=== PATIENT | female | born 1965 | race African-American/Black ===

== ENCOUNTER 2016-08-24 11:06 | Emergency (ER) | payer MEDICARE ==
[~2016-08-24] VITALS: Ht 177.8 cm; Wt 74.0 kg
[~2016-08-24 11:06] MED LIST: BACT2OIN TOP; CALC0.25 PO; CIPR1SUS4 RIGHT EAR; NOVOLOGSS SQ
[2016-08-24 11:16] VITALS: PULSE 88; RESP 16; TEMP 98.8; O2SAT 100
[2016-08-24] MEDS ORDERED: GABA100C4 PO (11:49)
--- NOTE | 2016-08-24 11:51 | PD ---
HPI Chief Complaint: Numbness/Tingling Time Seen by Provider: 11:30 Travel History International Travel<30 days: No Contact w/Intl Traveler<30days: No Traveled to known affect area: No History of Present Illness HPI 50-year-old female complains of persistent pain swelling bilateral feet. Patient has history of diabetes and end-stage renal disease on dialysis. Patient has history of neuropathic pain bilateral feet for long time. Patient has been seen by physician and put on gabapentin. Patient has been taking gabapentin once daily. Patient states that she has increasing pain burning pain and swelling bilateral feet for the past few days. Patient denies any recent injury. Patient denies any fever chills. PFSH Past Medical History Hx Anticoagulant Therapy: Yes (HEPRIN WITH DIALYSIS) Arthritis: No Asthma: No Autoimmune Disease: No Blood Disorders: No Anxiety: Yes Depression: Yes Heart Rhythm Problems: Yes (HISTORY OF AFIB) Cancer: No Cardiovascular Problems: Yes (A-FIB) High Cholesterol: No Chemotherapy: No Chest Pain: No Congestive Heart Failure: Yes COPD: No Cerebrovascular Accident: Yes Diabetes: Yes Dialysis: Yes (THU/THU/THU) Diminished Hearing: No Deep Vein Thrombosis: Yes Endocrine: Yes Gastrointestinal Disorders: Yes (HX OF BOWEL OBSTRUCTION) GERD: Yes Glaucoma: No Genitourinary: Yes (ANURIC) Headaches: No Hepatitis: No Hiatal Hernia: Yes Hypertension: No Immune Disorder: No Implanted Vascular Access Dvce: Yes Kidney Stones: No Musculoskeletal: No Neurologic: No Psychiatric: Yes (CLAUSTROPHOBIC) Reproductive: No Respiratory: Yes ("LEFT LUNG SCARRING FROM PNEUMONIA X2") Immunizations Current: Yes Migraines: No Myocardial Infarction: No Pneumonia: Yes (WALKING) Radiation Therapy: No Renal Failure: Yes Seizures: No Sickle Cell Disease: No Sleep Apnea: No Thyroid Disease: Yes (PARATHYROIDISM, OVERACTIVE THYROID--THYROID HAS BEEN REMOVED--IN L ARM) Ulcer: No PNEUMOCCOCAL Vaccine (Year): 1 Menopausal: Yes : 2 Para: 0 Miscarriage: 2 Ectopic : Yes Dilation and Curettage (D&C): Yes Tubal Ligation: Yes (RIGHT TUBE REMOVED) Past Surgical History Abdominal Surgery: Yes (SMALL BOWEL RESECTION R/T OBSTRUCTION IN INFANCY ) AICD: No Appendectomy: Yes Arteriovenous Shunt: Yes (LEFT UPPER ARM ) Body Medical Devices: 19 SCREWS IN FACE,AV GRAFT L ARM Cardiac Surgery: Yes Section: Yes Cholecystectomy: No Endocrine Surgery: Yes (PARATHYROID/THYROID REMOVED AND PARTIALLY REPLACED IN L ARM) Eye Surgery: No Genitourinary Surgery: Yes (KIDNEY TRANSPLANT 1996) Hysterectomy: No Insulin Pump: No Joint Replacement: No Neurologic Surgery: No Oral Surgery: Yes ("left sided facial reconstruction,plastic and screws"" 1995) Pacemaker: No Other Surgery: Yes (av fistula left arm) Social History Alcohol Use: No Tobacco Use: Yes (08/12) Substance Use: No Allergies-Medications (Allergen,Severity, Reaction): Coded Allergies: Coconut (Verified Allergy, Severe, HIVES, 08/24/16) Contrast Media (Verified Allergy, Severe, RENAL FAILURE, 08/24/16) Insulins (Verified Allergy, Severe, FREEZING, CRAMPING, 08/24/16) STATES REGULAR INSULIN ONLY Morphine (Verified Allergy, Severe, HIVES, 08/24/16) Clindamycin (Verified Allergy, Intermediate, HIVES, 08/24/16) ALL OVER Erythromycins (Unverified Allergy, Intermediate, HIVES, 08/24/16) Penicillin (Verified Allergy, Intermediate, Hives, 08/24/16) ALL OVER Codeine (Verified Adverse Reaction, Severe, HALLUCINATIONS, 08/24/16) Vancomycin (Verified Adverse Reaction, Mild, NAUSEA/VOMITING, 08/24/16) Uncoded Allergies: REGULAR INSULIN (Adverse Reaction, Intermediate, CRAMPING , FREEZING , 06/11/13) Reported Meds & Prescriptions Reported Meds & Active Scripts Active Otiprio (Ciprofloxacin (Otic)) 6 % [place] 4 Drop RIGHT EAR Q12HR 5 Days Bactroban 2% Oint (22 gm) (Mupirocin) 22 Gm Oint 1 Applic TOP TID 7 Days APPLY TO AFFECTED AREAS Reported Calcitriol 0.25 Mcg Cap 0.25 Mcg PO DAILY Novolog Insulin Supplemental Scale (Insulin Aspart) 100 /Ml Inj 5-7 Units SQ TIDACHS Max dose at bedtime:( )units; sugars less than 70, (0)units; sugars 150-199, (2)units; sugars 200-249, (4)units; sugars 250-299,(7)units; sugars 300-349, (10)units; sugars greater than 349, (12)units Review of Systems General / Constitutional: No: Fever Eyes: No: Visual changes HENT: No: Headaches Cardiovascular: No: Chest Pain or Discomfort Respiratory: No: Shortness of Breath Gastrointestinal: No: Abdominal Pain Genitourinary: No: Dysuria Musculoskeletal: Positive: Pain Skin: No Rash Neurologic: No: Weakness Psychiatric: No: Depression Endocrine: No: Polydipsia Hematologic/Lymphatic: No: Easy Bruising Physical Exam Narrative GENERAL: Well-nourished, well-developed patient. SKIN: Warm and dry. HEAD: Normocephalic. EYES: No scleral icterus. No injection or drainage. NECK: Supple, trachea midline. No JVD or lymphadenopathy. CARDIOVASCULAR: Regular rate and rhythm without murmurs, gallops, or rubs. RESPIRATORY: Breath sounds equal bilaterally. No accessory muscle use. GASTROINTESTINAL: Abdomen soft, non-tender, nondistended. MUSCULOSKELETAL: No cyanosis, or edema. BACK: Nontender without obvious deformity. No CVA tenderness. Examination of bilateral feet shows mild subcutaneous swelling diffusely. No redness no heat noted. Sensorimotor function distally intact. Good DP pulses and posterior tibial pulses. Data Data Last Documented VS Vital Signs Date Time Temp Pulse Resp B/P Pulse Ox O2 Delivery O2 Flow Rate FiO2 08/24/16 11:16 98.8 88 16 100 MDM Medical Decision Making Medical Screen Exam Complete: Yes Emergency Medical Condition: Yes Differential Diagnosis Differential diagnosis including neuralgia, neuropathy, cellulitis, abscess, osteomyelitis. Narrative Course 50-year-old female with increasing pain and bilateral feet. History of diabetes. History of end-stage renal disease on dialysis. Patient's on gabapentin for the pain. No evidence of acute process going on on her feet. Diagnosis Primary Impression: Neuralgia Patient Instructions: General Instructions Additional Instructions: Continue with gabapentin. Keep feet elevated. Follow-up with personal physician and neurologist. Return if worse. Med/Other Pt SpecificInfo: No Change to Meds Disposition: 01 DISCHARGE HOME Condition: Stable Ivan Lim MD Aug 24, 2016 11:51
[2017-01-02] MEDS ORDERED: TUMS500C CHEW (11:02)
[2017-01-06] MEDS ORDERED: LEVEMIR SQ (06:25)
[2017-01-06] MEDS ORDERED: CALC0.25 PO (06:25)
[2017-01-06] MEDS ORDERED: CALC1CAP PO (06:43)
[2017-01-06] MEDS ORDERED: HUMA100I3 SQ (06:43)
[2017-01-06] MEDS ORDERED: AMIT10TA6 PO (06:43)
[2017-01-06] MEDS ORDERED: CALC500C16 CHEW (06:44)
== END 2016-08-24 12:23 | disposition home or self-care (01) ==
LOC: PHED 11:06
DX: M79.2 Neuralgia and neuritis, unspecified (principal); I48.91 Unspecified atrial fibrillation; E11.22 Type 2 diabetes mellitus with diabetic chronic kidney disease; N18.6 End stage renal disease; Z99.2 Dependence on renal dialysis; Z79.4 Long term (current) use of insulin; Z86.73 Personal history of transient ischemic attack (TIA), and cerebral infarction without residual deficits; Z86.718 Personal history of other venous thrombosis and embolism
CPT/HCPCS: 99283

== ENCOUNTER → 2017-01-06 | Day surgery (SDC) | payer MEDICARE ==
[~2017-01-06] VITALS: Ht 177.8 cm; Wt 72.8 kg
[~2017-01-06] MED LIST changes: +ACETAMINOPHEN/HYDROcodone 325 MG/5 MG TAB PO PRN; +AMIT10TA6 PO; -BACT2OIN TOP; +BUPIVACAINE/EPINEPHRINE 0.25% PF 10 ML VIAL ONE; +BUPIVACAINE/EPINEPHRINE 0.5% PF 30 ML VIAL ONE; +CALC1CAP PO; +CALC500C16 CHEW; +CHLORHEXIDINE GLUCONATE 2 % 1 PACK (2 CLOTHS) TOPICAL PRN; -CIPR1SUS4 RIGHT EAR; +DO NOT ADM ANY ANTICOAGULANT DRUGS PRN; +FAMOTIDINE 20 MG/2 ML VIAL ONE; +GABA100C4 PO; +HEPARIN SODIUM - SQ 10,000 UNITS/ML VIAL ONE; +HUMA100I3 SQ; +Hemodialysis Vas Acc Cath PRN Heparin 1000 unit/ml Flush IV FLUSH; +Hemodialysis Vas Access Cath PRN NS Lock Flush IV FLUSH; +INSULIN HUMAN REGULAR 1,000 UNITS/10 ML VIAL SQ PRN; +KETAMINE HCL 500 MG/5 ML VIAL ONE; +LACTATED RINGER'S 1000 ML IV PRN; +LEVEMIR SQ; +METOPROLOL TARTRATE 25 MG TAB PO PRN; +MIDAZOLAM HCL 2 MG/2 ML VIAL ONE; +ONDANSETRON HCL 4 MG/2 ML VIAL IV PUSH PRN; +PHENYLEPH/NS 1000 MCG/10 ML SYR IV ONE; +PHENYLEPHRINE HCL 10 MG/ML VIAL IV ONE; +PROPOFOL 200 MG/20 ML AMP IV ONE; +SODIUM CHLOR 0.9% 250 ML INJ 250 ML IV ONE; +SODIUM CHLORID 0.9% 500 ML INJ 500 ML IV ONE; +SODIUM CHLORID 0.9% 500 ML IV PRN; +TUMS500C CHEW; +ceFAZolin 1,000 MG/NS 100 ML IV SCH; +ePHEDrine/NS 25 MG/5 ML SYR IV ONE
[2017-01-06 06:54] LABS: AUTOMATED NEUTROPHIL # 9.8 TH/MM3 (1.8-7.7); BASOPHIL # 0.1 TH/MM3 (0-0.2); EOSINOPHIL # 0.1 TH/MM3 (0-0.4); HEMATOCRIT 41.4 % (35.0-46.0); HEMO FLAGS DIFF FINAL; LYMPH % 13.7 % (9.0-44.0); LYMPHOCYTE # 1.8 TH/MM3 (1.0-4.8); MEAN CELL VOLUME 88.1 FL (80.0-100.0); MEAN CORPUSCULAR HEMOGLOBIN 28.7 PG (27.0-34.0); MEAN CORPUSCULAR HGB CONC 32.6 % (32.0-36.0); NEUT % 76.3 % (16.0-70.0); PLATELET COUNT 250 TH/MM3 (150-450); RED CELL DISTRIBUTION WIDTH 13.8 % (11.6-17.2); WHITE BLOOD COUNT 12.9 TH/MM3 (4.0-11.0)
[2017-01-06 07:19] LABS: BICARBONATE 20.9 MEQ/L (21.0-32.0); POTASSIUM 4.1 MEQ/L (3.5-5.1)
--- NOTE | 2017-01-06 08:09 | EKG ---
Date Performed: 01/06/2017 Time Performed: 07:30:42 PTAGE: 51 years EKG: Sinus rhythm SEPTAL MYOCARDIAL INFARCTION , OF INDETERMINATE AGE ABNORMAL ECG PREVIOUS TRACING : 09/19/2015 00.21 No significant change from previous tracing noted. DOCTOR: Carrington Roach Interpretating Date/Time 01/06/2017 08:07:27
[2017-01-06 10:52] VITALS: PULSE 82; RESP 18; TEMP 97.5; O2SAT 95
[2017-01-06 11:10] VITALS: BP 117/46
--- NOTE | 2017-01-07 08:06 | MP ---
cc: TONYA DINERO DATE OF SURGERY: 01/06/2017 PREOPERATIVE DIAGNOSIS Chronic kidney disease with need for permanent hemodialysis access. POSTOPERATIVE DIAGNOSIS Chronic kidney disease with need for permanent hemodialysis access. OPERATIVE PROCEDURE Right brachial basilic AV fistula creation. SURGEON Tonya Dinero MD MUSICAL ENGINEER MAXWELL Alba ANESTHESIA Local MAC. DESCRIPTION OF THE OPERATIVE PROCEDURE With the patient in the supine position and under IV sedation the right arm was prepped with Betadine and draped in a sterile fashion. No prophylactic antibiotic was indicated. Following a protocol time-out, the skin and subcutaneous tissue along the proposed incisional area was infiltrated with 0.5% Marcaine with epinephrine. A curvilinear incision was performed along the medial supra antecubital region through which the brachial artery and basilic vein were circumferentially mobilized. The vein was ligated distally with 4-0 Silk, transected proximal to the ligature, spatulated on end, flushed with heparinized saline and occluded with a Yasargil clip. The brachial artery was occluded proximally and distally with the Yasargil clip. A 4-mm arteriotomy was performed along the anteromedial surface. The artery was flushed proximally and distally with heparinized saline. An end-to-side anastomosis was accomplished between the vein and arteriotomy with continuous 7-0 Prolene. The occluding Yasargil clips were removed reestablishing pulsatile flow within the brachial artery as well as into the basilic vein. Strict hemostasis was assured along with normal perfusion within the right hand. The incision was closed with interrupted subcuticular 4-0 Monocryl, continuous subcuticular 5-0 Monocryl. Steri-Strips and sterile dressing was applied. No operative complications. Instrument, needle, sponge count were correct x2. The patient returned to the recovery room in stable condition having tolerated the procedure well. Tonya Dinero MD JTS/JUJUL /7:49 AM /7:58 AM
== END | disposition home or self-care (01) ==
LOC: HSDC 06:00
PROVIDERS: ATTEND Surgery Vascular Surgery
DX: Z49.01 Encounter for fitting and adjustment of extracorporeal dialysis catheter (principal); N18.6 End stage renal disease; R94.31 Abnormal electrocardiogram [ECG] [EKG]
CPT/HCPCS: 01844; 36821; 80048; 84155; 85025; 93005; J1644; J2250; J3010; J7040; J2370; J7050

== ENCOUNTER 2017-07-17 13:12 | Emergency (ER) | payer MEDICARE ==
[~2017-07-17] VITALS: Ht 177.8 cm; Wt 77.5 kg
[~2017-07-17 13:12] MED LIST changes: -ACETAMINOPHEN/HYDROcodone 325 MG/5 MG TAB PO PRN; -BUPIVACAINE/EPINEPHRINE 0.25% PF 10 ML VIAL ONE; -BUPIVACAINE/EPINEPHRINE 0.5% PF 30 ML VIAL ONE; -CHLORHEXIDINE GLUCONATE 2 % 1 PACK (2 CLOTHS) TOPICAL PRN; -DO NOT ADM ANY ANTICOAGULANT DRUGS PRN; -FAMOTIDINE 20 MG/2 ML VIAL ONE; -GABA100C4 PO; -HEPARIN SODIUM - SQ 10,000 UNITS/ML VIAL ONE; -Hemodialysis Vas Acc Cath PRN Heparin 1000 unit/ml Flush IV FLUSH; -Hemodialysis Vas Access Cath PRN NS Lock Flush IV FLUSH; -INSULIN HUMAN REGULAR 1,000 UNITS/10 ML VIAL SQ PRN; -KETAMINE HCL 500 MG/5 ML VIAL ONE; -LACTATED RINGER'S 1000 ML IV PRN; -LEVEMIR SQ; -METOPROLOL TARTRATE 25 MG TAB PO PRN; -MIDAZOLAM HCL 2 MG/2 ML VIAL ONE; -NOVOLOGSS SQ; -ONDANSETRON HCL 4 MG/2 ML VIAL IV PUSH PRN; -PHENYLEPH/NS 1000 MCG/10 ML SYR IV ONE; -PHENYLEPHRINE HCL 10 MG/ML VIAL IV ONE; -PROPOFOL 200 MG/20 ML AMP IV ONE; -SODIUM CHLOR 0.9% 250 ML INJ 250 ML IV ONE; -SODIUM CHLORID 0.9% 500 ML INJ 500 ML IV ONE; -SODIUM CHLORID 0.9% 500 ML IV PRN; -TUMS500C CHEW; -ceFAZolin 1,000 MG/NS 100 ML IV SCH; -ePHEDrine/NS 25 MG/5 ML SYR IV ONE
[2017-07-17 13:13] VITALS: BP 140/72; PULSE 109; RESP 20; TEMP 99; O2SAT 96
--- NOTE | 2017-07-17 13:55 | PD ---
HPI Chief Complaint: Musculoskeletal Complaint Time Seen by Provider: 13:21 Travel History International Travel<30 days: No Contact w/Intl Traveler<30days: No Traveled to known affect area: No History of Present Illness HPI Patient is a 51-year-old female with history of end-stage renal disease on hemodialysis, presents to the emergency room with complaints of right digit #2 toe pain. Patient reports that she has been on antibiotics for the past 3 weeks for this toe infection, reports that she was initially taking azithromycin for 2 weeks and then was started on cipro for week 3. Reports that she completed full course of antibiotics for this right digit #2 toe infection. She did see Dr. Mcgregor, a foot and ankle specialist and had her toe nail removed 2 weeks ago due to this infection. Reports that she followed up with him 2 days ago and he told that she would need surgery on her toe. Patient reports increased pain and drainage from her right foot digit #2. Patient is concerned for underlying infection. Patient reports that she currently is not on antibiotics, reports that she completed full course of antibiotics this past Thursday. Patient with no fever or chills, no other complaints. Patient does see Dr. Dinero with vascular surgery [facility] Past Medical History Hx Anticoagulant Therapy: Yes (HEPRIN WITH DIALYSIS) Arthritis: No Asthma: No Autoimmune Disease: No Blood Disorders: No Anxiety: Yes Depression: Yes Heart Rhythm Problems: Yes (HISTORY OF AFIB) Cancer: No Cardiovascular Problems: Yes (INTERMITTENT A-FIB) High Cholesterol: No Chemotherapy: No Chest Pain: No Congestive Heart Failure: Yes COPD: No Cerebrovascular Accident: Yes Diabetes: Yes Patient Takes Glucophage: No Dialysis: Yes (THU/THU/THU) Diminished Hearing: No Deep Vein Thrombosis: Yes Endocrine: Yes Gastrointestinal Disorders: Yes (HX OF 5 BOWEL OBSTRUCTIONS) GERD: Yes Glaucoma: No Genitourinary: Yes (ANURIC) Headaches: No Hepatitis: No Hiatal Hernia: Yes Heparin Induced Thrombocytopen: No Hypertension: No Immune Disorder: No Implanted Vascular Access Dvce: Yes Kidney Stones: No Musculoskeletal: No Neurologic: No Psychiatric: Yes (CLAUSTROPHOBIC) Reproductive: No Respiratory: Yes ("LEFT LUNG SCARRING FROM PNEUMONIA X2") Immunizations Current: Yes Migraines: No Myocardial Infarction: No Pneumonia: Yes Radiation Therapy: No Renal Failure: Yes Seizures: No Sickle Cell Disease: No Sleep Apnea: No Thyroid Disease: Yes (PARATHYROIDISM, OVERACTIVE THYROID--THYROID HAS BEEN REMOVED--IN L ARM) Ulcer: No PNEUMOCCOCAL Vaccine (Year): 1 ?: Not Menopausal: Yes : 2 Para: 0 Miscarriage: 2 Ectopic : Yes Dilation and Curettage (D&C): Yes Tubal Ligation: Yes (RIGHT TUBE REMOVED) Past Surgical History Abdominal Surgery: Yes (SMALL BOWEL RESECTION R/T OBSTRUCTION IN INFANCY , 2ND BOWEL SURGERY) AICD: No Appendectomy: Yes Arteriovenous Shunt: Yes (LEFT UPPER ARM ) Body Medical Devices: 19 SCREWS IN FACE,AV GRAFT L ARM, DIALYSIS CATHETER RIGHT NECK Cardiac Surgery: No Section: Yes Cholecystectomy: No Ear Surgery: No Endocrine Surgery: Yes (PARATHYROID/THYROID REMOVED AND PARTIALLY REPLACED IN L ARM) Eye Surgery: No Genitourinary Surgery: Yes (KIDNEY TRANSPLANT 1996) Gynecologic Surgery: Yes (TL, ABLATION) Hysterectomy: No Insulin Pump: No Joint Replacement: No Neurologic Surgery: No Oral Surgery: Yes ("left sided facial reconstruction,plastic and screws"" 1995) Pacemaker: No Other Surgery: Yes (av fistula left arm) Social History Alcohol Use: No Tobacco Use: No Substance Use: No Allergies-Medications (Allergen,Severity, Reaction): Coded Allergies: coconut (Unverified Allergy, Severe, HIVES, 07/17/17) diatrizoate meglumine (Unverified Allergy, Severe, RENAL FAILURE, 07/17/17) gadobenic acid (Unverified Allergy, Severe, RENAL FAILURE, 07/17/17) gadodiamide (Unverified Allergy, Severe, RENAL FAILURE, 07/17/17) gadoteridol (Unverified Allergy, Severe, RENAL FAILURE, 07/17/17) iodixanol (Unverified Allergy, Severe, RENAL FAILURE, 07/17/17) iohexol (Unverified Allergy, Severe, RENAL FAILURE, 07/17/17) morphine (Unverified Allergy, Severe, HIVES, 07/17/17) azithromycin (Unverified Allergy, Intermediate, HIVES, 07/17/17) clindamycin (Unverified Allergy, Intermediate, HIVES, 07/17/17) ALL OVER erythromycin base (Unverified Allergy, Intermediate, HIVES, 07/17/17) penicillin G (Unverified Allergy, Intermediate, Hives, 07/17/17) ALL OVER midodrine (Unverified Allergy, Unknown, Atrial Fibrillation, 07/17/17) codeine (Unverified Adverse Reaction, Severe, HALLUCINATIONS, 07/17/17) insulin aspart (Unverified Adverse Reaction, Severe, REGULAR INSULIN ONLY- CAUSES CRAMPIN G AND "FREEZING", 07/17/17) insulin aspart protamine human (Unverified Adverse Reaction, Severe, REGULAR INSULIN ONLY-CAUSES CRAMPIN G AND "FREEZING", 07/17/17) insulin detemir (Unverified Adverse Reaction, Severe, REGULAR INSULIN ONLY -CAUSES CRAMPIN G AND "FREEZING", 07/17/17) insulin glargine (Unverified Adverse Reaction, Severe, REGULAR INSULIN ONLY-CAUSES CRAMPIN G AND "FREEZING", 07/17/17) insulin isophane (NPH) (Unverified Adverse Reaction, Severe, REGULAR INSULIN ONLY-CAUSES CRAMPIN G AND "FREEZING", 07/17/17) insulin lispro (Unverified Adverse Reaction, Severe, REGULAR INSULIN ONLY- CAUSES CRAMPIN G AND "FREEZING", 07/17/17) insulin regular (Unverified Adverse Reaction, Severe, REGULAR INSULIN ONLY -CAUSES CRAMPIN G AND "FREEZING", 07/17/17) vancomycin (Unverified Adverse Reaction, Mild, NAUSEA/VOMITING WHEN INFUSED TOO FAST, 07/17/17) Reported Meds & Prescriptions Reported Meds & Active Scripts Active Bactrim DS (Sulfamethoxazole-Trimethoprim) 800-160 Mg Tab 1 Tab PO BID 10 Days Reported Calcium Carbonate (Antacid) 500 Mg Chew 500 Mg CHEW PRN Amitriptyline (Amitriptyline HCl) 10 Mg Tab 10 Mg PO HS Calcium Acetate (Phosphate Binder) 667 Mg Cap 667 Mg PO TID Humalog Kwikpen Pen Inj (Insulin Lispro (Human) Inj) 300 Unit/3 Ml Pen 8-12 Units SQ [id number] SLIDE SCALE Calcitriol 0.25 Mcg Cap 0.25 Mcg PO EVERY OTHER DAY Review of Systems General / Constitutional: No: Fever Eyes: No: Visual changes HENT: No: Headaches Cardiovascular: No: Chest Pain or Discomfort Respiratory: No: Shortness of Breath Gastrointestinal: No: Abdominal Pain Genitourinary: No: Dysuria Musculoskeletal: Positive: Pain (and drainage to right foot digit #2) Skin: No Rash Neurologic: No: Weakness Psychiatric: No: Depression Endocrine: No: Polydipsia Hematologic/Lymphatic: No: Easy Bruising Physical Exam Narrative GENERAL: moderate distress SKIN: Focused skin assessment warm/dry. HEAD: Atraumatic. Normocephalic. EYES: Pupils equal and round. No scleral icterus. No injection or drainage. ENT: No nasal bleeding or discharge. Mucous membranes pink and moist. NECK: Trachea midline. No JVD. CARDIOVASCULAR: Regular rate and rhythm. No murmur appreciated. RESPIRATORY: No accessory muscle use. Clear to auscultation. Breath sounds equal bilaterally. GASTROINTESTINAL: Abdomen soft, non-tender, nondistended. Hepatic and splenic margins not palpable. MUSCULOSKELETAL: No obvious deformities. No clubbing. No cyanosis. Patient with yellow pus draining under scab from right foot digit #2, pulses intact neurovascularly intact, no redness or erythema to foot. LLE: normal exam NEUROLOGICAL: Awake and alert. No obvious cranial nerve deficits. Motor grossly within normal limits. Normal speech. PSYCHIATRIC: Appropriate mood and affect; insight and judgment normal. Data Data Last Documented VS Vital Signs Date Time Temp Pulse Resp B/P (MAP) Pulse Ox O2 Delivery O2 Flow Rate FiO2 07/17/17 13:28 18 07/17/17 13:13 99.0 109 140/72 (94) 96 Room Air Orders Orders Basic Metabolic Panel (Bmp) (07/17/17 13:38) Complete Blood Count With Diff (07/17/17 13:38) Prothrombin Time / Inr (Pt) (07/17/17 13:38) Act Partial Throm Time (Ptt) (07/17/17 13:38) Iv Access Insert/Monitor (07/17/17 13:38) Foot, Complete ([id number]) (07/17/17 ) Vancomycin Inj (Vancomycin Inj) (07/17/17 14:00) Labs Laboratory Tests Test 07/17/17 13:48 White Blood Count 11.8 TH/MM3 Red Blood Count 4.43 MIL/MM3 Hemoglobin 13.1 GM/DL Hematocrit 39.4 % Mean Corpuscular Volume 89.0 FL Mean Corpuscular Hemoglobin 29.5 PG Mean Corpuscular Hemoglobin Concent 33.1 % Red Cell Distribution Width 15.0 % Platelet Count 283 TH/MM3 Mean Platelet Volume 8.4 FL Neutrophils (%) (Auto) 67.3 % Lymphocytes (%) (Auto) 20.1 % Monocytes (%) (Auto) 8.8 % Eosinophils (%) (Auto) 3.2 % Basophils (%) (Auto) 0.6 % Neutrophils # (Auto) 7.9 TH/MM3 Lymphocytes # (Auto) 2.4 TH/MM3 Monocytes # (Auto) 1.0 TH/MM3 Eosinophils # (Auto) 0.4 TH/MM3 Basophils # (Auto) 0.1 TH/MM3 CBC Comment DIFF FINAL Differential Comment Prothrombin Time 10.0 SEC Prothromb Time International Ratio 1.0 RATIO Activated Partial Thromboplast Time 26.6 SEC Blood Urea Nitrogen 39 MG/DL Creatinine 8.34 MG/DL Random Glucose 157 MG/DL Calcium Level 8.5 MG/DL Sodium Level 138 MEQ/L Potassium Level 5.3 MEQ/L Chloride Level 100 MEQ/L Carbon Dioxide Level 30.0 MEQ/L Anion Gap 8 MEQ/L Estimat Glomerular Filtration Rate 6 ML/MIN MDM Medical Decision Making Medical Screen Exam Complete: Yes Emergency Medical Condition: Yes Medical Record Reviewed: Yes Interpretation(s) Vital Signs Date Time Temp Pulse Resp B/P (MAP) Pulse Ox O2 Delivery O2 Flow Rate FiO2 07/17/17 13:28 18 07/17/17 13:13 99.0 109 20 140/72 (94) 96 Room Air Differential Diagnosis Abscess, osteomyelitis, cellulitis Narrative Course During the course of the patients emergency department visit, the patients history, examination, and differential diagnosis were reviewed with the patient. The patient was placed on a desk monitor with oximetry and frequent blood pressure monitoring. The patient had an IV access obtained and blood work sent for analysis. The patient was initially provided with IV vancomycin The patients laboratory studies were reviewed and remarkable for: CBC & BMP Diagram 07/17/17 13:48 Calcium Level 8.5 Radiology studies were reviewed and remarkable for: Last Impressions Foot X-Ray 07/17/17 0000 Signed Impressions: Service Date/Time: Monday, July 17, 2017 14:13 - CONCLUSION: 1. No acute right foot abnormality is identified. 2. Small vessel arterial vascular calcification in a pattern seen in diabetic patients. Maikol Veliz MD case reviewed with Dr. Yan who is scout professional sports for Dr. Mcgregor - thinks that issues are all vascular in nature and request call to Dr. Dinero Patient with appropriate pulses to right foot, all toes are normal color with good perfusion. There is appropriate capillary refill. Patient with no signs of arterial insufficiency. Patient with no signs of osteomyelitis. Patient does have drainage from her right foot digit #2 scab site. Discussed need to treat with antibiotics, she will follow-up with Dr. Dinero in the office and will return to the ER as needed. Signs and symptoms of when to return to the ER was reviewed with patient in detail. Patient reports no allergies to Percocet, she has tolerated this in the past and has had no adverse reaction to it Diagnosis Primary Impression: Toe infection Patient Instructions: General Instructions, Narcotic given in the ED Additional Instructions: Please provide patient with a copy of their lab work and studies at discharge* * Please follow up with your primary care doctor in 2-3 days Return to the ER if symptoms worsen or progress Return to the ER as needed Please follow-up with Dr. Dinero in the office as soon as possible Please take all antibiotics as prescribed Please do not drive or operate heavy machinery while taking narcotic pain medications Med/Other Pt SpecificInfo: Prescription(s) given, Wound Care Scripts Oxycodone-Acetaminophen (Percocet) 5-325 mg Tab 1 TAB PO Q6H Y for PAIN, #10 TAB 0 Refills Prov: Linda Hilario DO 07/17/17 Sulfamethoxazole-Trimethoprim (Bactrim DS) 800-160 Mg Tab 1 TAB PO BID for Infection for 10 Days, #20 TAB 0 Refills Prov: Linda Hilario DO 07/17/17 Disposition: 01 DISCHARGE HOME Condition: Stable Linda Hilario DO Jul 17, 2017 13:55
[2017-07-17] MEDS ORDERED: VANCOMYCIN INJ 1,150 MG in SODIUM CHLOR 0.9% 250 ML INJ 250 ML IV ONE (14:00)
[2017-07-17 14:02] LABS: AUTOMATED NEUTROPHIL # 7.9 TH/MM3 (1.8-7.7); BASOPHIL # 0.1 TH/MM3 (0-0.2); BASOPHIL % 0.6 % (0.0-2.0); EOSINOPHIL # 0.4 TH/MM3 (0-0.4); EOSINOPHIL % 3.2 % (0.0-4.0); HEMATOCRIT 39.4 % (35.0-46.0); HEMO FLAGS DIFF FINAL; LYMPH % 20.1 % (9.0-44.0); LYMPHOCYTE # 2.4 TH/MM3 (1.0-4.8); MEAN CORPUSCULAR HEMOGLOBIN 29.5 PG (27.0-34.0); MEAN CORPUSCULAR HGB CONC 33.1 % (32.0-36.0); MONO % 8.8 % (0.0-8.0); NEUT % 67.3 % (16.0-70.0); PLATELET COUNT 283 TH/MM3 (150-450); RED BLOOD COUNT 4.43 MIL/MM3 (4.00-5.30); WHITE BLOOD COUNT 11.8 TH/MM3 (4.0-11.0)
[2017-07-17 14:08] LABS: APTT (PATIENT) 26.6 SEC (24.3-30.1)
[2017-07-17 14:16] LABS: POTASSIUM 5.3 MEQ/L (3.5-5.1)
--- NOTE | 2017-07-17 15:08 | RADRPT ---
EXAM DATE/TIME: 07/17/2017 14:13 [facility] COMPARISON: No previous studies available for comparison. INDICATIONS : Right foot pain and swelling. MEDICAL HISTORY : Diabetes mellitus type II. SURGICAL HISTORY : None. ENCOUNTER: Initial ACUITY: 1 month PAIN SCORE: 8/10 LOCATION: Right 2nd toe and top of foot. FINDINGS: Three views of the right foot demonstrate no fracture or dislocation. The Lisfranc joint appears inta ct. Mineralization is within normal limits and there is no significant arthropathy. No soft tissue ab normality or radiopaque foreign body is identified. There is small vessel arterial vascular calcifica tion. CONCLUSION: 1. No acute right foot abnormality is identified. 2. Small vessel arterial vascular calcification in a pattern seen in diabetic patients. Maikol Veliz MD on July 17, 2017 at 15:05 Board Certified Radiologist. This report was verified electronically.
[2017-07-17] MEDS ORDERED: BACT800T5 PO (15:55)
[2017-07-17] MEDS ORDERED: PERC5TAB12 PO (16:01)
== END 2017-07-17 17:10 | disposition home or self-care (01) ==
LOC: NEPD 13:12
DX: L08.9 Local infection of the skin and subcutaneous tissue, unspecified (principal); E11.22 Type 2 diabetes mellitus with diabetic chronic kidney disease; N18.6 End stage renal disease; F41.9 Anxiety disorder, unspecified; I48.91 Unspecified atrial fibrillation; I50.9 Heart failure, unspecified; K21.9 Gastro-esophageal reflux disease without esophagitis; Z86.73 Personal history of transient ischemic attack (TIA), and cerebral infarction without residual deficits; Z99.2 Dependence on renal dialysis
CPT/HCPCS: 73630; 80048; 85025; 85610; 85730; 96365; 96366; 99285; J3370; J7050

== ENCOUNTER 2017-07-28 02:02 | Emergency (ER) | payer MEDICARE ==
[~2017-07-28] VITALS: Ht 177.8 cm; Wt 74.1 kg
[~2017-07-28 02:02] MED LIST changes: +BACT800T5 PO; +PERC5TAB12 PO
[2017-07-28 02:10] VITALS: BP 153/67; PULSE 88; RESP 22; TEMP 97.7; O2SAT 100
[2017-07-28] MEDS ORDERED: NOVOINJ3 SQ (02:21)
[2017-07-28] MEDS ORDERED: TRAM50TA PO (02:21)
[2017-07-28] MEDS ORDERED: GABA300C5 PO (02:22)
[2017-07-28] MEDS ORDERED: GABAPENTIN 300 MG CAP PO ONE (02:45)
[2017-07-28] MEDS ORDERED: oxyCODONE/ACETAMINOPHEN 5 MG/325 MG TAB PO ONE (02:45)
[2017-07-28] MEDS ORDERED: ONDANSETRON HCL 4 MG/2 ML VIAL IV PUSH ONE (02:45)
[2017-07-28 02:52] LABS: AUTOMATED NEUTROPHIL # 10.9 TH/MM3 (1.8-7.7); BASOPHIL # 0.1 TH/MM3 (0-0.2); BASOPHIL % 0.9 % (0.0-2.0); EOSINOPHIL # 0.2 TH/MM3 (0-0.4); EOSINOPHIL % 1.4 % (0.0-4.0); HEMATOCRIT 36.1 % (35.0-46.0); HEMOGLOBIN 11.6 GM/DL (11.6-15.3); LYMPH % 8.6 % (9.0-44.0); LYMPHOCYTE # 1.1 TH/MM3 (1.0-4.8); MEAN CORPUSCULAR HGB CONC 32.2 % (32.0-36.0); MEAN PLATELET VOLUME 7.5 FL (7.0-11.0); MONO % 6.6 % (0.0-8.0); MONOCYTE # 0.9 TH/MM3 (0-0.9); NEUT % 82.5 % (16.0-70.0); PLATELET COUNT 366 TH/MM3 (150-450); RED BLOOD COUNT 4.16 MIL/MM3 (4.00-5.30); RED CELL DISTRIBUTION WIDTH 13.9 % (11.6-17.2); WHITE BLOOD COUNT 13.2 TH/MM3 (4.0-11.0)
--- NOTE | 2017-07-28 03:03 | PD ---
HPI Chief Complaint: Edema Time Seen by Provider: 02:30 Travel History International Travel<30 days: No Contact w/Intl Traveler<30days: No Traveled to known affect area: No History of Present Illness HPI 51-YEAR-OLD FEMALE COMPLAINS OF RIGHT SECOND TOE PAIN. iT HAS BEEN PAINFUL FOR A FEW WEEKS NOW. bACTRIM HAS NOT BEEN HELPFUL. sHE IS FOLLOWED WITH 2 DIFFERENT PODIATRISTS and has an appointment in about 10 hours with the second. She has a history of abscess underneath the toenail and is status post excision of toenail and reports no real improvement despite compliance with Bactrim. Pain is constant and has a stabbing quality and migrated superiorly. The pain is worse with palpation and ambulation. No fever. Patient has history of end-stage renal disease and follows with dialysis as scheduled Thursday. PFSH Past Medical History Hx Anticoagulant Therapy: Yes (HEPRIN WITH DIALYSIS) Arthritis: No Asthma: No Autoimmune Disease: No Blood Disorders: No Anxiety: Yes Depression: Yes Heart Rhythm Problems: Yes (HISTORY OF AFIB) Cancer: No Cardiovascular Problems: Yes (INTERMITTENT A-FIB) High Cholesterol: No Chemotherapy: No Chest Pain: No Congestive Heart Failure: Yes COPD: No Cerebrovascular Accident: Yes Diabetes: Yes Patient Takes Glucophage: No Dialysis: Yes (THU/THU/THU) Diminished Hearing: No Deep Vein Thrombosis: Yes Endocrine: Yes Gastrointestinal Disorders: Yes (HX OF 5 BOWEL OBSTRUCTIONS) GERD: Yes Glaucoma: No Genitourinary: Yes (ANURIC) Headaches: No Hepatitis: No Hiatal Hernia: Yes Heparin Induced Thrombocytopen: No Hypertension: No Immune Disorder: No Implanted Vascular Access Dvce: Yes Kidney Stones: No Musculoskeletal: No Neurologic: No Psychiatric: Yes (CLAUSTROPHOBIC) Reproductive: No Respiratory: Yes ("LEFT LUNG SCARRING FROM PNEUMONIA X2") Immunizations Current: Yes Migraines: No Myocardial Infarction: No Pneumonia: Yes Radiation Therapy: No Renal Failure: Yes Seizures: No Sickle Cell Disease: No Sleep Apnea: No Thyroid Disease: Yes (PARATHYROIDISM, OVERACTIVE THYROID--THYROID HAS BEEN REMOVED--IN L ARM) Ulcer: No Tetanus Vaccination: < 5 Years Influenza Vaccination: Yes PNEUMOCCOCAL Vaccine (Year): 1 ?: Not Menopausal: Yes : 2 Para: 0 Miscarriage: 2 Ectopic : Yes Dilation and Curettage (D&C): Yes Tubal Ligation: Yes (RIGHT TUBE REMOVED) Past Surgical History Abdominal Surgery: Yes (SMALL BOWEL RESECTION R/T OBSTRUCTION IN INFANCY , 2ND BOWEL SURGERY) AICD: No Appendectomy: Yes Arteriovenous Shunt: Yes (LEFT UPPER ARM ) Body Medical Devices: 19 SCREWS IN FACE,AV GRAFT L ARM, DIALYSIS CATHETER RIGHT NECK Cardiac Surgery: No Section: Yes Cholecystectomy: No Ear Surgery: No Endocrine Surgery: Yes (PARATHYROID/THYROID REMOVED AND PARTIALLY REPLACED IN L ARM) Eye Surgery: No Genitourinary Surgery: Yes (KIDNEY TRANSPLANT 1996) Gynecologic Surgery: Yes (TL, ABLATION) Hysterectomy: No Insulin Pump: No Joint Replacement: No Neurologic Surgery: No Oral Surgery: Yes ("left sided facial reconstruction,plastic and screws"" 1995) Pacemaker: No Other Surgery: Yes (av fistula left arm) Social History Alcohol Use: No Tobacco Use: No (QUIT ) Substance Use: No Allergies-Medications (Allergen,Severity, Reaction): Coded Allergies: coconut (Unverified Allergy, Severe, HIVES, 07/28/17) diatrizoate meglumine (Unverified Allergy, Severe, RENAL FAILURE, 07/28/17 ) gadobenic acid (Unverified Allergy, Severe, RENAL FAILURE, 07/28/17) gadodiamide (Unverified Allergy, Severe, RENAL FAILURE, 07/28/17) gadoteridol (Unverified Allergy, Severe, RENAL FAILURE, 07/28/17) iodixanol (Unverified Allergy, Severe, RENAL FAILURE, 07/28/17) iohexol (Unverified Allergy, Severe, RENAL FAILURE, 07/28/17) morphine (Unverified Allergy, Severe, HIVES, 07/28/17) azithromycin (Unverified Allergy, Intermediate, HIVES, 07/28/17) clindamycin (Unverified Allergy, Intermediate, HIVES, 07/28/17) ALL OVER erythromycin base (Unverified Allergy, Intermediate, HIVES, 07/28/17) penicillin G (Unverified Allergy, Intermediate, Hives, 07/28/17) ALL OVER midodrine (Unverified Allergy, Unknown, Atrial Fibrillation, 07/28/17) codeine (Unverified Adverse Reaction, Severe, HALLUCINATIONS, 07/28/17) insulin aspart (Unverified Adverse Reaction, Severe, REGULAR INSULIN ONLY- CAUSES CRAMPIN G AND "FREEZING", 07/28/17) insulin aspart protamine human (Unverified Adverse Reaction, Severe, REGULAR INSULIN ONLY-CAUSES CRAMPIN G AND "FREEZING", 07/28/17) insulin detemir (Unverified Adverse Reaction, Severe, REGULAR INSULIN ONLY -CAUSES CRAMPIN G AND "FREEZING", 07/28/17) insulin glargine (Unverified Adverse Reaction, Severe, REGULAR INSULIN ONLY-CAUSES CRAMPIN G AND "FREEZING", 07/28/17) insulin isophane (NPH) (Unverified Adverse Reaction, Severe, REGULAR INSULIN ONLY-CAUSES CRAMPIN G AND "FREEZING", 07/28/17) insulin lispro (Unverified Adverse Reaction, Severe, REGULAR INSULIN ONLY- CAUSES CRAMPIN G AND "FREEZING", 07/28/17) insulin regular (Unverified Adverse Reaction, Severe, REGULAR INSULIN ONLY -CAUSES CRAMPIN G AND "FREEZING", 07/28/17) vancomycin (Unverified Adverse Reaction, Mild, NAUSEA/VOMITING WHEN INFUSED TOO FAST, 07/28/17) Reported Meds & Prescriptions Reported Meds & Active Scripts Active Percocet (Oxycodone-Acetaminophen) 5-325 mg Tab 1 Tab PO Q6H PRN Bactrim DS (Sulfamethoxazole-Trimethoprim) 800-160 Mg Tab 1 Tab PO BID 10 Days Reported Gabapentin 300 Mg Cap 300 Mg PO BID Tramadol (Tramadol HCl) 50 Mg Tab 50 Mg PO Q4H PRN Novolog Flexpen Inj (Insulin Aspart) 300 Unit/3 Ml Pen 6.5 Units SQ ACHS Amitriptyline (Amitriptyline HCl) 10 Mg Tab 10 Mg PO HS Calcium Acetate (Phosphate Binder) 667 Mg Cap 667 Mg PO TID Calcitriol 0.25 Mcg Cap 0.25 Mcg PO EVERY OTHER DAY Review of Systems Except as stated in HPI: all other systems reviewed are Neg General / Constitutional: No: Fever Musculoskeletal: Positive: Pain Physical Exam Narrative GENERAL: 51-year-old female pleasant SKIN: Focused skin assessment warm/dry. HEAD: Atraumatic. Normocephalic. EYES: Pupils equal and round. No scleral icterus. No injection or drainage. ENT: No nasal bleeding or discharge. Mucous membranes pink and moist. NECK: Trachea midline. No JVD. CARDIOVASCULAR: Regular rate and rhythm. No murmur appreciated. RESPIRATORY: No accessory muscle use. Clear to auscultation. Breath sounds equal bilaterally. Left anterior chest wall tunneled catheter. GASTROINTESTINAL: Abdomen soft, non-tender, nondistended. Hepatic and splenic margins not palpable. MUSCULOSKELETAL: No obvious deformities. No clubbing. No cyanosis. No edema. Left upper extremity AV fistula intact. The right second toenail is unroofed and there is minimal shiny tissue directly beneath it and some generalized swelling of the second toe. Passive range of motion is tender. There is intact dorsalis pedis pulse bilaterally. NEUROLOGICAL: Awake and alert. No obvious cranial nerve deficits. Motor grossly within normal limits. Normal speech. PSYCHIATRIC: Appropriate mood and affect; insight and judgment normal. Data Data Last Documented VS Vital Signs Date Time Temp Pulse Resp B/P (MAP) Pulse Ox O2 Delivery O2 Flow Rate FiO2 07/28/17 05:05 90 18 149/89 (109) 97 Room Air 07/28/17 02:10 97.7 Vital signs reviewed Orders Orders Basic Metabolic Panel (Bmp) (07/28/17 02:30) Complete Blood Count With Diff (07/28/17 02:30) Wound Culture And Gram Stain (07/28/17 02:30) Iv Access Insert/Monitor (07/28/17 02:30) Wound Care (07/28/17 02:30) Foot, Limited (2vws) (07/28/17 ) Gabapentin (Neurontin) (07/28/17 02:45) Oxycodone-Acetamin 5-325 Mg (Percocet (07/28/17 02:45) Ondansetron Inj (Zofran Inj) (07/28/17 02:45) Protein Corrected Calcium(Pcc) (07/28/17 02:45) Ed Discharge Order (07/28/17 05:07) Labs Laboratory Tests Test 07/28/17 02:45 White Blood Count 13.2 TH/MM3 Red Blood Count 4.16 MIL/MM3 Hemoglobin 11.6 GM/DL Hematocrit 36.1 % Mean Corpuscular Volume 87.0 FL Mean Corpuscular Hemoglobin 28.0 PG Mean Corpuscular Hemoglobin Concent 32.2 % Red Cell Distribution Width 13.9 % Platelet Count 366 TH/MM3 Mean Platelet Volume 7.5 FL Neutrophils (%) (Auto) 82.5 % Lymphocytes (%) (Auto) 8.6 % Monocytes (%) (Auto) 6.6 % Eosinophils (%) (Auto) 1.4 % Basophils (%) (Auto) 0.9 % Neutrophils # (Auto) 10.9 TH/MM3 Lymphocytes # (Auto) 1.1 TH/MM3 Monocytes # (Auto) 0.9 TH/MM3 Eosinophils # (Auto) 0.2 TH/MM3 Basophils # (Auto) 0.1 TH/MM3 CBC Comment DIFF FINAL Differential Comment Blood Urea Nitrogen 64 MG/DL Creatinine 11.00 MG/DL Random Glucose 163 MG/DL Total Protein 8.0 GM/DL Calcium Level 6.6 MG/DL Sodium Level 134 MEQ/L Potassium Level 4.4 MEQ/L Chloride Level 94 MEQ/L Carbon Dioxide Level 21.3 MEQ/L Anion Gap 19 MEQ/L Estimat Glomerular Filtration Rate 4 ML/MIN Protein Corrected Calcium 6.3 MG/DL MDM Medical Decision Making Medical Screen Exam Complete: Yes Emergency Medical Condition: Yes Medical Record Reviewed: Yes Differential Diagnosis Abscess osteomyelitis fracture Narrative Course CBC & BMP Diagram 07/28/17 02:45 Total Protein 8.0, Calcium Level 6.6 *L Last 24 hours Impressions Foot X-Ray 07/28/17 0000 Signed Impressions: Service Date/Time: Friday, July 28, 2017 02:47 - CONCLUSION: No acute abnormality is seen. Maikol Maurice MD There is no osteomyelitis. Patient has a chronic toe infection. Continuation of Bactrim considered most reasonable approach. Patient has an appointment with podiatry in 2-1/2 hours. Marginal pain control with Percocet. Patient worried about delaying healing. We discussed complications due to peripheral vascular disease coupled with end-stage kidney disease and patient verbalized understanding. Diagnosis Primary Impression: Cellulitis Qualified Codes: L03.031 - Cellulitis of right toe Referrals: [facility]/Other Pt SpecificInfo: Prescription(s) given Scripts Oxycodone-Acetaminophen (Percocet) 5-325 mg Tab 1 TAB PO Q6H Y for PAIN, #15 TAB 0 Refills Prov: Nj Caballero MD 07/28/17 Disposition: 01 DISCHARGE HOME Condition: Stable Nj Caballero MD Jul 28, 2017 03:03
[2017-07-28 03:05] VITALS: BP 148/84; PULSE 78; RESP 18; O2SAT 97
[2017-07-28 03:13] LABS: BICARBONATE 21.3 MEQ/L (21.0-32.0); CALCIUM 6.6 MG/DL (8.5-10.1)
--- NOTE | 2017-07-28 03:30 | RADRPT ---
EXAM DATE/TIME: 07/28/2017 02:47 [facility] COMPARISON: No previous studies available for comparison. INDICATIONS : Right foot pain and swelling. MEDICAL HISTORY : Diabetes mellitus type II. SURGICAL HISTORY : None. ENCOUNTER: Initial ACUITY: 1 month PAIN SCORE: 6/10 LOCATION: Right dorsal foot. FINDINGS: Two view examination of the right foot demonstrates no soft tissue swelling, dislocation, or fracture . Calcaneal spurs are present. Vascular calcifications are present. Bony mineralization is normal. CONCLUSION: No acute abnormality is seen. Maikol Maurice MD on July 28, 2017 at 3:28 Board Certified Radiologist. This report was verified electronically.
[2017-07-28 04:05] VITALS: BP 148/75; PULSE 88; RESP 18; O2SAT 98
[2017-07-28 04:38] LABS: CALCIUM-PROTEIN CORRECTED 6.3 MG/DL (8.5-10.1)
[2017-07-28 05:05] VITALS: BP 149/89; PULSE 90; RESP 18; O2SAT 97
[2017-07-28] MEDS ORDERED: PERC5TAB12 PO (05:07)
== END 2017-07-28 05:26 | disposition home or self-care (01) ==
LOC: PHED 02:02
DX: L03.031 Cellulitis of right toe (principal); I50.9 Heart failure, unspecified; E11.22 Type 2 diabetes mellitus with diabetic chronic kidney disease; N18.6 End stage renal disease; Z99.2 Dependence on renal dialysis; Z79.4 Long term (current) use of insulin; Z86.73 Personal history of transient ischemic attack (TIA), and cerebral infarction without residual deficits
CPT/HCPCS: 73620; 80048; 84155; 85025; 87070; 96374; 99284; J2405

== ENCOUNTER 2017-09-14 07:29 | Day surgery (SDC) | payer MEDICARE ==
[~2017-09-14] VITALS: Ht 177.8 cm; Wt 75.6 kg
[~2017-09-14 07:29] MED LIST changes: -CALC500C16 CHEW; +GABA300C5 PO; -HUMA100I3 SQ; +NOVOINJ3 SQ; +TRAM50TA PO
[2017-09-14] MEDS ORDERED: IOHEXOL 350 MG/ML 100 ML BTL (for Cath Lab) OTHER ONE (07:30)
[2017-09-14 08:22] VITALS: BP 139/86; PULSE 81; RESP 18; O2SAT 99
[2017-09-14] MEDS ORDERED: SODIUM CHLOR 0.9% 1000 ML INJ 1,000 ML IV SCH (08:30)
[2017-09-14 08:33] LABS: BASOPHIL # 0.1 TH/MM3 (0-0.2); BASOPHIL % 0.9 % (0.0-2.0); EOSINOPHIL # 0.2 TH/MM3 (0-0.4); EOSINOPHIL % 2.8 % (0.0-4.0); HEMATOCRIT 33.8 % (35.0-46.0); LYMPH % 26.9 % (9.0-44.0); LYMPHOCYTE # 2.3 TH/MM3 (1.0-4.8); MEAN CELL VOLUME 89.1 FL (80.0-100.0); MEAN CORPUSCULAR HEMOGLOBIN 28.9 PG (27.0-34.0); MEAN CORPUSCULAR HGB CONC 32.5 % (32.0-36.0); MEAN PLATELET VOLUME 7.6 FL (7.0-11.0); MONO % 9.6 % (0.0-8.0); MONOCYTE # 0.8 TH/MM3 (0-0.9); NEUT % 59.8 % (16.0-70.0); PLATELET COUNT 308 TH/MM3 (150-450); RED BLOOD COUNT 3.79 MIL/MM3 (4.00-5.30); RED CELL DISTRIBUTION WIDTH 13.5 % (11.6-17.2); WHITE BLOOD COUNT 8.4 TH/MM3 (4.0-11.0)
[2017-09-14 08:42] LABS: PROTHROMBIN TIME - PATIENT 10.4 SEC (9.8-11.6)
[2017-09-14 08:51] LABS: BICARBONATE 25.3 MEQ/L (21.0-32.0); CREATININE 8.98 MG/DL (0.50-1.00)
[2017-09-14] MEDS ORDERED: methylPREDNISolone SOD SUCC 125 MG/2 ML VIAL IV PUSH ONE (09:15)
[2017-09-14] MEDS ORDERED: diphenhydrAMINE HCL 50 MG/ML VIAL IV PUSH PRN (10:00)
[2017-09-14] MEDS ORDERED: FAMOTIDINE 20 MG/2 ML VIAL IV PUSH PRN (10:00)
[2017-09-14] MEDS ORDERED: MIDAZOLAM HCL 2 MG/2 ML VIAL ONE (10:17)
[2017-09-14] MEDS ORDERED: HEPARIN-NS/PF FLUSH BAG 1,000 ML IV FLUSH ONE (10:17)
[2017-09-14] MEDS ORDERED: SODIUM CHLOR 0.9% 250 ML INJ 250 ML IV PRN (11:15)
[2017-09-14] MEDS ORDERED: MISC INFORMATION XX ONE (11:15)
[2017-09-14] MEDS ORDERED: ATROPINE SULFATE 1 MG/ML VIAL IV PUSH PRN (11:15)
--- NOTE | 2017-09-14 11:31 | MA ---
cc: ENRIQUE WRIGHT DO DATE 09/14/2017 PROCEDURE Left heart catheterization, coronary angiogram, moderate sedation 15 minutes. PREPROCEDURE DIAGNOSIS Abnormal stress test for renal transplant. POSTPROCEDURE DIAGNOSIS Mild to moderate coronary artery disease. MEDICATIONS Pepcid 20 mg, Versed 1 mg, fentanyl 50 mcg. CONTRAST 90 cc. FLUOROSCOPY 2.7 minutes. SEDATION Moderate sedation 15 minutes. ESTIMATED BLOOD LOSS 10 cc. PROCEDURAL SUMMARY Faustina Cortez is a pleasant 51-year-old female who sees my partner Dr. Fields in the office and previously underwent stress testing showing inferior ischemia. She has attempted to be listed for renal transplant and because of the abnormality of the stress test she needed to undergo cardiac catheterization for consideration of risk assessment. The risks, benefits and alternatives were explained to her and she consented as such. She was brought to the catheterization lab and prepped in the usual sterile fashion. The right femoral artery was accessed using a modified Seldinger technique and placement of a 5 Georgian sheath. This was easily aspirated and flushed. A JR4 was advanced over a J-wire to the descending aorta and across the aortic valve for measurement of left ventricular pressure. This was pulled back across the aortic valve showing no significant gradient of aortic stenosis. The JR4 was used for selective angiography of the right coronary artery system. This was exchanged out for a JL4 which was used for selective angiography of the left coronary artery system. The JL4 was removed over a J-wire. The femoral sheath was sutured in place with a plan to remove once in the holding area and pressure held for hemostasis. The patient left the lab rn cardiovascularly stable. FINDINGS Left Main: Normal size vessel with adequate reflux. It bifurcates into an LAD and circumflex. LAD: Normal size vessel with calcification noted throughout but no significant disease. It gives off two diagonals with the first one being small to moderate in size with mild disease and the second one being overall small. Left Circumflex: Normal size vessel with mild luminal irregularities throughout. There is a 20% lesion in the midportion. It gives off two obtuse marginals which are overall tortuous with no significant disease. RCA: Normal size vessel with diffuse 30% disease throughout the proximal to mid portion. Distally it is a dominant vessel supplying a PDA and has overall tortuosity but no significant disease. LVEDP 15. IMPRESSIONS 1. Abnormal stress test for renal transplant. 2. Mild coronary artery disease by cardiac catheterization as above. RECOMMENDATIONS 1. Ms. Cortez presented and was found to have mild coronary artery disease as above. 2. She will continue medical management for her coronary artery disease. 3. She will follow-up with Dr. Fields for further recommendations for possible renal transplant. Thank you for allowing me to see Faustina Cortez. If there are any questions please do not hesitate to call. Enrique Wright DO VGP/BT /11:04 AM /11:14 AM
--- NOTE | 2017-09-14 21:58 | EKG ---
Date Performed: 09/14/2017 Time Performed: 08:41:00 PTAGE: 51 years EKG: Sinus rhythm . Normal ECG PREVIOUS TRACING : 01/06/2017 07.30 DOCTOR: Rox Aguillon Interpretating Date/Time 09/14/2017 21:55:50
== END 2017-09-14 16:08 | disposition home or self-care (01) ==
LOC: HDIC 07:29 → HDOC 07:29
PROVIDERS: ATTEND Nuclear Medicine Nuclear Cardiology
DX: I25.10 Atherosclerotic heart disease of native coronary artery without angina pectoris (principal); E11.9 Type 2 diabetes mellitus without complications; Z79.4 Long term (current) use of insulin
CPT/HCPCS: 80048; 84702; 85025; 85610; 85730; 93005; 93458; 99152; 99153; C1769; C1893; J1200; J1644; J2250; J2930; J3010; Q9967

== ENCOUNTER → 2017-10-07 | Outpatient (CLI) | payer MEDICARE ==
[~2017-10-07] MED LIST changes: -AMIT10TA6 PO; -BACT800T5 PO; +OXYC15TA PO; -PERC5TAB12 PO; -TRAM50TA PO
== END ==
LOC: HRSP 11:00
PROVIDERS: ATTEND Surgery
DX: E11.22 Type 2 diabetes mellitus with diabetic chronic kidney disease (principal); N18.6 End stage renal disease
CPT/HCPCS: 94618

== ENCOUNTER 2017-10-08 15:30 | Emergency (ER) | payer MEDICARE ==
[~2017-10-08] VITALS: Ht 177.8 cm; Wt 72.2 kg
[~2017-10-08 15:30] MED LIST changes: -GABA300C5 PO; -OXYC15TA PO
[2017-10-08 15:39] VITALS: BP 156/69; PULSE 102; RESP 16; TEMP 98.8; O2SAT 98
[2017-10-08] MEDS ORDERED: SODIUM CHLORIDE 0.9% FLUSH 10 ML FLUSH IV FLUSH PRN (16:00)
[2017-10-08] MEDS ORDERED: GABA300C5 PO (16:03)
[2017-10-08] MEDS ORDERED: OXYC15TA PO (16:03)
--- NOTE | 2017-10-08 16:04 | PD ---
HPI Chief Complaint: Dizziness Time Seen by Provider: 15:43 Travel History International Travel<30 days: No Contact w/Intl Traveler<30days: No Traveled to known affect area: No History of Present Illness HPI This is a 52-year-old female with extensive past medical history including end- stage renal disease on dialysis who presents for headache and dizziness. She states that after dialysis this afternoon, she had gradual onset of headache and lightheadedness. She wonders if her electrolytes are off or if they took too much fluid off. She had been otherwise well recently without fever, chills , cough, congestion, vomiting, diarrhea. She denies focal weakness, numbness, tingling. The pain is frontal in location. No associated chest pain, shortness of breath. No neck pain or stiffness. Symptoms are mild in severity. Onset gradual. The headache did not reach maximum intensity rapidly. Patient states that she has been very stressed recently. Her brother a few months ago she has had trouble getting over this. She denies suicidal or homicidal ideations. PFSH Past Medical History Hx Anticoagulant Therapy: Yes (HEPRIN WITH DIALYSIS) Arthritis: No Asthma: No Autoimmune Disease: No Blood Disorders: No Anxiety: Yes Depression: Yes Heart Rhythm Problems: Yes (HISTORY OF AFIB) Cancer: No Cardiovascular Problems: Yes (INTERMITTENT A-FIB, PFO) High Cholesterol: No Chemotherapy: No Chest Pain: No Congestive Heart Failure: Yes COPD: No Cerebrovascular Accident: Yes Diabetes: Yes Patient Takes Glucophage: No Dialysis: Yes Diminished Hearing: No Deep Vein Thrombosis: Yes Endocrine: Yes Gastrointestinal Disorders: Yes (HX OF 5 BOWEL OBSTRUCTIONS) GERD: Yes Glaucoma: No Genitourinary: Yes (ANURIC) Headaches: No Hepatitis: No Hiatal Hernia: No Heparin Induced Thrombocytopen: No Hypertension: No Immune Disorder: No Implanted Vascular Access Dvce: Yes Kidney Stones: No Medical other: No Musculoskeletal: No Neurologic: No Psychiatric: Yes (CLAUSTROPHOBIC) Reproductive: No Respiratory: Yes ("LEFT LUNG SCARRING FROM PNEUMONIA X2", COPD) Immunizations Current: Yes Migraines: No Myocardial Infarction: No Pneumonia: Yes Radiation Therapy: No Renal Failure: Yes Seizures: No Sickle Cell Disease: No Sleep Apnea: No Thyroid Disease: Yes (PARATHYROIDISM, OVERACTIVE THYROID--THYROID HAS BEEN REMOVED--IN L ARM) Ulcer: No Tetanus Vaccination: < 5 Years PNEUMOCCOCAL Vaccine (Year): 1 ?: Not Menopausal: Yes : 2 Para: 0 Miscarriage: 2 Ectopic : Yes Dilation and Curettage (D&C): Yes Tubal Ligation: Yes (RIGHT TUBE REMOVED) Past Surgical History Abdominal Surgery: Yes (SMALL BOWEL RESECTION R/T OBSTRUCTION IN INFANCY , 2ND BOWEL SURGERY) AICD: No Appendectomy: Yes Arteriovenous Shunt: Yes (LEFT UPPER ARM ) Body Medical Devices: 19 SCREWS IN FACE,AV GRAFT L ARM, DIALYSIS CATHETER RIGHT NECK Cardiac Surgery: No Section: Yes Cholecystectomy: No Ear Surgery: No Endocrine Surgery: Yes (PARATHYROID/THYROID REMOVED AND PARTIALLY REPLACED IN L ARM) Eye Surgery: No Genitourinary Surgery: Yes (KIDNEY TRANSPLANT 1996) Gynecologic Surgery: Yes (TL, ABLATION) Hysterectomy: No Insulin Pump: No Joint Replacement: No Neurologic Surgery: No Oral Surgery: Yes ("left sided facial reconstruction,plastic and screws"" 1995) Pacemaker: No Other Surgery: Yes (av fistula left and right arm) Social History Alcohol Use: No Tobacco Use: No (QUIT ) Substance Use: No Allergies-Medications (Allergen,Severity, Reaction): Coded Allergies: coconut (Unverified Allergy, Severe, HIVES, 10/08/17) diatrizoate meglumine (Unverified Allergy, Severe, RENAL FAILURE, 10/08/17) gadobenic acid (Unverified Allergy, Severe, RENAL FAILURE, 10/08/17) gadodiamide (Unverified Allergy, Severe, RENAL FAILURE, 10/08/17) gadoteridol (Unverified Allergy, Severe, RENAL FAILURE, 10/08/17) iodixanol (Unverified Allergy, Severe, RENAL FAILURE, 10/08/17) iohexol (Unverified Allergy, Severe, RENAL FAILURE, 10/08/17) morphine (Unverified Allergy, Severe, HIVES, 10/08/17) azithromycin (Unverified Allergy, Intermediate, HIVES, 10/08/17) clindamycin (Unverified Allergy, Intermediate, HIVES, 10/08/17) ALL OVER erythromycin base (Unverified Allergy, Intermediate, HIVES, 10/08/17) penicillin G (Unverified Allergy, Intermediate, Hives, 10/08/17) ALL OVER midodrine (Unverified Allergy, Unknown, Atrial Fibrillation, 10/08/17) codeine (Unverified Adverse Reaction, Severe, HALLUCINATIONS, 10/08/17) insulin aspart (Unverified Adverse Reaction, Severe, REGULAR INSULIN ONLY- CAUSES CRAMPIN G AND "FREEZING", 10/08/17) insulin aspart protamine human (Unverified Adverse Reaction, Severe, REGULAR INSULIN ONLY-CAUSES CRAMPIN G AND "FREEZING", 10/08/17) insulin detemir (Unverified Adverse Reaction, Severe, REGULAR INSULIN ONLY -CAUSES CRAMPIN G AND "FREEZING", 10/08/17) insulin glargine (Unverified Adverse Reaction, Severe, REGULAR INSULIN ONLY-CAUSES CRAMPIN G AND "FREEZING", 10/08/17) insulin isophane (NPH) (Unverified Adverse Reaction, Severe, REGULAR INSULIN ONLY-CAUSES CRAMPIN G AND "FREEZING", 10/08/17) insulin lispro (Unverified Adverse Reaction, Severe, REGULAR INSULIN ONLY- CAUSES CRAMPIN G AND "FREEZING", 10/08/17) insulin regular (Unverified Adverse Reaction, Severe, REGULAR INSULIN ONLY -CAUSES CRAMPIN G AND "FREEZING", 10/08/17) vancomycin (Unverified Adverse Reaction, Mild, NAUSEA/VOMITING WHEN INFUSED TOO FAST, 10/08/17) Reported Meds & Prescriptions Reported Meds & Active Scripts Active Reported Gabapentin 300 Mg Cap 300 Mg PO DAILY Oxycodone (Oxycodone HCl) 15 Mg Tab 15 Mg PO Q12HR Novolog Flexpen Inj (Insulin Aspart) 300 Unit/3 Ml Pen 6.5 Units SQ ACHS Calcium Acetate (Phosphate Binder) 667 Mg Cap 667 Mg PO TID Calcitriol 0.25 Mcg Cap 0.25 Mcg PO EVERY OTHER DAY Review of Systems Except as stated in HPI: all other systems reviewed are Neg Physical Exam Narrative GENERAL: Alert, well nourished, well appearing patient resting on the bed in no acute distress. Vital Signs reviewed SKIN: Focused skin assessment warm/dry. HEAD: Atraumatic. Normocephalic. EYES: Pupils equal and round. No scleral icterus. No injection or drainage. No photophobia ENT: No nasal bleeding or discharge. Mucous membranes pink and moist. NECK: Trachea midline. No JVD. Spontaneous, painless full range of motion with no meningismus CARDIOVASCULAR: Regular rate and rhythm. No murmur appreciated. Extremities warm and well perfused with bounding peripheral pulses RESPIRATORY: No accessory muscle use. Clear to auscultation. Breath sounds equal bilaterally. Breathing easily and speaking in full sentences GASTROINTESTINAL: Abdomen soft, non-tender, nondistended. Normal bowel sounds. No rigid, rebound, guarding MUSCULOSKELETAL: No obvious deformities. No clubbing. No cyanosis. No edema. Compartments are soft NEUROLOGICAL: Awake and alert. No obvious cranial nerve deficits. Motor grossly within normal limits. Normal speech. Sensation intact. Normal gait Data Data Last Documented VS Vital Signs Date Time Temp Pulse Resp B/P (MAP) Pulse Ox O2 Delivery O2 Flow Rate FiO2 10/08/17 18:29 99.0 75 20 143/73 (96) 100 Orders Orders Electrocardiogram (10/08/17 15:58) Ammonia (10/08/17 15:58) Complete Blood Count With Diff (10/08/17 15:58) Comprehensive Metabolic Panel (10/08/17 15:58) Creatine Kinase (Cpk) (10/08/17 15:58) Prothrombin Time / Inr (Pt) (10/08/17 15:58) Act Partial Throm Time (Ptt) (10/08/17 15:58) Ct Brain W/O Iv Contrast(Rout) (10/08/17 15:58) Blood Glucose (10/08/17 15:58) Ecg Monitoring (10/08/17 15:58) Iv Access Insert/Monitor (10/08/17 15:58) Oximetry (10/08/17 15:58) Sodium Chloride 0.9% Flush (Ns Flush) (10/08/17 16:00) Magnesium (Mg) (10/08/17 15:58) Orthostatic Vital Signs (10/08/17 16:03) Sodium Chlor 0.9% 250 Ml Inj (Ns 250 Ml (10/08/17 17:15) Acetaminophen (Tylenol) (10/08/17 17:15) Influenzae A/B Antigen (10/08/17 18:20) Labs Laboratory Tests Test 10/08/17 16:05 White Blood Count 9.7 TH/MM3 Red Blood Count 4.22 MIL/MM3 Hemoglobin 12.5 GM/DL Hematocrit 36.1 % Mean Corpuscular Volume 85.5 FL Mean Corpuscular Hemoglobin 29.7 PG Mean Corpuscular Hemoglobin Concent 34.7 % Red Cell Distribution Width 13.0 % Platelet Count 330 TH/MM3 Mean Platelet Volume 7.7 FL Neutrophils (%) (Auto) 72.5 % Lymphocytes (%) (Auto) 17.2 % Monocytes (%) (Auto) 7.1 % Eosinophils (%) (Auto) 1.0 % Basophils (%) (Auto) 2.2 % Neutrophils # (Auto) 7.0 TH/MM3 Lymphocytes # (Auto) 1.7 TH/MM3 Monocytes # (Auto) 0.7 TH/MM3 Eosinophils # (Auto) 0.1 TH/MM3 Basophils # (Auto) 0.2 TH/MM3 CBC Comment DIFF FINAL Differential Comment Prothrombin Time 10.0 SEC Prothromb Time International Ratio 1.0 RATIO Activated Partial Thromboplast Time 27.6 SEC Blood Urea Nitrogen 25 MG/DL Creatinine 5.50 MG/DL Random Glucose 285 MG/DL Total Protein 9.2 GM/DL Albumin 3.8 GM/DL Calcium Level 8.2 MG/DL Magnesium Level 1.9 MG/DL Alkaline Phosphatase 117 U/L Aspartate Amino Transf (AST/SGOT) 15 U/L Alanine Aminotransferase (ALT/SGPT) 10 U/L Total Bilirubin 0.2 MG/DL Sodium Level 129 MEQ/L Potassium Level 3.7 MEQ/L Chloride Level 92 MEQ/L Carbon Dioxide Level 27.0 MEQ/L Anion Gap 10 MEQ/L Estimat Glomerular Filtration Rate 10 ML/MIN Ammonia 17 MCMOL/L Total Creatine Kinase 66 U/L MDM Medical Decision Making Medical Screen Exam Complete: Yes Emergency Medical Condition: Yes Medical Record Reviewed: Yes Interpretation(s) EKG shows sinus rhythm with a rate of 85. No acute ST elevation Last [address] 10/08/17 1558 Signed Impressions: Service Date/Time: October 16:45 - CONCLUSION: Normal examination. Persistent enlargement of the right lateral ventricular system, particularly the anterior horn, unchanged. Saurabh Shaw MD Laboratory Tests Test 10/08/17 16:05 White Blood Count 9.7 TH/MM3 Red Blood Count 4.22 MIL/MM3 Hemoglobin 12.5 GM/DL Hematocrit 36.1 % Mean Corpuscular Volume 85.5 FL Mean Corpuscular Hemoglobin 29.7 PG Mean Corpuscular Hemoglobin Concent 34.7 % Red Cell Distribution Width 13.0 % Platelet Count 330 TH/MM3 Mean Platelet Volume 7.7 FL Neutrophils (%) (Auto) 72.5 % Lymphocytes (%) (Auto) 17.2 % Monocytes (%) (Auto) 7.1 % Eosinophils (%) (Auto) 1.0 % Basophils (%) (Auto) 2.2 % Neutrophils # (Auto) 7.0 TH/MM3 Lymphocytes # (Auto) 1.7 TH/MM3 Monocytes # (Auto) 0.7 TH/MM3 Eosinophils # (Auto) 0.1 TH/MM3 Basophils # (Auto) 0.2 TH/MM3 CBC Comment DIFF FINAL Differential Comment Prothrombin Time 10.0 SEC Prothromb Time International Ratio 1.0 RATIO Activated Partial Thromboplast Time 27.6 SEC Blood Urea Nitrogen 25 MG/DL Creatinine 5.50 MG/DL Random Glucose 285 MG/DL Total Protein 9.2 GM/DL Albumin 3.8 GM/DL Calcium Level 8.2 MG/DL Magnesium Level 1.9 MG/DL Alkaline Phosphatase 117 U/L Aspartate Amino Transf (AST/SGOT) 15 U/L Alanine Aminotransferase (ALT/SGPT) 10 U/L Total Bilirubin 0.2 MG/DL Sodium Level 129 MEQ/L Potassium Level 3.7 MEQ/L Chloride Level 92 MEQ/L Carbon Dioxide Level 27.0 MEQ/L Anion Gap 10 MEQ/L Estimat Glomerular Filtration Rate 10 ML/MIN Ammonia 17 MCMOL/L Total Creatine Kinase 66 U/L Differential Diagnosis Dehydration, electrolyte abnormality, subarachnoid hemorrhage unlikely, tension headache, influenza Narrative Course IV access was established. Labs, imaging were performed. Patient was given 250 cc normal saline bolus. She states that she usually takes Tylenol for her headaches. She was given a dose of Tylenol with improvement in her headache. I reassessed her multiple times. I reviewed the results of the workup with her and her at 7 PM. She is resting comfortably on the bed in no acute distress. She has no focal neurological deficits. She states that she is feeling much better. She is requesting to be discharged. Plan for discharge with supportive care and close outpatient follow-up tomorrow with primary physician or content engineer. Patient understands the importance of close outpatient follow-up. She understands she may require further testing and treatment as an outpatient. She understands strict return indications. She is comfortable with this plan and eager to go home. Diagnosis Primary Impression: Headache Qualified Codes: R51 - Headache Referrals: Manager Coding 1 day Primary Care Physician 1 day Patient Instructions: Acute Headache (DC), General Instructions Additional Instructions: Use Tylenol as needed for headache. Follow-up with primary physician tomorrow for close recheck. Return with worsening symptoms. Med/Other Pt SpecificInfo: No Change to Meds Disposition: 01 DISCHARGE HOME Condition: Stable Hayley Mcclellan MD Oct 08, 2017 16:04
[2017-10-08 16:11] VITALS: RESP 16; O2SAT 98
[2017-10-08 16:17] LABS: HEMATOCRIT 36.1 % (35.0-46.0); HEMOGLOBIN 12.5 GM/DL (11.6-15.3); MEAN CELL VOLUME 85.5 FL (80.0-100.0); MEAN CORPUSCULAR HEMOGLOBIN 29.7 PG (27.0-34.0); MEAN CORPUSCULAR HGB CONC 34.7 % (32.0-36.0); MEAN PLATELET VOLUME 7.7 FL (7.0-11.0); NEUT % 72.5 % (16.0-70.0); PLATELET COUNT 330 TH/MM3 (150-450); RED BLOOD COUNT 4.22 MIL/MM3 (4.00-5.30); WHITE BLOOD COUNT 9.7 TH/MM3 (4.0-11.0)
[2017-10-08 16:18] LABS: BASOPHIL # 0.2 TH/MM3 (0-0.2); BASOPHIL % 2.2 % (0.0-2.0); EOSINOPHIL # 0.1 TH/MM3 (0-0.4); LYMPH % 17.2 % (9.0-44.0); LYMPHOCYTE # 1.7 TH/MM3 (1.0-4.8); MONO % 7.1 % (0.0-8.0); MONOCYTE # 0.7 TH/MM3 (0-0.9)
[2017-10-08 16:26] VITALS: BP_SYST 144; BP_SYST 151; BP_DIAS 75; BP_DIAS 83; RESP 18
[2017-10-08 16:31] LABS: CHLORIDE 92 MEQ/L (98-107); SODIUM (NA) 129 MEQ/L (136-145)
[2017-10-08 16:34] LABS: ALBUMIN 3.8 GM/DL (3.4-5.0); CALCIUM 8.2 MG/DL (8.5-10.1); GLUCOSE,RANDOM 285 MG/DL (74-106); MAGNESIUM 1.9 MG/DL (1.5-2.5)
[2017-10-08 16:35] LABS: BLOOD UREA NITROGEN 25 MG/DL (7-18)
[2017-10-08 16:38] LABS: ALT (GPT) 10 U/L (10-53); AST (GOT) 15 U/L (15-37); GLOMERULAR FILTRATION RATE 10 ML/MIN (>89)
[2017-10-08 16:39] LABS: TOTAL BILIRUBIN ADULT 0.2 MG/DL (0.2-1.0); TOTAL PROTEIN 9.2 GM/DL (6.4-8.2)
[2017-10-08 16:40] LABS: ALKALINE PHOSPHATASE 117 U/L (45-117)
--- NOTE | 2017-10-08 17:06 | RADRPT ---
EXAM DATE/TIME: 10/08/2017 16:45 [facility] COMPARISON: CT BRAIN W/O CONTRAST, July 23, 2010, 6:27. INDICATIONS : Altered mental status. Cephalgia. RADIATION DOSE: 60.96 CTDIvol (mGy) MEDICAL HISTORY : Renal failure, chronic. Gastroesophageal reflux disease. Cerebrovascular disease.DVT. Cardiovascular disease. Diabetes. SURGICAL HISTORY : Appendectomy. section.Nephrectomy, right. ENCOUNTER: Initial ACUITY: 1 day PAIN SCALE: 7/10 LOCATION: cranial TECHNIQUE: Multiple contiguous axial images were obtained of the head. Using automated exposure control and adj ustment of the mA and/or kV according to patient size, radiation dose was kept as low as reasonably a chievable to obtain optimal diagnostic quality images. DICOM format image data is available electro nically for review and comparison. FINDINGS: CEREBRUM: The ventricles are normal for age. No evidence of midline shift, mass lesion, hemorrhage or acute in farction. No extra-axial fluid collections are seen. POSTERIOR FOSSA: The cerebellum and brainstem are intact. The 4th ventricle is midline. The cerebellopontine angle i s unremarkable. EXTRACRANIAL: The visualized portion of the orbits is intact. SKULL: The calvaria is intact. No evidence of skull fracture. CONCLUSION: Normal examination. Persistent enlargement of the right lateral ventricular system, particularly the anterior horn, unchanged. Saurabh Shaw MD on October 08, 2017 at 17:05 Board Certified Radiologist. This report was verified electronically.
[2017-10-08] MEDS ORDERED: ACETAMINOPHEN 325 MG TAB PO ONE (17:15)
[2017-10-08] MEDS ORDERED: SODIUM CHLOR 0.9% 250 ML INJ 250 ML IV ONE (17:15)
[2017-10-08 18:29] VITALS: BP 143/73; PULSE 75; RESP 20; TEMP 99; O2SAT 100
[2017-10-08 19:15] VITALS: BP 141/73; PULSE 86; RESP 18; O2SAT 100
--- NOTE | 2017-10-09 08:51 | EKG ---
Date Performed: 10/08/2017 Time Performed: 16:12:39 PTAGE: 52 years EKG: Sinus rhythm NORMAL ECG PREVIOUS TRACING : 09/14/2017 08.41 Since the prior tracing, there has been no significant perez DOCTOR: [place] Fields Interpretating Date/Time 10/09/2017 08:50:57
== END 2017-10-08 19:33 | disposition home or self-care (01) ==
LOC: PHED 15:30
DX: R51 Headache (principal); F32.9 Major depressive disorder, single episode, unspecified; I48.91 Unspecified atrial fibrillation; I50.9 Heart failure, unspecified; E11.9 Type 2 diabetes mellitus without complications; Z86.718 Personal history of other venous thrombosis and embolism; Z86.73 Personal history of transient ischemic attack (TIA), and cerebral infarction without residual deficits; Z88.0 Allergy status to penicillin; Z79.01 Long term (current) use of anticoagulants; Z88.8 Allergy status to other drugs, medicaments and biological substances; Z88.1 Allergy status to other antibiotic agents; Z88.5 Allergy status to narcotic agent; Z91.018 Allergy to other foods
CPT/HCPCS: 70450; 80053; 82140; 82550; 83735; 85025; 85610; 85730; 87804; 93005; 99285; J7050

== ENCOUNTER 2017-12-17 09:15 | Inpatient (IN) | payer MEDICARE ==
[~2017-12-17] VITALS: Ht 177.8 cm; Wt 78.9 kg
[2017-12-17] VITALS (20 sets, daily range): BP systolic 94–145; BP diastolic 50–72; PULSE 81–110; RESP 14–33; TEMP 97.2–98.7; O2SAT 94–100
[~2017-12-17 09:15] MED LIST changes: +GABA300C5 PO; +OXYC15TA PO
[2017-12-17] MEDS ORDERED: SODIUM CHLORIDE 0.9% FLUSH 10 ML FLUSH IV FLUSH PRN ×2 (10:00→14:45)
[2017-12-17] MEDS ORDERED: ONDANSETRON HCL 4 MG/2 ML VIAL IVP ONE (10:00)
[2017-12-17 10:19] LABS: AUTOMATED NEUTROPHIL # 11.5 TH/MM3 (1.8-7.7); BASOPHIL % 0.3 % (0.0-2.0); EOSINOPHIL # 0.2 TH/MM3 (0-0.4); EOSINOPHIL % 1.7 % (0.0-4.0); HEMATOCRIT 34.2 % (35.0-46.0); LYMPH % 10.7 % (9.0-44.0); LYMPHOCYTE # 1.5 TH/MM3 (1.0-4.8); MEAN CELL VOLUME 89.2 FL (80.0-100.0); MEAN CORPUSCULAR HEMOGLOBIN 28.6 PG (27.0-34.0); MEAN CORPUSCULAR HGB CONC 32.1 % (32.0-36.0); MEAN PLATELET VOLUME 8.5 FL (7.0-11.0); MONO % 6.3 % (0.0-8.0); MONOCYTE # 0.9 TH/MM3 (0-0.9); PLATELET COUNT 254 TH/MM3 (150-450); RED BLOOD COUNT 3.84 MIL/MM3 (4.00-5.30); WHITE BLOOD COUNT 14.1 TH/MM3 (4.0-11.0)
[2017-12-17] MEDS ORDERED: ONDANSETRON ODT 4 MG TAB PO ONE (10:45)
--- NOTE | 2017-12-17 10:58 | RADRPT ---
EXAM DATE/TIME: 12/17/2017 10:20 [facility] COMPARISON: No previous studies available for comparison. INDICATIONS : Right lower quadrant abdominal pain. ORAL CONTRAST: No oral contrast ingested. RADIATION DOSE: 14.86 CTDIvol (mGy) MEDICAL HISTORY : Cardiovascular disease. dialysis SURGICAL HISTORY : kidney transplant ENCOUNTER: Initial ACUITY: 1 day PAIN SCALE: 7/10 LOCATION: Right lower quadrant abdomen TECHNIQUE: Volumetric scanning of the abdomen and pelvis was performed. Using automated exposure control and ad justment of the mA and/or kV according to patient size, radiation dose was kept as low as reasonably achievable to obtain optimal diagnostic quality images. DICOM format image data is available electro nically for review and comparison. FINDINGS: Mild linear scarring or atelectasis at the lung bases. No acute findings in the liver, spleen, adrena ls. Markedly atrophic [place] kidneys similar to prior exam. Stable enlargement of the pancreatic head since 2015. No calcified gallstones. Extensive vascular calcifications present. Stable partially calcified renal transplant in the right lower quadrant. Mild constipation. No free a ir or free fluid. No bowel obstruction. No acute bony abnormalities. CONCLUSION: 1. No acute findings. Mild constipation. No inflammatory changes identified within the right lower qu adrant. 2. Stable enlargement of pancreatic head and stable partially calcified renal transplant since 2016. Alberto Murry MD on December 17, 2017 at 10:52 Board Certified Radiologist. This report was verified electronically.
[2017-12-17 11:05] LABS: ALBUMIN 3.3 GM/DL (3.4-5.0); ALKALINE PHOSPHATASE 94 U/L (45-117); ALT (GPT) 14 U/L (10-53); AST (GOT) 25 U/L (15-37); BICARBONATE 14.2 MEQ/L (21.0-32.0); BLOOD UREA NITROGEN 73 MG/DL (7-18); CALCIUM 8.2 MG/DL (8.5-10.1); CHLORIDE 105 MEQ/L (98-107); GLOMERULAR FILTRATION RATE 5 ML/MIN (>89); GLUCOSE,RANDOM 162 MG/DL (74-106); SODIUM (NA) 135 MEQ/L (136-145); TOTAL BILIRUBIN ADULT 0.3 MG/DL (0.2-1.0); TOTAL PROTEIN 7.7 GM/DL (6.4-8.2)
[2017-12-17 11:13] LABS: CREATININE 10.04 MG/DL (0.50-1.00)
[2017-12-17] MEDS ORDERED: SODIUM POLYSTYRENE SULFONATE SUSP 15 GM/60 ML CUP PO ONE (11:15)
[2017-12-17] MEDS ORDERED: CALCIUM GLUCONATE 10% 1 GM/10 ML VIAL SLOW IVP ONE (11:15)
[2017-12-17] MEDS ORDERED: DEXTROSE 50% IN WATER 50 ML VIAL(D50) IV PUSH ONE (11:15)
[2017-12-17] MEDS ORDERED: SODIUM BICARBONATE 8.4% SOLN 50 MEQ/50 ML VIAL SLOW IVP ONE (11:15)
[2017-12-17] MEDS ORDERED: INSULIN HUMAN REGULAR 1,000 UNITS/10 ML VIAL IV PUSH ONE (11:30)
--- NOTE | 2017-12-17 12:13 | PD ---
HPI Chief Complaint: Abdominal Pain Time Seen by Provider: 09:23 Travel History International Travel<30 days: No Contact w/Intl Traveler<30days: No Traveled to known affect area: No History of Present Illness HPI 52-year-old female arrives to the ER with a complaint of abdominal pain in the right lower side. She reports it is constant. The pain was severe. She went to undergo dialysis today and Dr. Choudhary was called regarding the pain and he advised the patient to the ER for evaluation. Patient undergoes dialysis Thursday. She went on Thursday, 2 days ago as per normal. The patient reports nausea no vomiting. Pain is worse with palpation. It is also worse with some changes in position. The patient notes that started about 3:30 AM somewhat suddenly while she was sleeping. PFSH Past Medical History Hx Anticoagulant Therapy: Yes (HEPRIN WITH DIALYSIS) Arthritis: No Asthma: No Autoimmune Disease: No Blood Disorders: No Anxiety: Yes Depression: Yes Heart Rhythm Problems: Yes (HISTORY OF AFIB) Cancer: No Cardiovascular Problems: Yes (INTERMITTENT A-FIB, PFO) High Cholesterol: No Chemotherapy: No Chest Pain: No Congestive Heart Failure: Yes COPD: No Cerebrovascular Accident: Yes Diabetes: Yes Patient Takes Glucophage: No Dialysis: Yes Diminished Hearing: No Deep Vein Thrombosis: Yes Endocrine: Yes Gastrointestinal Disorders: Yes (HX OF 5 BOWEL OBSTRUCTIONS) GERD: Yes Glaucoma: No Genitourinary: Yes (ANURIC) Headaches: No Hepatitis: No Hiatal Hernia: No Heparin Induced Thrombocytopen: No Hypertension: No Immune Disorder: No Implanted Vascular Access Dvce: Yes Kidney Stones: No Medical other: No Musculoskeletal: No Neurologic: No Psychiatric: Yes (CLAUSTROPHOBIC) Reproductive: No Respiratory: Yes ("LEFT LUNG SCARRING FROM PNEUMONIA X2", COPD) Immunizations Current: Yes Migraines: No Myocardial Infarction: No Pneumonia: Yes Radiation Therapy: No Renal Failure: Yes Seizures: No Sickle Cell Disease: No Sleep Apnea: No Thyroid Disease: Yes (PARATHYROIDISM, OVERACTIVE THYROID--THYROID HAS BEEN REMOVED--IN L ARM) Ulcer: No PNEUMOCCOCAL Vaccine (Year): 1 ?: Not Menopausal: Yes : 2 Para: 0 Miscarriage: 2 Ectopic : Yes Dilation and Curettage (D&C): Yes Tubal Ligation: Yes (RIGHT TUBE REMOVED) Past Surgical History Abdominal Surgery: Yes (SMALL BOWEL RESECTION R/T OBSTRUCTION IN INFANCY , 2ND BOWEL SURGERY) AICD: No Appendectomy: Yes Arteriovenous Shunt: Yes (LEFT UPPER ARM ) Body Medical Devices: 19 SCREWS IN FACE,AV GRAFT L ARM, DIALYSIS CATHETER RIGHT NECK Cardiac Surgery: No Section: Yes Cholecystectomy: No Ear Surgery: No Endocrine Surgery: Yes (PARATHYROID/THYROID REMOVED AND PARTIALLY REPLACED IN L ARM) Eye Surgery: No Genitourinary Surgery: Yes (KIDNEY TRANSPLANT 1996) Gynecologic Surgery: Yes (TL, ABLATION) Hysterectomy: No Insulin Pump: No Joint Replacement: No Neurologic Surgery: No Oral Surgery: Yes ("left sided facial reconstruction,plastic and screws"" 1995) Pacemaker: No Other Surgery: Yes (av fistula left and right arm) Social History Alcohol Use: No Tobacco Use: No (QUIT ) Substance Use: No Allergies-Medications (Allergen,Severity, Reaction): Coded Allergies: coconut (Unverified Allergy, Severe, HIVES, 10/08/17) diatrizoate meglumine (Unverified Allergy, Severe, RENAL FAILURE, 10/08/17) gadobenic acid (Unverified Allergy, Severe, RENAL FAILURE, 10/08/17) gadodiamide (Unverified Allergy, Severe, RENAL FAILURE, 10/08/17) gadoteridol (Unverified Allergy, Severe, RENAL FAILURE, 10/08/17) iodixanol (Unverified Allergy, Severe, RENAL FAILURE, 10/08/17) iohexol (Unverified Allergy, Severe, RENAL FAILURE, 10/08/17) morphine (Unverified Allergy, Severe, HIVES, 10/08/17) azithromycin (Unverified Allergy, Intermediate, HIVES, 10/08/17) clindamycin (Unverified Allergy, Intermediate, HIVES, 10/08/17) ALL OVER erythromycin base (Unverified Allergy, Intermediate, HIVES, 10/08/17) penicillin G (Unverified Allergy, Intermediate, Hives, 10/08/17) ALL OVER midodrine (Unverified Allergy, Unknown, Atrial Fibrillation, 10/08/17) codeine (Unverified Adverse Reaction, Severe, HALLUCINATIONS, 10/08/17) insulin aspart (Unverified Adverse Reaction, Severe, REGULAR INSULIN ONLY- CAUSES CRAMPIN G AND "FREEZING", 10/08/17) insulin aspart protamine human (Unverified Adverse Reaction, Severe, REGULAR INSULIN ONLY-CAUSES CRAMPIN G AND "FREEZING", 10/08/17) insulin detemir (Unverified Adverse Reaction, Severe, REGULAR INSULIN ONLY -CAUSES CRAMPIN G AND "FREEZING", 10/08/17) insulin glargine (Unverified Adverse Reaction, Severe, REGULAR INSULIN ONLY-CAUSES CRAMPIN G AND "FREEZING", 10/08/17) insulin isophane (NPH) (Unverified Adverse Reaction, Severe, REGULAR INSULIN ONLY-CAUSES CRAMPIN G AND "FREEZING", 10/08/17) insulin lispro (Unverified Adverse Reaction, Severe, REGULAR INSULIN ONLY- CAUSES CRAMPIN G AND "FREEZING", 10/08/17) insulin regular (Unverified Adverse Reaction, Severe, REGULAR INSULIN ONLY -CAUSES CRAMPIN G AND "FREEZING", 10/08/17) vancomycin (Unverified Adverse Reaction, Mild, NAUSEA/VOMITING WHEN INFUSED TOO FAST, 10/08/17) Reported Meds & Prescriptions Reported Meds & Active Scripts Active Reported Gabapentin 300 Mg Cap 300 Mg PO DAILY Oxycodone (Oxycodone HCl) 15 Mg Tab 15 Mg PO Q12HR Novolog Flexpen Inj (Insulin Aspart) 300 Unit/3 Ml Pen 6.5 Units SQ ACHS Calcium Acetate (Phosphate Binder) 667 Mg Cap 667 Mg PO TID Calcitriol 0.25 Mcg Cap 0.25 Mcg PO EVERY OTHER DAY Review of Systems Except as stated in HPI: all other systems reviewed are Neg General / Constitutional: No: Fever Physical Exam Narrative GENERAL: 52-year-old female pleasant well-nourished mild distress secondary pain Vital Signs Date Time Temp Pulse Resp B/P (MAP) Pulse Ox O2 Delivery O2 Flow Rate FiO2 12/17/17 10:15 100 Room Air 12/17/17 09:18 97.2 92 16 145/68 (93) 94 SKIN: Warm and dry. HEAD: Atraumatic. Normocephalic. EYES: Pupils equal and round. No scleral icterus. No injection or drainage. ENT: No nasal bleeding or discharge. Mucous membranes pink and moist. NECK: Trachea midline. No JVD. CARDIOVASCULAR: Regular rate and rhythm. Left chest wall catheter is in place nontender without cellulitis. RESPIRATORY: No accessory muscle use. Clear to auscultation. Breath sounds equal bilaterally. GASTROINTESTINAL: Soft. Tenderness to palpation right quadrant. MUSCULOSKELETAL: There is an AV fistula in the left arm which is nonviable. There is an 80 fistula in the right arm which is not viable. NEUROLOGICAL: Awake and alert. No obvious cranial nerve deficits. Motor grossly within normal limits. Five out of 5 muscle strength in the arms and legs. Normal speech. PSYCHIATRIC: Appropriate mood and affect; insight and judgment normal. Data Data Last Documented VS Vital Signs Date Time Temp Pulse Resp B/P (MAP) Pulse Ox O2 Delivery O2 Flow Rate FiO2 12/17/17 10:15 100 Room Air 12/17/17:18 97.2 92 16 145/68 (93) Orders Orders Complete Blood Count With Diff (12/17/17 09:48) Comprehensive Metabolic Panel (12/17/17 09:48) Lipase (12/17/17 09:48) Urinalysis - C+S If Indicated (12/17/17 09:48) Ct Abd/Pel W/O Iv Contrast (12/17/17 09:48) Iv Access Insert/Monitor (12/17/17 09:48) Ecg Monitoring (12/17/17 09:48) Oximetry (12/17/17 09:48) Ondansetron Inj (Zofran Inj) (12/17/17 10:00) Sodium Chloride 0.9% Flush (Ns Flush) (12/17/17 10:00) Ondansetron Odt (Zofran Odt) (12/17/17 10:45) Electrocardiogram (12/17/17 11:14) Potassium, Serum (K) (12/17/17 14:14) Calcium Gluconate Inj (Calcium Gluconate (12/17/17 11:15) Insulin Human Regular Inj (Novolin R Inj (12/17/17 11:30) Dextrose 50% In Jeremiah (Vial) Inj (D50w (Vi (12/17/17 11:15) Sodium Bicarbonate 8.4% Inj (Sodium Bica (12/17/17 11:15) Sodium Polysty Sulfate Liq (Kayexalate L (12/17/17 11:15) Admit Order (Ed Use Only) (12/17/17 ) Baggagemaster / Telemetry DOMINIC.Q8H (12/17/17 11:42) Vital Signs (Adult) Q4H (12/17/17 11:42) Activity Bed Rest (12/17/17 11:42) Notify Dr: Other (12/17/17 11:42) Admit To Inpatient (12/17/17 ) Inpatient Certification (12/17/17 ) Labs Laboratory Tests Test 12/17/17 10:00 White Blood Count 14.1 TH/MM3 Red Blood Count 3.84 MIL/MM3 Hemoglobin 11.0 GM/DL Hematocrit 34.2 % Mean Corpuscular Volume 89.2 FL Mean Corpuscular Hemoglobin 28.6 PG Mean Corpuscular Hemoglobin Concent 32.1 % Red Cell Distribution Width 14.0 % Platelet Count 254 TH/MM3 Mean Platelet Volume 8.5 FL Neutrophils (%) (Auto) 81.0 % Lymphocytes (%) (Auto) 10.7 % Monocytes (%) (Auto) 6.3 % Eosinophils (%) (Auto) 1.7 % Basophils (%) (Auto) 0.3 % Neutrophils # (Auto) 11.5 TH/MM3 Lymphocytes # (Auto) 1.5 TH/MM3 Monocytes # (Auto) 0.9 TH/MM3 Eosinophils # (Auto) 0.2 TH/MM3 Basophils # (Auto) 0.0 TH/MM3 CBC Comment DIFF FINAL Differential Comment Blood Urea Nitrogen 73 MG/DL Creatinine 10.04 MG/DL Random Glucose 162 MG/DL Total Protein 7.7 GM/DL Albumin 3.3 GM/DL Calcium Level 8.2 MG/DL Alkaline Phosphatase 94 U/L Aspartate Amino Transf (AST/SGOT) 25 U/L Alanine Aminotransferase (ALT/SGPT) 14 U/L Total Bilirubin 0.3 MG/DL Sodium Level 135 MEQ/L Potassium Level 7.2 MEQ/L Chloride Level 105 MEQ/L Carbon Dioxide Level 14.2 MEQ/L Anion Gap 16 MEQ/L Estimat Glomerular Filtration Rate 5 ML/MIN Lipase 162 U/L [facility] Medical Decision Making Medical Screen Exam Complete: Yes Emergency Medical Condition: Yes Medical Record Reviewed: Yes Differential Diagnosis Constipation, Gastritis, Acute Cholecystitis, Biliary Colic, Pancreatitis, VIERA , Hepatitis, Bowel Obstruction, Cystitis, Mesenteric Ischemia, AAA, Appendicitis , Renal Stone/Hydronephrosis, GERD, perforated viscous Narrative Course CBC & BMP Diagram 12/17/17 10:00 Total Protein 7.7, Albumin 3.3 L, Calcium Level 8.2 L, Alkaline Phosphatase 94, Aspartate Amino Transf (AST/SGOT) 25, Alanine Aminotransferase (ALT/SGPT) 14, Total Bilirubin 0.3 Lipase normal Last Impressions Abdomen/Pelvis CT 12/17/17 0948 Signed Impressions: Service Date/Time: December 10:20 - CONCLUSION: 1. No acute findings. Mild constipation. No inflammatory changes identified within the right lower quadrant. 2. Stable enlargement of pancreatic head and stable partially calcified renal transplant since 2015. Alberto Murry MD Patient received insulin dextrose, Kayexalate, calcium and bicarb. Call placed to nephrology at approximately 12:11 PM. Case discussed with Dr. Maciel for [facility] with admission plan to the ICU. case d/w Dr Choudhary's PA. pt will go to [facility] with plan for emergent dialysis. case d/w Dr Maciel for [facility]. Critical Care Narrative Aggregate critical care time was 40 minutes. Time to perform other separately billable procedures was not included in the critical care time. My time did not include minutes spent treating any other patients simultaneously or on activities that did not directly contribute to the patient's treatment. The services I provided to this patient were to treat and/or prevent clinically significant deterioration that could result in: Cardiopulmonary arrest, arrhythmia I provided critical care services requiring my management, as noted below: Chart data review, documentation time, medication orders and management, vital sign assessments/reviewing monitor data, ordering and reviewing lab tests, ordering and interpreting/reviewing x-rays and diagnostic studies, care of the patient and discussion of the patient with the admitting physicians. Diagnosis Primary Impression: Hyperkalemia Additional Impression: Abdominal pain Qualified Codes: R10.9 - Unspecified abdominal pain Admitting Information Admitting Physician Requests: Admit Nj Caballero MD December 17, 2017 12:13
[2017-12-17] MEDS ORDERED: VANCOMYCIN INJ 1,000 MG in SODIUM CHLOR 0.9% 250 ML INJ 250 ML IV ONE (13:00)
[2017-12-17] MEDS ORDERED: cefTRIAXone INJ 1,000 MG in SODIUM CHLORIDE 0.9% INJ 100 ML IV ONE (13:15)
[2017-12-17] MEDS: ALBUMIN 25% INJ 100 ML IV PRN ×4 (14:15→16:00)
[2017-12-17] MEDS ORDERED: ALBUMIN 5% INJ 500 ML IV ONE (14:20)
[2017-12-17] MEDS ORDERED: SODIUM CHLOR 0.9% 1000 ML INJ 1,000 ML OTHER PRN ×2 (14:38)
[2017-12-17] MEDS ORDERED: SODIUM CHLOR 0.9% 1000 ML INJ 1,000 ML IV PRN (14:38)
[2017-12-17] MEDS ORDERED: HEPARIN SODIUM - IV 10,000 UNITS/10 ML VIAL IV FLUSH PRN (14:45)
[2017-12-17] MEDS ORDERED: cloNIDine HCL 0.1 MG TAB PO PRN (14:45)
[2017-12-17] MEDS ORDERED: ACETAMINOPHEN 325 MG TAB PO PRN (14:45)
[2017-12-17] MEDS ORDERED: GELATIN 12 MM/7 MM FOAM TOP PRN (14:45)
[2017-12-17] MEDS ORDERED: ONDANSETRON HCL 4 MG/2 ML VIAL IV PUSH PRN (14:45)
[2017-12-17] MEDS ORDERED: HEPARIN SODIUM - IV 10,000 UNITS/10 ML VIAL PRN (14:45)
[2017-12-17] MEDS ORDERED: MANNITOL 12.5 GM/50 ML VIAL IV PRN (14:45)
[2017-12-17] MEDS ORDERED: NITROGLYCERIN 0.4 MG SL 25 TABS/BTL SL PRN (14:45)
[2017-12-17] MEDS ORDERED: diphenhydrAMINE HCL 25 MG CAP PO PRN (14:45)
--- NOTE | 2017-12-17 15:16 | PD.CONS ---
HPI Service Nephrology Consult Requested By Reason for Consult ESRD, hyperkalemia Primary Care Physician Unknown History of Present Illness This is a patient with history of ESRD. She woke up this morning at around 3 AM with acute onset of right lower quadrant pain. The pain is described as sharp, she thinks it is originating from her failed kidney transplant (from her brother ), it is worse on taking deep breaths. No fever, nausea, vomiting or diarrhea. Patient was advised to come to the ER because of these symptoms. She is found to have hyperkalemia, serum potassium of 7.2. CT of the abdomen was negative for any acute findings. Review of Systems Constitutional: COMPLAINS OF: Fatigue, DENIES: Fever, Weight gain, Weight loss Cardiovascular: DENIES: Chest pain, Palpitations, Dyspnea on Exertion Gastrointestinal: COMPLAINS OF: Abdominal pain, Constipation, DENIES: Black stools, Diarrhea, Nausea, Vomiting, Difficulty Swallowing Past Family Social History Allergies: Coded Allergies: coconut (Unverified Allergy, Severe, HIVES, 10/08/17) diatrizoate meglumine (Unverified Allergy, Severe, RENAL FAILURE, 10/08/17) gadobenic acid (Unverified Allergy, Severe, RENAL FAILURE, 10/08/17) gadodiamide (Unverified Allergy, Severe, RENAL FAILURE, 10/08/17) gadoteridol (Unverified Allergy, Severe, RENAL FAILURE, 10/08/17) iodixanol (Unverified Allergy, Severe, RENAL FAILURE, 10/08/17) iohexol (Unverified Allergy, Severe, RENAL FAILURE, 10/08/17) morphine (Unverified Allergy, Severe, HIVES, 10/08/17) azithromycin (Unverified Allergy, Intermediate, HIVES, 10/08/17) clindamycin (Unverified Allergy, Intermediate, HIVES, 10/08/17) ALL OVER erythromycin base (Unverified Allergy, Intermediate, HIVES, 10/08/17) penicillin G (Unverified Allergy, Intermediate, Hives, 10/08/17) ALL OVER midodrine (Unverified Allergy, Unknown, Atrial Fibrillation, 10/08/17) codeine (Unverified Adverse Reaction, Severe, HALLUCINATIONS, 10/08/17) insulin aspart (Unverified Adverse Reaction, Severe, REGULAR INSULIN ONLY- CAUSES CRAMPIN G AND "FREEZING", 10/08/17) insulin aspart protamine human (Unverified Adverse Reaction, Severe, REGULAR INSULIN ONLY-CAUSES CRAMPIN G AND "FREEZING", 10/08/17) insulin detemir (Unverified Adverse Reaction, Severe, REGULAR INSULIN ONLY -CAUSES CRAMPIN G AND "FREEZING", 10/08/17) insulin glargine (Unverified Adverse Reaction, Severe, REGULAR INSULIN ONLY-CAUSES CRAMPIN G AND "FREEZING", 10/08/17) insulin isophane (NPH) (Unverified Adverse Reaction, Severe, REGULAR INSULIN ONLY-CAUSES CRAMPIN G AND "FREEZING", 10/08/17) insulin lispro (Unverified Adverse Reaction, Severe, REGULAR INSULIN ONLY- CAUSES CRAMPIN G AND "FREEZING", 10/08/17) insulin regular (Unverified Adverse Reaction, Severe, REGULAR INSULIN ONLY -CAUSES CRAMPIN G AND "FREEZING", 10/08/17) vancomycin (Unverified Adverse Reaction, Mild, NAUSEA/VOMITING WHEN INFUSED TOO FAST, 10/08/17) Past Medical History ESRD Hypertension. PAD Hypocalcemia Hyperphosphatemia Failed kidney transplant. Past Surgical History AVG left arm: failed. AVF right arm: needs second step. parathyroidectomy with partial reimplantation in left arm D&C right fallopian tube removed renal transplant, failed congenital-born with stomach outside body, surgically corrected at Active Ordered Medications Current Medications Medications (Trade) Dose Ordered Sig/Bárbara Route Start Time Stop Time Status Last Admin (NS Flush) 2 ml UNSCH PRN IV FLUSH 12/17/17 10:00 (Ambien) 5 mg HS PRN PO 12/17/17 21:00 ([place] 5-325 Mg) 1 tab Q6H PRN PO 12/17/17 14:00 Sodium Chloride 1,000 ml @ 0 mls/hr Q0M PRN OTHER 12/17/17 14:38 (Heparin Inj) 8,000 units UNSCH PRN IV FLUSH 12/17/17 14:45 Sodium Chloride 1,000 ml @ 200 mls/hr Q5H PRN IV 12/17/17 14:38 Sodium Chloride 1,000 ml @ 0 mls/hr Q0M PRN OTHER 12/17/17 14:38 (Mannitol Inj) 12.5 gm UNSCH PRN IV 12/17/17 14:45 Albumin Human 100 ml @ 60 mls/hr UNSCH PRN IV 12/17/17 14:45 (NS Flush) 5 ml UNSCH PRN IV FLUSH 12/17/17 14:45 (Heparin Inj) UNSCH PRN .XX 12/17/17 14:45 (Gentamicin Inj) 20 mg UNSCH PRN OTHER 12/17/17 14:45 (Zofran Inj) 4 mg UNSCH PRN IV PUSH 12/17/17 14:45 (Tylenol) 650 mg UNSCH PRN PO 12/17/17 14:45 (Benadryl) 25 mg UNSCH PRN PO 12/17/17 14:45 (Nitrostat Sl) 0.4 mg UNSCH PRN SL 12/17/17 14:45 (Catapres) 0.1 mg UNSCH PRN PO 12/17/17 14:45 (Epogen Inj) 5,000 units UNSCH PRN IV PUSH 12/17/17 14:45 (Gelfoam 12 Mm/7 Mm Top) 1 foam UNSCH PRN TOP 12/17/17 14:45 Family History reviewed, non contributory Social History History of tobacco use. Physical Exam Vital Signs Vital Signs Date Time Temp Pulse Resp B/P (MAP) Pulse Ox O2 Delivery O2 Flow Rate FiO2 12/17/17 14:30 87 12/17/17 14:18 87 18 98/70 (79) 100 12/17/17 14:18 87 12/17/17 14:15 86 24 100 12/17/17 14:00 81 23 100 12/17/17 14:00 81 12/17/17 11:47 88 17 124/50 (74) 98 Room Air 12/17/17 10:15 100 Room Air 12/17/17 09:18 97.2 92 16 145/68 (93) 94 Physical Exam GENERAL: patient is awake, alert, oriented. SKIN: Warm and dry. HEAD: Normocephalic. EYES: No scleral icterus. No injection or drainage. NECK: Supple, trachea midline. No JVD or lymphadenopathy. CARDIOVASCULAR: Regular rate and rhythm without murmurs, gallops, or rubs. RESPIRATORY: Breath sounds equal bilaterally. No accessory muscle use. GASTROINTESTINAL: Abdomen soft, bowel sounds are heard, right lower quadrant graft is felt, appears to be tender. MUSCULOSKELETAL: signs of chronic peripheral ischemia BACK: Nontender without obvious deformity. No CVA tenderness. Laboratory Laboratory Tests Test 12/17/17 10:00 White Blood Count 14.1 Red Blood Count 3.84 Hemoglobin 11.0 Hematocrit 34.2 Mean Corpuscular Volume 89.2 Mean Corpuscular Hemoglobin 28.6 Mean Corpuscular Hemoglobin Concent 32.1 Red Cell Distribution Width 14.0 Platelet Count 254 Mean Platelet Volume 8.5 Neutrophils (%) (Auto) 81.0 Lymphocytes (%) (Auto) 10.7 Monocytes (%) (Auto) 6.3 Eosinophils (%) (Auto) 1.7 Basophils (%) (Auto) 0.3 Neutrophils # (Auto) 11.5 Lymphocytes # (Auto) 1.5 Monocytes # (Auto) 0.9 Eosinophils # (Auto) 0.2 Basophils # (Auto) 0.0 CBC Comment DIFF FINAL Differential Comment Blood Urea Nitrogen 73 Creatinine 10.04 Random Glucose 162 Total Protein 7.7 Albumin 3.3 Calcium Level 8.2 Alkaline Phosphatase 94 Aspartate Amino Transf (AST/SGOT) 25 Alanine Aminotransferase (ALT/SGPT) 14 Total Bilirubin 0.3 Sodium Level 135 Potassium Level 7.2 Chloride Level 105 Carbon Dioxide Level 14.2 Anion Gap 16 Estimat Glomerular Filtration Rate 5 Lipase 162 Result Diagram: 12/17/17 1000 12/17/17 1000 Assessment and Plan Problem List: (1) ESRD (end stage renal disease) on dialysis ICD Codes: N18.6 - End stage renal failure on dialysis; Z99.2 - Dependence on renal dialysis Status: Chronic Plan: Because of hyperkalemia, she will be dialyzed today. Orders entered. Dialysis nurse informed. I saw her in the ER. Dietary potassium restriction. Avoid Gadolinium. Epogen for anemia. (2) Hyperkalemia ICD Codes: E87.5 - Hyperkalemia Status: Acute Plan: Emergent dialysis. Avoid Kayexalate. Monitor. Low potassium diet. (3) Abdominal pain ICD Codes: R10.9 - Unspecified abdominal pain Status: Acute Plan: Etiology is unclear. Infection of the failed transplant? I have added empiric antibiotics. She does have mild leukocytosis. Monitor. Pain control. (4) Type 2 diabetes mellitus ICD Codes: E11.9 - Type 2 diabetes mellitus without complications Plan: Insulin coverage. Monitor. Maintain blood sugar between 140 and 180 while hospitalized. (5) Metabolic bone disease ICD Codes: E88.9 - Metabolic disorder, unspecified; M90.80 - Osteopathy in diseases classified elsewhere, unspecified site Status: Acute Plan: Historically has had high phosphorus. Monitor phosphorus. Continue binders. (6) Hypocalcemia ICD Codes: E83.51 - Hypocalcemia Status: Acute Plan: Likely due to history fo subtotal parathyroidectomy. Improved, stable. Code Status Thanks for the consult. Problem Qualifiers (1) Abdominal pain: Qualified Codes: R10.9 - Unspecified abdominal pain Karthikeyan Choudhary MD December 17, 2017 15:16
--- NOTE | 2017-12-17 17:15 | HHI.HP ---
[facility] Unknown Admission Diagnosis Hyperkalemia; ESRD; Abdominal Pain Diagnoses: Chief Complaint: Right lower abdominal pain Travel History International Travel<30 Days: No Contact w/Intl Traveler <30 Da: No Traveled to Known Affected Are: No History of Present Illness Patient is a 52-year-old female with known history of end-stage renal disease- with history of polycystic kidney disease status post failed kidney transplant. On hemodialysis followed by Dr. Choudhary, history of diabetes type 2 insulin requiring-due to chronic steroid use. Patient came to the ER sent here by Dr. Hailey gipson because of right lower quadrant pain or right lower abdominal pain which started around 3 AM this morning. Patient denies any fever chills. States no change in bowel movements and had regular bowel movements. During hemodialysis at the center was noted to have a high potassium and was sent here for further evaluation. Patient received Kayexalat and calcium gluconate. Ongoing hemodialysis right now at bedside. Patient denies any fever chills nausea or vomiting. States good hypoglycemic awareness. Patient is anuric Review of Systems Constitutional: DENIES: Fever, Weight loss, Chills, Change in appetite Eyes: DENIES: Blurred vision, Double Vision Ears, nose, mouth, throat: DENIES: Tinnitus, Ear Pain, Epistaxis, Odynophagia Respiratory: DENIES: Cough, Hemoptysis, Sputum production, Shortness of breath Cardiovascular: DENIES: Chest pain, Palpitations, Dyspnea on Exertion, Lower Extremity Edema, Orthopnea Gastrointestinal: DENIES: Black stools, Bloody stools, Difficulty Swallowing, Anorexia Genitourinary: DENIES: Urgency, Hematuria, Vaginal discharge Musculoskeletal: DENIES: Joint pain, Stiffness Integumentary: DENIES: Pruritus Hematologic/lymphatic: DENIES: Bruising Immunologic/allergic: DENIES: Urticaria Neurologic: DENIES: Headache, Speech Problems, Tremor Psychiatric: DENIES: Suicidal Ideation, Homicidal Ideation Past Family Social History Past Medical History End-stage renal disease on hemodialysis, failed kidney transplant Diabetes steroid induced Peripheral arterial disease Past Surgical History AV graft left AV fistula right Parathyroidectomy Right toe abscess status post amputation. With bone exposed. Reported Medications Oxycodone 50 mg p.o. every 12 Gabapentin 300 mg daily PhosLo 3 times a day FlexPen 6.5 before meals at bedtime Calcitriol to 25 minute micrograms every other day Allergies: Coded Allergies: coconut (Unverified Allergy, Severe, HIVES, 10/08/17) diatrizoate meglumine (Unverified Allergy, Severe, RENAL FAILURE, 10/08/17) gadobenic acid (Unverified Allergy, Severe, RENAL FAILURE, 10/08/17) gadodiamide (Unverified Allergy, Severe, RENAL FAILURE, 10/08/17) gadoteridol (Unverified Allergy, Severe, RENAL FAILURE, 10/08/17) iodixanol (Unverified Allergy, Severe, RENAL FAILURE, 10/08/17) iohexol (Unverified Allergy, Severe, RENAL FAILURE, 10/08/17) morphine (Unverified Allergy, Severe, HIVES, 10/08/17) azithromycin (Unverified Allergy, Intermediate, HIVES, 10/08/17) clindamycin (Unverified Allergy, Intermediate, HIVES, 10/08/17) ALL OVER erythromycin base (Unverified Allergy, Intermediate, HIVES, 10/08/17) penicillin G (Unverified Allergy, Intermediate, Hives, 10/08/17) ALL OVER midodrine (Unverified Allergy, Unknown, Atrial Fibrillation, 10/08/17) codeine (Unverified Adverse Reaction, Severe, HALLUCINATIONS, 10/08/17) insulin aspart (Unverified Adverse Reaction, Severe, REGULAR INSULIN ONLY- CAUSES CRAMPIN G AND "FREEZING", 10/08/17) insulin aspart protamine human (Unverified Adverse Reaction, Severe, REGULAR INSULIN ONLY-CAUSES CRAMPIN G AND "FREEZING", 10/08/17) insulin detemir (Unverified Adverse Reaction, Severe, REGULAR INSULIN ONLY -CAUSES CRAMPIN G AND "FREEZING", 10/08/17) insulin glargine (Unverified Adverse Reaction, Severe, REGULAR INSULIN ONLY-CAUSES CRAMPIN G AND "FREEZING", 10/08/17) insulin isophane (NPH) (Unverified Adverse Reaction, Severe, REGULAR INSULIN ONLY-CAUSES CRAMPIN G AND "FREEZING", 10/08/17) insulin lispro (Unverified Adverse Reaction, Severe, REGULAR INSULIN ONLY- CAUSES CRAMPIN G AND "FREEZING", 10/08/17) insulin regular (Unverified Adverse Reaction, Severe, REGULAR INSULIN ONLY -CAUSES CRAMPIN G AND "FREEZING", 10/08/17) vancomycin (Unverified Adverse Reaction, Mild, NAUSEA/VOMITING WHEN INFUSED TOO FAST, 10/08/17) Family History Noncontributory Social History History of smoking quit 7 months ago Denies alcohol or substance abuse Physical Exam Vital Signs Vital Signs Date Time Temp Pulse Resp B/P (MAP) Pulse Ox O2 Delivery O2 Flow Rate FiO2 12/17/17 16:30 96 12/17/17 16:15 91 12/17/17 16:00 90 12/17/17 14:30 87 12/17/17 14:18 87 18 98/70 (79) 100 12/17/17 14:18 87 12/17/17 14:15 86 24 100 12/17/17 14:00 81 23 100 12/17/17 14:00 81 12/17/17 11:47 88 17 124/50 (74) 98 Room Air 12/17/17 10:15 100 Room Air 12/17/17 09:18 97.2 92 16 145/68 (93) 94 Physical Exam GENERAL: This is a well-nourished, well-developed patient, in no apparent distress. SKIN: No rashes, ecchymoses or lesions. Cool and dry. HEAD: Atraumatic. Normocephalic. No temporal or scalp tenderness. EYES: Pupils equal round and reactive. Extraocular motions intact. No scleral icterus. No injection or drainage. ENT: Nose without bleeding, purulent drainage or septal hematoma. Throat without erythema, tonsillar hypertrophy or exudate. Uvula midline. Airway patent. NECK: Trachea midline. No JVD or lymphadenopathy. Supple, nontender, no meningeal signs. CARDIOVASCULAR: Regular rate and rhythm without murmurs, gallops, or rubs. RESPIRATORY: Clear to auscultation. Breath sounds equal bilaterally. No wheezes , rales, or rhonchi. GASTROINTESTINAL: Abdomen soft, non-tender, nondistended.. No guarding. MUSCULOSKELETAL: Extremities without clubbing, cyanosis, or edema. No joint tenderness, effusion, or edema noted. No calf tenderness. Negative Homans sign bilaterally. Right second toe status post distal amputation with exposed toenail. dark superficial skin black discoloration. No signs of infection NEUROLOGICAL: Awake and alert. Cranial nerves II through XII intact. Motor and sensory grossly within normal limits. Five out of 5 muscle strength in all muscle groups. Normal speech. Laboratory Laboratory Tests Test 12/17/17 10:00 White Blood Count 14.1 Red Blood Count 3.84 Hemoglobin 11.0 Hematocrit 34.2 Mean Corpuscular Volume 89.2 Mean Corpuscular Hemoglobin 28.6 Mean Corpuscular Hemoglobin Concent 32.1 Red Cell Distribution Width 14.0 Platelet Count 254 Mean Platelet Volume 8.5 Neutrophils (%) (Auto) 81.0 Lymphocytes (%) (Auto) 10.7 Monocytes (%) (Auto) 6.3 Eosinophils (%) (Auto) 1.7 Basophils (%) (Auto) 0.3 Neutrophils # (Auto) 11.5 Lymphocytes # (Auto) 1.5 Monocytes # (Auto) 0.9 Eosinophils # (Auto) 0.2 Basophils # (Auto) 0.0 CBC Comment DIFF FINAL Differential Comment Blood Urea Nitrogen 73 Creatinine 10.04 Random Glucose 162 Total Protein 7.7 Albumin 3.3 Calcium Level 8.2 Alkaline Phosphatase 94 Aspartate Amino Transf (AST/SGOT) 25 Alanine Aminotransferase (ALT/SGPT) 14 Total Bilirubin 0.3 Sodium Level 135 Potassium Level 7.2 Chloride Level 105 Carbon Dioxide Level 14.2 Anion Gap 16 Estimat Glomerular Filtration Rate 5 Lipase 162 Result Diagram: 12/17/17 1000 12/17/17 1000 Imaging Last Impressions Abdomen/Pelvis CT 12/17/17 0948 Signed Impressions: Service Date/Time: December 10:20 - CONCLUSION: 1. No acute findings. Mild constipation. No inflammatory changes identified within the right lower quadrant. 2. Stable enlargement of pancreatic head and stable partially calcified renal transplant since 2016. Alberto Murry MD Caprini VTE Risk Assessment Caprini VTE Risk Assessment: Mod/High Risk (score >= 2) Caprini Risk Assessment Model Point Value = 1 Point Value = 2 Point Value = 3 Point Value = 5 Age 41-60 Minor surgery BMI > 25 kg/m2 Swollen legs Varicose veins or History of unexplained or recurrent spontaneous Oral contraceptives or hormone replacement Sepsis (< 1 month) Serious lung disease, including pneumonia (< 1 month) Abnormal pulmonary function Acute myocardial infarction Congestive heart failure (< 1 month) History of inflammatory bowel disease Medical patient at bed rest Age 61-74 Arthroscopic surgery Major open surgery (> 45 min) Laparoscopic surgery (> 45 min) Malignancy Confined to bed (> 72 hours) Immobilizing plaster cast Central venous access Age >= 75 History of VTE Family history of VTE Factor V Leiden Prothrombin [id number] Lupus anticoagulant Anticardiolipin antibodies Elevated serum homocysteine Heparin-induced thrombocytopenia Other congenital or acquired thrombophilia Stroke (< 1 month) Elective arthroplasty Hip, pelvis, or leg fracture Acute spinal cord injury (< 1 month) Prophylaxis Regimen Total Risk Factor Score Risk Level Prophylaxis Regimen 0-1 Low Early ambulation 2 Moderate Order ONE of the following: *Sequential Compression Device (SCD) *Heparin 5000 units SQ BID 3-4 Higher Order ONE of the following medications: *Heparin 5000 units SQ TID *Enoxaparin/Lovenox 40 mg SQ daily (WT < 150 kg, CrCl > 30 mL/min) *Enoxaparin/Lovenox 30 mg SQ daily (WT < 150 kg, CrCl > 10-29 mL/min) *Enoxaparin/Lovenox 30 mg SQ BID (WT < 150 kg, CrCl > 30 mL/min) AND/OR *Sequential Compression Device (SCD) 5 or more Highest Order ONE of the following medications: *Heparin 5000 units SQ TID (Preferred with Epidurals) *Enoxaparin/Lovenox 40 mg SQ daily (WT < 150 kg, CrCl > 30 mL/min) *Enoxaparin/Lovenox 30 mg SQ daily (WT < 150 kg, CrCl > 10-29 mL/min) *Enoxaparin/Lovenox 30 mg SQ BID (WT < 150 kg, CrCl > 30 mL/min) AND *Sequential Compression Device (SCD) Assessment and Plan Assessment and Plan 52-year-old female Hyperkalemia known history of end-stage renal disease. Patient received bicarb and Kayexalate in the emergency room Patient getting hemodialysis right now. Repeat potassium tonight Continue on PhosLo and calcitriol History of diabetes type 2 insulin requiring Follow blood sugars bid and record Patient states good hypoglycemic awareness Acute right lower abdominal pain. Leukocytosis on labs CT unremarkable Patient seen by nephrology. Patient was ordered 1 dose of Rocephin during the hemodialysis by nephrology. continue to monitor abdomen As needed pain meds Exam benign. No nausea no vomiting. Positive bowel movement per patient May need GI consult Up and ambulate encourage. Code Status Full Discussed Condition With Patient Physician Certification 2 Midnight Certification Type: Admission for Inpatient Services Order for Inpatient Services The services are ordered in accordance with Medicare regulations or non- Medicare payer requirements, as applicable. In the case of services not specified as inpatient-only, they are appropriately provided as inpatient services in accordance with the 2-midnight benchmark. Estimated LOS (days): 3 days is the estimated time the patient will need to remain in the hospital, assuming treatment plan goals are met and no additional complications. Post-Hospital Plan: Home Samuel Maciel MD December 17, 2017 17:15
[2017-12-17] MEDS ORDERED: DEXTROSE 50% IN WATER 50 ML VIAL(D50) IV PUSH PRN ×2 (17:30→17:45)
[2017-12-17] MEDS ORDERED: GLUCAGON 1 MG/ML VIAL OTHER PRN ×2 (17:30)
[2017-12-17] MEDS: INSULIN ASPART SUPPLEMENTAL SCALE SQ SCH (17:45)
[2017-12-17] MEDS: CALCIUM ACETATE 667 MG CAP PO SCH (18:00)
[2017-12-17] MEDS ORDERED: NON-FORMULARY DRUG (Oxycodone 15 MG) PO SCH (21:00)
[2017-12-17] MEDS: ZOLPIDEM TARTRATE 5 MG TAB PO PRN (23:30)
[2017-12-18] VITALS (12 sets, daily range): BP systolic 93–159; BP diastolic 55–70; PULSE 78–98; RESP 15–24; TEMP 98.2–99; O2SAT 96–100
[2017-12-18] MEDS: INSULIN ASPART SUPPLEMENTAL SCALE SQ SCH ×3 (06:59→16:00)
[2017-12-18 07:30] LABS: HEMATOCRIT 30.4 % (35.0-46.0); MEAN CELL VOLUME 88.1 FL (80.0-100.0); MEAN CORPUSCULAR HGB CONC 32.9 % (32.0-36.0); MEAN PLATELET VOLUME 8.5 FL (7.0-11.0); PLATELET COUNT 208 TH/MM3 (150-450); RED BLOOD COUNT 3.45 MIL/MM3 (4.00-5.30); RED CELL DISTRIBUTION WIDTH 13.7 % (11.6-17.2)
[2017-12-18] MEDS: CALCIUM ACETATE 667 MG CAP PO SCH ×3 (07:32→17:37)
[2017-12-18] MEDS: GABAPENTIN 100 MG CAP PO SCH (07:33)
[2017-12-18 07:50] LABS: BICARBONATE 28.2 MEQ/L (21.0-32.0); CALCIUM 7.3 MG/DL (8.5-10.1); CREATININE 6.13 MG/DL (0.50-1.00)
[2017-12-18 08:04] LABS: TOTAL PROTEIN 7.1 GM/DL (6.4-8.2)
[2017-12-18 08:08] LABS: CALCIUM-PROTEIN CORRECTED 7.3 MG/DL (8.5-10.1)
--- NOTE | 2017-12-18 14:11 | HHI.NPPN ---
Subjective Complaints: Abdominal Pain General Problems: Anemia Renal Failure: Chronic, End Stage Renal Disease Interval History She was dialyzed yesterday, repeat potassium is better. States the abdominal pain is still present, LLQ/flank and around renal transplant. She is not vomiting after meals. No BM. (Natalie Adames) Objective Data Data Vital Signs Date Time Temp Pulse Resp B/P (MAP) Pulse Ox O2 Delivery O2 Flow Rate FiO2 12/18/17 12:30 80 17 115/59 (77) 100 12/18/17 12:30 80 12/18/17 12:00 89 12/18/17 12:00 89 24 108/61 (77) 100 12/18/17 09:30 92 12/18/17 09:00 93 12/18/17 08:30 81 12/18/17 08:00 82 12/18/17 08:00 98.8 12/18/17 06:00 93 12/18/17 04:00 87 12/18/17 04:00 98.7 87 15 105/60 (75) 100 12/18/17 02:00 93 12/18/17 00:00 99.0 98 20 116/63 (80) 100 12/18/17 00:00 98 12/17/17 22:00 107 12/17/17 20:00 98.7 104 30 135/64 (87) 100 12/17/17 20:00 104 12/17/17 18:30 102 12/17/17 18:30 102 23 117/55 (75) 100 12/17/17 18:15 106 12/17/17 18:15 106 22 119/64 (82) 100 12/17/17 18:00 103 12/17/17 18:00 103 33 118/64 (82) 100 12/17/17 17:45 107 22 126/66 (86) 100 12/17/17 17:30 102 17 112/62 (79) 100 12/17/17 17:15 110 14 115/67 (83) 100 12/17/17 17:00 99 24 118/72 (87) 100 12/17/17 16:45 101 20 114/65 (81) 100 12/17/17 16:30 96 14 106/58 (74) 100 12/17/17 16:30 96 12/17/17 16:15 91 14 95/54 (68) 100 12/17/17 16:15 91 12/17/17 16:00 90 12/17/17 16:00 90 14 94/55 (68) 100 12/17/17 14:30 87 12/17/17 14:18 87 18 98/70 (79) 100 12/17/17 14:18 87 12/17/17 14:15 86 24 100 (Natalie Adames) -: 12/18/17 0715 12/18/17 0715 Imaging Last 72 hours Impressions Abdomen/Pelvis CT 12/17/17 0948 Signed Impressions: Service Date/Time: December 10:20 - CONCLUSION: 1. No acute findings. Mild constipation. No inflammatory changes identified within the right lower quadrant. 2. Stable enlargement of pancreatic head and stable partially calcified renal transplant since 2015. Alberto Murry MD (Natalie Adames) Physical Exam General Appearance: Well Developed, No Acute Distress, Comfortable (Natalie Adames) Eyes Eye Exam: Pupils Equal (Natalie Adames) Throat Throat Exam: Oral Mucosa [place] & Moist (Natalie Adames) Neck Neck Exam: Neck Supple (Natalie Adames) Pulmonary Resp Exam: Clear Bilaterally, Breath Sounds Equal (Natalie Adames) Cardiology CV Exam: Regular, Normal Sinus Rhythm, Good Perfusion (Natalie Adames) Gastrointestinal/Abdomen GI Exam: Soft, Non-Tender, Bowel Sounds Present (Natalie Adames) Genitourinary Exam: Clear Urine (Natalie Adames) Musculoskeletal MS Exam: Joints Intact, Normal Gait, Normal Tone (Natalie Adames) Integumentary Skin Exam: Clear, Warm, Dry, Intact (Natalie Adames) Extremeties Extremities Exam: No Edema, Pedal Pulses Palpable (Natalie Adames) Neurologic Neuro Exam: Alert, Awake, Oriented, Speech Clear, Moving All Extremities (Natalie Adames) Psychiatric Psych Exam: Appropriate Responses (Natalie Adames) Assessment/Plan Discussed Condition With: Patient Assessment Summary: Anemia of CKD, Hypertension, Diabetes Mellitus, End Stage Renal Disease Problem List: (1) ESRD (end stage renal disease) on dialysis ICD Codes: N18.6 - End stage renal failure on dialysis; Z99.2 - Dependence on renal dialysis Status: Chronic Plan: Continue HD TTS, due tomorrow. She had 3L fluid removal yesterday. Her repeat potassium is normal. PO fluid restriction advised, high protein, low K diet. Avoid Gadolinium. Obtain renal profile in AM Avoid IVF. (2) Hyperkalemia ICD Codes: E87.5 - Hyperkalemia Status: Acute Plan: Improved, Monitor labs. Low potassium diet. (3) Abdominal pain ICD Codes: R10.9 - Unspecified abdominal pain Status: Acute Plan: Etiology is unclear. Imaging did not show anything acute, mild constipation. Infection of the failed transplant? No leukocytosis noted. Afebrile. On empiric antibiotics. Monitor. Consider GI evaluation. (4) Type 2 diabetes mellitus ICD Codes: E11.9 - Type 2 diabetes mellitus without complications Plan: Continue Insulin coverage. Maintain blood sugar between 140 and 180 while hospitalized. (5) Metabolic bone disease ICD Codes: E88.9 - Metabolic disorder, unspecified; M90.80 - Osteopathy in diseases classified elsewhere, unspecified site Status: Acute Plan: Historically has had high phosphorus. Monitor phosphorus. Continue binders. (6) Hypocalcemia ICD Codes: E83.51 - Hypocalcemia Status: Acute Plan: Likely due to history of subtotal parathyroidectomy. On calcitriol. (Natalie Adames) Plan patient was seen and examined. Agree with above assessment and plan. Obtain phosphorus level. (Karthikeyan Choudhary MD) Problem Qualifiers (1) Abdominal pain: Qualified Codes: R10.9 - Unspecified abdominal pain Natalie Adames December 18, 2017 14:11 Karthikeyan Choudhary MD December 18, 2017 15:00
--- NOTE | 2017-12-18 17:36 | HHI.PR ---
Subjective Remarks no complains of nausea or vomiting + flatus, +BM feeling- but wants to have own bathroom still having intermittent lower abdominal apin no leg pain Objective Vitals Vital Signs Date Time Temp Pulse Resp B/P (MAP) Pulse Ox O2 Delivery O2 Flow Rate FiO2 12/18/17 16:00 78 17 93/55 (68) 100 12/18/17 16:00 98.6 12/18/17 16:00 78 17 93/55 (68) 100 12/18/17 16:00 78 12/18/17 12:30 80 17 115/59 (77) 100 12/18/17 12:30 80 12/18/17 12:00 89 12/18/17 12:00 89 24 108/61 (77) 100 12/18/17 09:30 92 12/18/17 09:00 93 12/18/17 08:30 81 12/18/17 08:00 82 12/18/17 08:00 98.8 12/18/17 06:00 93 12/18/17 04:00 87 12/18/17 04:00 98.7 87 15 105/60 (75) 100 12/18/17 02:00 93 12/18/17 00:00 99.0 98 20 116/63 (80) 100 12/18/17 00:00 98 12/17/17 22:00 107 12/17/17 20:00 98.7 104 30 135/64 (87) 100 12/17/17 20:00 104 12/17/17 18:30 102 12/17/17 18:30 102 23 117/55 (75) 100 12/17/17 18:15 106 12/17/17 18:15 106 22 119/64 (82) 100 12/17/17 18:00 103 12/17/17 18:00 103 33 118/64 (82) 100 12/17/17 17:45 107 22 126/66 (86) 100 I/O 12/17/17 12/17/17 12/17/17 12/18/17 12/18/17 12/18/17 07:00 15:00 23:00 07:00 15:00 23:00 Intake Total 480 ml Output Total 3000 ml 0 ml Balance -3000 ml 480 ml Intake Oral 480 ml Output Urine Total 0 ml Hemodialysis 3000 ml # Bowel Movements 2 0 Result Diagram: 12/18/17 0715 12/18/17 0715 Imaging Last Impressions Abdomen/Pelvis CT 12/17/17 0948 Signed Impressions: Service Date/Time: December 10:20 - CONCLUSION: 1. No acute findings. Mild constipation. No inflammatory changes identified within the right lower quadrant. 2. Stable enlargement of pancreatic head and stable partially calcified renal transplant since 2016. Alberto Murry MD Objective Remarks awake and alert no acute distress anicteric lungs- no rales regular rhythm abdomen soft, + bowel sounds, + tenderness on deep palpation of both lower quadrants extremitiess no edema right foot- slight blackish discoloration- superficial, - looks like old bruise A/P Assessment and Plan 52-year-old female Hyperkalemia known history of end-stage renal disease. Patient received bicarb and Kayexalate in the emergency room Patient getting hemodialysis right now. Repeat potassium tonight Continue on PhosLo and calcitriol History of diabetes type 2 insulin requiring Follow blood sugars bid and record Patient states good hypoglycemic awareness Acute right lower abdominal pain. Leukocytosis on labs CT unremarkable continue to monitor abdomen As needed pain meds Exam benign. No nausea no vomiting. Positive bowel movement per patient GI consulted Up and ambulating Code Status Samuel Maciel MD December 18, 2017 17:36
--- NOTE | 2017-12-18 17:43 | PD.CONS ---
HPI History of Present Illness This is a 52 year old female was admitted 12/17/2017 with complaints of right lower quadrant abdominal pain. According to the patient in the records she had gone to dialysis the day of hospital admission and reported the pain was constant and severe. She now states that the abdominal pain has moved into the left lower quadrant. She does have some tenderness and guarding to light palpation. Patient notes chronic diarrhea secondary to her dialysis and at times attempts to put off defecation. She also states she is positive for heartburn which is worse at night. Patient also notes eating late at night at times and has a history of GERD . Patient called her mother to assist with history. EGD was done in [place] approximately 9 years ago ; no previous colonoscopy she has a history of end-stage renal disease and had previous anterior kidney transplanted from her brother in her right lower quadrant. The kidney failed and patient has been on dialysis for 8-9 years. According to the nurse she has not allowed anyone to remove the kidney because it was her brothers. She also notes stressful past 8 months but did not elaborate. 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 Current labs show WBC count initially at 14.1 now resolved to normal at 7. Hemoglobin 10. Chronic anemia probably secondary to her kidney disease. Patient does have hemodialysis 3 times a week and is followed by nephrology. (Gifty Owusu) PFS Past Medical History According to the record and patient end-stage renal disease on hemodialysis, failed kidney transplant Diabetes steroid induced Peripheral arterial disease Diarrhea secondary to her dialysis Previous bowel obstructions 3-5 GERD Past Surgical History AV graft left AV fistula right Parathyroidectomy Right toe abscess status post amputation. With bone exposed. Small bowel resections secondary to obstructions in infancy 2 according to the record EGD approximately 9 years ago (Gifty Owusu) Coded Allergies: coconut (Unverified Allergy, Severe, HIVES, 10/08/17) diatrizoate meglumine (Unverified Allergy, Severe, RENAL FAILURE, 10/08/17) gadobenic acid (Unverified Allergy, Severe, RENAL FAILURE, 10/08/17) gadodiamide (Unverified Allergy, Severe, RENAL FAILURE, 10/08/17) gadoteridol (Unverified Allergy, Severe, RENAL FAILURE, 10/08/17) iodixanol (Unverified Allergy, Severe, RENAL FAILURE, 10/08/17) iohexol (Unverified Allergy, Severe, RENAL FAILURE, 10/08/17) morphine (Unverified Allergy, Severe, HIVES, 10/08/17) azithromycin (Unverified Allergy, Intermediate, HIVES, 10/08/17) clindamycin (Unverified Allergy, Intermediate, HIVES, 10/08/17) ALL OVER erythromycin base (Unverified Allergy, Intermediate, HIVES, 10/08/17) penicillin G (Unverified Allergy, Intermediate, Hives, 10/08/17) ALL OVER midodrine (Unverified Allergy, Unknown, Atrial Fibrillation, 10/08/17) codeine (Unverified Adverse Reaction, Severe, HALLUCINATIONS, 10/08/17) insulin aspart (Unverified Adverse Reaction, Severe, REGULAR INSULIN ONLY- CAUSES CRAMPIN G AND "FREEZING", 10/08/17) insulin aspart protamine human (Unverified Adverse Reaction, Severe, REGULAR INSULIN ONLY-CAUSES CRAMPIN G AND "FREEZING", 10/08/17) insulin detemir (Unverified Adverse Reaction, Severe, REGULAR INSULIN ONLY -CAUSES CRAMPIN G AND "FREEZING", 10/08/17) insulin glargine (Unverified Adverse Reaction, Severe, REGULAR INSULIN ONLY-CAUSES CRAMPIN G AND "FREEZING", 10/08/17) insulin isophane (NPH) (Unverified Adverse Reaction, Severe, REGULAR INSULIN ONLY-CAUSES CRAMPIN G AND "FREEZING", 10/08/17) insulin lispro (Unverified Adverse Reaction, Severe, REGULAR INSULIN ONLY- CAUSES CRAMPIN G AND "FREEZING", 10/08/17) insulin regular (Unverified Adverse Reaction, Severe, REGULAR INSULIN ONLY -CAUSES CRAMPIN G AND "FREEZING", 10/08/17) vancomycin (Unverified Adverse Reaction, Mild, NAUSEA/VOMITING WHEN INFUSED TOO FAST, 10/08/17) Medications Administered Medications Medications (Trade) Dose Ordered Sig/Bárbara Route PRN Reason Start Time Stop Time Status Last Admin Dose Admin Sodium Chloride (NS Flush) 2 ml UNSCH PRN IV FLUSH FLUSH AFTER USING IV ACCESS 12/17/17 10:00 12/18/17 07:32 Zolpidem Tartrate (Ambien) 5 mg HS PRN PO INSOMNIA 12/17/17 21:00 12/17/17 23:30 Albumin Human 100 ml @ 60 mls/hr UNSCH PRN IV WITH DIALYSIS 12/17/17 14:45 12/17/17 16:00 Insulin Aspart (NovoLOG SUPPLEMENTAL SCALE) 1 BIDAC SQ 12/17/17 17:45 12/18/17 12:11 Calcium Acetate (Phoslo) 667 mg TID PO 12/17/17 18:00 12/18/17 12:10 Gabapentin (Neurontin) 100 mg DAILY PO 12/18/17 09:00 12/18/17 07:33 Oxycodone HCl (Roxicodone) 15 mg Q12HR PO 12/17/17 21:00 12/18/17 07:32 Family History Noncontributory Social History History of smoking quit 7 months ago, 05/2017 Denies alcohol or substance abuse (Gifty Owusu) Review of Systems Gastrointestinal: COMPLAINS OF: Abdominal pain, Constipation, Diarrhea (Gifty Owusu) GI Exam Vitals I&O Vital Signs Date Time Temp Pulse Resp B/P (MAP) Pulse Ox O2 Delivery O2 Flow Rate FiO2 12/18/17 16:00 78 17 93/55 (68) 100 12/18/17 16:00 98.6 12/18/17 16:00 78 17 93/55 (68) 100 12/18/17 16:00 78 12/18/17 12:30 80 17 115/59 (77) 100 12/18/17 12:30 80 12/18/17 12:00 89 12/18/17 12:00 89 24 108/61 (77) 100 12/18/17 09:30 92 12/18/17 09:00 93 12/18/17 08:30 81 12/18/17 08:00 82 12/18/17 08:00 98.8 12/18/17 06:00 93 12/18/17 04:00 87 12/18/17 04:00 98.7 87 15 105/60 (75) 100 12/18/17 02:00 93 12/18/17 00:00 99.0 98 20 116/63 (80) 100 12/18/17 00:00 98 12/17/17 22:00 107 12/17/17 20:00 98.7 104 30 135/64 (87) 100 12/17/17 20:00 104 12/17/17 18:30 102 12/17/17 18:30 102 23 117/55 (75) 100 12/17/17 18:15 106 12/17/17 18:15 106 22 119/64 (82) 100 12/17/17 18:00 103 12/17/17 18:00 103 33 118/64 (82) 100 12/17/17 17:45 107 22 126/66 (86) 100 12/17/17 17:30 102 17 112/62 (79) 100 I/O 12/17/17 12/17/17 12/17/17 12/18/17 12/18/17 12/18/17 07:00 15:00 23:00 07:00 15:00 23:00 Intake Total 480 ml Output Total 3000 ml 0 ml Balance -3000 ml 480 ml Intake Oral 480 ml Output Urine Total 0 ml Hemodialysis 3000 ml # Bowel Movements 2 0 Imaging Last Impressions Abdomen/Pelvis CT 12/17/17 0948 Signed Impressions: Service Date/Time: December 10:20 - CONCLUSION: 1. No acute findings. Mild constipation. No inflammatory changes identified within the right lower quadrant. 2. Stable enlargement of pancreatic head and stable partially calcified renal transplant since 2015. Alberto Murry MD Laboratory Test 12/17/17 19:00 12/18/17 07:15 Potassium Level 3.7 MEQ/L 4.4 MEQ/L White Blood Count 7.0 TH/MM3 Red Blood Count 3.45 MIL/MM3 Hemoglobin 10.0 GM/DL Hematocrit 30.4 % Mean Corpuscular Volume 88.1 FL Mean Corpuscular Hemoglobin 29.0 PG Mean Corpuscular Hemoglobin Concent 32.9 % Red Cell Distribution Width 13.7 % Platelet Count 208 TH/MM3 Mean Platelet Volume 8.5 FL Blood Urea Nitrogen 36 MG/DL Creatinine 6.13 MG/DL Random Glucose 187 MG/DL Total Protein 7.1 GM/DL Calcium Level 7.3 MG/DL Sodium Level 140 MEQ/L Chloride Level 102 MEQ/L Carbon Dioxide Level 28.2 MEQ/L Anion Gap 10 MEQ/L Estimat Glomerular Filtration Rate 9 ML/MIN Protein Corrected Calcium 7.3 MG/DL Physical Examination HEENT: normocephalic; atraumatic; no obvious jaundice NECK: Neck is supple CHEST: Chest is clear to auscultation and percussion. No rhonchi or wheezing CARDIAC: Distant ABDOMEN: Soft, nondistended, right lower quadrant and left lower quadrant guarding and tenderness to very minimal palpation bowel sounds are present in all four quadrants. EXTREMITIES: No clubbing, cyanosis, or edema. SKIN: Normal; no rash; CORNER BLOCK CUTTER: Increased anxiety, (Gifty Owusu) Assessment and Plan Assessment: (1) Abdominal pain ICD Codes: R10.9 - Unspecified abdominal pain Status: Acute Plan 52-year-old female in the intensive care setting with abdominal pain which initiated in the right lower quadrant now has transitioned over to the left lower quadrant. Patient has significant history of bowel obstructions as an and child and has had multiple bowel resections surgeries. Patient is end-stage renal disease and is on hemodialysis 3 times a week. On 12/17/2017 she was at dialysis when the right lower quadrant abdominal pain started, it appeared to be constant and intense. CT scan was done on 12/17/2017 showing no acute findings. Mild constipation. No inflammatory changes identified within the right lower quadrant. Stable enlargement of the pancreatic head and stable partially calcified renal transplant since 2016. Lower abdominal pain could possibly be due to scar tissue, need to continue to monitor and rule out any signs of ileus. Early patient has active bowel sounds but is still very guarded to her abdomen. Patient has active bowel sounds and states that she needs to defecate but will not do it since she is in the ICU setting. Patient states chronic diarrhea secondary to her dialysis and will hold her stool for extended periods of time on purpose. Encouraged her to allow us to give her some privacy so she can have her bowel movement. Anemia chronic , no obvious bleeding current hemoglobin 10. Probable secondary to her end-stage renal disease. Initially had some leukocytosis with WBC count 14.1 now normalized at 7. No previous colonoscopy EGD approximately 9 years ago. Discussed with patient the need for EGD: Since she does have reflux and heartburn symptoms worse at night that are uncontrolled. GERD acute on chronic Plan IV fluids Monitor labs Recheck abdominal KUB in the morning PPI initiated IV Plan for EGD and colonoscopy Thursday a.m. if patient agrees Further recommendations to follow Patient was seen per myself and Dr. Viczarra, note was written on his behalf (Gifty Owusu) Physician Comments Seen and examined with LELO, no clear reason for abdominal pain seen on ct. EGD/ colonoscopy on thursday. Discussed with pt. and Mom. Will follow. Thank you (Jass Dorantes MD) Problem Qualifiers (1) Abdominal pain: Qualified Codes: R10.9 - Unspecified abdominal pain Gifty Owusu December 18, 2017 17:43 Jass Dorantes MD December 19, 2017 15:40
[2017-12-18] MEDS: PANTOPRAZOLE SODIUM 40 MG VIAL IV PUSH SCH (21:06)
--- NOTE | 2017-12-18 21:13 | RADRPT ---
EXAM DATE/TIME: 12/18/2017 19:46 [facility] COMPARISON: CT ABDOMEN & PELVIS W/O CONTRAST, December 17, 2017, 10:20. ABDOMEN KUB ONLY, May 06, 2016, 8:02. INDICATIONS : Right side abdominal pain. MEDICAL HISTORY : Cardiovascular disease. dialysis SURGICAL HISTORY : Bowel resection, right kidney transplant ENCOUNTER: Initial ACUITY: 3 days PAIN SCORE: 5/10 LOCATION: Right abdomen FINDINGS: Supine view of the abdomen was performed. The abdominal bowel gas pattern is normal. No abnormal ma sses, calcifications, or organomegaly is seen. There is a calcified renal transplant within the right lower quadrant. The osseous structures are unremarkable. CONCLUSION: 1. Normal bowel gas pattern. 2. Calcified renal transplant within the right lower quadrant. Garcia Browne Jr., MD on December 18, 2017 at 21:09 Board Certified Radiologist. This report was verified electronically.
[2017-12-18] MEDS: ZOLPIDEM TARTRATE 5 MG TAB PO PRN (21:14)
[2017-12-19] VITALS: BP 113/63; PULSE 85; RESP 18; TEMP 98.3; O2SAT 95
[2017-12-19 01:30] VITALS: O2SAT 96
[2017-12-19 05:34] LABS: ALBUMIN 3.3 GM/DL (3.4-5.0); CALCIUM 7.1 MG/DL (8.5-10.1); CREATININE 7.85 MG/DL (0.50-1.00)
[2017-12-19 08:00] VITALS: BP 134/64; PULSE 79; RESP 19; TEMP 98.4; O2SAT 96
[2017-12-19] MEDS: INSULIN ASPART SUPPLEMENTAL SCALE SQ SCH ×5 (08:00→21:00)
[2017-12-19] MEDS: PANTOPRAZOLE SODIUM 40 MG VIAL IV PUSH SCH ×3 (08:00→21:01)
[2017-12-19] MEDS: CALCIUM ACETATE 667 MG CAP PO SCH ×3 (08:14→17:47)
[2017-12-19] MEDS: GABAPENTIN 100 MG CAP PO SCH ×2 (08:14→14:18)
[2017-12-19] MEDS: CALCITRIOL 0.25 MCG CAP PO SCH (08:14)
--- NOTE | 2017-12-19 08:51 | EKG ---
Date Performed: 12/17/2017 Time Performed: 11:27:29 PTAGE: 52 years EKG: Sinus rhythm LOW QRS VOLTAGE IN EXTREMITY LEADS BORDERLINE ECG INTERPRETATION BASED ON A DEFAULT AGE OF 40 YEARS PREVIOUS TRACING : 10/08/2017 16.12 DOCTOR: Rox Aguillon Interpretating Date/Time 12/19/2017 08:47:49
--- NOTE | 2017-12-19 09:36 | HHI.NPPN ---
Subjective Complaints: Abdominal Pain General Problems: Anemia Renal Failure: Chronic, End Stage Renal Disease Additional Remarks Seen during hemodialysis tolerating well. Complains of constipation. No SOB. (Kiki Hale) Review of Systems Gastrointestinal Gastrointestinal: Constipation (Kiki Hale) Objective Data Data Vital Signs Date Time Temp Pulse Resp B/P (MAP) Pulse Ox O2 Delivery O2 Flow Rate FiO2 12/19/17 08:00 98.4 79 19 134/64 (87) 96 12/19/17 01:30 96 12/19/17 00:00 98.3 85 18 113/63 (80) 95 12/18/17 20:00 98.2 88 18 159/70 (99) 96 12/18/17 16:00 78 17 93/55 (68) 100 12/18/17 16:00 98.6 12/18/17 16:00 78 17 93/55 (68) 100 12/18/17 16:00 78 12/18/17 12:30 80 17 115/59 (77) 100 12/18/17 12:30 80 12/18/17 12:00 89 12/18/17 12:00 89 24 108/61 (77) 100 12/18/17 09:30 92 (Kiki Hale) -: 12/18/17 0715 12/19/17 0342 Imaging Last Impressions Abdomen X-Ray 12/18/17 0000 Signed Impressions: Service Date/Time: Monday, December 18, 2017 19:46 - CONCLUSION: 1. Normal bowel gas pattern. 2. Calcified renal transplant within the right lower quadrant. Garcia Browne Jr., MD Abdomen/Pelvis CT 12/17/17 0948 Signed Impressions: Service Date/Time: December 10:20 - CONCLUSION: 1. No acute findings. Mild constipation. No inflammatory changes identified within the right lower quadrant. 2. Stable enlargement of pancreatic head and stable partially calcified renal transplant since 2015. Alberto Murry MD (Kiki Hale) Physical Exam General Appearance: Well Developed, No Acute Distress, Comfortable (Kiki Hale) Eyes Eye Exam: Pupils Equal (Kiki Hale) Throat Throat Exam: Oral Mucosa [place] & Moist (Kiki Hale) Neck Neck Exam: Neck Supple (Kiki Hale) Pulmonary Resp Exam: Clear Bilaterally, Breath Sounds Equal (Kiki Hale) Cardiology CV Exam: Regular, Normal Sinus Rhythm, Good Perfusion (Kiki Hale) Gastrointestinal/Abdomen GI Exam: Soft, Non-Tender, Bowel Sounds Present (Kiki Hale) Genitourinary Exam: Clear Urine (Kiki Hale) Musculoskeletal MS Exam: Joints Intact, Normal Gait, Normal Tone (Kiki Hale) Integumentary Skin Exam: Clear, Warm, Dry, Intact (Kiki Hale) Extremeties Extremities Exam: No Edema, Pedal Pulses Palpable (Kiki Hale) Neurologic Neuro Exam: Alert, Awake, Oriented, Speech Clear, Moving All Extremities (Kiki Hale) Psychiatric Psych Exam: Appropriate Responses (Kiki Hale) Assessment/Plan Discussed Condition With: Patient Assessment Summary: Anemia of CKD, Hypertension, Diabetes Mellitus, End Stage Renal Disease Problem List: (1) ESRD (end stage renal disease) on dialysis ICD Codes: N18.6 - End stage renal failure on dialysis; Z99.2 - Dependence on renal dialysis Status: Chronic Plan: Continue HD TTS, due tomorrow. PO fluid restriction advised, high protein, low K diet. Avoid Gadolinium. Avoid IVF Seen during dialysis PO4 elevated at 6 on Phoslo with each meal Ca level low calcium gluconate ordered X 1 recheck in AM (2) Hyperkalemia ICD Codes: E87.5 - Hyperkalemia Status: Acute Plan: Improved, Monitor labs. Low potassium diet. (3) Abdominal pain ICD Codes: R10.9 - Unspecified abdominal pain Status: Acute Plan: Etiology is unclear. Imaging did not show anything acute, mild constipation. Infection of the failed transplant? No leukocytosis noted. Afebrile. On empiric antibiotics. Monitor. GI consulted (4) Type 2 diabetes mellitus ICD Codes: E11.9 - Type 2 diabetes mellitus without complications Plan: Continue Insulin coverage. Maintain blood sugar between 140 and 180 while hospitalized. (5) Metabolic bone disease ICD Codes: E88.9 - Metabolic disorder, unspecified; M90.80 - Osteopathy in diseases classified elsewhere, unspecified site Status: Acute Plan: Historically has had high phosphorus. Monitor phosphorus. Continue binders. (6) Hypocalcemia ICD Codes: E83.51 - Hypocalcemia Status: Acute Plan: Likely due to history of subtotal parathyroidectomy. On calcitriol. (Kiki Hale) Problem List: (1) ESRD (end stage renal disease) on dialysis ICD Codes: N18.6 - End stage renal failure on dialysis; Z99.2 - Dependence on renal dialysis Status: Chronic Plan: Continue HD TTS, due tomorrow. PO fluid restriction advised, high protein, low K diet. Avoid Gadolinium. Avoid IVF Seen during dialysis PO4 elevated at 6 on Phoslo with each meal Ca level low calcium gluconate ordered X 1 recheck in AM. Patient seen during HD and examined, BP is stable, GI consult noted, for possible EGD/Colonoscopy on Thursday. HD now, tolerating well. (2) Hyperkalemia ICD Codes: E87.5 - Hyperkalemia Status: Acute Plan: Improved, Monitor labs. Low potassium diet. (3) Abdominal pain ICD Codes: R10.9 - Unspecified abdominal pain Status: Acute Plan: Etiology is unclear. Imaging did not show anything acute, mild constipation. Infection of the failed transplant? No leukocytosis noted. Afebrile. On empiric antibiotics. Monitor. GI consulted (4) Type 2 diabetes mellitus ICD Codes: E11.9 - Type 2 diabetes mellitus without complications Plan: Continue Insulin coverage. Maintain blood sugar between 140 and 180 while hospitalized. (5) Metabolic bone disease ICD Codes: E88.9 - Metabolic disorder, unspecified; M90.80 - Osteopathy in diseases classified elsewhere, unspecified site Status: Acute Plan: Historically has had high phosphorus. Monitor phosphorus. Continue binders. (6) Hypocalcemia ICD Codes: E83.51 - Hypocalcemia Status: Acute Plan: Likely due to history of subtotal parathyroidectomy. On calcitriol. (Kulwant Fay MD) Problem Qualifiers (1) Abdominal pain: Qualified Codes: R10.9 - Unspecified abdominal pain Kiki Hale December 19, 2017 09:35 Kulwant Fay MD December 19, 2017 10:54
[2017-12-19] MEDS ORDERED: CALCIUM GLUCONATE INJ 1 GM in DEXTROSE 5% IN WATER 100ML INJ 100 ML IV ONE ×2 (09:45)
--- NOTE | 2017-12-19 11:46 | HHI.PR ---
Subjective Remarks no complains of nausea or vomiting no BM + flatus had hemodialysis Objective Vitals Vital Signs Date Time Temp Pulse Resp B/P (MAP) Pulse Ox O2 Delivery O2 Flow Rate FiO2 12/19/17 08:00 98.4 79 19 134/64 (87) 96 12/19/17 01:30 96 12/19/17 00:00 98.3 85 18 113/63 (80) 95 12/18/17 20:00 98.2 88 18 159/70 (99) 96 12/18/17 16:00 78 17 93/55 (68) 100 12/18/17 16:00 98.6 12/18/17 16:00 78 17 93/55 (68) 100 12/18/17 16:00 78 12/18/17 12:30 80 17 115/59 (77) 100 12/18/17 12:30 80 12/18/17 12:00 89 12/18/17 12:00 89 24 108/61 (77) 100 I/O 12/18/17 12/18/17 12/18/17 12/19/17 12/19/17 12/19/17 07:00 15:00 23:00 07:00 15:00 23:00 Intake Total 480 ml 520 ml 240 ml Output Total 0 ml Balance 480 ml 520 ml 240 ml Intake Oral 480 ml 520 ml 240 ml Output Urine Total 0 ml # Voids 0 # Bowel Movements 0 0 Result Diagram: 12/18/17 0715 12/19/17 0342 Imaging Last Impressions Abdomen X-Ray 12/18/17 0000 Signed Impressions: Service Date/Time: Monday, December 18, 2017 19:46 - CONCLUSION: 1. Normal bowel gas pattern. 2. Calcified renal transplant within the right lower quadrant. Garcia Browne Jr., MD Abdomen/Pelvis CT 12/17/17 0948 Signed Impressions: Service Date/Time: December 10:20 - CONCLUSION: 1. No acute findings. Mild constipation. No inflammatory changes identified within the right lower quadrant. 2. Stable enlargement of pancreatic head and stable partially calcified renal transplant since 2015. Alberto Murry MD Objective Remarks awake and alert no acute distress anicteric lungs- no rales regular rhythm abdomen soft, + bowel sounds, soft, good bowel sounds, no guarding, mild lower abdominal tenderness, no rigidity extremities no edema right foot- slight blackish discoloration- superficial, - looks like old bruise , good range of motion, ++ peripheral pulses A/P Assessment and Plan 52-year-old female Hyperkalemia - Resolved End-stage renal disease.on HD Patient received bicarb and Kayexalate in the emergency room HD per Nephrology Continue on PhosLo and calcitriol receive IV Calcium per renal service History of diabetes type 2 insulin requiring Follow blood sugars bid and record Patient states good hypoglycemic awareness Acute right lower abdominal pain- abdominal exam benign Leukocytosis WBC down CT unremarkable continue to monitor abdomen As needed pain meds Exam benign. No nausea no vomiting. GI consulted- plan for scope Up and ambulating Samuel Maciel MD December 19, 2017 11:46
[2017-12-19] MEDS: GENTAMICIN SULFATE 20 MG/2 ML VIAL OTHER PRN (11:57)
[2017-12-19] MEDS: EPOETIN ALFA 10,000 UNITS/ML VIAL IV PUSH PRN (11:57)
[2017-12-19 13:00] VITALS: BP 131/80; PULSE 104; RESP 18; TEMP 100.2; O2SAT 96
--- NOTE | 2017-12-19 13:46 | HHI.GIFU ---
Subjective Remarks Patient is resting in the bed , family members present States she is still having lower abdominal pain left and right lower quadrants, dull pain with some occasional sharp pain Fever today, 100.2 No BM since admission (Gifty Owusu) Objective Vitals I&O Vital Signs Date Time Temp Pulse Resp B/P (MAP) Pulse Ox O2 Delivery O2 Flow Rate FiO2 12/19/17 13:00 100.2 104 18 131/80 (97) 96 12/19/17 08:00 98.4 79 19 134/64 (87) 96 12/19/17 01:30 96 12/19/17 00:00 98.3 85 18 113/63 (80) 95 12/18/17 20:00 98.2 88 18 159/70 (99) 96 12/18/17 16:00 78 17 93/55 (68) 100 12/18/17 16:00 98.6 12/18/17 16:00 78 17 93/55 (68) 100 12/18/17 16:00 78 I/O 12/18/17 12/18/17 12/18/17 12/19/17 12/19/17 12/19/17 07:00 15:00 23:00 07:00 15:00 23:00 Intake Total 480 ml 520 ml 240 ml Output Total 0 ml 4000 ml Balance 480 ml 520 ml 240 ml -4000 ml Intake Oral 480 ml 520 ml 240 ml Output Urine Total 0 ml Hemodialysis 4000 ml # Voids 0 # Bowel Movements 0 0 Laboratory Laboratory Tests Test 12/19/17 03:42 Blood Urea Nitrogen 53 Creatinine 7.85 Random Glucose 238 Albumin 3.3 Calcium Level 7.1 Phosphorus Level 6.0 Sodium Level 138 Potassium Level 4.2 Chloride Level 100 Carbon Dioxide Level 25.0 Anion Gap 13 Estimat Glomerular Filtration Rate 7 Imaging Last Impressions Abdomen X-Ray 12/18/17 0000 Signed Impressions: Service Date/Time: Monday, December 18, 2017 19:46 - CONCLUSION: 1. Normal bowel gas pattern. 2. Calcified renal transplant within the right lower quadrant. Garcia Browne Jr., MD Abdomen/Pelvis CT 12/17/17 0948 Signed Impressions: Service Date/Time: December 10:20 - CONCLUSION: 1. No acute findings. Mild constipation. No inflammatory changes identified within the right lower quadrant. 2. Stable enlargement of pancreatic head and stable partially calcified renal transplant since 2016. Alberto Murry MD Physical Exam HEENT: normocephalic; atraumatic; no jaundice. Speech understandable no hoarseness NECK: Neck is supple, no JVD, no lymphadenopathy. CHEST: Chest is clear, no shortness of breath CARDIAC: Regular rate and rhythm, S1-S2 ABDOMEN: Flat, soft, left lower and right lower quadrant tenderness to minimal light palpation ,no hepatosplenomegaly; bowel sounds are present in all four quadrants. EXTREMITIES: No clubbing, cyanosis, or edema. SKIN: MUNOZ no rash; no jaundice. 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 Mild to moderate anxiety (Gifty Owusu) Assessment and Plan Assessment: (1) Abdominal pain ICD Codes: R10.9 - Unspecified abdominal pain Status: Acute Plan 52-year-old female in the intensive care setting with abdominal pain which initiated in the right lower quadrant now has transitioned over to the left lower quadrant. Patient has significant history of bowel obstructions as an and child and has had multiple bowel resections surgeries. Patient is end-stage renal disease and is on hemodialysis 3 times a week. On 12/17/2017 she was at dialysis when the right lower quadrant abdominal pain started, it appeared to be constant and intense. CT scan was done on 12/17/2017 showing no acute findings. Mild constipation. No inflammatory changes identified within the right lower quadrant. Stable enlargement of the pancreatic head and stable partially calcified renal transplant since 2016. Lower abdominal pain could possibly be due to scar tissue, need to continue to monitor and rule out any signs of ileus. Early patient has active bowel sounds but is still very guarded to her abdomen. Patient has active bowel sounds and states that she needs to defecate but will not do it since she is in the ICU setting. Patient states chronic diarrhea secondary to her dialysis and will hold her stool for extended periods of time on purpose. Encouraged her to allow us to give her some privacy so she can have her bowel movement. Anemia chronic , no obvious bleeding current hemoglobin 10. Probable secondary to her end-stage renal disease. Initially had some leukocytosis with WBC count 14.1 now normalized at 7. No previous colonoscopy EGD approximately 9 years ago. Discussed with patient the need for EGD: Since she does have reflux and heartburn symptoms worse at night that are uncontrolled. GERD acute on chronic 12/19/2017, abdominal x-ray KUB shows normal bowel gas pattern. Calcified renal transplant in the right lower quadrant. Patient states still having uncontrolled left lower and right lower quadrant pain dull sensation, low-grade fever today 100.2, supportive care and discussed EGD and colonoscopy for Thursday a.m. lower quadrant pain could be related to scar tissue since patient has had multiple abdominal surgeries even as an and child. Patient has chronic heartburn but states it is no better or no worse today. CBC pending Plan Diet Renal. Clear liquid diet in the a.m. N.p.o. at midnight Thursday night GoLYTELY EGD and colonoscopy Thursday a.m., process discussed IV fluids Monitor labs, CBC pending today since patient had a low-grade temp PPI IV Further recommendations to follow Supportive care Patient was seen per myself and Dr. Vizcarra, note was written on his behalf (Gifty Owusu) Physician Comments EGD/Colonoscopy tomorrow for abdominal pain. (Jass Dorantes MD) Problem Qualifiers (1) Abdominal pain: Qualified Codes: R10.9 - Unspecified abdominal pain Gifty Owusu December 19, 2017 13:46 Jass Dorantes MD December 20, 2017 12:57
[2017-12-19] MEDS ORDERED: CALC1CAP PO ×2 (13:53)
[2017-12-19] MEDS ORDERED: VITA1000 PO (13:53)
[2017-12-19] MEDS ORDERED: CALCIUM ACETATE 667 MG CAP PO PRN (14:15)
[2017-12-19 16:00] VITALS: BP 113/57; PULSE 88; RESP 17; TEMP 98.8; O2SAT 98
[2017-12-19 16:24] LABS: AUTOMATED NEUTROPHIL # 6.9 TH/MM3 (1.8-7.7); BASOPHIL # 0.1 TH/MM3 (0-0.2); BASOPHIL % 0.6 % (0.0-2.0); EOSINOPHIL # 0.2 TH/MM3 (0-0.4); EOSINOPHIL % 1.6 % (0.0-4.0); HEMATOCRIT 31.5 % (35.0-46.0); LYMPH % 14.2 % (9.0-44.0); LYMPHOCYTE # 1.3 TH/MM3 (1.0-4.8); MEAN CELL VOLUME 87.6 FL (80.0-100.0); MEAN CORPUSCULAR HEMOGLOBIN 30.6 PG (27.0-34.0); MEAN CORPUSCULAR HGB CONC 34.9 % (32.0-36.0); MEAN PLATELET VOLUME 8.9 FL (7.0-11.0); MONO % 8.1 % (0.0-8.0); MONOCYTE # 0.7 TH/MM3 (0-0.9); NEUT % 75.5 % (16.0-70.0); PLATELET COUNT 250 TH/MM3 (150-450); RED BLOOD COUNT 3.59 MIL/MM3 (4.00-5.30); RED CELL DISTRIBUTION WIDTH 14.3 % (11.6-17.2); WHITE BLOOD COUNT 9.2 TH/MM3 (4.0-11.0)
[2017-12-19] MEDS: ACETAMINOPHEN/HYDROcodone 325 MG/5 MG TAB PO PRN (19:05)
[2017-12-19 20:00] VITALS: BP 123/67; PULSE 81; RESP 18; TEMP 98.2; O2SAT 97
[2017-12-19] MEDS: ZOLPIDEM TARTRATE 5 MG TAB PO PRN (22:52)
[2017-12-20 00:34] VITALS: BP 112/64; PULSE 83; RESP 18; TEMP 98.6; O2SAT 96
[2017-12-20] MEDS: ACETAMINOPHEN/HYDROcodone 325 MG/5 MG TAB PO PRN ×2 (07:34→13:09)
[2017-12-20 07:46] LABS: CALCIUM 7.8 MG/DL (8.5-10.1)
[2017-12-20 07:47] LABS: CALCIUM-PROTEIN CORRECTED 7.8 MG/DL (8.5-10.1); TOTAL PROTEIN 7.1 GM/DL (6.4-8.2)
[2017-12-20 08:00] VITALS: BP 121/65; PULSE 81; RESP 18; TEMP 98.4; O2SAT 99
[2017-12-20] MEDS ORDERED: CHOLECALCIFEROL (VIT D3) 1000 UNIT TAB PO SCH (08:00)
[2017-12-20] MEDS: GABAPENTIN 100 MG CAP PO SCH (08:02)
[2017-12-20] MEDS: PANTOPRAZOLE SODIUM 40 MG VIAL IV PUSH SCH ×2 (08:02→20:35)
[2017-12-20] MEDS: INSULIN ASPART SUPPLEMENTAL SCALE SQ SCH ×4 (08:02→20:34)
[2017-12-20] MEDS: CALCIUM ACETATE 667 MG CAP PO SCH ×3 (08:03→17:33)
--- NOTE | 2017-12-20 09:16 | HHI.NPPN ---
Subjective Complaints: Abdominal Pain General Problems: Anemia Renal Failure: Chronic, End Stage Renal Disease Additional Remarks Abdominal discomfort has improved. Hemodialysis yesterday tolerated well. (Kiki Hale) Objective Data Data Vital Signs Date Time Temp Pulse Resp B/P (MAP) Pulse Ox O2 Delivery O2 Flow Rate FiO2 12/20/17 00:34 98.6 83 18 112/64 (80) 96 12/19/17 20:00 98.2 81 18 123/67 (85) 97 12/19/17 16:00 98.8 88 17 113/57 (75) 98 12/19/17 13:00 100.2 104 18 131/80 (97) 96 (Kiik Hale) -: 12/19/17 1515 12/19/17 0342 Microbiology 12/19/17 Aerobic Blood Culture, Received Pending 12/19/17 Anaerobic Blood Culture, Received Pending 12/19/17 Aerobic Blood Culture, Received Pending 12/19/17 Anaerobic Blood Culture, Received Pending Imaging Last Impressions Abdomen X-Ray 12/18/17 0000 Signed Impressions: Service Date/Time: Monday, December 18, 2017 19:46 - CONCLUSION: 1. Normal bowel gas pattern. 2. Calcified renal transplant within the right lower quadrant. Garcia Browne Jr., MD Abdomen/Pelvis CT 12/17/17 0948 Signed Impressions: Service Date/Time: December 10:20 - CONCLUSION: 1. No acute findings. Mild constipation. No inflammatory changes identified within the right lower quadrant. 2. Stable enlargement of pancreatic head and stable partially calcified renal transplant since 2016. Alberto Murry MD (Kiki Hale) Physical Exam General Appearance: Well Developed, No Acute Distress, Comfortable (Kiki Hale) Eyes Eye Exam: Pupils Equal (Kiki Hale) Throat Throat Exam: Oral Mucosa [place] & Moist (Kiki Hale) Neck Neck Exam: Neck Supple (Kiki Hale) Pulmonary Resp Exam: Clear Bilaterally, Breath Sounds Equal (Kiki Hale) Cardiology CV Exam: Regular, Normal Sinus Rhythm, Good Perfusion (Kiki Hale) Gastrointestinal/Abdomen GI Exam: Soft, Non-Tender, Bowel Sounds Present (Kiki Hale) Genitourinary Exam: Clear Urine (Kiki Hale) Musculoskeletal MS Exam: Joints Intact, Normal Gait, Normal Tone (Kiki Hale) Integumentary Skin Exam: Clear, Warm, Dry, Intact (Kiki Hale) Extremeties Extremities Exam: No Edema, Pedal Pulses Palpable (Kiki Hale) Neurologic Neuro Exam: Alert, Awake, Oriented, Speech Clear, Moving All Extremities (Kiki Hale) Psychiatric Psych Exam: Appropriate Responses (Kiki Hale) Assessment/Plan Discussed Condition With: Patient Assessment Summary: Anemia of CKD, Hypertension, Diabetes Mellitus, End Stage Renal Disease Problem List: (1) ESRD (end stage renal disease) on dialysis ICD Codes: N18.6 - End stage renal failure on dialysis; Z99.2 - Dependence on renal dialysis Status: Chronic Plan: Continue HD TTS PO fluid restriction advised, high protein, low K diet. Avoid Gadolinium. Avoid IVF Hemodialysis yesterday with UF of 4 liters Possible EGD/ colonoscopy tomorrow (2) Hyperkalemia ICD Codes: E87.5 - Hyperkalemia Status: Acute Plan: Resolved, Monitor labs. Low potassium diet. (3) Abdominal pain ICD Codes: R10.9 - Unspecified abdominal pain Status: Acute Plan: Etiology is unclear. Imaging did not show anything acute, mild constipation. Infection of the failed transplant? No leukocytosis noted. Afebrile. On empiric antibiotics. Monitor. GI consulted EGD/colonoscopy planned for tomorrow (4) Type 2 diabetes mellitus ICD Codes: E11.9 - Type 2 diabetes mellitus without complications Plan: Continue Insulin coverage. Maintain blood sugar between 140 and 180 while hospitalized. (5) Metabolic bone disease ICD Codes: E88.9 - Metabolic disorder, unspecified; M90.80 - Osteopathy in diseases classified elsewhere, unspecified site Status: Acute Plan: Historically has had high phosphorus. Monitor phosphorus. Continue binders. (6) Hypocalcemia ICD Codes: E83.51 - Hypocalcemia Status: Acute Plan: Likely due to history of subtotal parathyroidectomy. On calcitriol. (Kiki Hale) Problem List: (1) ESRD (end stage renal disease) on dialysis ICD Codes: N18.6 - End stage renal failure on dialysis; Z99.2 - Dependence on renal dialysis Status: Chronic Plan: Continue HD TTS PO fluid restriction advised, high protein, low K diet. Avoid Gadolinium. Avoid IVF Hemodialysis yesterday with UF of 4 liters Possible EGD/ colonoscopy tomorrow. Patient seen and examined, agree with above. HD to continue as schedule, for GI work up tomorrow. (2) Hyperkalemia ICD Codes: E87.5 - Hyperkalemia Status: Acute Plan: Resolved, Monitor labs. Low potassium diet. (3) Abdominal pain ICD Codes: R10.9 - Unspecified abdominal pain Status: Acute Plan: Etiology is unclear. Imaging did not show anything acute, mild constipation. Infection of the failed transplant? No leukocytosis noted. Afebrile. On empiric antibiotics. Monitor. GI consulted EGD/colonoscopy planned for tomorrow (4) Type 2 diabetes mellitus ICD Codes: E11.9 - Type 2 diabetes mellitus without complications Plan: Continue Insulin coverage. Maintain blood sugar between 140 and 180 while hospitalized. (5) Metabolic bone disease ICD Codes: E88.9 - Metabolic disorder, unspecified; M90.80 - Osteopathy in diseases classified elsewhere, unspecified site Status: Acute Plan: Historically has had high phosphorus. Monitor phosphorus. Continue binders. (6) Hypocalcemia ICD Codes: E83.51 - Hypocalcemia Status: Acute Plan: Likely due to history of subtotal parathyroidectomy. On calcitriol. (Kulwant Fay MD) Problem Qualifiers (1) Abdominal pain: Qualified Codes: R10.9 - Unspecified abdominal pain Kiki Hale December 20, 2017 09:16 Kulwant Fay MD December 20, 2017 13:06
--- NOTE | 2017-12-20 10:12 | HHI.GIFU ---
Subjective Remarks Pt sitting on side of bed States lower abdominal pain seems to have resolved Denies any continued acid reflux Currently on clear liquids for GI procedures tomorrow (Sheryl Ely) Objective Vitals I&O Vital Signs Date Time Temp Pulse Resp B/P (MAP) Pulse Ox O2 Delivery O2 Flow Rate FiO2 12/20/17 00:34 98.6 83 18 112/64 (80) 96 12/19/17 20:00 98.2 81 18 123/67 (85) 97 12/19/17 16:00 98.8 88 17 113/57 (75) 98 12/19/17 13:00 100.2 104 18 131/80 (97) 96 I/O 12/19/17 12/19/17 12/19/17 12/20/17 12/20/17 12/20/17 07:00 15:00 23:00 07:00 15:00 23:00 Intake Total 240 ml 100 ml 795 ml 780 ml Output Total 4000 ml Balance 240 ml -3900 ml 795 ml 780 ml Intake Oral 240 ml 795 ml 780 ml IV Total 100 ml Hemodialysis 4000 ml # Voids 0 0 0 # Bowel Movements 0 1 0 Laboratory Laboratory Tests Test 12/19/17 15:15 12/20/17 06:29 White Blood Count 9.2 Red Blood Count 3.59 Hemoglobin 11.0 Hematocrit 31.5 Mean Corpuscular Volume 87.6 Mean Corpuscular Hemoglobin 30.6 Mean Corpuscular Hemoglobin Concent 34.9 Red Cell Distribution Width 14.3 Platelet Count 250 Mean Platelet Volume 8.9 Neutrophils (%) (Auto) 75.5 Lymphocytes (%) (Auto) 14.2 Monocytes (%) (Auto) 8.1 Eosinophils (%) (Auto) 1.6 Basophils (%) (Auto) 0.6 Neutrophils # (Auto) 6.9 Lymphocytes # (Auto) 1.3 Monocytes # (Auto) 0.7 Eosinophils # (Auto) 0.2 Basophils # (Auto) 0.1 CBC Comment DIFF FINAL Differential Comment Calcium Level 7.8 Protein Corrected Calcium 7.8 Total Protein 7.1 Date/Time Source Procedure Growth Status 12/19/17 15:30 Blood Peripheral Aerobic Blood Culture Pending Received 12/19/17 15:30 Blood Peripheral Anaerobic Blood Culture Pending Received Imaging Last Impressions Abdomen X-Ray 12/18/17 0000 Signed Impressions: Service Date/Time: Monday, December 18, 2017 19:46 - CONCLUSION: 1. Normal bowel gas pattern. 2. Calcified renal transplant within the right lower quadrant. Garcia Browne Jr., MD Abdomen/Pelvis CT 12/17/17 0948 Signed Impressions: Service Date/Time: December 10:20 - CONCLUSION: 1. No acute findings. Mild constipation. No inflammatory changes identified within the right lower quadrant. 2. Stable enlargement of pancreatic head and stable partially calcified renal transplant since 2015. Alberto Murry MD Physical Exam HEENT: Normocephalic; atraumatic; CHEST: Even/unlabored CARDIAC: RRR ABDOMEN: Soft, nontender, nondistended, bowel sounds active EXTREMITIES: No clubbing, cyanosis, or edema. SKIN: Normal PRIMARY CARE COORDINATOR: Alert and oriented x 3 (Sheryl Ely) Assessment and Plan Assessment: (1) Abdominal pain ICD Codes: R10.9 - Unspecified abdominal pain Status: Acute Plan Assessment: - Lower abdominal pain with history of multiple bowel obstruction and history of bowel resections. CT abdomen and pelvis W/O IV contrast (12/17) --> No acute findings. Mild constipation. No inflammatory changes identified within the right lower quadrant. Stable enlargement of pancreatic head and stable partially calcified renal transplant since 2015. KUB (12/18) --> . Normal bowel gas pattern. Calcified renal transplant within the right lower quadrant. - Acid reflux- last EGD a few years ago, states normal exam - Anemia, normocytic - ESRD, on HD S/P renal transplant (12/20) Pt denies any continued lower abdominal pain and states acid reflux also seems to have resolved. Of note, pt is on Protonix. Plan EGD/colonoscopy tomorrow Obtain consent Clear liquids today NPO after MN Protonix Further recommendations based on findings of above Patient has been seen and examined by myself and Dr. Dorantes and this note is written on his behalf (Sheryl Ely) Physician Comments Having difficulty with bowel prep. Encouraged to drink as much as possible. Soap suds enemas in the morning. EGD/Colonoscopy tomorrow. (Jass Dorantes MD) Problem Qualifiers (1) Abdominal pain: Qualified Codes: R10.9 - Unspecified abdominal pain Sheryl Ely December 20, 2017 10:12 Jass Dorantes MD December 20, 2017 20:46
--- NOTE | 2017-12-20 10:15 | HHI.PR ---
Subjective Remarks abdominal pain improved no nausea or vomiting Objective Vitals Vital Signs Date Time Temp Pulse Resp B/P (MAP) Pulse Ox O2 Delivery O2 Flow Rate FiO2 12/20/17 00:34 98.6 83 18 112/64 (80) 96 12/19/17 20:00 98.2 81 18 123/67 (85) 97 12/19/17 16:00 98.8 88 17 113/57 (75) 98 12/19/17 13:00 100.2 104 18 131/80 (97) 96 I/O 12/19/17 12/19/17 12/19/17 12/20/17 12/20/17 12/20/17 07:00 15:00 23:00 07:00 15:00 23:00 Intake Total 240 ml 100 ml 795 ml 780 ml Output Total 4000 ml Balance 240 ml -3900 ml 795 ml 780 ml Intake Oral 240 ml 795 ml 780 ml IV Total 100 ml Hemodialysis 4000 ml # Voids 0 0 0 # Bowel Movements 0 1 0 Result Diagram: 12/19/17 1515 12/19/17 0342 Imaging Last Impressions Abdomen X-Ray 12/18/17 0000 Signed Impressions: Service Date/Time: Monday, December 18, 2017 19:46 - CONCLUSION: 1. Normal bowel gas pattern. 2. Calcified renal transplant within the right lower quadrant. Garcia Browne Jr., MD Abdomen/Pelvis CT 12/17/17 0948 Signed Impressions: Service Date/Time: December 10:20 - CONCLUSION: 1. No acute findings. Mild constipation. No inflammatory changes identified within the right lower quadrant. 2. Stable enlargement of pancreatic head and stable partially calcified renal transplant since 2016. Alberto Murry MD Objective Remarks awake and alert no acute distress anicteric lungs- no rales regular rhythm abdomen soft, + bowel sounds, soft, good bowel sounds, no guarding, non tender , no rigidity extremities no edema right foot- slight blackish discoloration- superficial, - looks like old bruise , good range of motion, ++ peripheral pulses A/P Assessment and Plan 52-year-old female Hyperkalemia - Resolved End-stage renal disease.on HD Patient received bicarb and Kayexalate in the emergency room HD per Nephrology Continue on PhosLo and calcitriol History of diabetes type 2 insulin requiring Follow blood sugars bid and record Patient states good hypoglycemic awareness Acute right lower abdominal pain- abdominal exam benign Leukocytosis WBC down CT unremarkable continue to monitor abdomen As needed pain meds Exam benign. No nausea no vomiting. EGD/colonoscopy in am Up and ambulating Samuel Maciel MD December 20, 2017 10:15
[2017-12-20 12:00] VITALS: BP 135/81; PULSE 78; RESP 17; TEMP 98.1; O2SAT 97
[2017-12-20] MEDS ORDERED: PEG (High)/E-LYTE SOLN 4000 ML BTL PO ONE (14:00)
[2017-12-20 16:00] VITALS: BP 116/60; PULSE 75; RESP 18; TEMP 98.1; O2SAT 99
[2017-12-20 20:00] VITALS: BP 119/56; PULSE 70; RESP 20; TEMP 98.3; O2SAT 97
[2017-12-20] MEDS: ZOLPIDEM TARTRATE 5 MG TAB PO PRN (22:35)
[2017-12-20] MEDS ORDERED: POVIDONE IODINE 5% (ANTISEPSIS KIT) 4 APPLICATIONS EACH NARE PRN (23:45)
[2017-12-20] MEDS ORDERED: INSULIN HUMAN REGULAR 1,000 UNITS/10 ML VIAL SQ PRN (23:45)
[2017-12-20] MEDS ORDERED: CHLORHEXIDINE GLUCONATE 2 % 1 PACK (2 CLOTHS) TOPICAL PRN (23:45)
[2017-12-20] MEDS ORDERED: METOPROLOL TARTRATE 25 MG TAB PO PRN (23:45)
[2017-12-20] MEDS ORDERED: SODIUM CHLORID 0.9% 500 ML IV PRN (23:45)
[2017-12-20] MEDS ORDERED: LACTATED RINGER'S 1000 ML IV PRN (23:45)
[2017-12-21 00:27] VITALS: BP 131/69; PULSE 72; RESP 17; TEMP 98.2; O2SAT 98
[2017-12-21 08:00] VITALS: BP 113/56; PULSE 76; RESP 16; TEMP 98.1; O2SAT 99
[2017-12-21] MEDS: INSULIN ASPART SUPPLEMENTAL SCALE SQ SCH ×4 (08:00→21:49)
[2017-12-21] MEDS ORDERED: BISACODYL EC 5 MG TABEC PO ONE (08:40)
[2017-12-21] MEDS ORDERED: MAGNESIUM CITRATE SOLN 300 ML BTL PO ONE (08:45)
[2017-12-21] MEDS: CALCIUM ACETATE 667 MG CAP PO SCH ×4 (09:00→17:33)
[2017-12-21 10:00] VITALS: PULSE 76
[2017-12-21] MEDS: GABAPENTIN 100 MG CAP PO SCH (10:07)
[2017-12-21] MEDS: PANTOPRAZOLE SODIUM 40 MG VIAL IV PUSH SCH ×2 (10:08→21:41)
[2017-12-21] MEDS: CALCITRIOL 0.25 MCG CAP PO SCH (10:08)
--- NOTE | 2017-12-21 11:05 | HHI.PR ---
Subjective Remarks up and ambulating around no complains possible scope this pm prep on going Objective Vitals Vital Signs Date Time Temp Pulse Resp B/P (MAP) Pulse Ox O2 Delivery O2 Flow Rate FiO2 12/21/17 08:00 98.1 76 16 113/56 (75) 99 12/21/17 00:27 98.2 72 17 131/69 (89) 98 12/20/17 20:00 98.3 70 20 119/56 (77) 97 12/20/17 16:00 98.1 75 18 116/60 (78) 99 12/20/17 12:00 98.1 78 17 135/81 (99) 97 I/O 12/20/17 12/20/17 12/20/17 12/21/17 12/21/17 12/21/17 07:00 15:00 23:00 07:00 15:00 23:00 Intake Total 780 ml 975 ml Balance 780 ml 975 ml Intake Oral 780 ml 975 ml # Voids 0 0 0 # Bowel Movements 0 0 0 Result Diagram: 12/19/17 1515 12/19/17 0342 Imaging Last Impressions Abdomen X-Ray 12/18/17 0000 Signed Impressions: Service Date/Time: Monday, December 18, 2017 19:46 - CONCLUSION: 1. Normal bowel gas pattern. 2. Calcified renal transplant within the right lower quadrant. Garcia Browne Jr., MD Abdomen/Pelvis CT 12/17/17 0948 Signed Impressions: Service Date/Time: December 10:20 - CONCLUSION: 1. No acute findings. Mild constipation. No inflammatory changes identified within the right lower quadrant. 2. Stable enlargement of pancreatic head and stable partially calcified renal transplant since 2016. Alberto Murry MD Objective Remarks awake and alert no acute distress anicteric lungs- no rales regular rhythm abdomen soft, + bowel sounds, soft, good bowel sounds, no guarding, non tender , no rigidity right foot- slight blackish discoloration- superficial, - looks like old bruise , good range of motion, ++ peripheral pulses gait steady A/P Assessment and Plan 52-year-old female Hyperkalemia - Resolved End-stage renal disease.on HD HD per Nephrology Continue on PhosLo and calcitriol per patient- - Dr. Dinero has plans to complete VF site- and saw her today- will give him a call- ? if he wants to do it today History of diabetes type 2 insulin requiring Follow blood sugars bid and record Patient states good hypoglycemic awareness Acute right lower abdominal pain- abdominal exam benign Leukocytosis WBC down CT unremarkable continue to monitor abdomen As needed pain meds Exam benign. No nausea no vomiting. repeat scope this pm Up and ambulating Samuel Maciel MD December 21, 2017 11:05
[2017-12-21 12:00] VITALS: BP 187/83; PULSE 75; RESP 18; TEMP 97.8; O2SAT 99
[2017-12-21] MEDS ORDERED: PROPOFOL 200 MG/20 ML AMP IV ONE (12:00)
[2017-12-21] MEDS ORDERED: LIDOCAINE HCL 1% PF 5 ML SYRINGE OTHER ONE (12:00)
--- NOTE | 2017-12-21 12:08 | HHI.NPPN ---
Subjective Complaints: Abdominal Pain General Problems: Anemia Renal Failure: Chronic, End Stage Renal Disease Interval History Abdominal pain is still present but is better. She went down for EGD/ colonoscopy but had incomplete prep. Sent back to room for enema. Plan to go back at 2:30 this afternoon. Wanting to be discharged after. (Natalie Adames) Review of Systems Gastrointestinal Gastrointestinal: Abdominal Pain (Natalie Adames) Objective Data Data 12/21/17 12/22/17 19:00 07:00 Intake Total 0 ml Balance 0 ml IV Total 0 ml Vital Signs Date Time Temp Pulse Resp B/P (MAP) Pulse Ox O2 Delivery O2 Flow Rate FiO2 12/21/17 10:00 76 12/21/17 08:00 98.1 76 16 113/56 (75) 99 12/21/17 00:27 98.2 72 17 131/69 (89) 98 12/20/17 20:00 98.3 70 20 119/56 (77) 97 12/20/17 16:00 98.1 75 18 116/60 (78) 99 (Natalie Adames) -: 12/19/17 1515 12/19/17 0342 Physical Exam General Appearance: Well Developed, No Acute Distress, Comfortable (Natalie Adames) Eyes Eye Exam: Pupils Equal (Natalie Adames) Throat Throat Exam: Oral Mucosa [place] & Moist (Natalie Adames) Neck Neck Exam: Neck Supple (Natalie Adames) Pulmonary Resp Exam: Clear Bilaterally, Breath Sounds Equal (Natalie Adames) Cardiology CV Exam: Regular, Normal Sinus Rhythm, Good Perfusion (Natalie Adames) Gastrointestinal/Abdomen GI Exam: Soft, Non-Tender, Bowel Sounds Present, Non-Distended GI Remarks Slightly tender RLQ around transplant (Natalie Adames) Genitourinary Exam: Clear Urine (Natalie Adames) Musculoskeletal MS Exam: Joints Intact, Normal Gait, Normal Tone (Natalie Adames) Integumentary Skin Exam: Clear, Warm, Dry, Intact (Natalie Adames) Extremeties Extremities Exam: No Edema, Pedal Pulses Palpable (Natalie Adames) Neurologic Neuro Exam: Alert, Awake, Oriented, Speech Clear, Moving All Extremities (Natalie Adames) Psychiatric Psych Exam: Appropriate Responses (Natalie Adames) Assessment/Plan Discussed Condition With: Patient, Spouse Assessment Summary: Anemia of CKD, Hypertension, Diabetes Mellitus, End Stage Renal Disease Problem List: (1) ESRD (end stage renal disease) on dialysis ICD Codes: N18.6 - End stage renal failure on dialysis; Z99.2 - Dependence on renal dialysis Status: Chronic Plan: Continue HD TTS, due tomorrow. Stable from renal perspective. Avoid IVF and gadolinium Using PermCath for HD, needs surgery on AV access right arm soon. High protein, low K diet when diet is resumed If discharged has outpatient HD arrangements at [place]. Cleared from our perspective. (2) Abdominal pain ICD Codes: R10.9 - Unspecified abdominal pain Status: Acute Plan: GI is following Pending EGD/colonoscopy today, consider outpatient follow up (3) Hyperkalemia ICD Codes: E87.5 - Hyperkalemia Status: Acute Plan: Resolved, Monitor labs. Low potassium diet. (4) Type 2 diabetes mellitus ICD Codes: E11.9 - Type 2 diabetes mellitus without complications Plan: Continue Insulin coverage. Maintain blood sugar between 140 and 180 while hospitalized. (5) Metabolic bone disease ICD Codes: E88.9 - Metabolic disorder, unspecified; M90.80 - Osteopathy in diseases classified elsewhere, unspecified site Status: Acute Plan: Phosphorus level high but acceptable for her, historically has very high phosphorus levels. On calcium acetates. Advised to continue binders with meals. (6) Hypocalcemia ICD Codes: E83.51 - Hypocalcemia Status: Acute Plan: Likely due to history of subtotal parathyroidectomy. On calcitriol. (Natalie Adames) Plan patient was seen and examined. Discussed with Dr. Dinero. Superficialization of AVF surgery scheduled for 12/22/17. (Karthikeyan Choudhary MD) Problem Qualifiers (1) Abdominal pain: Qualified Codes: R10.9 - Unspecified abdominal pain Natalie Adames December 21, 2017 12:08 Karthikeyan Choudhary MD December 22, 2017 11:14
[2017-12-21 12:27] VITALS: PULSE 76
--- NOTE | 2017-12-21 15:04 | GIPROC ---
[facility] [address] [facility]. [facility], [address] EGD PROCEDURE REPORT EXAM DATE: 12/21/2017 PATIENT NAME: Faustina Cortez MR #: [id number] BIRTHDATE: 1965 ATTENDING: Dia Palmer MD ORDER #: [id number] TAX COLLECTOR: Collin Blake and Meka Watson STATUS: inpatient INDICATIONS: The patient is a 52 yr old female here for an EGD due to abdominal pain PROCEDURE PERFORMED: EGD w/ biopsy MEDICATIONS: None and Per Anesthesia. TOPICAL ANESTHETIC: none CONSENT: The patient understands the risks and benefits of the procedure and understands that these risks include, but are not limited to: sedation, allergic reaction, infection, perforation and/or bleeding. Alternative means of evaluation and treatment include, among others: physical exam, x-rays, and/or surgical intervention. The patient elects to proceed with this endoscopic procedure. medical equipment was checked for proper function. Hand hygiene and appropriate measures for infection prevention was taken. After the risks, benefits and alternatives of the procedure were thoroughly explained, Informed consent was verified, confirmed and timeout was successfully executed by the treatment team. The patient was anesthetized with topical anesthesia and the EC-3490Li (Pedi C) endoscope was introduced through the mouth and advanced to the second portion of the duodenum. Retroflexed views revealed a hiatal hernia The gastroscope was then slowly withdrawn and removed. Duodenum normal-biopsy gastritis antrum-biopsy esophagitis -biopsy. ADVERSE EVENTS: There were no complications. IMPRESSIONS: 1. Duodenum normal-biopsy gastritis antrum-biopsy esophagitis -biopsy 2. Retroflexed views revealed a hiatal hernia RECOMMENDATIONS: 1. Await biopsy results. Biopsy results will not be ready for 7-10 days. If you don't hear from us in two weeks, call our office for biopsy results. 2. Anti-reflux regimen 3. Start PPI 4. Continue PPI 5. Avoid NSAIDS PATIENT CONDITION: stable DISPOSITION: Inpatient REPEAT EXAM: Return 1 year EGD Dia Palmer MD eSigned: Dia Palmer MD 12/21/2017 3:04 PM cc: PATIENT NAME: Faustina Cortez MR#: [id number]
--- NOTE | 2017-12-21 15:09 | GIPROC ---
[facility] [address] [facility]. [facility] [place], [address] COLONOSCOPY PROCEDURE REPORT EXAM DATE: 12/21/2017 PATIENT NAME: Faustina Cortez MR #: [id number] BIRTHDATE: 1965 ENDOSCOPIST: Dia Palmer MD ORDER #: [id number] STAMPING MILL TENDER: Collin Blake and Meka Watson STATUS: inpatient INDICATIONS: The patient is a 52 yr old female here for a colonoscopy due to abdominal pain PROCEDURE PERFORMED: Colonoscopy, incomplete MEDICATIONS: None and Per Anesthesia. PREP QUALITY: poor PREP TYPE:Other: ESTIMATED BLOOD LOSS: None CONSENT: The patient understands the risks and benefits of the procedure and understands that these risks include, but are not limited to: sedation, allergic reaction, infection, perforation and/or bleeding. Alternative means of evaluation and treatment include, among others: physical exam, x-rays, and/or surgical intervention. The patient elects to proceed with this endoscopic procedure. medical equipment was checked for proper function. Hand hygiene and appropriate measures for infection prevention was taken. After the risks, benefits and alternatives of the procedure were thoroughly explained, Informed consent was verified, confirmed and timeout was successfully executed by the treatment team. A digital exam revealed external hemorrhoids The Pentax EC-3490Li endoscope was introduced through the anus and advanced to the sigmoid colon. The instrument was then slowly withdrawn as the colon was fully examined. COLON FINDINGS: Solid stool in colon, could not be washed, procedure cancelled. Retroflexed views revealed internal hemorrhoids and Retroflexed views revealed small internal hemorrhoids The scope was then completely withdrawn from the patient and the procedure terminated. ADVERSE EVENTS: There were no complications. IMPRESSIONS: 1. Solid stool in colon, could not be washed, procedure cancelled 2. Retroflexed views revealed internal hemorrhoids 3. Retroflexed views revealed small internal hemorrhoids 4. Revealed external hemorrhoids RECOMMENDATIONS: Advance diet patient would like to go home and reschedule op in 1-2 weeks RECALL: Return 1 week Colonoscopy Dia Palmer MD eSigned: Dia Palmer MD 12/21/2017 3:08 PM cc:
[2017-12-21 20:00] VITALS: BP 165/82; PULSE 83; RESP 18; TEMP 98.3; O2SAT 95
[2017-12-21] MEDS: ZOLPIDEM TARTRATE 5 MG TAB PO PRN (21:48)
[2017-12-22] MEDS: ACETAMINOPHEN/HYDROcodone 325 MG/5 MG TAB PO PRN ×2 (01:30→17:27)
[2017-12-22] MEDS ORDERED: CHLORHEXIDINE GLUCONATE 2 % 1 PACK (2 CLOTHS) TOPICAL PRN (02:00)
[2017-12-22] MEDS ORDERED: POVIDONE IODINE 5% (ANTISEPSIS KIT) 4 APPLICATIONS EACH NARE PRN (02:00)
[2017-12-22] MEDS ORDERED: SODIUM CHLORID 0.9% 500 ML IV PRN (02:00)
[2017-12-22] MEDS ORDERED: INSULIN HUMAN REGULAR 1,000 UNITS/10 ML VIAL SQ PRN (02:00)
[2017-12-22] MEDS ORDERED: METOPROLOL TARTRATE 25 MG TAB PO PRN (02:00)
[2017-12-22 04:00] VITALS: BP 124/66; PULSE 76; RESP 18; TEMP 98; O2SAT 95
[2017-12-22 06:17] LABS: ALBUMIN 3.5 GM/DL (3.4-5.0); CALCIUM 7.8 MG/DL (8.5-10.1); CREATININE 9.86 MG/DL (0.50-1.00); PHOSPHORUS 5.4 MG/DL (2.5-4.9)
[2017-12-22 08:00] VITALS: BP 123/65; PULSE 76; RESP 19; TEMP 97.9; O2SAT 99
[2017-12-22] MEDS: PANTOPRAZOLE SODIUM 40 MG VIAL IV PUSH SCH (08:00)
[2017-12-22] MEDS: INSULIN ASPART SUPPLEMENTAL SCALE SQ SCH ×2 (08:00→12:00)
[2017-12-22] MEDS: CALCIUM ACETATE 667 MG CAP PO SCH ×3 (08:15→13:00)
[2017-12-22] MEDS: GABAPENTIN 100 MG CAP PO SCH (08:15)
[2017-12-22 08:53] VITALS: PULSE 76
[2017-12-22] MEDS: EPOETIN ALFA 10,000 UNITS/ML VIAL IV PUSH PRN (09:36)
[2017-12-22] MEDS: GENTAMICIN SULFATE 20 MG/2 ML VIAL OTHER PRN (09:36)
--- NOTE | 2017-12-22 09:39 | HHI.NPPN ---
Subjective Complaints: Abdominal Pain General Problems: Anemia Renal Failure: Chronic, End Stage Renal Disease Interval History Seen during dialysis. EGD/colonoscopy report from yesterday reviewed. Pending AVF superficialization today prior to discharge. Had multiple large BMs throughout the night. (Natalie Adames) Review of Systems Gastrointestinal Gastrointestinal: Abdominal Pain (Natalie Adames) Objective Data Data 12/22/17 12/23/17 19:00 07:00 Intake Total 0 ml Balance 0 ml IV Total 0 ml Vital Signs Date Time Temp Pulse Resp B/P (MAP) Pulse Ox O2 Delivery O2 Flow Rate FiO2 12/22/17 08:53 76 12/22/17 08:00 97.9 76 19 123/65 (84) 99 12/22/17 04:00 98.0 76 18 124/66 (85) 95 12/21/17 20:00 98.3 83 18 165/82 (109) 95 12/21/17 15:15 98.0 65 20 129/63 (85) 98 12/21/17 12:27 76 12/21/17 12:00 97.8 75 18 187/83 (117) 99 12/21/17 10:00 76 (Natalie Adames) -: 12/19/17 1515 12/22/17 0428 Tubes & Lines: Perma-Cath (Natalie Adames) Physical Exam General Appearance: Well Developed, No Acute Distress, Comfortable (Natalie Adames) Eyes Eye Exam: Pupils Equal (Natalie Adames) Throat Throat Exam: Oral Mucosa [place] & Moist (Natalie Adames) Neck Neck Exam: Neck Supple (Natalie Adames) Pulmonary Resp Exam: Clear Bilaterally, Breath Sounds Equal (Natalie Adames) Cardiology CV Exam: Regular, Normal Sinus Rhythm, Good Perfusion (Natalie Adames) Gastrointestinal/Abdomen GI Exam: Soft, Non-Tender, Bowel Sounds Present, Non-Distended GI Remarks Slightly tender RLQ around transplant (Natalie Adames) Genitourinary Exam: Clear Urine (Nataile Adames) Musculoskeletal MS Exam: Joints Intact, Normal Gait, Normal Tone (Natalie Adames) Integumentary Skin Exam: Clear, Warm, Dry, Intact (Natalie Adames) Extremeties Extremities Exam: No Edema, Pedal Pulses Palpable (Natalie Adames) Neurologic Neuro Exam: Alert, Awake, Oriented, Speech Clear, Moving All Extremities Neuro Remarks AVG right arm, patent but deep Old AV access left, not functioning (Natalie Adames) Psychiatric Psych Exam: Appropriate Responses (Natalie Adames) Assessment/Plan Discussed Condition With: Patient Assessment Summary: Anemia of CKD, Hypertension, Diabetes Mellitus, End Stage Renal Disease Problem List: (1) ESRD (end stage renal disease) on dialysis ICD Codes: N18.6 - End stage renal failure on dialysis; Z99.2 - Dependence on renal dialysis Status: Chronic Plan: Seen during dialysis today on a 2K, 340 BFR, goal 3 Continue HD TTS, has outpatient HD arrangements at [place]. Avoid IVF and gadolinium Using PermCath for HD, to have surgery on AV access right arm today with Dr. Dinero per patient. High protein, low K diet encouraged (2) Abdominal pain ICD Codes: R10.9 - Unspecified abdominal pain Status: Acute Plan: Improving. GI has followed Pending EGD/colonoscopy yesterday: EGD --> gastritis, esophagitis Colonoscopy--> procedure terminated, significant constipation, repeat outpatient in a few weeks On PPI (3) Hyperkalemia ICD Codes: E87.5 - Hyperkalemia Status: Acute Plan: Resolved, Monitor labs. Low potassium diet. (4) Type 2 diabetes mellitus ICD Codes: E11.9 - Type 2 diabetes mellitus without complications Plan: Continue Insulin coverage. Maintain blood sugar between 140 and 180 while hospitalized. (5) Metabolic bone disease ICD Codes: E88.9 - Metabolic disorder, unspecified; M90.80 - Osteopathy in diseases classified elsewhere, unspecified site Status: Acute Plan: Phosphorus level improved, historically has very high phosphorus levels. On calcium acetate. Advised to continue binders with meals. (6) Hypocalcemia ICD Codes: E83.51 - Hypocalcemia Status: Acute Plan: Likely due to history of subtotal parathyroidectomy. On calcitriol. (Natalie Adames) Plan patient was seen and examined during dialysis. Surgery is scheduled for today. Agree with above assessment and plan. (Karthikeyan Choudhary MD) Problem Qualifiers (1) Abdominal pain: Qualified Codes: R10.9 - Unspecified abdominal pain Natalie Adames December 22, 2017 09:39 Karthikeyan Choudhary MD December 22, 2017 11:20
[2017-12-22 13:58] VITALS: PULSE 76
[2017-12-22] MEDS ORDERED: HEPARIN SODIUM - SQ 10,000 UNITS/ML VIAL ONE (14:35)
[2017-12-22] MEDS ORDERED: BUPIVACAINE/EPINEPHRINE 0.5% PF 10 ML VIAL ONE ×2 (14:36→15:28)
[2017-12-22] MEDS ORDERED: PROTAMINE SULFATE 50 MG/5 ML VIAL ONE (14:39)
[2017-12-22] MEDS ORDERED: ACETAMINOPHEN 1000 MG/100 ML 0 ML IV ONE (14:45)
[2017-12-22] MEDS ORDERED: VANCOMYCIN HCL 1000 MG VIAL ONE (15:08)
[2017-12-22] MEDS ORDERED: MIDAZOLAM HCL 2 MG/2 ML VIAL ONE (16:50)
[2017-12-22] MEDS ORDERED: *ONDANSETRON 4 MG VIAL PERIprocedural Use ONLY ONE (16:53)
[2017-12-22 17:07] VITALS: BP 163/69; RESP 19; TEMP 98.7; O2SAT 98
--- NOTE | 2017-12-22 17:15 | MP ---
cc: Wood Dinero MD, James T MD Hoskote, Jaideep MD DATE OF OPERATION: 12/22/2017 PREOPERATIVE DIAGNOSIS: Chronic kidney disease with need for permanent hemodialysis access. Matured, deep right brachial basilic arteriovenous fistula. POSTOPERATIVE DIAGNOSIS: Chronic kidney disease with need for permanent hemodialysis access matured, deep right brachial basilic arteriovenous fistula. PROCEDURE PERFORMED: Transposition right brachial basilic arteriovenous fistula. SURGEON: Wood Dinero MD TENTERING MACHINE FEEDER: MAXWELL Alba. ANESTHESIA: Local MAC. PROCEDURE IN DETAIL: With the patient in the supine position, IV sedation was induced. The right arm, axilla and shoulder were prepped with Betadine and draped in a sterile fashion. One gram of vancomycin was administered intravenously. Following a protocol timeout, the skin and subcutaneous tissue along the course of the proposed incision and basilic vein mobilization was thoroughly infiltrated with 0.5% Marcaine with epinephrine. A vertical incision was performed along the course of the arterialized basilic vein. The basilic vein was mobilized free of surrounding adipose tissue, branches individually isolated, ligated in continuity with 3 ties of 3-0 silk and small Hemoclips prior to division. The vein was placed superficial to the fascia, which was secured underneath this fistulized vein with continuous 4-0 Monocryl. Care was taken to spare the sensory nerves. A superficial skin flap was dissected laterally. The incision was closed with interrupted subcutaneous 4-0 Monocryl, continuous subcuticular 5-0 Monocryl. Steri-Strips and sterile dressing applied. Instrument, needle and sponge counts were correct x2. There were no operative complications. The patient returned to the recovery room in stable condition having tolerated the procedure well. Wood Dinero MD JTS/ , 04:54 PM , 05:14 PM
[2017-12-22 17:30] VITALS: PULSE 80
[2017-12-22] MEDS ORDERED: PROT40TA PO (17:47)
[2017-12-22] MEDS ORDERED: HYDR-3516 PO (17:52)
--- NOTE | 2017-12-22 17:52 | HHI.DS ---
Discharge Summary Admission Date December 17, 2017 at 11:44 Discharge Date: December 22, 2017 Admitting Diagnosis Hyperkalemia; ESRD; Abdominal Pain (1) ESRD (end stage renal disease) on dialysis ICD Code: N18.6 - End stage renal failure on dialysis; Z99.2 - Dependence on renal dialysis Status: Chronic (2) Fistula ICD Code: L98.8 - Other specified disorders of the skin and subcutaneous tissue (3) Abdominal pain ICD Code: R10.9 - Unspecified abdominal pain Status: Acute (4) Hemodialysis patient ICD Code: Z99.2 - Dependence on renal dialysis Procedures Transposition right brachial basilic arteriovenous fistula EGD/colonoscopy Brief History - From Admission Patient is a 52-year-old female with known history of end-stage renal disease- with history of polycystic kidney disease status post failed kidney transplant. On hemodialysis followed by Dr. Choudhary, history of diabetes type 2 insulin requiring-due to chronic steroid use. Patient came to the ER sent here by Dr. Hailey gipson because of right lower quadrant pain or right lower abdominal pain which started around 3 AM this morning. Patient denies any fever chills. States no change in bowel movements and had regular bowel movements. During hemodialysis at the center was noted to have a high potassium and was sent here for further evaluation. Patient received Kayexalat and calcium gluconate. Ongoing hemodialysis right now at bedside. Patient denies any fever chills nausea or vomiting. States good hypoglycemic awareness. Patient is anuric CBC/BMP: 12/19/17 1515 12/22/17 0428 Significant Findings Laboratory Tests Test 12/20/17 06:29 12/22/17 04:28 Calcium Level 7.8 MG/DL (8.5-10.1) 7.8 MG/DL (8.5-10.1) Protein Corrected Calcium 7.8 MG/DL (8.5-10.1) Blood Urea Nitrogen 61 MG/DL (7-18) Creatinine 9.86 MG/DL (0.50-1.00) Random Glucose 219 MG/DL (74-106) Phosphorus Level 5.4 MG/DL (2.5-4.9) Sodium Level 134 MEQ/L (136-145) Potassium Level 5.4 MEQ/L (3.5-5.1) Chloride Level 91 MEQ/L (98-107) Anion Gap 16 MEQ/L (5-15) Estimat Glomerular Filtration Rate 5 ML/MIN (>89) Imaging Last Impressions Abdomen X-Ray 12/18/17 0000 Signed Impressions: Service Date/Time: Monday, December 18, 2017 19:46 - CONCLUSION: 1. Normal bowel gas pattern. 2. Calcified renal transplant within the right lower quadrant. Garcia Browne Jr., MD Abdomen/Pelvis CT 12/17/17 0948 Signed Impressions: Service Date/Time: December 10:20 - CONCLUSION: 1. No acute findings. Mild constipation. No inflammatory changes identified within the right lower quadrant. 2. Stable enlargement of pancreatic head and stable partially calcified renal transplant since 2015. Alberto Murry MD PE at Discharge awake and alert no acute distress anicteric lungs- no rales regular rhythm abdomen soft, + bowel sounds, soft, good bowel sounds, no guarding, non tender , no rigidity right foot- slight blackish discoloration- superficial, - looks like old bruise , good range of motion, ++ peripheral pulses gait steady Pt update on day of discharge Pt just got back from PACU. Wants to go home today. Pain controlled. Denies any nausea or vomiting. States that she is scheduled for HD as an outpatient. Hospital Course 52-year-old female Hyperkalemia - Resolved End-stage renal disease.on HD HD per Nephrology Continue on PhosLo and calcitriol s/p Transposition right brachial basilic arteriovenous fistula POD0. I was notified by RN that Dr. Dinero did clear pt for d/c. will have pt f/u w him in the office in 1-2 weeks History of diabetes type 2 insulin requiring Follow blood sugars bid and record Patient states good hypoglycemic awareness Acute right lower abdominal pain- abdominal exam benign - most likely resolved. s/p EGD showing gastritis and esophagitis. Script for Protonix in place. s/p colonoscopy - procedure cancelled due to solid stool in colon which couldn't be washed. Pt wishes to repeat as an outpatient. They did find some internal and ext hemorrhoids Leukocytosis: resolved. CT unremarkable. abdominal exam benign. f/u w GI as an outpatient. Blood cx neg x 3 days. Pt Condition on Discharge: Stable Discharge Disposition: Discharge Home Discharge Time: > 30 minutes Discharge Instructions DIET: Follow Instructions for: Heart Healthy Diet Activities you can perform: See Additionl Instruction Other Activity Instructions: per Dr. Dinero's recs Follow up Referrals: Gastroenterology - 2 Weeks Nephrology - 2 Days PCP Follow-up - 1 Week Vascular Surgery - [address] Dinero New Medications: Pantoprazole (Protonix) 40 Mg Tab 40 MG PO DAILY for Ulcer Prevention, #30 TAB 0 Refills Hydrocodone/Acetaminophen (Hydrocodone-Acetamin 5-325 mg) 5 Mg-325 Mg Tablet 1 TAB PO Q6H PRN for PAIN SCALE 6 TO 10, #30 Continued Medications: Calcitriol (Calcitriol) 0.25 Mcg Cap 0.25 MCG PO EVERY OTHER DAY for Calcium Supplement, #30 CAP 0 Refills Calcium Acetate (Phosphate Binder) (Calcium Acetate (Phosphate Binder)) 667 Mg Cap 2001 MG PO TID for Hyperphosphatemia, #270 CAP 0 Refills Cholecalciferol (Vitamin D-1000) 1,000 Unit Tab 5000 UNITS PO WEEKLY for Nutritional Supplement, #1 BOTTLE 0 Refills Gabapentin (Gabapentin) 300 Mg Cap 300 MG PO DAILY, #60 CAP 0 Refills Insulin Aspart Inj (Novolog Flexpen Inj) 300 Unit/3 Ml Pen 6.5 UNITS SQ ACHS for Blood Sugar Management, #1 PEN 0 Refills Discontinued Medications: Oxycodone (Oxycodone) 15 Mg Tab 15 MG PO Q12HR for Pain Management, TAB 0 Refills Aminata Sahu MD December 22, 2017 17:52
== END 2017-12-22 18:22 | disposition home or self-care (01) | DRG 981 ==
LOC: NEPE 09:15 → NEDA 11:44 → OBSVTOIN 11:44 → HIME 13:25 → N07B 12-18 18:34
PROVIDERS: ADMIT Hospitalist; ATTEND Hospitalist
PROC: 5A1D70Z Performance of Urinary Filtration, Intermittent, Less than 6 Hours Per Day (ICD-10-PCS; 2017-12-17)
PROC: 0DB98ZX Excision of Duodenum, Via Natural or Artificial Opening Endoscopic, Diagnostic (ICD-10-PCS; 2017-12-17)
PROC: 0DJD8ZZ Inspection of Lower Intestinal Tract, Via Natural or Artificial Opening Endoscopic (ICD-10-PCS; 2017-12-21)
PROC: 0DB68ZX Excision of Stomach, Via Natural or Artificial Opening Endoscopic, Diagnostic (ICD-10-PCS; 2017-12-21)
PROC: 0DB58ZX Excision of Esophagus, Via Natural or Artificial Opening Endoscopic, Diagnostic (ICD-10-PCS; 2017-12-21)
PROC: 05SB0ZZ Reposition Right Basilic Vein, Open Approach (ICD-10-PCS; principal; 2017-12-22 15:02)
DX: R10.31 Right lower quadrant pain (principal); N18.6 End stage renal disease; I13.2 Hypertensive heart and chronic kidney disease with heart failure and with stage 5 chronic kidney disease, or end stage renal disease; T86.12 Kidney transplant failure; E88.89 Other specified metabolic disorders; I48.91 Unspecified atrial fibrillation; Q61.3 Polycystic kidney, unspecified; K59.00 Constipation, unspecified; E87.5 Hyperkalemia; J98.4 Other disorders of lung; I50.9 Heart failure, unspecified; F41.9 Anxiety disorder, unspecified; F32.9 Major depressive disorder, single episode, unspecified; Z86.73 Personal history of transient ischemic attack (TIA), and cerebral infarction without residual deficits; F40.240 Claustrophobia; J44.9 Chronic obstructive pulmonary disease, unspecified; Z99.2 Dependence on renal dialysis; Z90.49 Acquired absence of other specified parts of digestive tract; Z87.891 Personal history of nicotine dependence; Z79.52 Long term (current) use of systemic steroids; Z79.4 Long term (current) use of insulin; E09.9 Drug or chemical induced diabetes mellitus without complications; D63.1 Anemia in chronic kidney disease; I73.9 Peripheral vascular disease, unspecified; M90.80 Osteopathy in diseases classified elsewhere, unspecified site; E83.51 Hypocalcemia; K64.4 Residual hemorrhoidal skin tags; K64.8 Other hemorrhoids; K21.0 Gastro-esophageal reflux disease with esophagitis; K44.9 Diaphragmatic hernia without obstruction or gangrene; K29.70 Gastritis, unspecified, without bleeding; E09.22 Drug or chemical induced diabetes mellitus with diabetic chronic kidney disease; T38.0X5A Adverse effect of glucocorticoids and synthetic analogues, initial encounter
CPT/HCPCS: 74018; 74176; 80048; 80053; 80069; 82948; 83690; 84132; 84155; 85025; 85027; 87040; 88305; 90935; 93005; 96365; 96374; 96375; C9113; J0131; J0610; J0696; J1580; J1644; J1815; J2250; J2405; J2720; J3010; J3370; J7030; J7040; J7050; P9045; P9047; Q4081

== ENCOUNTER 2018-03-23 20:22 | Inpatient (IN) ==
--- NOTE | 2018-03-23 21:12 | ED ---
HPI General Chief Complaint: Extremity Injury, Lower Stated Complaint: Left ankle injury Time Seen by Provider: 03/23/18 20:58 Source: patient Mode of arrival: ambulatory Limitations: no limitations History of Present Illness HPI Narrative: The patient is a 52-year-old female who presents emergency department for left ankle pain. The patient was walking earlier today when she heard a "pop "and then had pain in the posterior aspect of the left ankle. The patient states there is a step off over the posterior aspect of the left heel and the left ankle. Pain is worse with palpation runs of the left leg, radiating to the left knee and left hip. The pain is worse with movement and palpation. She does note a deformity over the affected area. 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 The patient's vascular surgeon is Dr. Dinero, the patient's beet worker is Dr. Carl. The patient's primary physician is located in [place], [place]. The patient denies any difficulty flexing the left hip or flex in the left knee. Symptoms are moderate to severe, and the patient has taken no medications prior to arrival for her pain. MD complaint: ankle injury Onset (ago): minute(s) Injury: Left: ankle and foot Type of Injury: unknown Place: home Severity: severe Severity scale (1-10): 9 Relieving factors: nothing Exacerbating factors: weight bearing, movement and palpation Context: walking Associated symptoms: snap/pop sensation Other symptoms: none Related Data Home Medications Medication Instructions Recorded Confirmed Novolog Flexpen U-100 Insulin 03/23/18 calcium acetate 667 mg PO TID 03/23/18 03/23/18 eszopiclone [Lunesta] 03/23/18 gabapentin 300 mg PO DAILY 03/23/18 03/23/18 hydrocodone bitartrate 15 PO BID 03/23/18 Allergies Allergy/AdvReac Type Severity Reaction Status Date / Time coconut Allergy Severe HIVES Verified 03/23/18 20:46 diatrizoate meglumine Allergy Severe RENAL Verified 03/23/18 20:46 FAILURE gadobenic acid Allergy Severe RENAL Verified 03/23/18 20:46 FAILURE gadodiamide Allergy Severe RENAL Verified 03/23/18 20:46 FAILURE gadoteridol Allergy Severe RENAL Verified 03/23/18 20:46 FAILURE iodixanol Allergy Severe RENAL Verified 03/23/18 20:46 FAILURE iohexol Allergy Severe RENAL Verified 03/23/18 20:46 FAILURE morphine Allergy Severe HIVES Verified 03/23/18 20:46 azithromycin Allergy Intermediate HIVES Verified 03/23/18 20:46 clindamycin Allergy Intermediate HIVES Verified 03/23/18 20:46 erythromycin base Allergy Intermediate HIVES Verified 03/23/18 20:46 penicillin G Allergy Intermediate Hives Verified 03/23/18 20:46 midodrine Allergy Unknown Atrial Verified 03/23/18 20:46 Fibrillation codeine AdvReac Severe HALLUCINATI Verified 03/23/18 20:46 ONS insulin aspart AdvReac Severe REGULAR Verified 03/23/18 20:46 INSULIN ONLY-CAUSES CRAMPIN G AND "FREEZING" insulin aspart protamine AdvReac Severe REGULAR Verified 03/23/18 20:46 human INSULIN ONLY-CAUSES CRAMPIN G AND "FREEZING" insulin detemir AdvReac Severe REGULAR Verified 03/23/18 20:46 INSULIN ONLY-CAUSES CRAMPIN G AND "FREEZING" insulin glargine AdvReac Severe REGULAR Verified 03/23/18 20:46 INSULIN ONLY-CAUSES CRAMPIN G AND "FREEZING" insulin isophane (NPH) AdvReac Severe REGULAR Verified 03/23/18 20:46 INSULIN ONLY-CAUSES CRAMPIN G AND "FREEZING" insulin lispro AdvReac Severe REGULAR Verified 03/23/18 20:46 INSULIN ONLY-CAUSES CRAMPIN G AND "FREEZING" insulin regular AdvReac Severe REGULAR Verified 03/23/18 20:46 INSULIN ONLY-CAUSES CRAMPIN G AND "FREEZING" vancomycin AdvReac Mild NAUSEA/VOMITING Verified 03/23/18 20:46 WHEN INFUSED TOO FAST Review of Systems ROS: all other systems reviewed are negative COUNTS INCLUDE 234 BEDS AT THE [facility] Medical History Medical History History of colitis (Acute) History of end stage renal disease (Acute) History of renal dialysis (Acute) Hx of bursitis (Acute) Hx of diabetes mellitus (Acute) Personal history of atrial fibrillation (Acute) Social History Social History Substance History: No History of Abuse Second Hand Smoke Exposure: No Smoking Status: Former smoker Tobacco Type: Cigarettes How Often Do You Have a Drink Containing Alcohol: Never Recent Travel in [place] within the Last 8 Weeks: No Recent Out of Country Travel within the Last 8 Weeks: No Exam Narrative Exam Narrative: GENERAL: Awake, alert, pleasant 52-year-old female who appears her stated age and is in no acute respiratory distress. SKIN: Focused skin assessment warm/dry. HEAD: Atraumatic. Normocephalic. EYES: No injection or drainage. Chest: Permacath in place left chest wall. MUSCULOSKELETAL: The patient has a deformity located over the posterior aspect of the left ankle/heel with a step-off. Limited ability to plantarflex secondary to pain. She is able to flex the toes left great foot. Positive left dorsalis pedal pulse. Patient is able to flex left knee. No tenderness of the medial or lateral malleus. No tenderness at the base of the fifth metatarsal. Patient has a old fistula left upper extremity with no thrill. Fistula right upper extremity positive thrill. NEUROLOGICAL: Awake and alert. No obvious cranial nerve deficits. Motor grossly within normal limits. Normal speech. PSYCHIATRIC: Appropriate mood and affect; insight and judgment normal. Course Consultations Consultation #1: The on-call header set up operator was paged. I discussed the patient with Dr. Yan who agrees that the patient may need surgery, could be seen in the office or admitted to the medical service. Time: 21:42 Initial Documented Vital Signs Temperature 97.3 F L 03/23/18 20:40 Pulse Rate 94 H 03/23/18 20:40 Respiratory Rate 18 03/23/18 20:40 Blood Pressure 158/92 H 03/23/18 20:40 Pulse Oximetry 100 03/23/18 20:40 Last Documented Vital Signs Temperature 97.3 F L 03/23/18 20:40 Pulse Rate 90 03/23/18 21:07 Respiratory Rate 16 03/23/18 21:07 Blood Pressure 115/58 L 03/23/18 21:07 Pulse Oximetry 99 03/23/18 21:07 Medical Decision Making [facility] Narrative Medical decision making narrative: An x-ray of the left heel and left foot were obtained. The patient was administered [place] 5 mg/325 mg orally 2. X-ray reveals a displaced calcaneal fracture. Therefore, the on-call header set up operator was paged at 9:40 PM. I discussed the patient with Dr. Yan, it was agreed the patient would need a splint and would need possible surgical management either as an inpatient or outpatient. However, the patient is unable to use crutches because she has a new AV fistula to the right upper extremity, there is no walker in house for the patient to take home. She will also need dialysis on Mondays, Wednesdays, and Fridays, is unable to bear weight on the left leg. After discussion was agreed the patient would be admitted as she will need splinting, OT/PT, and podiatry evaluation for possible definitive surgical management. I discussed the patient with Dr. Jones who agrees with admission. The patient will be transferred to [facility] for possible surgical management of the left displaced calcaneal fracture. Medical Screen Exam Complete: Yes Emergency Medical Condition: Yes Differential Diagnosis Differential Diagnosis: Differential diagnosis includes fracture, dislocation, contusion, hematoma, sprain, strain, Achilles tendon rupture. Imaging Data Attestation: I personally reviewed and interpreted this imaging study as follows : My impression: Displaced calcaneal fracture Radiologist's impression: Ankle X-Ray 03/23/18 21:05 CONCLUSION: Displaced oblique calcaneal fracture. Foot X-Ray 03/23/18 21:05 CONCLUSION: Oblique horizontal tearing of fracture. Discharge Plan Discharge Condition Condition: Stable Physicians Team ED Provider: Agapito Haywood Primary Care Provider: Mc Carl Rxs /Orders / Referrals /Forms Prescriptions: No Action gabapentin 300 mg Capsule 300 mg PO DAILY RF: 0 calcium acetate 667 mg Capsule 667 mg PO TID RF: 0 eszopiclone [Lunesta] 1 mg Tablet RF: 0 hydrocodone bitartrate 15 mg Capsule, Oral Only, Er 12hr 15 PO BID RF: 0 Novolog Flexpen U-100 Insulin RF: 0 Discharge Interventions Interventions: Vital Signs Last Done: 03/23/18 21:07 Status ED Status: Admitted Patient
--- NOTE | 2018-03-23 21:36 | XR ---
EXAM DATE: 03/23/2018 9:30 PM EDT AGE/SEX: 52 years / Female INDICATIONS: Pain in heel for 1 day, after hearing pop when standing up on toes. CLINICAL DATA: This is the patient's initial encounter. Patient reports that signs and symptoms have been present for 1 day and indicates a pain score of 10/10. MEDICAL/SURGICAL HISTORY: None. Non-responsive. COMPARISON: HPO, FOOT LEFT HEEL CALC MIN 2V, 03/23/2018. . FINDINGS: AP and lateral views of the ankle were obtained and demonstrate an oblique fracture through the calca neus. There is distraction of fracture fragments measuring up to approximately 2 cm. There are mild d egenerative joint changes. Vascular calcifications are present. There is diffuse osteopenia. The ankl e mortise is intact. CONCLUSION: Displaced oblique calcaneal fracture. Electronically signed by: Ashish Gore MD 03/23/2018 9:34 PM EDT
--- NOTE | 2018-03-23 21:37 | XR ---
EXAM DATE: 03/23/2018 9:29 PM EDT AGE/SEX: 52 years / Female INDICATIONS: Pain in heel for 1 day, after hearing pop when standing up on toes. CLINICAL DATA: This is the patient's initial encounter. Patient reports that signs and symptoms have been present for 1 day and indicates a pain score of 10/10. MEDICAL/SURGICAL HISTORY: None. None. COMPARISON: HPO, ANKLE LIMITED LEFT 2V, 03/23/2018. . FINDINGS: AP and lateral views the calcaneus were obtained and again demonstrate the displaced calcaneal fractu re. There is a oblique horizontal fracture. Posteriorly this is displaced approximately 2 cm. There i s diffuse osteopenia. Degenerative joint changes and vascular calcifications are present. CONCLUSION: Oblique horizontal tearing of fracture. Electronically signed by: Ashish Gore MD 03/23/2018 9:35 PM EDT
[2018-03-23] MEDS ORDERED: Morphine Inj 4 MG/ML Vial IV.PUSH PRN ×2 (22:37)
[2018-03-23] MEDS ORDERED: Zolpidem Tartrate 5 MG Tablet PO PRN (22:40)
[2018-03-23] MEDS ORDERED: Dextrose 50% in Water 50 ML Vial IV.PUSH PRN (22:41)
[2018-03-23 22:48] LABS: Baso # (Auto) 0.3 th/mm3 (0.0-0.2); Baso % (Auto) 2.8 % (0.0-2.0); Eos # (Auto) 0.2 th/mm3 (0.0-0.4); Eos % (Auto) 1.8 % (0.0-4.0); Hematocrit 38.6 % (35.0-46.0); Hemoglobin 12.7 gm/dL (11.6-15.3); Lymph # (Auto) 2.4 th/mm3 (1.0-4.8); Lymph % (Auto) 20.1 % (9.0-44.0); Mean Corpuscular Volume 87.9 fL (80.0-100.0); Mean Platelet Volume 8.4 fL (7.0-11.0); Mono % (Auto) 8.5 % (0.0-8.0); Neut # (Auto) 7.9 th/mm3 (1.8-7.7); Neut % (Auto) 66.8 % (16.0-70.0); Platelet Count 265 th/mm3 (150-450); Red Blood Count 4.39 mil/mm3 (4.00-5.30); Red Cell Distribution Width 13.9 % (11.6-17.2); White Blood Count 11.8 th/mm3 (4.0-11.0)
[2018-03-23 22:55] LABS: Potassium 4.7 meq/L (3.5-5.1)
[2018-03-23 22:59] LABS: Activated Partial Thrombo Time 25.9 sec (24.3-30.1); Prothrombin Time 10.2 sec (9.8-11.6)
[2018-03-23] MEDS ORDERED: HYDROmorphone PF Inj 2 MG/ML Vial IV.PUSH PRN ×2 (23:09→23:15)
[2018-03-23 23:13] LABS: Calcium 6.1 mg/dL (8.5-10.1); Carbon Dioxide 19.4 meq/L (21.0-32.0)
[2018-03-23 23:30] LABS: Total Protein 8.4 g/dL (6.4-8.2)
[2018-03-24] MEDS ORDERED: ALPRAZolam 0.25 MG Tablet PO ONE (03:48)
[2018-03-24] MEDS ORDERED: Pantoprazole Inj 40 MG Vial IV.PUSH ONE (04:18)
--- NOTE | 2018-03-24 04:22 | P.HPIM ---
History of Present Illness Primary Care Physician: Mc Carl MD History of Present Illness: 52 y/o female with a history of ESRD on hemodialysis MWF history of polycystic kidney disease and failed transplant, neuropathy,DM was brought to the ED with complaints of ankle pain. She states she was at dinner and was walking back to the table when she felt a large pop in her left ankle. She states the pain is a constant burning, stabbing pain 10/10 to left ankle with radiation up her leg, with associated nausea, worse with movement and slightly better with pain meds. Denies any chest pain or sob. Inpatient Certification: I certify that the inpatient services were ordered in accordance with Medicare regulations governing the order. This includes certification that hospital inpatient services are reasonable and necessary and in the case of services not specified as inpatient-only under 42 CFR 419.22(n), that they are appropriately provided as inpatient services in accordance to with the 2-midnight benchmark under 43 CFR 412.3(e) Estimated Total Length of Stay (Days): 3 Plans for Post Hospital Care: SNF Review of Systems All other systems reviewed negative except as stated in HPI PMFSH - History History Provided By: Patient - Medical History Medical History: Medical History (Last Updated 03/24/18 @ 04:45 by LELO Puentes) History of colitis History of end stage renal disease History of renal dialysis Hx of bursitis Hx of diabetes mellitus Personal history of atrial fibrillation - Surgical History Surgical History: Surgical History (Last Updated 03/24/18 @ 04:45 by LELO Puentes) Amputated toe of right foot H/O parathyroidectomy - Family History Family History: Family History (Last Updated 03/24/18 @ 04:45 by LELO Puentes) Mother Breast cancer - Tobacco History Second Hand Smoke Exposure: No Tobacco Use In Past 30 Days: No Smoking Status: Never smoker Tobacco Type: Cigarettes - Alcohol History How Often Do You Have a Drink Containing Alcohol: Monthly or less - Substance Use History Substance History: No History of Abuse - Travel History Recent Travel in the USA Within the Last 8 Weeks: No Recent Travel Out of the Country Within the Last 8 Weeks: No - Immunization History Tetanus Immunization: <5 Years Hx Influenza Vaccine This Season: Yes Medications and Allergies Active Medications: Active Medications Al Hydroxide/Mg Hydroxide (Milk Of Magnesia Liq) 30 ml PO Q12H PRN PRN Reason: Mild Constipation Calcium Acetate (Phoslo) 667 mg PO TIDAC YAAKOV Dextrose (D50w Vial) 50 ml IV.PUSH UNSCH PRN PRN Reason: PER HYPOGLYCEMIA PROTOCOL Eszopiclone (Lunesta) 3 mg PO HS PRN PRN Reason: INSOMNIA Gabapentin (Neurontin) 300 mg PO DAILY YAAKOV Glucagon (Glucagon Inj) 1 mg OTHER PRN PRN PRN Reason: for Hypoglycemia Protocol Hydromorphone HCl (Dilaudid Pf Inj) 2 mg IV.PUSH Q3H PRN PRN Reason: Pain 7 to 10 Hydromorphone HCl (Dilaudid Pf Inj) 1 mg IV.PUSH Q3H PRN PRN Reason: PAIN 3-6 Insulin Aspart (Novolog Insulin Correctional Sugar Inj) 0 unit SQ ACHS YAAKOV; Protocol Ondansetron HCl (Zofran Inj) 4 mg IV.PUSH Q6H PRN PRN Reason: NAUSEA OR VOMITING Allergies Allergy/AdvReac Type Severity Reaction Status Date / Time coconut Allergy Severe HIVES Verified 03/23/18 20:46 diatrizoate meglumine Allergy Severe RENAL Verified 03/23/18 20:46 FAILURE gadobenic acid Allergy Severe RENAL Verified 03/23/18 20:46 FAILURE gadodiamide Allergy Severe RENAL Verified 03/23/18 20:46 FAILURE gadoteridol Allergy Severe RENAL Verified 03/23/18 20:46 FAILURE iodixanol Allergy Severe RENAL Verified 03/23/18 20:46 FAILURE iohexol Allergy Severe RENAL Verified 03/23/18 20:46 FAILURE morphine Allergy Severe HIVES Verified 03/23/18 20:46 azithromycin Allergy Intermediate HIVES Verified 03/23/18 20:46 clindamycin Allergy Intermediate HIVES Verified 03/23/18 20:46 erythromycin base Allergy Intermediate HIVES Verified 03/23/18 20:46 penicillin G Allergy Intermediate Hives Verified 03/23/18 20:46 midodrine Allergy Unknown Atrial Verified 03/23/18 20:46 Fibrillation codeine AdvReac Severe HALLUCINATI Verified 03/23/18 20:46 ONS insulin aspart AdvReac Severe REGULAR Verified 03/23/18 20:46 INSULIN ONLY-CAUSES CRAMPIN G AND "FREEZING" insulin aspart protamine AdvReac Severe REGULAR Verified 03/23/18 20:46 human INSULIN ONLY-CAUSES CRAMPIN G AND "FREEZING" insulin detemir AdvReac Severe REGULAR Verified 03/23/18 20:46 INSULIN ONLY-CAUSES CRAMPIN G AND "FREEZING" insulin glargine AdvReac Severe REGULAR Verified 03/23/18 20:46 INSULIN ONLY-CAUSES CRAMPIN G AND "FREEZING" insulin isophane (NPH) AdvReac Severe REGULAR Verified 03/23/18 20:46 INSULIN ONLY-CAUSES CRAMPIN G AND "FREEZING" insulin lispro AdvReac Severe REGULAR Verified 03/23/18 20:46 INSULIN ONLY-CAUSES CRAMPIN G AND "FREEZING" insulin regular AdvReac Severe REGULAR Verified 03/23/18 20:46 INSULIN ONLY-CAUSES CRAMPIN G AND "FREEZING" vancomycin AdvReac Mild NAUSEA/VOMITING Verified 03/23/18 20:46 WHEN INFUSED TOO FAST Home Medications Medication Instructions Recorded Confirmed Type Novolog Flexpen U-100 Insulin 03/23/18 History calcium acetate 667 mg PO TID 03/23/18 03/23/18 History gabapentin 300 mg PO DAILY 03/23/18 03/23/18 History hydrocodone bitartrate [Zohydro ER] 15 mg PO BID 03/23/18 03/24/18 History eszopiclone [Lunesta] 1 tab PO HS 03/24/18 03/24/18 History fluconazole [Diflucan] 150 mg PO Q3D 03/24/18 03/24/18 History Exam Vital signs: Vital Signs 03/23/18 20:40 03/23/18 21:07 03/23/18 22:50 Temperature 97.3 F L Pulse Rate 94 H 90 72 Respiratory Rate 18 16 18 Blood Pressure 158/92 H 115/58 L 128/72 Pulse Oximetry 100 99 03/24/18 00:00 03/24/18 01:58 Temperature 97.6 F Pulse Rate 92 H Respiratory Rate 22 20 Blood Pressure 151/80 H Pulse Oximetry Intake & Output 03/23/18 03/23/18 03/24/18 06:59 18:59 06:59 Weight 76 kg Narrative: GENERAL: This is a well-nourished, well-developed patient, who is painful and anxious Skin: left ankle in a splint, venous stasis discoloration lower extremities, right UE AV fistula CARDIOVASCULAR: Regular rate and rhythm without murmurs, gallops, or rubs. RESPIRATORY: Clear to auscultation. Breath sounds equal bilaterally. No wheezes , rales, or rhonchi. GASTROINTESTINAL: Abdomen soft, non-tender, nondistended. Normal active bowel sounds MUSCULOSKELETAL: Extremities without clubbing, cyanosis, or edema. NEURO: Alert & Oriented x4 to person, place, time, situation. limited movement to left leg Results - Labs CBC & Chem 7: 03/23/18 22:30 03/23/18 22:30 Labs: Short CBC 03/23/18 Range/Units 22:30 WBC 11.8 H (4.0-11.0) th/mm3 Hgb 12.7 (11.6-15.3) gm/dL Hct 38.6 (35.0-46.0) % Plt Count 265 (150-450) th/mm3 BMP 03/23/18 22:30 Sodium 138 Potassium 4.7 Chloride 104 Carbon Dioxide 19.4 L BUN 83 H Creatinine 9.60 H Calcium 6.1 L* - Imaging Impressions Ankle X-Ray 03/23/18 21:05 CONCLUSION: Displaced oblique calcaneal fracture. Foot X-Ray 03/23/18 21:05 CONCLUSION: Oblique horizontal tearing of fracture. Caprini VTE Risk Assessment Caprini VTE Risk Assessment: Moderate/High Risk (score >= 2) VTE Pharmacological Exception Reason: High risk for bleeding Caprini Risk Assessment Model: Point Value = 1 Point Value = 2 Point Value = 3 Point Value = 5 Age 41-60 Minor surgery BMI > 25 kg/m2 Swollen legs Varicose veins or History of unexplained or recurrent spontaneous Oral contraceptives or hormone replacement Sepsis (< 1 month) Serious lung disease, including pneumonia (< 1 month) Abnormal pulmonary function Acute myocardial infarction Congestive heart failure (< 1 month) History of inflammatory bowel disease Medical patient at bed rest Age 61-74 Arthroscopic surgery Major open surgery (> 45 min) Laparoscopic surgery (> 45 min) Malignancy Confined to bed (> 72 hours) Immobilizing plaster cast Central venous access Age >= 75 History of VTE Family history of VTE Factor V Leiden Prothrombin [id number] Lupus anticoagulant Anticardiolipin antibodies Elevated serum homocysteine Heparin-induced thrombocytopenia Other congenital or acquired thrombophilia Stroke (< 1 month) Elective arthroplasty Hip, pelvis, or leg fracture Acute spinal cord injury (< 1 month) Prophylaxis Regimen: Total Risk Factor Score Risk Level Prophylaxis Regimen 0-1 Low Early ambulation 2 Moderate Order ONE of the following: *Sequential Compression Device (SCD) *Heparin 5000 units SQ BID 3-4 Higher Order ONE of the following medications: *Heparin 5000 units SQ TID *Enoxaparin/Lovenox 40 mg SQ daily (WT < 150 kg, CrCl > 30 mL/min) *Enoxaparin/Lovenox 30 mg SQ daily (WT < 150 kg, CrCl > 10-29 mL/min) *Enoxaparin/Lovenox 30 mg SQ BID (WT < 150 kg, CrCl > 30 mL/min) AND/OR *Sequential Compression Device (SCD) 5 or more Highest Order ONE of the following medications: *Heparin 5000 units SQ TID (Preferred with Epidurals) *Enoxaparin/Lovenox 40 mg SQ daily (WT < 150 kg, CrCl > 30 mL/min) *Enoxaparin/Lovenox 30 mg SQ daily (WT < 150 kg, CrCl > 10-29 mL/min) *Enoxaparin/Lovenox 30 mg SQ BID (WT < 150 kg, CrCl > 30 mL/min) AND *Sequential Compression Device (SCD) Assessment and Plan - Plan 52 y/o female with a history of ESRD on hemodialysis MWF history of polycystic kidney disease and failed transplant, neuropathy,DM and gerd was brought to the ED with complaints of ankle pain. Calcaneus avulsion fracture Foot x ray reviewed and shows a Oblique horizontal tearing of fracture. -Consult podiatry for evaluation -Pain management with IV Dilaudid -NPO ESRD, dialysis MWF -Consult nephrology, patient is known to Dr. Carl -avoid nephrotoxins -Resume home medications DM -Accu checks with SSI Gerd -Protonix IV x 1 given -Tums prn DVT prophylaxis: SCD on non affected leg Discussed Condition With: patient and RN H&P: Quality - VTE Deep Vein Thrombosis/Pulmonary Embolism Present on Admission: No
[2018-03-24] MEDS: HYDROmorphone PF Inj 2 MG/ML Vial IV.PUSH PRN ×4 (04:29→18:40)
[2018-03-24 07:42] LABS: Baso # (Auto) 0.2 th/mm3 (0.0-0.2); Baso % (Auto) 1.3 % (0.0-2.0); Eos # (Auto) 0.1 th/mm3 (0.0-0.4); Hematocrit 38.1 % (35.0-46.0); Hemoglobin 12.1 gm/dL (11.6-15.3); Lymph # (Auto) 1.8 th/mm3 (1.0-4.8); Lymph % (Auto) 13.4 % (9.0-44.0); Mean Corpuscular HGB Conc 31.8 % (32.0-36.0); Mean Corpuscular Hemoglobin 28.4 pg (27.0-34.0); Mean Corpuscular Volume 89.5 fL (80.0-100.0); Mean Platelet Volume 8.7 fL (7.0-11.0); Mono # (Auto) 0.8 th/mm3 (0.0-0.9); Neut # (Auto) 10.3 th/mm3 (1.8-7.7); Neut % (Auto) 78.3 % (16.0-70.0); Platelet Count 255 th/mm3 (150-450); Red Blood Count 4.26 mil/mm3 (4.00-5.30); Red Cell Distribution Width 14.6 % (11.6-17.2); White Blood Count 13.2 th/mm3 (4.0-11.0)
[2018-03-24] MEDS: Insulin NovoLOG Aspart Correctional Sugar Inj SQ SCH ×4 (08:00→21:11)
[2018-03-24] MEDS ORDERED: Calcium Acetate 667 MG Capsule PO SCH (08:00)
[2018-03-24 08:18] LABS: Albumin 3.6 g/dL (3.4-5.0); Calcium 5.8 mg/dL (8.5-10.1); Carbon Dioxide 17.9 meq/L (21.0-32.0); Potassium 5.8 meq/L (3.5-5.1); Total Protein 8.4 g/dL (6.4-8.2)
[2018-03-24] MEDS ORDERED: Sod Chloride 0.9% Inj 1,000 ML OTHER PRN ×2 (08:47)
[2018-03-24] MEDS ORDERED: Albumin Human 25% Inj 100 ML IV.SIG PRN (08:47)
[2018-03-24] MEDS ORDERED: Acetaminophen 325 MG Tablet PO PRN (08:47)
[2018-03-24] MEDS ORDERED: Heparin 10,000 UNITS/10 ML Vial (for IV use) OTHER PRN (08:47)
[2018-03-24] MEDS ORDERED: Gelatin 12 MM/7 MM Topical Foam TOPICAL PRN (08:47)
[2018-03-24] MEDS ORDERED: Sodium Chlor 0.9% Inj 200 ML IV.SIG PRN (08:47)
[2018-03-24] MEDS: Gabapentin 300 MG Capsule PO SCH (09:32)
[2018-03-24] MEDS ORDERED: Sodium Chlor 0.9% Inj 200 ML IV.CONT PRN (09:45)
[2018-03-24] MEDS ORDERED: Fluconazole 100 MG Tablet PO ONE (10:00)
--- NOTE | 2018-03-24 10:40 | MB ---
cc: Kailyn Yan DPM DATE: 03/24/2018 CHIEF COMPLAINT: Left calcaneal fracture. HISTORY OF PRESENT ILLNESS: Ms. Cortez is a 52-year-old female patient who states that she was at dinner. When walking back to the table, she felt a large pop in the back of her left ankle. She has had a constant burning pain since that time. The patient denies any serious injury. PAST MEDICAL HISTORY: Includes polycystic kidney disease, failed kidney transplant, neuropathy, diabetes mellitus, history of colitis, end-stage renal disease on dialysis. PAST SURGICAL HISTORY: Includes amputated toes of the right foot and a parathyroidectomy. FAMILY HISTORY: Noncontributory. SOCIAL HISTORY: The patient denies alcohol, tobacco or drug abuse. Lives at home with family. PHYSICAL EXAMINATION: VITAL SIGNS: Temperature is 98.7, pulse is 92, respiratory rate 18, blood pressure 129/63, pulse ox 97% O2 at room air. LABORATORY DATA: White count 13.2, hemoglobin 12.1, hematocrit 38.1, platelets 255. INR 1.0. Sodium 134, potassium 5.8, chloride 99, carbon dioxide 17.9, BUN 94. On x-ray, there is an oblique horizontal fracture of the posterior aspect of the calcaneus with approximately 2 cm gapping noted. EXTREMITIES: The patient has nonpalpable pulses, but they are easily dopplerable and biphasic. Capillary refill time less than 3 seconds. Gross sensation is diminished, but intact. The skin is tight, but not open in the posterior aspect. The fracture fragment can easily be palpated through the skin. The patient states it is very painful in that area. There is mild edema. No pain to the anterior ankle joint or to the foot itself. ASSESSMENT AND PLAN: 1. Left calcaneal fracture. - The patient is n.p.o. - The patient is scheduled for surgical repair of her calcaneal fracture today at 4 p.m. - Nonweightbearing left lower extremity. - Ice and elevate. Continue pain medication as ordered. Thank you for this consultation and allowing me to be involved in this patient's care. Kailyn Yan DPM LMW/kb , 10:11 AM , 10:19 AM ARI
[2018-03-24] MEDS: Calcitriol 0.25 MCG Capsule PO SCH (11:45)
[2018-03-24] MEDS ORDERED: Succinylcholine Inj 100 MG/5 ML Syringe IV.PUSH ONE (12:00)
[2018-03-24] MEDS ORDERED: Neostigmine Inj 5 MG/5 ML Syringe IV.PUSH ONE (12:00)
[2018-03-24] MEDS ORDERED: Lidocaine PF 1% Inj 5 ML Syringe INFILTRATN ONE (12:00)
[2018-03-24] MEDS ORDERED: Glycopyrrolate Inj 1 MG/5 ML Syringe IV.PUSH ONE (12:00)
[2018-03-24] MEDS ORDERED: Phenylephrine/NS 1000 MCG/10ML Syringe IV.PUSH ONE (12:00)
[2018-03-24] MEDS: Heparin 10,000 UNITS/10 ML Vial (for IV use) OTHER PRN (14:56)
--- NOTE | 2018-03-24 15:19 | P.CONNP ---
<Natalie Adames - Last Filed: 03/24/18 15:00> History of Present Illness Service: Nephrology Consult date: 03/24/18 Reason for Consult: ESRD on HD, hyperkalemia Primary Care Provider: Mc Carl MD Family Provider: Mc Carl MD History of Present Illness: This is a 67 y/o AAF with whom we follow in outpatient setting for management of her dialysis. 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 She has had several wounds recently including axillary abscesses and one on her toe where the nail had to be removed. She is admitted for left calcaneal fracture that occurred while walking yesterday. Her dialysis days are MWF, she is due today. Her surgery is scheduled for 4pm. K is 5.8 today. She is sleepy on exam, having recently had pain medications, currently NPO. We were consulted for dialysis management. She is a full code. Review of Systems Cardiovascular: Denies chest pain Respiratory: Denies shortness of breath Musculoskeletal: Reports deformity, Reports joint pain, Reports joint swelling, Reports limited joint movement Comments: left ankle PMFSH - History History Provided By: Patient - Medical History Medical History: Medical History (Last Updated 03/24/18 @ 15:02 by LELO Freed) ESRD (end stage renal disease) on dialysis History of colitis History of renal dialysis Hx of bursitis Hx of diabetes mellitus Metabolic bone disease Personal history of atrial fibrillation Secondary hyperparathyroidism (of renal origin) - Surgical History Surgical History: Surgical History (Last Updated 03/24/18 @ 04:45 by LELO Puentes) Amputated toe of right foot H/O parathyroidectomy - Family History Family History: Family History (Last Updated 03/24/18 @ 04:45 by LELO Puentes) Mother Breast cancer - Tobacco History Second Hand Smoke Exposure: No Tobacco Use In Past 30 Days: Yes Smoking Status: Current every day smoker Tobacco Type: Cigarettes - Alcohol History How Often Do You Have a Drink Containing Alcohol: Monthly or less - Substance Use History Substance History: No History of Abuse - Travel History Recent Travel in the [place] Within the Last 8 Weeks: No Recent Travel Out of the Country Within the Last 8 Weeks: No - Immunization History Tetanus Immunization: <5 Years Hx Influenza Vaccine This Season: Yes Medications and Allergies Allergies Allergy/AdvReac Type Severity Reaction Status Date / Time coconut Allergy Severe HIVES Verified 03/23/18 20:46 diatrizoate meglumine Allergy Severe RENAL Verified 03/23/18 20:46 FAILURE gadobenic acid Allergy Severe RENAL Verified 03/23/18 20:46 FAILURE gadodiamide Allergy Severe RENAL Verified 03/23/18 20:46 FAILURE gadoteridol Allergy Severe RENAL Verified 03/23/18 20:46 FAILURE iodixanol Allergy Severe RENAL Verified 03/23/18 20:46 FAILURE iohexol Allergy Severe RENAL Verified 03/23/18 20:46 FAILURE morphine Allergy Severe HIVES Verified 03/23/18 20:46 azithromycin Allergy Intermediate HIVES Verified 03/23/18 20:46 clindamycin Allergy Intermediate HIVES Verified 03/23/18 20:46 erythromycin base Allergy Intermediate HIVES Verified 03/23/18 20:46 penicillin G Allergy Intermediate Hives Verified 03/23/18 20:46 midodrine Allergy Unknown Atrial Verified 03/23/18 20:46 Fibrillation codeine AdvReac Severe HALLUCINATI Verified 03/23/18 20:46 ONS insulin aspart AdvReac Severe REGULAR Verified 03/23/18 20:46 INSULIN ONLY-CAUSES CRAMPIN G AND "FREEZING" insulin aspart protamine AdvReac Severe REGULAR Verified 03/23/18 20:46 human INSULIN ONLY-CAUSES CRAMPIN G AND "FREEZING" insulin detemir AdvReac Severe REGULAR Verified 03/23/18 20:46 INSULIN ONLY-CAUSES CRAMPIN G AND "FREEZING" insulin glargine AdvReac Severe REGULAR Verified 03/23/18 20:46 INSULIN ONLY-CAUSES CRAMPIN G AND "FREEZING" insulin isophane (NPH) AdvReac Severe REGULAR Verified 03/23/18 20:46 INSULIN ONLY-CAUSES CRAMPIN G AND "FREEZING" insulin lispro AdvReac Severe REGULAR Verified 03/23/18 20:46 INSULIN ONLY-CAUSES CRAMPIN G AND "FREEZING" insulin regular AdvReac Severe REGULAR Verified 03/23/18 20:46 INSULIN ONLY-CAUSES CRAMPIN G AND "FREEZING" vancomycin AdvReac Mild NAUSEA/VOMITING Verified 03/23/18 20:46 WHEN INFUSED TOO FAST Home Medications Medication Instructions Recorded Confirmed Type Novolog Flexpen U-100 Insulin 03/23/18 History calcium acetate 667 mg PO TID 03/23/18 03/23/18 History gabapentin 300 mg PO DAILY 03/23/18 03/23/18 History hydrocodone bitartrate [Zohydro ER] 15 mg PO BID 03/23/18 03/24/18 History eszopiclone [Lunesta] 1 tab PO HS 03/24/18 03/24/18 History fluconazole [Diflucan] 150 mg PO Q3D 03/24/18 03/24/18 History Active Medications: Active Medications Acetaminophen (Tylenol) 650 mg PO UNSCH PRN PRN Reason: SEE LABEL COMMENTS Al Hydroxide/Mg Hydroxide (Milk Of Monserrat Liq) 30 ml PO Q12H PRN PRN Reason: Mild Constipation Calcitriol (Rocaltrol) 0.25 mcg PO DAILY [facility] Calcium Acetate (Phoslo) 667 mg PO TIDAC [facility] Last Admin: 03/24/18 09:39 Dose: Not Given Clonidine HCl (Catapres) 0.1 mg PO UNSCH PRN PRN Reason: SEE LABEL COMMENTS Dextrose (D50w Vial) 50 ml IV.PUSH UNSCH PRN PRN Reason: PER HYPOGLYCEMIA PROTOCOL Diphenhydramine HCl (Benadryl Inj) 25 mg IV.PUSH Q6H PRN PRN Reason: ALLERGIC REACTION Diphenhydramine HCl (Benadryl) 25 mg PO UNSCH PRN PRN Reason: SEE LABEL COMMENTS Eszopiclone (Lunesta) 3 mg PO HS PRN PRN Reason: INSOMNIA Gabapentin (Neurontin) 300 mg PO DAILY [facility] Last Admin: 03/24/18 09:32 Dose: 300 mg Gelatin (Gelfoam 12 Mm/7 Mm Topical) 1 foam TOPICAL UNSCH PRN PRN Reason: help stop bleeding from site Gentamicin Sulfate (Gentamicin Inj) 20 mg OTHER WITH DIALYSIS PRN PRN Reason: Dwell Gentamycin Lock Last Admin: 03/24/18 14:56 Dose: 20 mg Glucagon (Glucagon Inj) 1 mg OTHER PRN PRN PRN Reason: for Hypoglycemia Protocol Heparin Sodium (Porcine) (Heparin Inj) 8,000 units OTHER WITH DIALYSIS PRN PRN Reason: for machine prime Heparin Sodium (Porcine) (Heparin Inj) 0 units OTHER WITH DIALYSIS PRN PRN Reason: Dwell Heparin to Fill Catheter Last Admin: 03/24/18 14:56 Dose: 1,000 units Hydromorphone HCl (Dilaudid Pf Inj) 2 mg IV.PUSH Q3H PRN PRN Reason: Pain 7 to 10 Last Admin: 03/24/18 13:29 Dose: 2 mg Hydromorphone HCl (Dilaudid Pf Inj) 1 mg IV.PUSH Q3H PRN PRN Reason: PAIN 3-6 Albumin Human (Flexbumin 25% Inj) 100 mls @ 60 mls/hr IV.SIG WITH DIALYSIS PRN PRN Reason: hypotension / volume replace Sodium Chloride (Ns Inj) 1,000 mls @ 0 mls/hr OTHER .Q0M PRN PRN Reason: for prime and rinse back Sodium Chloride (Ns Inj) 1,000 mls @ 200 mls/hr OTHER .Q5H PRN PRN Reason: for dialyzer flush PRN Sodium Chloride (Ns Inj) 200 mls @ 0 mls/hr IV.CONT .Q0M PRN PRN Reason: hypotension / volume replace Insulin Aspart (Novolog Insulin Correctional Sugar Inj) 0 unit SQ ACHS [facility]; Protocol Last Admin: 03/24/18 08:00 Dose: Not Given Mannitol (Mannitol Inj) 12.5 gm IV.PUSH UNSCH PRN PRN Reason: hypotension / volume replace Miscellaneous (Pill Splitter) 1 each OTHER UNSCH PRN PRN Reason: SEE LABEL COMMENTS Nitroglycerin (Nitrostat Sl) 0.4 mg SL Q5M PRN PRN Reason: CHEST PAIN Ondansetron HCl (Zofran Inj) 4 mg IV.PUSH Q6H PRN PRN Reason: NAUSEA OR VOMITING Ondansetron HCl (Zofran Inj) 4 mg IV.PUSH UNSCH PRN PRN Reason: WITH DIALYSIS Sodium Chloride (Ns Flush) 5 ml IV.FLUSH UNSCH PRN PRN Reason: flush each lumen during HD Last Admin: 03/24/18 13:30 Dose: 5 ml Exam Vital signs: Vital Signs 03/23/18 20:40 03/23/18 21:07 03/23/18 22:50 Temperature 97.3 F L Pulse Rate 94 H 90 72 Respiratory Rate 18 16 18 Blood Pressure 158/92 H 115/58 L 128/72 Pulse Oximetry 100 99 03/24/18 00:00 03/24/18 01:58 03/24/18 07:37 Temperature 97.6 F 98.7 F Pulse Rate 92 H Respiratory Rate 22 20 18 Blood Pressure 151/80 H 129/63 Pulse Oximetry 97 Intake & Output 03/23/18 03/24/18 03/24/18 18:59 06:59 18:59 Intake Total 200 / 200 Output Total 1999 Balance 200 / 200 -1999 Weight 76 kg Intake: Oral 200 / 200 Output: Hemodialysis Amount 1999 - Constitutional no acute distress Comments: sleeping - Routine HEENT Exam Head: Present: normocephalic - Routine Neck Exam Present: supple, full ROM - Routine Respiratory Exam Present: CTA bilaterally. Absent: accessory muscle use - Routine Cardiovascular Exam Present: RRR, S1, S2 - Routine Abdominal Exam Present: soft, normoactive bowel sounds - Routine Extremities Exam Present: pulses intact, amputation, AV fistula, vascular access. Absent: edema Comments: left foot splinted hx of failed AV access - Routine Skin Exam Present: intact, dry, warm - Routine Neurological Exam Present: alert, oriented X3, CN II-XII intact Results - Lab Results 03/24/18 07:20 03/24/18 07:20 Most recent lab results Calcium 5.8 mg/dL (8.5-10.1) L* 03/24/18 07:20 Phosphorus 10.1 mg/dL (2.5-4.9) H 03/24/18 07:20 - Image Kidney/bladder ultrasound: other (not required) Assessment and Plan - Assessment (1) ESRD (end stage renal disease) Code(s): N18.6 - End stage renal disease Status: Acute Plan: She will be dialyzed today and MWF Avoid IVF administration; gadolinium is contraindicated. Using Permcath for HD Obtain labs in AM High protein, low phosphorus diet when no longer NPO. Outpatient HD at [place]. (2) Hyperkalemia, diminished renal excretion Code(s): E87.5 - Hyperkalemia Status: Acute Plan: Dialysis today on a 1 K bath Low K diet. Repeat labs (3) Hypocalcemia Code(s): E83.51 - Hypocalcemia Status: Acute Plan: Hx of parathyroidectomy Ordered Tums TID. Avoid IV calcium administration. Follow labs. (4) Metabolic bone disease Code(s): E88.9 - Metabolic disorder, unspecified; M90.80 - Osteopathy in diseases classified elsewhere, unspecified site Status: Acute Plan: On calcium acetate with meals. Increase to 2001 mg TID AC. Phosphorus 10.1. (5) Calcaneal fracture Code(s): S92.009A - Unspecified fracture of unspecified calcaneus, initial encounter for closed fracture Status: Acute Plan: Surgery today at 4pm. Currently splinted. PRN pain control. Non weight bearing. (6) DM (diabetes mellitus), type 2, uncontrolled Code(s): E11.65 - Type 2 diabetes mellitus with hyperglycemia Status: Acute Plan: Insulin as needed. Maintain glucose 140-180mg/dL. <Karthikeyan Choudhary - Last Filed: 03/25/18 07:55> History of Present Illness Primary Care Provider: Mc Carl MD Family Provider: Mc Carl MD [facility] - Medical History Medical History: Medical History (Last Updated 03/24/18 @ 15:02 by LELO Freed) ESRD (end stage renal disease) on dialysis History of colitis History of renal dialysis Hx of bursitis Hx of diabetes mellitus Metabolic bone disease Personal history of atrial fibrillation Secondary hyperparathyroidism (of renal origin) - Surgical History Surgical History: Surgical History (Last Updated 03/24/18 @ 04:45 by LELO Puentes) Amputated toe of right foot H/O parathyroidectomy - Family History Family History: Family History (Last Updated 03/24/18 @ 04:45 by LELO Puentes) Mother Breast cancer Medications and Allergies Active Medications: Active Medications Acetaminophen (Tylenol) 650 mg PO UNSCH PRN PRN Reason: SEE LABEL COMMENTS Al Hydroxide/Mg Hydroxide (Milk Of Monserrat Liq) 30 ml PO Q12H PRN PRN Reason: Mild Constipation Calcitriol (Rocaltrol) 0.25 mcg PO DAILY [facility] Last Admin: 03/24/18 11:45 Dose: Not Given Calcium Acetate (Phoslo) 2,001 mg PO TIDAC [facility] Last Admin: 03/24/18 18:01 Dose: Not Given Clonidine HCl (Catapres) 0.1 mg PO UNSCH PRN PRN Reason: SEE LABEL COMMENTS Dextrose (D50w Vial) 50 ml IV.PUSH UNSCH PRN PRN Reason: PER HYPOGLYCEMIA PROTOCOL Diphenhydramine HCl (Benadryl Inj) 25 mg IV.PUSH Q6H PRN PRN Reason: ALLERGIC REACTION Diphenhydramine HCl (Benadryl) 25 mg PO UNSCH PRN PRN Reason: SEE LABEL COMMENTS Eszopiclone (Lunesta) 3 mg PO HS PRN PRN Reason: INSOMNIA Gabapentin (Neurontin) 300 mg PO DAILY [facility] Last Admin: 03/24/18 09:32 Dose: 300 mg Gelatin (Gelfoam 12 Mm/7 Mm Topical) 1 foam TOPICAL UNSCH PRN PRN Reason: help stop bleeding from site Gentamicin Sulfate (Gentamicin Inj) 20 mg OTHER WITH DIALYSIS PRN PRN Reason: Dwell Gentamycin Lock Last Admin: 03/24/18 14:56 Dose: 20 mg Glucagon (Glucagon Inj) 1 mg OTHER PRN PRN PRN Reason: for Hypoglycemia Protocol Heparin Sodium (Porcine) (Heparin Inj) 8,000 units OTHER WITH DIALYSIS PRN PRN Reason: for machine prime Heparin Sodium (Porcine) (Heparin Inj) 0 units OTHER WITH DIALYSIS PRN PRN Reason: Dwell Heparin to Fill Catheter Last Admin: 03/24/18 14:56 Dose: 1,000 units Hydromorphone HCl (Dilaudid Pf Inj) 2 mg IV.PUSH Q3H PRN PRN Reason: Pain 7 to 10 Last Admin: 03/25/18 02:03 Dose: 2 mg Hydromorphone HCl (Dilaudid Pf Inj) 1 mg IV.PUSH Q3H PRN PRN Reason: PAIN 3-6 Last Admin: 03/25/18 02:03 Dose: 1 mg Albumin Human (Flexbumin 25% Inj) 100 mls @ 60 mls/hr IV.SIG WITH DIALYSIS PRN PRN Reason: hypotension / volume replace Sodium Chloride (Ns Inj) 1,000 mls @ 0 mls/hr OTHER .Q0M PRN PRN Reason: for prime and rinse back Sodium Chloride (Ns Inj) 1,000 mls @ 200 mls/hr OTHER .Q5H PRN PRN Reason: for dialyzer flush PRN Sodium Chloride (Ns Inj) 200 mls @ 0 mls/hr IV.CONT .Q0M PRN PRN Reason: hypotension / volume replace Insulin Aspart (Novolog Insulin Correctional Sugar Inj) 0 unit SQ ACHS Y[facility]KOV; Protocol Last Admin: 03/24/18 21:11 Dose: 4 unit Mannitol (Mannitol Inj) 12.5 gm IV.PUSH UNSCH PRN PRN Reason: hypotension / volume replace Miscellaneous (Pill Splitter) 1 each OTHER UNSCH PRN PRN Reason: SEE LABEL COMMENTS Miscellaneous Information ([facility] [place] [facility] 1 each OTHER UNSCH PRN PRN Reason: SEE LABEL COMMENTS Stop: 03/25/18 17:59 Nitroglycerin (Nitrostat Sl) 0.4 mg SL Q5M PRN PRN Reason: CHEST PAIN Ondansetron HCl (Zofran Inj) 4 mg IV.PUSH Q6H PRN PRN Reason: NAUSEA OR VOMITING Ondansetron HCl (Zofran Inj) 4 mg IV.PUSH UNSCH PRN PRN Reason: WITH DIALYSIS Sodium Chloride (Ns Flush) 5 ml IV.FLUSH UNSCH PRN PRN Reason: flush each lumen during HD Last Admin: 03/24/18 13:30 Dose: 5 ml Exam Vital signs: Vital Signs 03/24/18 18:21 03/24/18 18:30 03/24/18 18:52 Temperature 97.7 F 97.7 F Pulse Rate 90 101 H 90 Respiratory Rate 15 20 16 Blood Pressure 92/54 L 136/58 L 116/57 L Pulse Oximetry 95 96 94 L 03/24/18 20:00 03/25/18 00:00 03/25/18 04:00 Temperature 97.9 F 98.3 F 98.8 F Pulse Rate 94 H 95 H 94 H Respiratory Rate 17 17 17 Blood Pressure 138/56 L 112/55 L 94/45 L Pulse Oximetry 100 97 99 Intake & Output 03/24/18 03/25/18 03/25/18 18:59 06:59 18:59 Intake Total 400 / 400 Output Total 2009 Balance -1610 / -1610 Weight 73.5 kg Intake: Anesthesia Amount 400 / 400 Output: Hemodialysis Amount 1999 Estimated Blood Loss Other: Weight On Admission 76 kg Results - Lab Results 03/24/18 07:20 03/24/18 07:20 Most recent lab results Calcium 5.8 mg/dL (8.5-10.1) L* 03/24/18 07:20 Phosphorus 10.1 mg/dL (2.5-4.9) H 03/24/18 07:20 Assessment and Plan - Assessment (1) ESRD (end stage renal disease) Code(s): N18.6 - End stage renal disease Status: Acute (2) Hyperkalemia, diminished renal excretion Code(s): E87.5 - Hyperkalemia Status: Acute (3) Hypocalcemia Code(s): E83.51 - Hypocalcemia Status: Acute (4) Metabolic bone disease Code(s): E88.9 - Metabolic disorder, unspecified; M90.80 - Osteopathy in diseases classified elsewhere, unspecified site Status: Acute (5) Calcaneal fracture Code(s): S92.009A - Unspecified fracture of unspecified calcaneus, initial encounter for closed fracture Status: Acute (6) DM (diabetes mellitus), type 2, uncontrolled Code(s): E11.65 - Type 2 diabetes mellitus with hyperglycemia Status: Acute - Attending Attestation patient was seen and examined. Agree with above assessment and plan. <Natalie Adames - Last Filed: 03/24/18 15:00> (6) DM (diabetes mellitus), type 2, uncontrolled Qualifiers: Diabetes mellitus complication status: with skin complications Diabetes mellitus complication detail: with other skin complication <Karthikeyan Choudhary - Last Filed: 03/25/18 07:55> (6) DM (diabetes mellitus), type 2, uncontrolled Qualifiers: Diabetes mellitus complication status: with skin complications Diabetes mellitus complication detail: with other skin complication
[2018-03-24] MEDS: Calcium Acetate 667 MG Capsule PO SCH (18:01)
[2018-03-24] MEDS ORDERED: fentaNYL Citrate Inj 100 MCG/2 ML Ampul ONE (18:14)
--- NOTE | 2018-03-24 18:56 | XR ---
EXAM DATE: 03/24/2018 6:37 PM EDT AGE/SEX: 52 years / Female INDICATIONS: Open reduction internal fixation left calcaneus fracture CLINICAL DATA: This is the patient's initial encounter. Patient reports that signs and symptoms have been present for 1 day and indicates a pain score of Nonresponsive. MEDICAL/SURGICAL HISTORY: None. None. COMPARISON: No prior exams available for comparison. FINDINGS: Open reduction internal fixation left calcaneus fracture in anatomic alignment. CONCLUSION: Anatomic alignment. Electronically signed by: Jake Stringer MD 03/24/2018 6:55 PM EDT
--- NOTE | 2018-03-24 18:57 | XR ---
EXAM DATE: 03/24/2018 6:26 PM EDT AGE/SEX: 52 years / Female INDICATIONS: Post op left calcaneus ORIF CLINICAL DATA: This is the patient's initial encounter. Patient reports that signs and symptoms have been present for 1 day and indicates a pain score of Nonresponsive. MEDICAL/SURGICAL HISTORY: None. None. COMPARISON: HPO, ANKLE LIMITED LEFT 2V, 03/23/2018. . FINDINGS: Status post calcaneal ORIF. Anatomic alignment in fiberglass. Extensive vascular artery calcifications. CONCLUSION: Anatomic alignment. Electronically signed by: Jake Stringer MD 03/24/2018 6:55 PM EDT
--- NOTE | 2018-03-24 20:59 | MP ---
cc: Kailyn Yan [facility] DATE OF OPERATION: 03/24/2018 SURGEON: Kailyn Yan MD MANAGER BUSINESS PROCESS first lauren Larsen. PREOPERATIVE DIAGNOSIS: Left calcaneal fracture. POSTOPERATIVE DIAGNOSIS: Left calcaneal fracture. PROCEDURE PERFORMED: Left percutaneous calcaneal reduction and internal fixation. PATHOLOGY SENT: None. ANESTHESIA: General. HEMOSTASIS: Pneumatic thigh tourniquet at 350 mmHg for 43 minutes. ESTIMATED BLOOD LOSS: 10 mL MATERIALS USED: Include a 7.3 Synthes cannulated screw, 3-0 Prolene. INJECTABLES: None. COMPLICATIONS: None. INDICATIONS: Ms. Cortez is a 52-year-old female patient who sustained a pathological fracture of the left calcaneus, a tongue-type fracture with pressure noted to the posterior aspect of the skin. I explained to the patient that the fracture needed be fixated to avoid further complication and restore normal gait. The consent was signed. The procedure was explained. No guarantees were given. PROCEDURE: Under mild sedation, the patient was brought to the operating room, placed under general anesthesia and then placed into a prone position. Prior to being in position, she had a pneumatic thigh tourniquet placed on the left thigh. The leg was then scrubbed, prepped and draped in the usual aseptic manner. An Esmarch bandage was used to exsanguinate the foot and lower leg and the pneumatic thigh tourniquet was inflated to 350 mmHg. Two large tenaculum bone clamps were used in order to reduce the large fracture fragment, which was clearly tenting the posterior aspect of the skin at this point. The fracture fragment was easily reduced and noted on radiographs. The central aspect of the Achilles tendon was split using a small stab incision with a 15 blade and a hemostat to deepen that incision. A 2.0 Steinmann pin was then inserted through the dorsal posterior aspect of the calcaneus to the plantar anterior aspect of the calcaneus, which placement was confirmed under fluoroscopy and the K-wire was measured. A cannulated, partially threaded compression screw was then inserted. There was excellent compression noted across the fracture site. The clamps were removed and the fracture reduction remained anatomical and well aligned. The incision sites were flushed with copious amounts of sterile saline. Skin was closed using 3-0 Prolene. The pneumatic tourniquet was released. There was a prompt hyperemic response to all digits of the left foot. A sterile dressing of Adaptic, 4 x 4's, and a well-padded posterior splint were applied. The patient tolerated the procedure and the anesthesia well. She received a popliteal block by the anesthesiologist after surgery. She will recover in the PACU before being discharged back to her room with written and oral postoperative instructions. RICH Christianson/kailey/[email or web address] , 05:55 PM , 06:01 PM ARI
[2018-03-25] MEDS: HYDROmorphone PF Inj 2 MG/ML Vial IV.PUSH PRN ×3 (02:03→09:10)
[2018-03-25] MEDS: Gabapentin 300 MG Capsule PO SCH (09:10)
[2018-03-25] MEDS: Calcitriol 0.25 MCG Capsule PO SCH (09:10)
[2018-03-25] MEDS: Calcium Acetate 667 MG Capsule PO SCH ×3 (09:13→17:47)
[2018-03-25] MEDS: Insulin NovoLOG Aspart Correctional Sugar Inj SQ SCH ×4 (09:14→21:28)
--- NOTE | 2018-03-25 11:08 | P.PNIM ---
Subjective Interval history: patient stated she can feel her foot now and that she was told in ED if she can feel her foot to let nurse know because she will get more pain medication. I explained to patient that is not the case that we give pain medication to control pain but not to make sure she does not feel any sensation. After I said that I asked her if she was in pain and did not give me an answer. She also complained about the new dressings that was placed on her permacath. She stated she was not happy with that. otherwise no other complaints. Physical Exam Vital signs: Vital Signs 03/24/18 18:21 03/24/18 18:30 03/24/18 18:52 Temperature 97.7 F 97.7 F Pulse Rate 90 101 H 90 Respiratory Rate 15 20 16 Blood Pressure 92/54 L 136/58 L 116/57 L Pulse Oximetry 95 96 94 L 03/24/18 20:00 03/25/18 00:00 03/25/18 04:00 Temperature 97.9 F 98.3 F 98.8 F Pulse Rate 94 H 95 H 94 H Respiratory Rate 17 17 17 Blood Pressure 138/56 L 112/55 L 94/45 L Pulse Oximetry 100 97 99 03/25/18 08:00 Temperature 99.4 F Pulse Rate 92 H Respiratory Rate 14 Blood Pressure 92/44 L Pulse Oximetry 96 Intake & Output 03/24/18 03/25/18 03/25/18 18:59 06:59 18:59 Intake Total 400 / 400 Output Total 2009 Balance -1610 / -1610 Weight 73.5 kg Intake: Anesthesia Amount 400 / 400 Output: Hemodialysis Amount 1999 Estimated Blood Loss Other: Weight On Admission 76 kg - Constitutional no acute distress - Routine HEENT Exam Head: Present: normocephalic, atraumatic - Routine Respiratory Exam Present: CTA bilaterally - Routine Cardiovascular Exam Present: RRR, S1, S2 - Routine Abdominal Exam Present: soft, normoactive bowel sounds - Routine Extremities Exam Comments: left foot in splint. patient stated she did not feel me touch her toes but felt shooting sensation. she does have peripheral neuropathy. - Routine Skin Exam Comments: PERMA cath in place. no erythema or discharge noted. Results - Labs CBC & Chem 7: 03/24/18 07:20 03/24/18 07:20 Laboratory Results - last 24 hr 03/24/18 03/24/18 03/25/18 18:05 21:04 08:15 POC Glucose 139 H 206 H 209 H - Imaging Impressions Foot X-Ray 03/24/18 00:00 CONCLUSION: Anatomic alignment. Foot X-Ray 03/24/18 00:00 CONCLUSION: Anatomic alignment. Assessment and Plan - Plan 52 y/o female with a history of ESRD on hemodialysis MWF history of polycystic kidney disease and failed transplant, neuropathy,DM and gerd was brought to the ED with complaints of ankle pain. Calcaneus avulsion fracture Foot x ray reviewed and shows a Oblique horizontal tearing of fracture. -in splint. pending consult for Loss Prevention And Safety Manager. -d/c dilaudid start percocet. ESRD, dialysis MWF -patient is known to Dr. Carl. -resident in diagnostic radiology consulted. scheduled for dialysis today. -avoid nephrotoxins -continue home medication. DM -Accu checks with SSI Gerd -Protonix IV x 1 given -Tums prn DVT prophylaxis: SCD on non affected leg Discharge Planning: once cleared by Loss Prevention And Safety Manager and evaluated by PT can be d/c based on PT recommendations.
--- NOTE | 2018-03-25 16:17 | P.PNNP ---
Subjective Interval history: Awake and alert. Having a lot of pain post operatively. Upset about recent pain medication changes without having discussed it with her. Physical Exam Vital signs: Vital Signs 03/24/18 18:21 03/24/18 18:30 03/24/18 18:52 Temperature 97.7 F 97.7 F Pulse Rate 90 101 H 90 Respiratory Rate 15 20 16 Blood Pressure 92/54 L 136/58 L 116/57 L Pulse Oximetry 95 96 94 L 03/24/18 20:00 03/25/18 00:00 03/25/18 04:00 Temperature 97.9 F 98.3 F 98.8 F Pulse Rate 94 H 95 H 94 H Respiratory Rate 17 17 17 Blood Pressure 138/56 L 112/55 L 94/45 L Pulse Oximetry 100 97 99 03/25/18 08:00 03/25/18 12:00 03/25/18 16:00 Temperature 99.4 F 99.1 F 99.2 F Pulse Rate 92 H 89 92 H Respiratory Rate 14 20 20 Blood Pressure 92/44 L 100/49 L 108/54 L Pulse Oximetry 96 94 L 96 Intake & Output 03/24/18 03/25/18 03/25/18 18:59 06:59 18:59 Intake Total 400 / 400 Output Total 2009 Balance -1610 / -1610 Weight 73.5 kg Intake: Anesthesia Amount 400 / 400 Output: Hemodialysis Amount 1999 Estimated Blood Loss 10 Other: Weight On Admission 76 kg - Constitutional no acute distress, chronically ill appearing, cooperative - Routine HEENT Exam Head: Present: normocephalic - Routine Neck Exam Present: supple, full ROM - Routine Respiratory Exam Present: CTA bilaterally. Absent: accessory muscle use - Routine Cardiovascular Exam Present: RRR, S1, S2 - Routine Abdominal Exam Present: soft, normoactive bowel sounds - Routine Extremities Exam Present: vascular access. Absent: edema Comments: left lower extremity in splint - Routine Skin Exam Present: intact, dry, warm - Routine Neurological Exam Present: alert, oriented X3, CN II-XII intact, moving all extremities - Detailed Neurological Exam: Coma Scale Eye Opening: Spontaneous Verbal Response: Oriented Motor Response: Obey commands [place] Coma Scale Total: 15 - Routine Psychiatric Exam Present: normal affect, normal thought process Assessment and Plan - Assessment (1) ESRD (end stage renal disease) Code(s): N18.6 - End stage renal disease Status: Acute Plan: She will be dialyzed MWF, due tomorrow. Avoid IVF administration; gadolinium is contraindicated. Using Permcath for HD High protein, low phosphorus diet encouraged. Outpatient HD at [place]. (2) Hyperkalemia, diminished renal excretion Code(s): E87.5 - Hyperkalemia Status: Acute Plan: Repeat labs. Low K diet. Dialysis tomorrow. (3) Hypocalcemia Code(s): E83.51 - Hypocalcemia Status: Acute Plan: Hx of parathyroidectomy Ordered Tums TID. Avoid IV calcium administration. Follow labs. (4) Metabolic bone disease Code(s): E88.9 - Metabolic disorder, unspecified; M90.80 - Osteopathy in diseases classified elsewhere, unspecified site Status: Acute Plan: On calcium acetate with meals, high dose Discussed foods to avoid. (5) Calcaneal fracture Code(s): S92.009A - Unspecified fracture of unspecified calcaneus, initial encounter for closed fracture Status: Acute Plan: s/p surgical repair on 03/24 PRN pain control. She is not getting adequate relief. Non weight bearing. (6) DM (diabetes mellitus), type 2, uncontrolled Code(s): E11.65 - Type 2 diabetes mellitus with hyperglycemia Status: Acute Qualifiers: Diabetes mellitus complication status: with skin complications Diabetes mellitus complication detail: with other skin complication Plan: Insulin as needed. Maintain glucose 140-180mg/dL. - Plan Outpatient HD plans arranged at [facility]. Cleared for discharge from renal perspective.
[2018-03-25] MEDS: oxyCODONE/Acetaminophen 10/325 Tablet PO PRN ×2 (16:26→21:08)
--- NOTE | 2018-03-25 18:32 | P.PNPOD ---
Subjective Interval history: Patient seen bedside post op day 1. She is concerned and agitated as she states she was told they are discontinuing her pain medications. Patient states she is not ready to go home as her pain is not well managed and her toes are still numb from the popliteal block. Patient is aggrevated that she believes she is not receiving her pain medications and medications from home. Her family is bedside with her. Physical Exam Vital signs: Vital Signs 03/24/18 18:21 03/24/18 18:30 03/24/18 18:52 Temperature 97.7 F 97.7 F Pulse Rate 90 101 H 90 Respiratory Rate 15 20 16 Blood Pressure 92/54 L 136/58 L 116/57 L Pulse Oximetry 95 96 94 L 03/24/18 20:00 03/25/18 00:00 03/25/18 04:00 Temperature 97.9 F 98.3 F 98.8 F Pulse Rate 94 H 95 H 94 H Respiratory Rate 17 17 17 Blood Pressure 138/56 L 112/55 L 94/45 L Pulse Oximetry 100 97 99 03/25/18 08:00 03/25/18 12:00 03/25/18 16:00 Temperature 99.4 F 99.1 F 99.2 F Pulse Rate 92 H 89 92 H Respiratory Rate 14 20 20 Blood Pressure 92/44 L 100/49 L 108/54 L Pulse Oximetry 96 94 L 96 03/25/18 16:33 Temperature Pulse Rate Respiratory Rate Blood Pressure Pulse Oximetry 96 Intake & Output 03/24/18 03/25/18 03/25/18 18:59 06:59 18:59 Intake Total 400 / 400 300 / 300 Output Total 2009 Balance -1610 / -1610 300 / 300 Weight 73.5 kg Intake: Oral 300 / 300 Anesthesia Amount 400 / 400 Output: Hemodialysis Amount 1999 / 1999 Estimated Blood Loss Other: # Voids 0 # Bowel Movements 0 Weight On Admission 76 kg Narrative: Posterior splint intact to the left leg. AUDIT TECH under 3 secs x5 to left LE digits. Decreased reported sensation. No calf pain upon compression. No reported calf pain or SOB. Medications and Allergies Active Medications: Active Medications Acetaminophen (Tylenol) 650 mg PO UNSCH PRN PRN Reason: SEE LABEL COMMENTS Al Hydroxide/Mg Hydroxide (Milk Of Magnesia Liq) 30 ml PO Q12H PRN PRN Reason: Mild Constipation Calcitriol (Rocaltrol) 0.25 mcg PO DAILY [facility] Last Admin: 03/25/18 09:10 Dose: 0.25 mcg Calcium Acetate (Phoslo) 2,001 mg PO TIDAC [facility] Last Admin: 03/25/18 17:47 Dose: 2,001 mg Clonidine HCl (Catapres) 0.1 mg PO UNSCH PRN PRN Reason: SEE LABEL COMMENTS Dextrose (D50w Vial) 50 ml IV.PUSH UNSCH PRN PRN Reason: PER HYPOGLYCEMIA PROTOCOL Diphenhydramine HCl (Benadryl Inj) 25 mg IV.PUSH Q6H PRN PRN Reason: ALLERGIC REACTION Diphenhydramine HCl (Benadryl) 25 mg PO UNSCH PRN PRN Reason: SEE LABEL COMMENTS Eszopiclone (Lunesta) 3 mg PO HS PRN PRN Reason: INSOMNIA Gabapentin (Neurontin) 300 mg PO DAILY [facility] Last Admin: 03/25/18 09:10 Dose: 300 mg Gelatin (Gelfoam 12 Mm/7 Mm Topical) 1 foam TOPICAL UNSCH PRN PRN Reason: help stop bleeding from site Gentamicin Sulfate (Gentamicin Inj) 20 mg OTHER WITH DIALYSIS PRN PRN Reason: Dwell Gentamycin Lock Last Admin: 03/24/18 14:56 Dose: 20 mg Glucagon (Glucagon Inj) 1 mg OTHER PRN PRN PRN Reason: for Hypoglycemia Protocol Heparin Sodium (Porcine) (Heparin Inj) 8,000 units OTHER WITH DIALYSIS PRN PRN Reason: for machine prime Heparin Sodium (Porcine) (Heparin Inj) 0 units OTHER WITH DIALYSIS PRN PRN Reason: Dwell Heparin to Fill Catheter Last Admin: 03/24/18 14:56 Dose: 1,000 units Albumin Human (Flexbumin 25% Inj) 100 mls @ 60 mls/hr IV.SIG WITH DIALYSIS PRN PRN Reason: hypotension / volume replace Sodium Chloride (Ns Inj) 1,000 mls @ 0 mls/hr OTHER .Q0M PRN PRN Reason: for prime and rinse back Sodium Chloride (Ns Inj) 1,000 mls @ 200 mls/hr OTHER .Q5H PRN PRN Reason: for dialyzer flush PRN Sodium Chloride (Ns Inj) 200 mls @ 0 mls/hr IV.CONT .Q0M PRN PRN Reason: hypotension / volume replace Insulin Aspart (Novolog Insulin Correctional Sugar Inj) 0 unit SQ ACHS YAAKOV; Protocol Last Admin: 03/25/18 17:48 Dose: 4 unit Mannitol (Mannitol Inj) 12.5 gm IV.PUSH UNSCH PRN PRN Reason: hypotension / volume replace Miscellaneous (Pill Splitter) 1 each OTHER UNSCH PRN PRN Reason: SEE LABEL COMMENTS Nitroglycerin (Nitrostat Sl) 0.4 mg SL Q5M PRN PRN Reason: CHEST PAIN Ondansetron HCl (Zofran Inj) 4 mg IV.PUSH Q6H PRN PRN Reason: NAUSEA OR VOMITING Ondansetron HCl (Zofran Inj) 4 mg IV.PUSH UNSCH PRN PRN Reason: WITH DIALYSIS Oxycodone/Acetaminophen (Percocet 5/325 Mg) 1 tab PO Q4H PRN PRN Reason: PAIN SCALE 1 TO 5 Last Admin: 03/25/18 12:19 Dose: 1 tab Oxycodone/Acetaminophen (Percocet 10/325 Mg) 2 tab PO Q4H PRN PRN Reason: PAIN SCALE 6 TO 10 Last Admin: 03/25/18 16:26 Dose: 2 tab Sevelamer Carbonate (Renvela) 2,400 mg PO TIDAC YAAKOV Last Admin: 03/25/18 17:47 Dose: 2,400 mg Sodium Chloride (Ns Flush) 5 ml IV.FLUSH UNSCH PRN PRN Reason: flush each lumen during HD Last Admin: 03/24/18 13:30 Dose: 5 ml Allergies Allergy/AdvReac Type Severity Reaction Status Date / Time coconut Allergy Severe HIVES Verified 03/23/18 20:46 diatrizoate meglumine Allergy Severe RENAL Verified 03/23/18 20:46 FAILURE gadobenic acid Allergy Severe RENAL Verified 03/23/18 20:46 FAILURE gadodiamide Allergy Severe RENAL Verified 03/23/18 20:46 FAILURE gadoteridol Allergy Severe RENAL Verified 03/23/18 20:46 FAILURE iodixanol Allergy Severe RENAL Verified 03/23/18 20:46 FAILURE iohexol Allergy Severe RENAL Verified 03/23/18 20:46 FAILURE morphine Allergy Severe HIVES Verified 03/23/18 20:46 azithromycin Allergy Intermediate HIVES Verified 03/23/18 20:46 clindamycin Allergy Intermediate HIVES Verified 03/23/18 20:46 erythromycin base Allergy Intermediate HIVES Verified 03/23/18 20:46 penicillin G Allergy Intermediate Hives Verified 03/23/18 20:46 midodrine Allergy Unknown Atrial Verified 03/23/18 20:46 Fibrillation codeine AdvReac Severe HALLUCINATI Verified 03/23/18 20:46 ONS insulin aspart AdvReac Severe REGULAR Verified 03/23/18 20:46 INSULIN ONLY-CAUSES CRAMPIN G AND "FREEZING" insulin aspart protamine AdvReac Severe REGULAR Verified 03/23/18 20:46 human INSULIN ONLY-CAUSES CRAMPIN G AND "FREEZING" insulin detemir AdvReac Severe REGULAR Verified 03/23/18 20:46 INSULIN ONLY-CAUSES CRAMPIN G AND "FREEZING" insulin glargine AdvReac Severe REGULAR Verified 03/23/18 20:46 INSULIN ONLY-CAUSES CRAMPIN G AND "FREEZING" insulin isophane (NPH) AdvReac Severe REGULAR Verified 03/23/18 20:46 INSULIN ONLY-CAUSES CRAMPIN G AND "FREEZING" insulin lispro AdvReac Severe REGULAR Verified 03/23/18 20:46 INSULIN ONLY-CAUSES CRAMPIN G AND "FREEZING" insulin regular AdvReac Severe REGULAR Verified 03/23/18 20:46 INSULIN ONLY-CAUSES CRAMPIN G AND "FREEZING" vancomycin AdvReac Mild NAUSEA/VOMITING Verified 03/23/18 20:46 WHEN INFUSED TOO FAST Home Medications Medication Instructions Recorded Confirmed Type Novolog Flexpen U-100 Insulin 03/23/18 History calcium acetate 667 mg PO TID 03/23/18 03/23/18 History gabapentin 300 mg PO DAILY 03/23/18 03/23/18 History hydrocodone bitartrate [Zohydro ER] 15 mg PO BID 03/23/18 03/24/18 History eszopiclone [Lunesta] 1 tab PO HS 03/24/18 03/24/18 History fluconazole [Diflucan] 150 mg PO Q3D 03/24/18 03/24/18 History Results - Labs CBC & Chem 7: 03/24/18 07:20 03/24/18 07:20 Laboratory Results - last 24 hr 03/24/18 03/25/18 03/25/18 21:04 08:15 11:27 POC Glucose 206 H 209 H 126 H 08/16/18 17:08 POC Glucose 280 H - Imaging Impressions Foot X-Ray 03/24/18 00:00 CONCLUSION: Anatomic alignment. Foot X-Ray 03/24/18 00:00 CONCLUSION: Anatomic alignment. Assessment and Plan - Plan 52 year old female s/p left calcaneus open reduction internal fixation Patient to stay in house over night Will re evaluate for discharge tomorrow Will change dressing tomorrow Pain control per hospitalist Continue with lovenox, patient will need to be discharge on Lovenox 30mg x3 weeks She will follow up in office with Dr. Yan
[2018-03-26 07:18] LABS: Albumin 2.9 g/dL (3.4-5.0); Carbon Dioxide 20.5 meq/L (21.0-32.0); Phosphorus 8.6 mg/dL (2.5-4.9); Potassium 4.6 meq/L (3.5-5.1)
[2018-03-26 07:24] LABS: Calcium 6.8 mg/dL (8.5-10.1)
[2018-03-26] MEDS: Calcium Acetate 667 MG Capsule PO SCH ×3 (08:00→17:41)
[2018-03-26 08:52] VITALS: RESP 16
[2018-03-26] MEDS: Gabapentin 300 MG Capsule PO SCH (09:00)
[2018-03-26] MEDS: Calcitriol 0.25 MCG Capsule PO SCH (09:00)
[2018-03-26] MEDS: Insulin NovoLOG Aspart Correctional Sugar Inj SQ SCH ×3 (09:28→17:40)
--- NOTE | 2018-03-26 12:32 | P.DCO ---
- Diagnosis (2) Calcaneal fracture - Physical Therapy Order: Evaluate and treat, Improve ambulation, Strength and gait training - Home Health Nursing Order: Medical education, Signs/symptoms of disease process, Diabetic education , Medication education-adverse effect - Certification I have seen patient Faustina Cortez on 03/26/18. My clinical findings support the need for the requested home health care services because: Limited mobility due to disease progression, Deconditioned with increased weakness I certify that my clinical findings support that this patient is homebound because: Unsteady gait/balance (2) Calcaneal fracture Qualifiers: Encounter type: initial encounter
[2018-03-26] MEDS: Heparin 10,000 UNITS/10 ML Vial (for IV use) OTHER PRN (12:40)
[2018-03-26 13:26] VITALS: BP 101/43; PULSE 107; TEMP 98.6; O2SAT 95
--- NOTE | 2018-03-26 14:12 | P.PNIM ---
Subjective Interval history: f/u for calcaneus fracture. patient seen after dialysis. patient's nurse and PT were at the bedside during interview. When I asked about pain she stated that she was very upset yesterday that I stopped the IV pain medication. She accused me of not giving her pain medication and I stated to patient I've ordered percocet 1-2 tablets in replacement of dilaudid because dilaudid is not indicated for pain management with this type of pain. She stated that I only gave her 1 tablet of percocet not 2 tablets and that the nurse grounds maintenance manager put that ordered in. I told patient nurse grounds maintenance manager cannot put orders without my consent and I did not changed the order. The strength that is given is based on pain score. I then asked patient again if that controlled her pain she stated yes 2 tablets controls her pain. She had no other complaints. I told patient since pain controlled and no other issues she is clear for discharge. patient stated okay with no concerns. Patient refused to work with PT and stated she wants a wheeled chair. Physical Exam Vital signs: Vital Signs 03/25/18 16:00 03/25/18 16:33 03/25/18 20:00 Temperature 99.2 F 98.5 F Pulse Rate 92 H 97 H Respiratory Rate 20 19 Blood Pressure 108/54 L 143/67 H Pulse Oximetry 96 96 96 03/25/18 22:44 03/26/18 00:00 03/26/18 04:00 Temperature 98.3 F 99.5 F Pulse Rate 91 H 106 H Respiratory Rate 18 18 20 Blood Pressure 139/62 100/49 L Pulse Oximetry 93 L 100 03/26/18 08:00 03/26/18 12:00 Temperature 99.7 F H 98.6 F Pulse Rate 108 H 107 H Respiratory Rate 16 16 Blood Pressure 100/57 L 101/43 L Pulse Oximetry 90 L 95 Intake & Output 03/25/18 03/26/18 03/26/18 18:59 06:59 18:59 Intake Total 300 / 300 720 / 720 Output Total 3000 / 3000 Balance 300 / 300 720 / 720 -3000 / -3000 Intake: Oral 300 / 300 720 / 720 Output: Hemodialysis Amount 3000 / 3000 Other: # Voids 0 # Bowel Movements 0 - Constitutional no acute distress - Routine HEENT Exam ENT: Present: mucous membranes moist - Routine Respiratory Exam Present: CTA bilaterally - Routine Cardiovascular Exam Present: RRR, S1, S2 - Routine Abdominal Exam Present: soft, normoactive bowel sounds Comments: no TTP. no r/m/g. - Routine Skin Exam Comments: permacath in place no discharge or erythema noted. - Routine Psychiatric Exam Present: normal affect, normal thought process Results - Labs CBC & Chem 7: 03/24/18 07:20 03/26/18 05:28 Laboratory Results - last 24 hr 03/25/18 03/25/18 03/26/18 17:08 21:15 05:28 Sodium 138 Potassium 4.6 D Chloride 98 Carbon Dioxide 20.5 L Anion Gap 20 H BUN 78 H Creatinine 10.01 H* Estimated GFR 5 L POC Glucose 280 H 160 H Random Glucose 188 H Calcium 6.8 L* D Phosphorus 8.6 H D Albumin 2.9 L D 03/26/18 03/26/18 08:06 12:45 Sodium Potassium Chloride Carbon Dioxide Anion Gap BUN Creatinine Estimated GFR POC Glucose 215 H 139 H Random Glucose Calcium Phosphorus Albumin Assessment and Plan - Assessment (1) ESRD (end stage renal disease) Code(s): N18.6 - End stage renal disease Status: Acute (2) Calcaneal fracture Code(s): S92.009A - Unspecified fracture of unspecified calcaneus, initial encounter for closed fracture Status: Acute - Plan 52 y/o female with a history of ESRD on hemodialysis MWF history of polycystic kidney disease and failed transplant, neuropathy,DM and gerd was brought to the ED with complaints of ankle pain. Calcaneus avulsion fracture Foot x ray reviewed and shows a Oblique horizontal tearing of fracture. -s/p left calcaneus open reduction internal fixation on 03/24/[address] Barbie Escobar. -per note she will change dressing today, continue with lovenox 30 mh daily X 3 weeks and f/u in office with Dr. Yan. -patient is refusing PT. per note yesterday d/c with wheeled walker and with home health. patient is requesting for wheelchair but not qualify for one. -per Dr. Yan NON WEIGHT BEARING LLE. ESRD, dialysis MWF -patient is known to Dr. Carl. -she had dialysis today. -avoid nephrotoxins -continue home medication. DM -Accu checks with SSI Gerd -Tums prn DVT prophylaxis: SCD on non affected leg and on lovenox. Discharge Planning: once cleared by [employer] can be discharge with home health. (2) Calcaneal fracture Qualifiers: Encounter type: initial encounter
--- NOTE | 2018-03-26 15:10 | P.PNNP ---
Subjective Interval history: Dialyzed earlier. To be discharged today. Still reporting pain in her foot. <Natalie Adames - Last Filed: 03/29/18 08:42> Physical Exam Vital signs: Vital Signs 03/25/18 16:00 03/25/18 16:33 03/25/18 20:00 Temperature 99.2 F 98.5 F Pulse Rate 92 H 97 H Respiratory Rate 20 19 Blood Pressure 108/54 L 143/67 H Pulse Oximetry 96 96 96 03/25/18 22:44 03/26/18 00:00 03/26/18 04:00 Temperature 98.3 F 99.5 F Pulse Rate 91 H 106 H Respiratory Rate 18 18 20 Blood Pressure 139/62 100/49 L Pulse Oximetry 93 L 100 03/26/18 08:00 03/26/18 12:00 Temperature 99.7 F H 98.6 F Pulse Rate 108 H 107 H Respiratory Rate 16 16 Blood Pressure 100/57 L 101/43 L Pulse Oximetry 90 L 95 Intake & Output 03/25/18 03/26/18 03/26/18 18:59 06:59 18:59 Intake Total 300 / 300 720 / 720 Output Total 3000 / 3000 Balance 300 / 300 720 / 720 -3000 / -3000 Intake: Oral 300 / 300 720 / 720 Output: Hemodialysis Amount 3000 / 3000 Other: # Voids 0 # Bowel Movements 0 - Constitutional no acute distress, average body habitus, chronically ill appearing - Routine HEENT Exam Head: Present: normocephalic - Routine Neck Exam Present: supple, full ROM - Routine Respiratory Exam Present: CTA bilaterally. Absent: accessory muscle use - Routine Cardiovascular Exam Present: RRR, S1, S2 - Routine Abdominal Exam Present: soft, normoactive bowel sounds - Routine Extremities Exam Present: full ROM. Absent: edema Comments: LLE splinted - Routine Skin Exam Present: intact, dry, warm - Routine Neurological Exam Present: alert, oriented X3, CN II-XII intact, moving all extremities - Detailed Neurological Exam: Coma Scale Eye Opening: Spontaneous Verbal Response: Oriented Motor Response: Obey commands [place] Coma Scale Total: 15 <Natalie Adames - Last Filed: 03/29/18 08:42> Assessment and Plan - Assessment (1) ESRD (end stage renal disease) Code(s): N18.6 - End stage renal disease Status: Acute Plan: HD MWF, had treatment today. Avoid IVF administration; gadolinium is contraindicated. Using Permcath for HD High protein, low phosphorus diet encouraged. Outpatient HD at [place]. (2) Hyperkalemia, diminished renal excretion Code(s): E87.5 - Hyperkalemia Status: Acute Plan: Improved, low K diet. (3) Hypocalcemia Code(s): E83.51 - Hypocalcemia Status: Acute Plan: Hx of parathyroidectomy Ordered Tums TID. Avoid IV calcium administration. Follow labs. (4) Metabolic bone disease Code(s): E88.9 - Metabolic disorder, unspecified; M90.80 - Osteopathy in diseases classified elsewhere, unspecified site Status: Acute Plan: On calcium acetate with meals, also Renvela. Discussed foods to avoid. (5) Calcaneal fracture Code(s): S92.009A - Unspecified fracture of unspecified calcaneus, initial encounter for closed fracture Status: Acute Qualifiers: Encounter type: initial encounter Plan: s/p surgical repair on 03/24 PRN pain control. She is not getting adequate relief. Non weight bearing. (6) DM (diabetes mellitus), type 2, uncontrolled Code(s): E11.65 - Type 2 diabetes mellitus with hyperglycemia Status: Acute Qualifiers: Diabetes mellitus complication status: with skin complications Diabetes mellitus complication detail: with other skin complication Plan: Insulin as needed. Maintain glucose 140-180mg/dL. - Plan Outpatient HD plans arranged at [facility]. Cleared for discharge from renal perspective. <Natalie Adames - Last Filed: 03/29/18 08:42> - Assessment (1) ESRD (end stage renal disease) Code(s): N18.6 - End stage renal disease Status: Acute (2) Hyperkalemia, diminished renal excretion Code(s): E87.5 - Hyperkalemia Status: Acute (3) Hypocalcemia Code(s): E83.51 - Hypocalcemia Status: Acute (4) Metabolic bone disease Code(s): E88.9 - Metabolic disorder, unspecified; M90.80 - Osteopathy in diseases classified elsewhere, unspecified site Status: Acute (5) Calcaneal fracture Code(s): S92.009A - Unspecified fracture of unspecified calcaneus, initial encounter for closed fracture Status: Acute Qualifiers: Encounter type: initial encounter (6) DM (diabetes mellitus), type 2, uncontrolled Code(s): E11.65 - Type 2 diabetes mellitus with hyperglycemia Status: Acute Qualifiers: Diabetes mellitus complication status: with skin complications Diabetes mellitus complication detail: with other skin complication - Attending Attestation patient was seen and examined. Agree with above assessment and plan. <Karthikeyan Choudhary - Last Filed: 03/29/18 10:28>
--- NOTE | 2018-03-26 17:01 | P.PNPOD ---
Subjective Interval history: Patient seen bedside. Resting comfortably. Denies any calf pain. Denies any nausea vomiting fevers or chills. Is ready to go home. States she has full sensation to her left lower extremity. Is ready to go home and pain is well controlled. Physical Exam Vital signs: Vital Signs 03/25/18 20:00 03/25/18 22:44 03/26/18 00:00 Temperature 98.5 F 98.3 F Pulse Rate 97 H 91 H Respiratory Rate 19 18 18 Blood Pressure 143/67 H 139/62 Pulse Oximetry 96 93 L 03/26/18 04:00 03/26/18 08:00 03/26/18 12:00 Temperature 99.5 F 99.7 F H 98.6 F Pulse Rate 106 H 108 H 107 H Respiratory Rate 16 16 Blood Pressure 100/49 L 100/57 L 101/43 L Pulse Oximetry 100 90 L 95 Intake & Output 03/25/18 03/26/18 03/26/18 18:59 06:59 18:59 Intake Total 300 / 300 720 / 720 Output Total 3000 / 3000 Balance 300 / 300 720 / 720 -3000 / -3000 Intake: Oral 300 / 300 720 / 720 Output: Hemodialysis Amount 3000 / 3000 Other: # Voids 0 # Bowel Movements 0 Narrative: Sutures intact to left lower extremity to plantar aspect of foot as well as posterior heel. Negative pain on calf squeeze. Capillary refill time to digits 5. Palpable DP/PT pulses. Mild edema noted to left lower extremity. Medications and Allergies Active Medications: Active Medications Acetaminophen (Tylenol) 650 mg PO UNSCH PRN PRN Reason: SEE LABEL COMMENTS Al Hydroxide/Mg Hydroxide (Milk Of Monserrat Betancur) 30 ml PO Q12H PRN PRN Reason: Mild Constipation Apixaban (Eliquis) 2.5 mg PO BID [facility] Calcitriol (Rocaltrol) 0.25 mcg PO DAILY [facility] Last Admin: 03/26/18 09:00 Dose: Not Given Calcium Acetate (Phoslo) 2,001 mg PO TIDAC [facility] Last Admin: 03/26/18 12:00 Dose: 2,001 mg Clonidine HCl (Catapres) 0.1 mg PO UNSCH PRN PRN Reason: SEE LABEL COMMENTS Dextrose (D50w Vial) 50 ml IV.PUSH UNSCH PRN PRN Reason: PER HYPOGLYCEMIA PROTOCOL Diphenhydramine HCl (Benadryl Inj) 25 mg IV.PUSH Q6H PRN PRN Reason: ALLERGIC REACTION Diphenhydramine HCl (Benadryl) 25 mg PO UNSCH PRN PRN Reason: SEE LABEL COMMENTS Eszopiclone (Lunesta) 3 mg PO HS PRN PRN Reason: INSOMNIA Last Admin: 03/25/18 22:44 Dose: 3 mg Gabapentin (Neurontin) 300 mg PO DAILY YAAKOV Last Admin: 03/26/18 09:00 Dose: Not Given Gelatin (Gelfoam 12 Mm/7 Mm Topical) 1 foam TOPICAL UNSCH PRN PRN Reason: help stop bleeding from site Gentamicin Sulfate (Gentamicin Inj) 20 mg OTHER WITH DIALYSIS PRN PRN Reason: Dwell Gentamycin Lock Last Admin: 03/26/18 12:39 Dose: 20 mg Glucagon (Glucagon Inj) 1 mg OTHER PRN PRN PRN Reason: for Hypoglycemia Protocol Heparin Sodium (Porcine) (Heparin Inj) 8,000 units OTHER WITH DIALYSIS PRN PRN Reason: for machine prime Heparin Sodium (Porcine) (Heparin Inj) 0 units OTHER WITH DIALYSIS PRN PRN Reason: Dwell Heparin to Fill Catheter Last Admin: 03/26/18 12:40 Dose: 2,300 units Albumin Human (Flexbumin 25% Inj) 100 mls @ 60 mls/hr IV.SIG WITH DIALYSIS PRN PRN Reason: hypotension / volume replace Sodium Chloride (Ns Inj) 1,000 mls @ 0 mls/hr OTHER .Q0M PRN PRN Reason: for prime and rinse back Sodium Chloride (Ns Inj) 1,000 mls @ 200 mls/hr OTHER .Q5H PRN PRN Reason: for dialyzer flush PRN Sodium Chloride (Ns Inj) 200 mls @ 0 mls/hr IV.CONT .Q0M PRN PRN Reason: hypotension / volume replace Insulin Aspart (Novolog Insulin Correctional Sugar Inj) 0 unit SQ ACHS YAAKOV; Protocol Last Admin: 03/26/18 14:23 Dose: Not Given Mannitol (Mannitol Inj) 12.5 gm IV.PUSH UNSCH PRN PRN Reason: hypotension / volume replace Miscellaneous (Pill Splitter) 1 each OTHER UNSCH PRN PRN Reason: SEE LABEL COMMENTS Nitroglycerin (Nitrostat Sl) 0.4 mg SL Q5M PRN PRN Reason: CHEST PAIN Ondansetron HCl (Zofran Inj) 4 mg IV.PUSH Q6H PRN PRN Reason: NAUSEA OR VOMITING Ondansetron HCl (Zofran Inj) 4 mg IV.PUSH UNSCH PRN PRN Reason: WITH DIALYSIS Oxycodone/Acetaminophen (Percocet 5/325 Mg) 1 tab PO Q4H PRN PRN Reason: PAIN SCALE 1 TO 5 Last Admin: 03/26/18 04:07 Dose: 1 tab Oxycodone/Acetaminophen (Percocet 10/325 Mg) 2 tab PO Q4H PRN PRN Reason: PAIN SCALE 6 TO 10 Last Admin: 03/25/18 21:08 Dose: 2 tab Sevelamer Carbonate (Renvela) 2,400 mg PO TIDAC YAAKOV Last Admin: 03/26/18 12:00 Dose: 2,400 mg Sodium Chloride (Ns Flush) 5 ml IV.FLUSH UNSCH PRN PRN Reason: flush each lumen during HD Last Admin: 03/24/18 13:30 Dose: 5 ml Allergies Allergy/AdvReac Type Severity Reaction Status Date / Time coconut Allergy Severe HIVES Verified 03/23/18 20:46 diatrizoate meglumine Allergy Severe RENAL Verified 03/23/18 20:46 FAILURE gadobenic acid Allergy Severe RENAL Verified 03/23/18 20:46 FAILURE gadodiamide Allergy Severe RENAL Verified 03/23/18 20:46 FAILURE gadoteridol Allergy Severe RENAL Verified 03/23/18 20:46 FAILURE iodixanol Allergy Severe RENAL Verified 03/23/18 20:46 FAILURE iohexol Allergy Severe RENAL Verified 03/23/18 20:46 FAILURE morphine Allergy Severe HIVES Verified 03/23/18 20:46 azithromycin Allergy Intermediate HIVES Verified 03/23/18 20:46 clindamycin Allergy Intermediate HIVES Verified 03/23/18 20:46 erythromycin base Allergy Intermediate HIVES Verified 03/23/18 20:46 penicillin G Allergy Intermediate Hives Verified 03/23/18 20:46 midodrine Allergy Unknown Atrial Verified 03/23/18 20:46 Fibrillation codeine AdvReac Severe HALLUCINATI Verified 03/23/18 20:46 ONS insulin aspart AdvReac Severe REGULAR Verified 03/23/18 20:46 INSULIN ONLY-CAUSES CRAMPIN G AND "FREEZING" insulin aspart protamine AdvReac Severe REGULAR Verified 03/23/18 20:46 human INSULIN ONLY-CAUSES CRAMPIN G AND "FREEZING" insulin detemir AdvReac Severe REGULAR Verified 03/23/18 20:46 INSULIN ONLY-CAUSES CRAMPIN G AND "FREEZING" insulin glargine AdvReac Severe REGULAR Verified 03/23/18 20:46 INSULIN ONLY-CAUSES CRAMPIN G AND "FREEZING" insulin isophane (NPH) AdvReac Severe REGULAR Verified 03/23/18 20:46 INSULIN ONLY-CAUSES CRAMPIN G AND "FREEZING" insulin lispro AdvReac Severe REGULAR Verified 03/23/18 20:46 INSULIN ONLY-CAUSES CRAMPIN G AND "FREEZING" insulin regular AdvReac Severe REGULAR Verified 03/23/18 20:46 INSULIN ONLY-CAUSES CRAMPIN G AND "FREEZING" vancomycin AdvReac Mild NAUSEA/VOMITING Verified 03/23/18 20:46 WHEN INFUSED TOO FAST Home Medications Medication Instructions Recorded Confirmed Type Novolog Flexpen U-100 Insulin 03/23/18 History calcium acetate 667 mg PO TID 03/23/18 03/23/18 History gabapentin 300 mg PO DAILY 03/23/18 03/23/18 History hydrocodone bitartrate [Zohydro ER] 15 mg PO BID 03/23/18 03/24/18 History eszopiclone [Lunesta] 1 tab PO HS 03/24/18 03/24/18 History fluconazole [Diflucan] 150 mg PO Q3D 03/24/18 03/24/18 History Results - Labs CBC & Chem 7: 03/24/18 07:20 03/26/18 05:28 Laboratory Results - last 24 hr 03/25/18 03/25/18 03/26/18 17:08 21:15 05:28 Sodium 138 Potassium 4.6 D Chloride 98 Carbon Dioxide 20.5 L Anion Gap 20 H BUN 78 H Creatinine 10.01 H* Estimated GFR 5 L POC Glucose 280 H 160 H Random Glucose 188 H Calcium 6.8 L* D Phosphorus 8.6 H D Albumin 2.9 L D 03/26/18 03/26/18 08:06 12:45 Sodium Potassium Chloride Carbon Dioxide Anion Gap BUN Creatinine Estimated GFR POC Glucose 215 H 139 H Random Glucose Calcium Phosphorus Albumin Assessment and Plan - Plan 52 year old female s/p left calcaneus open reduction internal fixation Patient okay to be discharged per podiatry Discussed discharge over the phone with Dr. Moore, Dr. Moore was kind enough to speak with patient's hospitality host who recommended anticoagulant other than Lovenox Dressing change to left lower extremity splint reapplied Patient is to remain nonweightbearing to left lower extremity Crutch/walker/knee scooter assist with nonweightbearing to left lower extremity She will follow up in office with Dr. Yan within 1 week of discharge Reviewed Dr. Ramos note and agree with discharge plan and summary
--- NOTE | 2018-03-26 17:55 | P.DS ---
Date of admission: 03/23/18 22:16 Primary care physician: Mc Carl MD Attending physician on discharge: Daniela Moore Anticipated date of discharge: 04/26/18 Brief History from admission: 52 y/o female with a history of ESRD on hemodialysis MWF history of polycystic kidney disease and failed transplant, neuropathy,DM was brought to the ED with complaints of ankle pain. She states she was at dinner and was walking back to the table when she felt a large pop in her left ankle. She states the pain is a constant burning, stabbing pain 10/10 to left ankle with radiation up her leg, with associated nausea, worse with movement and slightly better with pain meds. Denies any chest pain or sob. Patient update on day of discharge: Please see progress note on the day of discharge. DS: Diagnosis - Discharge Diagnosis (1) ESRD (end stage renal disease) Status: Acute (2) Calcaneal fracture Status: Acute DS: Medications - Discharge Medications Prescriptions: calcitriol [Rocaltrol] 0.25 mcg PO DAILY 30 Days #30 cap DS: Summary Hospital Course: 52 y/o female with a history of ESRD on hemodialysis MWF history of polycystic kidney disease and failed transplant, neuropathy,DM and gerd was brought to the ED with complaints of ankle pain. Foot x ray reviewed and shows a Oblique horizontal tearing of fracture. s/p left calcaneus open reduction internal fixation on 03/24/[address] Barbie Escobar. Per Dr. Carl, nonweightbearing on LLE. Patient was given a wheelchair upon discharge at home. Initially wire mesh filter fabricator recommended Lovenox but patient is end-stage renal disease. I spoke to electrical installation inspector who recommended Eliquis as prophylaxis. During hospital course initially patient was very upset that IV Dilaudid was discontinued after surgery and she was tolerating oral intake. But by the time of discharge patient stated pain was control with 10 mg of Percocet. I went on EFORSCE and patient was chronically getting pain medication that she did not state. Patient was given enough for her acute pain but told she must see her provider that is prescribing her pain medication chronically in regards to getting more pain medication if needed. - Time Spent with Patient Total time spent providing and/or coordinating discharge services: Greater than 30 minutes - Quality: VTE Deep Vein Thrombosis/Pulmonary Embolism Present on Admission: No Exam Vital signs: Vital Signs 03/25/18 20:00 03/25/18 22:44 03/26/18 00:00 Temperature 98.5 F 98.3 F Pulse Rate 97 H 91 H Respiratory Rate 19 18 18 Blood Pressure 143/67 H 139/62 Pulse Oximetry 96 93 L 03/26/18 04:00 03/26/18 08:00 03/26/18 12:00 Temperature 99.5 F 99.7 F H 98.6 F Pulse Rate 106 H 108 H 107 H Respiratory Rate 20 16 16 Blood Pressure 100/49 L 100/57 L 101/43 L Pulse Oximetry 100 90 L 95 Intake & Output 03/25/18 03/26/18 03/26/18 18:59 06:59 18:59 Intake Total 300 / 300 720 / 720 Output Total 3000 / 3000 Balance 300 / 300 720 / 720 -3000 / -3000 Intake: Oral 300 / 300 720 / 720 Output: Hemodialysis Amount 3000 / 3000 Other: # Voids 0 # Bowel Movements 0 - Constitutional no acute distress - Routine HEENT Exam Eye: Present: EOMI, PERRL - Routine Respiratory Exam Present: CTA bilaterally - Routine Cardiovascular Exam Present: RRR, S1, S2 - Routine Abdominal Exam Present: soft, normoactive bowel sounds - Routine Extremities Exam Comments: Sutures intact to left lower extremity to plantar aspect of foot as well as posterior heel. Patient had palpable DP/PT pulses. Mild edema noted to left lower extremity. Results Procedures completed during hospitalization: See hospital course. Labs on day of discharge: Labs from last 24 hours 03/26/18 03/26/18 03/26/18 12:45 08:06 05:28 Sodium 138 Potassium 4.6 D Chloride 98 Carbon Dioxide 20.5 L Anion Gap 20 H BUN 78 H Creatinine 10.01 H* Estimated GFR 5 L POC Glucose 139 H 215 H Random Glucose 188 H Calcium 6.8 L* D Phosphorus 8.6 H D Albumin 2.9 L D 03/25/18 21:15 Sodium Potassium Chloride Carbon Dioxide Anion Gap BUN Creatinine Estimated GFR POC Glucose 160 H Random Glucose Calcium Phosphorus Albumin - Impressions ITS Impressions Ankle X-Ray 03/23/18 21:05 CONCLUSION: Displaced oblique calcaneal fracture. Foot X-Ray 03/24/18 00:00 CONCLUSION: Anatomic alignment. Discharge Plan - Discharge Disposition Patient Disposition: Disch /Home Health Service - Discharge Condition Condition: Stable - Discharge Order Discharge Orders: Discharge Order (Routine); Ordered 03/26/18 Ordered By: Daniela Moore - Discharge Details Anticipated Discharge Date: 03/26/18 Discharge Comment: - Physicians Team Primary Care Provider: Mc Carl Attending Provider: Daniela Moore Other Providers: Karthikeyan Choudhary MD ; Kailyn Yan DPM
== END 2018-03-26 18:02 | disposition home health service (06) ==
LOC: PHED 20:22 → PHEDA 22:16 → NEPGCP 03-24 00:23 → PHEDA 03-24 02:24 → NEPFCDU 03-24 02:48 → N06 03-24 16:09
PROVIDERS: ADMIT Family Medicine; ATTEND Family Medicine
PROC: ORIFCAL (2018-03-24 16:23)

== ENCOUNTER 2018-03-31 06:23 | Observation (INO) ==
--- NOTE | 2018-03-31 08:06 | ED ---
HPI General Chief Complaint: Abdominal Pain Stated Complaint: Feels like FB in throat, abd pain/swelling Time Seen by Provider: 03/31/18 07:52 History of Present Illness HPI narrative: Patient presents to the emergency department with abdominal pain that started 1-2 days ago. Patient had surgery in her left heel about 1 week ago. Last bowel movement was yesterday and she is passing flatus. Neftali pain is described as being constant, nonradiating, 6 out of 10, gastric area, aggravated by cough and alleviated by lying down. States that she is coughing up white, thick phlegm. Also reports fever and chills, with T-max being 100 last night. Reports nausea and vomiting with emesis being greenish. She denies chest pain, shortness of breath, or diarrhea. Also states that she is not on any antibiotics. Patient is a dialysis patient and she is dialyzed Thursday, and she completed dialysis Thursday without any problems. She does not make any urine. Related Data Home Medications Medication Instructions Recorded Confirmed Novolog U-100 Insulin aspart 6.5 units SUB-Q QID #0 03/23/18 03/31/18 gabapentin 300 mg PO DAILY 03/23/18 03/31/18 eszopiclone [Lunesta] 1 tab PO HS 03/24/18 03/31/18 fluconazole [Diflucan] 150 mg PO Q3D 03/24/18 03/31/18 oxycodone-acetaminophen 1 tab PO Q6HR PRN 03/30/18 03/31/18 Previous Rx's Medication Instructions Recorded calcitriol [Rocaltrol] 0.25 mcg PO DAILY 30 Days #30 cap 03/26/18 calcium acetate 2,001 mg PO TIDAC cap 03/26/18 calcium carbonate 500 mg CHEW TID 15 Days #112.5 tab 03/26/18 sevelamer carbonate [Renvela] 2,400 mg PO TIDAC 10 Days tab 03/26/18 Allergies Allergy/AdvReac Type Severity Reaction Status Date / Time coconut Allergy Severe HIVES Verified 03/23/18 20:46 diatrizoate meglumine Allergy Severe RENAL Verified 03/31/18 06:43 FAILURE gadobenic acid Allergy Severe RENAL Verified 03/31/18 06:43 FAILURE gadodiamide Allergy Severe RENAL Verified 03/31/18 06:43 FAILURE gadoteridol Allergy Severe RENAL Verified 03/31/18 06:43 FAILURE iodixanol Allergy Severe RENAL Verified 03/31/18 06:43 FAILURE iohexol Allergy Severe RENAL Verified 03/31/18 06:43 FAILURE morphine Allergy Severe HIVES Verified 03/31/18 06:43 azithromycin Allergy Intermediate HIVES Verified 03/31/18 06:43 clindamycin Allergy Intermediate HIVES Verified 03/31/18 06:43 erythromycin base Allergy Intermediate HIVES Verified 03/31/18 06:44 penicillin G Allergy Intermediate Hives Verified 03/31/18 06:44 midodrine Allergy Unknown Atrial Verified 03/31/18 06:44 Fibrillation codeine AdvReac Severe HALLUCINATI Verified 03/31/18 06:44 ONS insulin aspart AdvReac Severe REGULAR Verified 03/31/18 06:44 INSULIN ONLY-CAUSES CRAMPIN G AND "FREEZING" insulin aspart protamine AdvReac Severe REGULAR Verified 03/31/18 06:44 human INSULIN ONLY-CAUSES CRAMPIN G AND "FREEZING" insulin detemir AdvReac Severe REGULAR Verified 03/31/18 06:44 INSULIN ONLY-CAUSES CRAMPIN G AND "FREEZING" insulin glargine AdvReac Severe REGULAR Verified 03/31/18 06:44 INSULIN ONLY-CAUSES CRAMPIN G AND "FREEZING" insulin isophane (NPH) AdvReac Severe REGULAR Verified 03/31/18 06:44 INSULIN ONLY-CAUSES CRAMPIN G AND "FREEZING" insulin lispro AdvReac Severe REGULAR Verified 03/31/18 06:44 INSULIN ONLY-CAUSES CRAMPIN G AND "FREEZING" insulin regular AdvReac Severe REGULAR Verified 03/31/18 06:44 INSULIN ONLY-CAUSES CRAMPIN G AND "FREEZING" vancomycin AdvReac Mild NAUSEA/VOMITING Verified 03/31/18 06:44 WHEN INFUSED TOO FAST Review of Systems ROS: all other systems reviewed are negative [facility] Medical History Medical History Normal Papanicolaou smear (Acute) Mammogram normal (Acute) Former smoker (Acute) Abnormal nuclear stress test (Acute) Hx of CT scan (Acute) Tinea unguium (Acute) Type 2 diabetes mellitus with diabetic polyneuropathy (Acute) Secondary hyperparathyroidism (of renal origin) (Acute) Chronic renal failure (Acute) Hemodialysis access site with arteriovenous graft (Acute) ESRD (end stage renal disease) on dialysis (Acute) History of colitis (Acute) History of renal dialysis (Acute) Hx of bursitis (Acute) Hx of diabetes mellitus (Acute) Metabolic bone disease (Acute) Mild coronary artery disease (Acute) Personal history of atrial fibrillation (Acute) Surgical History Surgical History H/O cardiac catheterization (Acute) Amputated toe of right foot (Acute) H/O parathyroidectomy (Acute) Family History Family History Mother Breast cancer Social History Social History Substance History: No History of Abuse Second Hand Smoke Exposure: No Smoking Status: Smoker, status unknown Tobacco Type: Cigarettes How Often Do You Have a Drink Containing Alcohol: Unable to Obtain Recent Travel in [facility] within the Last 8 Weeks: No Recent Out of Country Travel within the Last 8 Weeks: No Immunization History Tetanus Immunization: Unsure Exam Narrative Exam Narrative: GENERAL: No acute distress. SKIN: Focused skin assessment warm/dry. HEAD: Atraumatic. Normocephalic. EYES: Pupils equal and round. No scleral icterus. No injection or drainage. ENT: No nasal bleeding or discharge. Mucous membranes pink and moist. NECK: Trachea midline. No JVD. CARDIOVASCULAR: Regular rate and rhythm. No murmur appreciated. RESPIRATORY: No accessory muscle use. Clear to auscultation. Breath sounds equal bilaterally. GASTROINTESTINAL: Abdomen soft, diffuse abdominal tenderness, nondistended. MUSCULOSKELETAL: LLE: splint in place, removed-surgical wounds clean and dry, no erythema or drainage at incision site NEUROLOGICAL: Awake and alert. No obvious cranial nerve deficits. Motor grossly within normal limits. Normal speech. PSYCHIATRIC: Appropriate mood and affect; insight and judgment normal. Course Initial Documented Vital Signs Temperature 99.2 F 03/31/18 06:37 Pulse Rate 99 H 03/31/18 06:37 Respiratory Rate 16 03/31/18 06:37 Blood Pressure 123/64 03/31/18 06:37 Pulse Oximetry 98 03/31/18 06:37 Last Documented Vital Signs Temperature 99.1 F 03/31/18 10:15 Pulse Rate 92 H 03/31/18 10:15 Respiratory Rate 18 03/31/18 10:15 Blood Pressure 108/58 L 03/31/18 10:15 Pulse Oximetry 98 03/31/18 06:37 Medical Decision Making MDM Narrative Medical decision making narrative: Patient presents to the emergency department with diffuse abdominal pain. Patient placed on shelter monitor, continuous pulse ox, and IV access obtained. Chest x-ray, labs, CT abdomen and pelvis without IV contrast, and 4 mg IV Zofran ordered. Labs: Elevated wbc count, decrease hgb/hct, increase glucose, BUN, anion gap, creatinine; decrease calcium CXR: CONCLUSION: Minimal basilar parenchymal opacities. CT: CONCLUSION:1. Calcified renal transplant right lower quadrant2. Extensive atherosclerotic vascular calcifications3. Prominent head of the pancreas.4. I don't see abscess or free air.5. Lack of intravenousand oral contrast makes detection of subtle bodies difficult.6. If Patient remains symptomatic repeat exam with IV contrast is suggested. 0930: Spoke to Dr Phelan, patient's calcium good for her, don't treat, will arrange dialysis as inpatient if admitted. 1000: Spoke to Dr. Yan, advised to place podiatry consult and she will see as inpatient as patient has not had her in office post op visit. 1005: Patient still nauseated, will give 10mg IV compazine 1030: Admitted to Dr Beckford, discussed abx for possible CAP considering CXR- minimal opacities and patient reporting fever with productive cough and she's post op. Advised to go ahead and treat for CAP, will giev 750mg IV levaquin 2/2 patient's allergies. Lactate and blood cultures pending. Medical Screen Exam Complete: Yes Emergency Medical Condition: Yes Differential Diagnosis Differential Diagnosis: Diverticulitis, bowel obstruction, appendicitis, pancreatitis, cholecystitis, cholelithiasis Lab Data Result diagrams: 03/31/18 08:16 03/31/18 08:16 Lab Results 03/31/18 03/31/18 03/31/18 Range/Units 08:16 08:16 08:16 WBC 14.1 H (4.0-11.0) th/mm3 RBC 3.70 L (4.00-5.30) mil/mm3 Hgb 10.5 L (11.6-15.3) gm/dL Hct 32.4 L (35.0-46.0) % MCV 87.7 (80.0-100.0) fL MCH 28.3 (27.0-34.0) pg MCHC 32.3 (32.0-36.0) % RDW 14.2 (11.6-17.2) % Plt Count 310 (150-450) th/mm3 MPV 8.4 (7.0-11.0) fL Neut % (Auto) 81.5 H (16.0-70.0) % Lymph % (Auto) 9.2 (9.0-44.0) % Emmet % (Auto) 8.3 H (0.0-8.0) % Eos % (Auto) 0.5 (0.0-4.0) % Baso % (Auto) 0.5 (0.0-2.0) % Neut # (Auto) 11.5 H (1.8-7.7) th/mm3 Lymph # (Auto) 1.3 (1.0-4.8) th/mm3 Emmet # (Auto) 1.2 H (0.0-0.9) th/mm3 Eos # (Auto) 0.1 (0.0-0.4) th/mm3 Baso # (Auto) 0.1 (0.0-0.2) th/mm3 WBC Differential . Differential Comment Auto diff final PT 10.5 (9.8-11.6) sec INR 1.0 Ratio APTT 29.6 (24.3-30.1) sec Sodium 136 (136-145) meq/L Potassium 4.8 (3.5-5.1) meq/L Chloride 94 L (98-107) meq/L Carbon Dioxide 24.1 (21.0-32.0) meq/L Anion Gap 18 H (5-15) meq/L BUN 66 H (7-18) mg/dL Creatinine 10.61 H* (0.50-1.00) mg/dL Estimated GFR 5 L (>89) mL/min Random Glucose 267 H (74-106) mg/dL Calcium 7.3 L* (8.5-10.1) mg/dL Prot Corrected Calcium 7.1 L* (8.5-10.1) mg/dL Magnesium 2.3 (1.5-2.5) mg/dL Total Bilirubin 0.4 (0.2-1.0) mg/dL AST 14 L (15-37) U/L ALT 11 (10-53) U/L Alkaline Phosphatase 101 (45-117) U/L Total Protein 7.7 (6.4-8.2) g/dL Albumin 2.8 L (3.4-5.0) g/dL Lipase 55 L (73-393) U/L Imaging Data Radiologist's impression: Abdomen/Pelvis CT 03/31/18 07:59 CONCLUSION: 1. Calcified renal transplant right lower quadrant 2. Extensive atherosclerotic vascular calcifications 3. Prominent head of the pancreas. 4. I don't see abscess or free air. 5. Lack of intravenous and oral contrast makes detection of subtle bodies difficult. 6. If Patient remains symptomatic repeat exam with IV contrast is suggested. Chest X-Ray 03/31/18 07:59 CONCLUSION: Minimal basilar parenchymal opacities Discharge Plan Discharge Disposition Patient Disposition: 30 Still Patient Discharge Condition Condition: Stable Discharge Details Diagnosis: ESRD (end stage renal disease), Hypocalcemia, Abdominal pain, Intractable nausea and vomiting, Pneumonia Physicians Team ED Provider: Frida Tate Attending Provider: Richie Beckford Other Providers: Nir Kauffman Status ED Status: Admitted Observation Patient
[2018-03-31 08:33] LABS: Baso # (Auto) 0.1 th/mm3 (0.0-0.2); Baso % (Auto) 0.5 % (0.0-2.0); Eos # (Auto) 0.1 th/mm3 (0.0-0.4); Eos % (Auto) 0.5 % (0.0-4.0); Hematocrit 32.4 % (35.0-46.0); Hemoglobin 10.5 gm/dL (11.6-15.3); Lymph # (Auto) 1.3 th/mm3 (1.0-4.8); Lymph % (Auto) 9.2 % (9.0-44.0); Mean Corpuscular HGB Conc 32.3 % (32.0-36.0); Mean Corpuscular Hemoglobin 28.3 pg (27.0-34.0); Mean Corpuscular Volume 87.7 fL (80.0-100.0); Mean Platelet Volume 8.4 fL (7.0-11.0); Mono # (Auto) 1.2 th/mm3 (0.0-0.9); Mono % (Auto) 8.3 % (0.0-8.0); Neut # (Auto) 11.5 th/mm3 (1.8-7.7); Neut % (Auto) 81.5 % (16.0-70.0); Platelet Count 310 th/mm3 (150-450); Red Cell Distribution Width 14.2 % (11.6-17.2); White Blood Count 14.1 th/mm3 (4.0-11.0)
[2018-03-31 08:42] LABS: Activated Partial Thrombo Time 29.6 sec (24.3-30.1); Prothrombin Time 10.5 sec (9.8-11.6)
[2018-03-31 09:04] LABS: Albumin 2.8 g/dL (3.4-5.0); Calcium 7.3 mg/dL (8.5-10.1); Carbon Dioxide 24.1 meq/L (21.0-32.0); Magnesium 2.3 mg/dL (1.5-2.5); Potassium 4.8 meq/L (3.5-5.1); Total Protein 7.7 g/dL (6.4-8.2)
--- NOTE | 2018-03-31 09:38 | CT ---
EXAM DATE: 03/31/2018 8:57 AM EDT AGE/SEX: 52 years / Female INDICATIONS: Abdominal pain with vomiting and fever. 5 days post operative foot surgery. CLINICAL DATA: This is the patient's initial encounter. Patient reports that signs and symptoms have been present for 2 days and indicates a pain score of 5/10. MEDICAL/SURGICAL HISTORY: Renal disease, end stage. Diabetes. Colitis Appendectomy. Colon himanshu geries RADIATION DOSE: 15.23 CTDI (mGy) COMPARISON: [facility] [place]EL[place] W/O CONTRAST, 12/17/2017. . TECHNIQUE: Multiple contiguous axial images were obtained through the abdomen. Images were obtained using multiple row detector helical technique. Using automated exposure control and adjustment of the mA and/or kV according to patient size, radiation dose was kept as low as reasonably achievable to o btain optimal diagnostic quality images. DICOM format image data is available electronically for rev iew and comparison. FINDINGS: Minimal bibasilar parenchymal changes are seen in the lung bases. The liver is free of focal defects. The gallbladder small and shrunken The head of the pancreas is prominent and in completely evaluated on today's exam. The kidneys are small and shrunken Extensive vascular calcifications are noted in the transplant right lower quadrant. Pelvic contents are unremarkable without abscess or fluid.. CONCLUSION: 1. Calcified renal transplant right lower quadrant 2. Extensive atherosclerotic vascular calcifications 3. Prominent head of the pancreas. 4. I don't see abscess or free air. 5. Lack of intravenous and oral contrast makes detection of subtle bodies difficult. 6. If Patient remains symptomatic repeat exam with IV contrast is suggested. Electronically signed by: Jake Stringer MD 03/31/2018 9:37 AM EDT
--- NOTE | 2018-03-31 09:41 | XR ---
EXAM DATE: 03/31/2018 8:37 AM EDT AGE/SEX: 52 years / Female INDICATIONS: Cough. Patient complains of abdomen pain. Patient is also coughing up mucous. CLINICAL DATA: This is the patient's initial encounter. Patient reports that signs and symptoms have been present for 2 days and indicates a pain score of 6/10. MEDICAL/SURGICAL HISTORY: . Dialysis. . Left heel surgery. Port for dialysis. COMPARISON: [facility], XR CHEST PA AND LAT, 08/05/2016. . FINDINGS: Left-sided dialysis catheter is present in good position. There is minimal parenchymal opacity in the lung bases bilaterally which may be mild atelectasis or infiltrate. No significant effusion. Cardiac contours are satisfactory. Presumed venous stent is present in the left axillary veins CONCLUSION: Minimal basilar parenchymal opacities Electronically signed by: Maikol Stokes MD 03/31/2018 9:40 AM EDT
[2018-03-31] MEDS ORDERED: Acetaminophen 325 MG Tablet PO PRN (10:26)
[2018-03-31] MEDS ORDERED: Bisacodyl 10 MG Supp RECTAL PRN (10:26)
--- NOTE | 2018-03-31 10:30 | P.HP ---
History of Present Illness Primary Care Physician: Marcelino Byrne Chief Complaint: Abdominal Pain History of Present Illness: This is a pleasant 52 y/o Female who came to ER with abdominal pain, started 2 days ago, she had surgery on her left heel one week ago, Last bowel movement was yesterday and she is passing flatus. pain is described as being constant, nonradiating, 6 out of 10, gastric area, aggravated by cough and alleviated by lying down. States that she is coughing up white, thick phlegm. Also reports fever and chills, with T-max being 100 last night. Reports nausea and vomiting with emesis being greenish. She denies chest pain, shortness of breath, or diarrhea. Also states that she is not on any antibiotics. Patient is a dialysis patient and she is dialyzed Thursday, and she completed dialysis Thursday without any problems. She does not make any urine. Seen in her bedroom, in the presence of her Mr. Maikol Cortez he states since the Surgery Last Thursday on her left foot, she developed after surgery sore throat and cough, but switch to be productive of White phlegm, discussed with Doctor Jung in ER due to low grade fever, Immunocompromised patient, Leukocytosis, positive X ray with probable infiltrates, and mild expiratory wheezing on exam, will need antibiotics, Doctor Choudhary In to see the patient he evaluated the PermCath and no signs of infection but definitely needs Hemodialysis, no signs of volume overload but worsening Creatinine level. she has hypercalcemia in a patient that normally has acted with hypocalcemia, as per Doctor Choudhary he will handle Electrolytes. notified also Doctor Kailyn Yan Podiatry specialist for evaluation. Review of Systems All other systems reviewed negative except as stated in HPI PMFSH - History History Provided By: Patient - Medical History Medical History: Medical History (Last Updated 03/31/18 @ 06:42 by Felecia Dorman RN) Normal Papanicolaou smear (Acute) Mammogram normal (Acute) Former smoker (Acute) Abnormal nuclear stress test (Acute) Hx of CT scan (Acute) Tinea unguium (Acute) Type 2 diabetes mellitus with diabetic polyneuropathy (Acute) Secondary hyperparathyroidism (of renal origin) (Acute) Chronic renal failure Hemodialysis access site with arteriovenous graft ESRD (end stage renal disease) on dialysis History of colitis History of renal dialysis Hx of bursitis Hx of diabetes mellitus Metabolic bone disease Mild coronary artery disease Personal history of atrial fibrillation - Surgical History Surgical History: Surgical History (Last Updated 03/31/18 @ 06:42 by Felecia Dorman RN) H/O cardiac catheterization (Acute) Amputated toe of right foot H/O parathyroidectomy - Family History Family History: Family History (Last Updated 03/24/18 @ 04:45 by LELO Puentes) Mother Breast cancer - Tobacco History Second Hand Smoke Exposure: No Tobacco Use In Past 30 Days: No Smoking Status: Former smoker Tobacco Type: Cigarettes - Alcohol History How Often Do You Have a Drink Containing Alcohol: Unable to Obtain - Substance Use History Substance History: No History of Abuse - Travel History Recent Travel in the [place] Within the Last 8 Weeks: No Recent Travel Out of the Country Within the Last 8 Weeks: No - Immunization History Tetanus Immunization: Unsure Medications and Allergies Allergies Allergy/AdvReac Type Severity Reaction Status Date / Time coconut Allergy Severe HIVES Verified 03/23/18 20:46 diatrizoate meglumine Allergy Severe RENAL Verified 03/31/18 06:43 FAILURE gadobenic acid Allergy Severe RENAL Verified 03/31/18 06:43 FAILURE gadodiamide Allergy Severe RENAL Verified 03/31/18 06:43 FAILURE gadoteridol Allergy Severe RENAL Verified 03/31/18 06:43 FAILURE iodixanol Allergy Severe RENAL Verified 03/31/18 06:43 FAILURE iohexol Allergy Severe RENAL Verified 03/31/18 06:43 FAILURE morphine Allergy Severe HIVES Verified 03/31/18 06:43 azithromycin Allergy Intermediate HIVES Verified 03/31/18 06:43 clindamycin Allergy Intermediate HIVES Verified 03/31/18 06:43 erythromycin base Allergy Intermediate HIVES Verified 03/31/18 06:44 penicillin G Allergy Intermediate Hives Verified 03/31/18 06:44 midodrine Allergy Unknown Atrial Verified 03/31/18 06:44 Fibrillation codeine AdvReac Severe HALLUCINATI Verified 03/31/18 06:44 ONS insulin aspart AdvReac Severe REGULAR Verified 03/31/18 06:44 INSULIN ONLY-CAUSES CRAMPIN G AND "FREEZING" insulin aspart protamine AdvReac Severe REGULAR Verified 03/31/18 06:44 human INSULIN ONLY-CAUSES CRAMPIN G AND "FREEZING" insulin detemir AdvReac Severe REGULAR Verified 03/31/18 06:44 INSULIN ONLY-CAUSES CRAMPIN G AND "FREEZING" insulin glargine AdvReac Severe REGULAR Verified 03/31/18 06:44 INSULIN ONLY-CAUSES CRAMPIN G AND "FREEZING" insulin isophane (NPH) AdvReac Severe REGULAR Verified 03/31/18 06:44 INSULIN ONLY-CAUSES CRAMPIN G AND "FREEZING" insulin lispro AdvReac Severe REGULAR Verified 03/31/18 06:44 INSULIN ONLY-CAUSES CRAMPIN G AND "FREEZING" insulin regular AdvReac Severe REGULAR Verified 03/31/18 06:44 INSULIN ONLY-CAUSES CRAMPIN G AND "FREEZING" vancomycin AdvReac Mild NAUSEA/VOMITING Verified 03/31/18 06:44 WHEN INFUSED TOO FAST Home Medications Medication Instructions Recorded Confirmed Type Novolog U-100 Insulin aspart 6.5 units SUB-Q QID #0 03/23/18 03/31/18 History gabapentin 300 mg PO DAILY 03/23/18 03/31/18 History eszopiclone [Lunesta] 1 tab PO HS 03/24/18 03/31/18 History fluconazole [Diflucan] 150 mg PO Q3D 03/24/18 03/31/18 History oxycodone-acetaminophen 1 tab PO Q6HR PRN 03/30/18 03/31/18 History Exam Vital signs: Vital Signs 03/31/18 06:37 Temperature 99.2 F Pulse Rate 99 H Respiratory Rate 16 Blood Pressure 123/64 Pulse Oximetry 98 Intake & Output 03/30/18 03/31/18 03/31/18 18:59 06:59 18:59 Weight 72.575 kg Narrative: GENERAL: No acute distress. SKIN: Focused skin assessment warm/dry. HEAD: Atraumatic. Normocephalic. EYES: Pupils equal and round. No scleral icterus. No injection or drainage. ENT: No nasal bleeding or discharge. Mucous membranes pink and moist. NECK: Trachea midline. No JVD. CARDIOVASCULAR: Regular rate and rhythm. No murmur appreciated. RESPIRATORY: Mild expiratory wheezing, no crackles. left upper chest PermCath in place. GASTROINTESTINAL: Abdomen soft, diffuse abdominal tenderness, nondistended. MUSCULOSKELETAL: LLE: splint in place, removed-surgical wounds clean and dry, no erythema or drainage at incision site NEUROLOGICAL: Awake and alert. No obvious cranial nerve deficits. Motor grossly within normal limits. Normal speech. PSYCHIATRIC: Appropriate mood and affect; insight and judgment normal. Results - Labs CBC & Chem 7: 03/31/18 08:16 03/31/18 08:16 Labs: Laboratory Results - last 24 hr 03/31/1818 03/31/18 08:16 08:16 08:16 WBC 14.1 H RBC 3.70 L Hgb 10.5 L Hct 32.4 L MCV 87.7 MCH 28.3 MCHC 32.3 RDW 14.2 Plt Count 310 MPV 8.4 Neut % (Auto) 81.5 H Lymph % (Auto) 9.2 [place] % (Auto) 8.3 H Eos % (Auto) 0.5 Baso % (Auto) 0.5 Neut # (Auto) 11.5 H Lymph # (Auto) 1.3 [place] # (Auto) 1.2 H Eos # (Auto) 0.1 Baso # (Auto) 0.1 WBC Differential . Differential Comment Auto diff final PT 10.5 INR 1.0 APTT 29.6 Sodium 136 Potassium 4.8 Chloride 94 L Carbon Dioxide 24.1 Anion Gap 18 H BUN 66 H Creatinine 10.61 H* Estimated GFR 5 L Random Glucose 267 H Calcium 7.3 L* Prot Corrected Calcium 7.1 L* Magnesium 2.3 Total Bilirubin 0.4 AST 14 L ALT 11 Alkaline Phosphatase 101 Total Protein 7.7 Albumin 2.8 L Lipase 55 L - Imaging Impressions Abdomen/Pelvis CT 03/31/18 07:59 CONCLUSION: 1. Calcified renal transplant right lower quadrant 2. Extensive atherosclerotic vascular calcifications 3. Prominent head of the pancreas. 4. I don't see abscess or free air. 5. Lack of intravenous and oral contrast makes detection of subtle bodies difficult. 6. If Patient remains symptomatic repeat exam with IV contrast is suggested. Chest X-Ray 03/31/18 07:59 CONCLUSION: Minimal basilar parenchymal opacities Caprini VTE Risk Assessment Caprini VTE Risk Assessment: Moderate/High Risk (score >= 2) Caprini Risk Assessment Model: Point Value = 1 Point Value = 2 Point Value = 3 Point Value = 5 Age 41-60 Minor surgery BMI > 25 kg/m2 Swollen legs Varicose veins or History of unexplained or recurrent spontaneous Oral contraceptives or hormone replacement Sepsis (< 1 month) Serious lung disease, including pneumonia (< 1 month) Abnormal pulmonary function Acute myocardial infarction Congestive heart failure (< 1 month) History of inflammatory bowel disease Medical patient at bed rest Age 61-74 Arthroscopic surgery Major open surgery (> 45 min) Laparoscopic surgery (> 45 min) Malignancy Confined to bed (> 72 hours) Immobilizing plaster cast Central venous access Age >= 75 History of VTE Family history of VTE Factor V Leiden Prothrombin [id number] Lupus anticoagulant Anticardiolipin antibodies Elevated serum homocysteine Heparin-induced thrombocytopenia Other congenital or acquired thrombophilia Stroke (< 1 month) Elective arthroplasty Hip, pelvis, or leg fracture Acute spinal cord injury (< 1 month) Prophylaxis Regimen: Total Risk Factor Score Risk Level Prophylaxis Regimen 0-1 Low Early ambulation 2 Moderate Order ONE of the following: *Sequential Compression Device (SCD) *Heparin 5000 units SQ BID 3-4 Higher Order ONE of the following medications: *Heparin 5000 units SQ TID *Enoxaparin/Lovenox 40 mg SQ daily (WT < 150 kg, CrCl > 30 mL/min) *Enoxaparin/Lovenox 30 mg SQ daily (WT < 150 kg, CrCl > 10-29 mL/min) *Enoxaparin/Lovenox 30 mg SQ BID (WT < 150 kg, CrCl > 30 mL/min) AND/OR *Sequential Compression Device (SCD) 5 or more Highest Order ONE of the following medications: *Heparin 5000 units SQ TID (Preferred with Epidurals) *Enoxaparin/Lovenox 40 mg SQ daily (WT < 150 kg, CrCl > 30 mL/min) *Enoxaparin/Lovenox 30 mg SQ daily (WT < 150 kg, CrCl > 10-29 mL/min) *Enoxaparin/Lovenox 30 mg SQ BID (WT < 150 kg, CrCl > 30 mL/min) AND *Sequential Compression Device (SCD) Assessment and Plan - Plan 1. Intractable nausea and vomit giving supportive care and following on PPIs and Carafate. at this time no nausea or vomit in ER 2. ESRD on HD Doctor Kenrick akers for HD today, evaluated left upper chest PermCath no signs of infection. 3. Probable allergic reaction versus true pneumonia discussed with Doctor Feng due to Immunodeficiency, Leukocytosis, low grade fever will cover with broad spectrum antibiotics, and follow CXR, and Leukocytosis, also supportive care with Bronchodilator, Mucolytic and incentive spirometry. 4. DM II on sliding scale. ADA diet. 5. Left calcaneal fracture status post surgery will be followed by her Primary Podiatry specialist Doctor Kailyn Yan. DVT prophylaxis with Heparin. Code Status: Full code. Discussed Condition With: Patient, Mr. Maikol Cortez ER physician Doctor Frida Feng Nephrology specialist Doctor Karthikeyan Choudhary Discharge Planning: Once cleared by Specialists.
--- NOTE | 2018-03-31 11:15 | P.CONNP ---
History of Present Illness Service: Nephrology Consult date: 03/31/18 Reason for Consult: ESRD on HD Primary Care Provider: Marcelino Byrne Family Provider: Mc Carl MD Chief Complaint: Abdominal Pain History of Present Illness: This is a 52 y/o female with ESRD who had left foot surgery last week for calcaneal fracture. She dialyzes MWF. She came to ER for fever and cough, has some wheezing. Her post op appointment was planned for today. We were consulted for HD management. PMH includes anemia, HTN, DM II, hypocalcemia due to parathyroidectomy in the past. She is awake, at bedside. She is a full code. Review of Systems Constitutional: Reports chills, Reports daytime sleepiness, Reports fatigue, Reports fever(s) PMFSH - History History Provided By: Patient - Medical History Medical History: Medical History (Last Updated 03/31/18 @ 06:42 by Felecia Dorman RN) Normal Papanicolaou smear (Acute) Mammogram normal (Acute) Former smoker (Acute) Abnormal nuclear stress test (Acute) Hx of CT scan (Acute) Tinea unguium (Acute) Type 2 diabetes mellitus with diabetic polyneuropathy (Acute) Secondary hyperparathyroidism (of renal origin) (Acute) Chronic renal failure Hemodialysis access site with arteriovenous graft ESRD (end stage renal disease) on dialysis History of colitis History of renal dialysis Hx of bursitis Hx of diabetes mellitus Metabolic bone disease Mild coronary artery disease Personal history of atrial fibrillation - Surgical History Surgical History: Surgical History (Last Updated 03/31/18 @ 06:42 by Felecia Dorman RN) H/O cardiac catheterization (Acute) Amputated toe of right foot H/O parathyroidectomy - Family History Family History: Family History (Last Updated 03/24/18 @ 04:45 by LELO Puentes) Mother Breast cancer - Tobacco History Second Hand Smoke Exposure: No Tobacco Use In Past 30 Days: No Smoking Status: Former smoker Tobacco Type: Cigarettes - Alcohol History How Often Do You Have a Drink Containing Alcohol: Unable to Obtain - Substance Use History Substance History: No History of Abuse - Travel History Recent Travel in the [place] Within the Last 8 Weeks: No Recent Travel Out of the Country Within the Last 8 Weeks: No - Immunization History Tetanus Immunization: Unsure Medications and Allergies Active Medications: Active Medications Acetaminophen (Tylenol) 650 mg PO Q4H PRN PRN Reason: Temp > 100.4 Al Hydroxide/Mg Hydroxide (Milk Of Magnesia Liq) 30 ml PO Q12H PRN PRN Reason: Mild Constipation Bisacodyl (Dulcolax Supp) 10 mg RECTAL DAILY PRN PRN Reason: SEVERE CONSITIPATION Levofloxacin/Dextrose (Levaquin 750 Mg Premix Inj) 150 mls @ 100 mls/hr IV.SIG ONCE ONE Stop: 03/31/18 11:56 Last Admin: 03/31/18 10:42 Dose: 100 mls/hr Lactulose (Lactulose Liq) 30 ml PO DAILY PRN PRN Reason: SEVERE CONSITIPATION Ondansetron HCl (Zofran Inj) 4 mg IV.PUSH Q4H PRN PRN Reason: NAUSEA OR VOMITING Pantoprazole Sodium (Protonix) 40 mg PO DAILY YAAKOV Senna/Docusate Sodium (Hailey-Colace) 1 tab PO BID YAAKOV Sennosides (Senokot) 17.2 mg PO Q12H PRN PRN Reason: Moderate Constipation Allergies Allergy/AdvReac Type Severity Reaction Status Date / Time coconut Allergy Severe HIVES Verified 03/23/18 20:46 diatrizoate meglumine Allergy Severe RENAL Verified 03/31/18 06:43 FAILURE gadobenic acid Allergy Severe RENAL Verified 03/31/18 06:43 FAILURE gadodiamide Allergy Severe RENAL Verified 03/31/18 06:43 FAILURE gadoteridol Allergy Severe RENAL Verified 03/31/18 06:43 FAILURE iodixanol Allergy Severe RENAL Verified 03/31/18 06:43 FAILURE iohexol Allergy Severe RENAL Verified 03/31/18 06:43 FAILURE morphine Allergy Severe HIVES Verified 03/31/18 06:43 azithromycin Allergy Intermediate HIVES Verified 03/31/18 06:43 clindamycin Allergy Intermediate HIVES Verified 03/31/18 06:43 erythromycin base Allergy Intermediate HIVES Verified 03/31/18 06:44 penicillin G Allergy Intermediate Hives Verified 03/31/18 06:44 midodrine Allergy Unknown Atrial Verified 03/31/18 06:44 Fibrillation codeine AdvReac Severe HALLUCINATI Verified 03/31/18 06:44 ONS insulin aspart AdvReac Severe REGULAR Verified 03/31/18 06:44 INSULIN ONLY-CAUSES CRAMPIN G AND "FREEZING" insulin aspart protamine AdvReac Severe REGULAR Verified 03/31/18 06:44 human INSULIN ONLY-CAUSES CRAMPIN G AND "FREEZING" insulin detemir AdvReac Severe REGULAR Verified 03/31/18 06:44 INSULIN ONLY-CAUSES CRAMPIN G AND "FREEZING" insulin glargine AdvReac Severe REGULAR Verified 03/31/18 06:44 INSULIN ONLY-CAUSES CRAMPIN G AND "FREEZING" insulin isophane (NPH) AdvReac Severe REGULAR Verified 03/31/18 06:44 INSULIN ONLY-CAUSES CRAMPIN G AND "FREEZING" insulin lispro AdvReac Severe REGULAR Verified 03/31/18 06:44 INSULIN ONLY-CAUSES CRAMPIN G AND "FREEZING" insulin regular AdvReac Severe REGULAR Verified 03/31/18 06:44 INSULIN ONLY-CAUSES CRAMPIN G AND "FREEZING" vancomycin AdvReac Mild NAUSEA/VOMITING Verified 03/31/18 06:44 WHEN INFUSED TOO FAST Home Medications Medication Instructions Recorded Confirmed Type Novolog U-100 Insulin aspart 6.5 units SUB-Q QID #0 03/23/18 03/31/18 History gabapentin 300 mg PO DAILY 03/23/18 03/31/18 History eszopiclone [Lunesta] 1 tab PO HS 03/24/18 03/31/18 History fluconazole [Diflucan] 150 mg PO Q3D 03/24/18 03/31/18 History oxycodone-acetaminophen 1 tab PO Q6HR PRN 03/30/18 03/31/18 History Exam Vital signs: Vital Signs 03/31/18 06:37 03/31/18 10:15 03/31/18 10:58 Temperature 99.2 F 99.1 F Pulse Rate 99 H 92 H Respiratory Rate 16 18 Blood Pressure 123/64 108/58 L Pulse Oximetry 98 97 Intake & Output 03/30/18 03/31/18 03/31/18 18:59 06:59 18:59 Weight 72.575 kg - Constitutional no acute distress, average body habitus, chronically ill appearing - Routine Neck Exam Present: supple, full ROM - Routine Respiratory Exam Present: rhonchi, wheezes. Absent: accessory muscle use, CTA bilaterally - Routine Cardiovascular Exam Present: RRR, S1, S2 - Routine Abdominal Exam Present: soft, normoactive bowel sounds - Routine Extremities Exam Present: AV fistula. Absent: edema Comments: splint LLE - Routine Skin Exam Present: intact, dry - Routine Neurological Exam Present: alert, oriented X3, CN II-XII intact, moving all extremities Results - Lab Results 03/31/18 08:16 03/31/18 08:16 Most recent lab results Calcium 7.3 mg/dL (8.5-10.1) L* 03/31/18 08:16 Magnesium 2.3 mg/dL (1.5-2.5) 03/31/18 08:16 - Image Kidney/bladder ultrasound: other (N/A) Assessment and Plan - Assessment (1) ESRD (end stage renal disease) Code(s): N18.6 - End stage renal disease Status: Acute Plan: HD MWF, due today, orders entered. Permcath for HD use Avoid IVF High protein diet should be offered Outpatient HD arrangements at [facility]. (2) Fever Code(s): R50.9 - Fever, unspecified Status: Acute Plan: Recent surgery, podiatry to evaluate surgical site PermCath site unremarkable May need treatment for HCAP (3) Hypocalcemia Code(s): E83.51 - Hypocalcemia Status: Acute Plan: Hx parathyroidectomy Ordered Tums. Avoid IV calcium. (4) Metabolic bone disease Code(s): E88.9 - Metabolic disorder, unspecified; M90.80 - Osteopathy in diseases classified elsewhere, unspecified site Status: Acute Plan: Calcium acetate with meals has been ordered (5) DM (diabetes mellitus), type 2, uncontrolled Code(s): E11.65 - Type 2 diabetes mellitus with hyperglycemia Status: Acute Plan: Use insulin as needed, maintain glucose 140-180 mg/dL. (5) DM (diabetes mellitus), type 2, uncontrolled Qualifiers: Diabetes mellitus complication status: with skin complications Diabetes mellitus complication detail: with other skin complication
[2018-03-31] MEDS: LORazepam 0.5 MG Tablet PO PRN (12:44)
[2018-03-31] MEDS: Fluconazole 100 MG Tablet PO SCH (13:24)
[2018-03-31] MEDS: Insulin NovoLOG Aspart Correctional Sugar Inj SQ SCH ×2 (13:27→18:59)
[2018-03-31] MEDS: Calcium Acetate 667 MG Capsule PO SCH ×2 (13:27→19:46)
[2018-03-31] MEDS ORDERED: Heparin 10,000 UNITS/10 ML Vial (for IV use) OTHER PRN ×2 (14:05)
[2018-03-31] MEDS ORDERED: Sod Chloride 0.9% Inj 1,000 ML IV.CONT PRN (14:05)
[2018-03-31] MEDS ORDERED: Sod Chloride 0.9% Inj 1,000 ML OTHER PRN ×2 (14:05)
[2018-03-31] MEDS ORDERED: Albumin Human 25% Inj 100 ML IV.SIG PRN (14:05)
[2018-03-31] MEDS ORDERED: Gelatin 12 MM/7 MM Topical Foam TOPICAL PRN (14:05)
[2018-03-31 14:28] LABS: Troponin I 0.03 ng/mL (0.02-0.05)
[2018-03-31] MEDS: guaiFENesin 600 MG ER Tablet PO SCH (21:29)
[2018-03-31] MEDS: Senna/Docusate Sodium 8.6/50 MG Tablet PO SCH (21:29)
[2018-03-31 23:41] LABS: Troponin I 0.03 ng/mL (0.02-0.05)
[2018-04-01] MEDS: oxyCODONE/Acetaminophen 10/325 Tablet PO PRN ×3 (00:27→22:51)
--- NOTE | 2018-04-01 01:13 | MB ---
cc: Nir Serrano DPM DATE: 03/31/2018 REASON FOR CONSULTATION: Evaluation for postoperative fever and left foot and ankle pain. HISTORY OF PRESENT ILLNESS: This is a 52-year-old female who is known to the podiatry service. She had a posterior tuber calcaneal fracture that received open reduction internal fixation by Dr. Yan on 03/24/2018. The patient was discharged from the hospital on 03/26/2018. The patient admits that she had a mild touch fall of her toes. She was brushing her teeth, and she slipped. She then presented to the ED. The only records I can find is an x-ray that was performed. Per the patient, a nurse informed them of the radiographic results which showed a stable compression screw, and the patient was apparently not formally seen per record by an ER doctor. The patient continued to worsen. She re-presented. The patient is being worked up now for a postoperative fever. Currently, I am seeing the patient at bedside. Her is there as well. The patient is in no obvious acute distress. She has just received dialysis. PAST MEDICAL HISTORY: End-stage renal disease on hemodialysis for polycystic kidney disease and failed transplant. She has neuropathy, diabetes. Personal history of atrial fibrillation. History of colitis. PAST SURGICAL HISTORY: Amputation of toe, right foot. History of parathyroidectomy. Occasional drinking. No history of substance abuse. ALLERGIES: MULTIPLE ALLERGIES. COCONUT, DIATRIZOATE MEGLUMINE, GADOBENIC ACID, GADODIAMIDE, GADOTERIDOL, IODIXANOL, IOHEXOL, MORPHINE, AZITHROMYCIN, CLINDAMYCIN, ERYTHROMYCIN, PENICILLIN G, MIDODRINE, CODEINE, INSULIN ASPARTATE PROTAMINE HUMAN, INSULIN DETEMIR, INSULIN GLARGINE, INSULIN ISOPHANE, INSULIN LISPRO, INSULIN REGULAR, VANCOMYCIN. It appears the patient had gentamicin as a preoperative antibiotic prior to a previous surgery. OUTPATIENT MEDICATIONS: Reviewed. She was taking Levaquin. INPATIENT MEDICATIONS: Also reviewed. She is on: 1. Diflucan. 2. Neurontin. 3. Lunesta. 4. Epogen. 5. Benadryl. 6. Catapres. 7. Calcitriol. 8. Albuterol. 9. Milk of magnesia. 10. Tylenol. 11. Diflucan. 12. Neurontin. 13. Gentamicin sulfate. 14. Heparin with dialysis. 15. Insulin. 16. NovoLog. 17. Lactulose. 18. Levaquin. 19. Ativan. 20. Mannitol 21. Nitroglycerin p.r.n. chest pain. 22. Ondansetron. 23. Percocet p.r.n. 24. Protonix. 25. Hailey-Colace. 26. Senokot. 27. Renvela. 28. Compazine. PHYSICAL EXAMINATION: VITAL SIGNS: Temperature is 99.1, pulse rate 105, respiratory rate 18, blood pressure 99/56. She is saturating 95% on room air. GENERAL: This is an alert and oriented female seen at bedside, exhibiting nonlabored respirations. EXTREMITIES: Left lower extremity is in a bandage splint. Upon removing the splint, there is a palpable posterior tuber of the calcaneus. There is hemorrhagic bulla, possible early fracture blister noted. Pulses are palpable. The foot is warm. Distal toes appear to be slightly cool. However, the patient admits this is a chronic thing. The patient has pain of the posterior Achilles and ankle. Right lower extremity is free from any obvious injury or compromise to soft tissue envelope and appears to be well perfused. Sensation appears to be decreased to light touch but intact to deep pressure. LABORATORY DATA: White blood cell 14.1, hemoglobin and hematocrit 10 and 32, platelet count is 310. Coagulation profile: PT 10.5, INR 1.0. Chem-7: Sodium 136, potassium 4.8, chloride 94, CO2 of 24.1, BUN of 66, creatinine 10.61, random glucose 143. X-ray findings pertaining to the foot, 03/23/2018: There is a displaced oblique calcaneal fracture. Next x-ray on 03/27/2018 shows interval placement of a screw through the calcaneus. However, it still appears to be displaced. Upon reading through the record, there was report of ORIF which showed anatomic alignment per Dr. Yan. ASSESSMENT AND PLAN: Left calcaneal fracture with displacement and failure of fixation. I explained in great detail that it appears that there was a fall that caused displacement of the fracture. The patient will need to be admitted n.p.o. after breakfast, and the patient will be consented for removal of hardware and repeat ORIF with or without internal and possible external fixation. The patient was advised on the possibility of wound complications that may lead to multiple surgeries, possibly leading to infection of skin. Given the patient's multiple medical history and medical problems, Dr. Durham was notified of her postoperative patient. We will continue to correct her condition. I may recommend rehabilitation placement after surgery to prevent any further falling. Plan is for surgery tomorrow, sometime late afternoon. RICH Cooley/willa/chapincito , 11:07 PM , 11:18 PM
[2018-04-01] MEDS: Insulin NovoLOG Aspart Correctional Sugar Inj SQ SCH ×3 (01:15→13:55)
[2018-04-01] MEDS ORDERED: Sodium Chlor 0.9% Inj 500 ML IV.SIG SCH (04:00)
[2018-04-01] MEDS ORDERED: Chlorhexidine Gluconate 2% 1 Pack (2 Cloths) TOPICAL SCH (04:00)
--- NOTE | 2018-04-01 09:08 | P.PN ---
Subjective Interval history: This is a pleasant 52 y/o Female who came to ER with abdominal pain, started 2 days ago, she had surgery on her left heel one week ago, Last bowel movement was yesterday and she is passing flatus. pain is described as being constant, nonradiating, 6 out of 10, gastric area, aggravated by cough and alleviated by lying down. States that she is coughing up white, thick phlegm. Also reports fever and chills, with T-max being 100 last night. Reports nausea and vomiting with emesis being greenish. She denies chest pain, shortness of breath, or diarrhea. Also states that she is not on any antibiotics. Patient is a dialysis patient and she is dialyzed Thursday, and she completed dialysis Thursday without any problems. She does not make any urine. Seen in her bedroom, in the presence of her Mr. Maikol Cortez he states since the Surgery Last Thursday on her left foot, she developed after surgery sore throat and cough, but switch to be productive of White phlegm, discussed with Doctor Jung in ER due to low grade fever, Immunocompromised patient, Leukocytosis, positive X ray with probable infiltrates, and mild expiratory wheezing on exam, will need antibiotics, Doctor Choudhary In to see the patient he evaluated the PermCath and no signs of infection but definitely needs Hemodialysis, no signs of volume overload but worsening Creatinine level. she has hypercalcemia in a patient that normally has acted with hypocalcemia, as per Doctor Choudhary he will handle Electrolytes. notified also Doctor Kailyn Yan Podiatry specialist for evaluation. 04/01: Seen in her bedroom, Podiatry specialist asked for CT of the right ankle giving result there's Distraction of the posterior fracture fragment involving the posterior calcaneus by Approximately 1.9 cm of the sagittal images, the internal fixation screw remains in place. no nausea, vomit or diarrhea Improved her Abdominal pain also. Physical Exam Vital signs: Vital Signs 03/31/18 10:15 03/31/18 10:58 03/31/18 20:42 Temperature 99.1 F 99.1 F Pulse Rate 92 H 105 H Respiratory Rate 18 18 Blood Pressure 108/58 L 99/56 L Pulse Oximetry 97 95 03/31/18 23:45 04/01/18 00:10 04/01/18 05:58 Temperature 97.1 F L 96.5 F L Pulse Rate 102 H 103 H Respiratory Rate 20 22 20 Blood Pressure 115/55 L 115/55 L Pulse Oximetry 96 99 04/01/18 08:00 04/01/18 08:03 Temperature 98.1 F Pulse Rate 96 H 93 H Respiratory Rate 16 14 Blood Pressure 81/53 L Pulse Oximetry 94 L 96 Intake & Output 03/31/18 04/01/18 04/01/18 18:59 06:59 18:59 Intake Total 150 / 150 Output Total 3000 / 3000 Balance -2850 / -2850 Weight 72.575 kg Intake: IV 150 / 150 Levaquin 750 mg Premix Inj 150 150 / 150 ML @ 100 mls/hr IV.SIG ONCE ONE Rx#:[id number] Output: Hemodialysis Amount 3000 / 3000 Other: Weight On Admission 72.575 kg Narrative: GENERAL: No acute distress. SKIN: Focused skin assessment warm/dry. HEAD: Atraumatic. Normocephalic. EYES: Pupils equal and round. No scleral icterus. No injection or drainage. ENT: No nasal bleeding or discharge. Mucous membranes pink and moist. NECK: Trachea midline. No JVD. CARDIOVASCULAR: Regular rate and rhythm. No murmur appreciated. RESPIRATORY: Mild expiratory wheezing, no crackles. left upper chest PermCath in place. GASTROINTESTINAL: Abdomen soft, non tender, positive bowel sounds. MUSCULOSKELETAL: LLE: splint in place, removed-surgical wounds clean and dry, no erythema or drainage at incision site NEUROLOGICAL: Awake and alert. No obvious cranial nerve deficits. Motor grossly within normal limits. Normal speech. PSYCHIATRIC: Appropriate mood and affect; insight and judgment normal. Results - Labs CBC & Chem 7: 04/01/18 11:38 04/01/18 11:38 Laboratory Results - last 24 hr 03/31/18 03/31/18 03/31/18 08:16 08:22 13:06 Sodium 136 Potassium 4.8 Chloride 94 L Carbon Dioxide 24.1 Anion Gap 18 H BUN 66 H Creatinine 10.61 H* Estimated GFR 5 L POC Glucose Random Glucose 267 H Lactic Acid 0.7 Calcium 7.3 L* Prot Corrected Calcium 7.1 L* Magnesium 2.3 Total Bilirubin 0.4 AST 14 L ALT 11 Alkaline Phosphatase 101 Total Creatine Kinase 98 Troponin I 0.03 Total Protein 7.7 Albumin 2.8 L Lipase 55 L 03/31/18 03/31/18 03/31/18 13:06 18:59 22:38 Sodium Potassium Chloride Carbon Dioxide Anion Gap BUN Creatinine Estimated GFR POC Glucose 291 H 143 H Random Glucose Lactic Acid Calcium Prot Corrected Calcium Magnesium Total Bilirubin AST ALT Alkaline Phosphatase Total Creatine Kinase 66 Troponin I 0.03 Total Protein Albumin Lipase - Imaging Impressions Abdomen/Pelvis CT 03/31/18 07:59 CONCLUSION: 1. Calcified renal transplant right lower quadrant 2. Extensive atherosclerotic vascular calcifications 3. Prominent head of the pancreas. 4. I don't see abscess or free air. 5. Lack of intravenous and oral contrast makes detection of subtle bodies difficult. 6. If Patient remains symptomatic repeat exam with IV contrast is suggested. Chest X-Ray 03/31/18 07:59 CONCLUSION: Minimal basilar parenchymal opacities Assessment and Plan - Plan 1. Intractable nausea and vomit giving supportive care and following on PPIs and Carafate. Improved nausea, no vomit no abdominal pain. 2. ESRD on HD Doctor Kenrick in for HD today, evaluated left upper chest PermCath no signs of infection. status post HD improved electrolytes. 3. Probable allergic reaction versus true pneumonia discussed with Doctor Feng due to Immunodeficiency, Leukocytosis, low grade fever will cover with broad spectrum antibiotics, and follow CXR, and Leukocytosis, also supportive care with Bronchodilator, Mucolytic and incentive spirometry. Improved. if continue asymptomatic will follow off antibiotics. 4. DM II on sliding scale. ADA diet. continue present care 5. Left calcaneal fracture status post surgery will be followed by her Primary Podiatry specialist Doctor Kailyn Yan. asked for CT ankle there's Distraction of the posterior fracture fragment involving the posterior calcaneus by Approximately 1.9 cm of the sagittal images, the internal fixation screw remains in place. DVT prophylaxis with Heparin. Code Status: Full Code. Discussed Condition With: Patient and nurse. Discharge Planning: Once cleared by Specialists.
--- NOTE | 2018-04-01 11:13 | CT ---
EXAM DATE: 04/01/2018 11:01 AM EDT AGE/SEX: 52 years / Female INDICATIONS: Evaluate left calcaneus CLINICAL DATA: This is the patient's initial encounter. Patient reports that signs and symptoms have been present for 1 week and indicates a pain score of 7/10. MEDICAL/SURGICAL HISTORY: None. . Left calcaneus RADIATION DOSE: 7.29 CTDI (mGy) COMPARISON: [facility], FOOT LEFT HEEL CALC MIN 2V, 03/27/2018. . TECHNIQUE: Multiple contiguous axial images were acquired using a multirow detector CT scanner witho ut contrast. Multiplanar reconstruction was performed in the sagittal and coronal planes. Using aut omated exposure control and adjustment of the mA and/or kV according to patient size, radiation dose was kept as low as reasonably achievable to obtain optimal diagnostic quality images. DICOM format i mage data is available electronically for review and comparison. FINDINGS: On today's examination there is distraction of the fracture fragments involving the posterior calcane us by approximately 1.9 cm. The internal fixation screw remains in place. The posterior superior frag ment of the calcaneus is lifted above the internal fixation screw. There is good alignment at the mor tise joint and subtalar joint. There are degenerative changes involving the metatarsal bones. The res t the bony structures are grossly intact. CONCLUSION: 1. There is distraction of the posterior fracture fragment involving the posterior calcaneus by appr oximately 1.9 cm on the sagittal images. 2. The internal fixation screw remains in place. Electronically signed by: Dayne Ramon MD 04/01/2018 11:12 AM EDT
[2018-04-01] MEDS: Calcitriol 0.25 MCG Capsule PO SCH (11:36)
[2018-04-01] MEDS: Calcium Acetate 667 MG Capsule PO SCH ×3 (11:36→13:52)
[2018-04-01] MEDS: Senna/Docusate Sodium 8.6/50 MG Tablet PO SCH ×2 (11:36→22:28)
[2018-04-01] MEDS: guaiFENesin 600 MG ER Tablet PO SCH ×2 (11:38→22:28)
[2018-04-01] MEDS: Gabapentin 300 MG Capsule PO SCH (11:38)
--- NOTE | 2018-04-01 11:42 | P.PNNP ---
Subjective Interval history: Dialyzed yesterday. NPO for surgery today. <Natalie Adames - Last Filed: 04/01/18 11:37> Physical Exam Vital signs: Vital Signs 03/31/18 20:42 03/31/18 23:45 04/01/18 00:10 Temperature 99.1 F 97.1 F L Pulse Rate 105 H 102 H 103 H Respiratory Rate 18 20 22 Blood Pressure 99/56 L 115/55 L Pulse Oximetry 95 96 04/01/18 05:58 04/01/18 08:00 04/01/18 08:03 Temperature 96.5 F L 98.1 F Pulse Rate 96 H 93 H Respiratory Rate 20 16 14 Blood Pressure 115/55 L 81/53 L Pulse Oximetry 99 94 L 96 Intake & Output 03/31/18 04/01/18 04/01/18 18:59 06:59 18:59 Intake Total 150 / 150 Output Total 3000 / 3000 Balance -2850 / -2850 Weight 72.575 kg Intake: IV 150 / 150 Levaquin 750 mg Premix Inj 150 150 / 150 ML @ 100 mls/hr IV.SIG ONCE ONE Rx#:[id number] Output: Hemodialysis Amount 3000 / 3000 Other: Weight On Admission 72.575 kg - Constitutional no acute distress, average body habitus, cooperative - Routine HEENT Exam Head: Present: normocephalic - Routine Neck Exam Present: supple, full ROM. Absent: JVD - Routine Respiratory Exam Present: CTA bilaterally. Absent: accessory muscle use - Routine Cardiovascular Exam Present: RRR, S1, S2 - Routine Abdominal Exam Present: soft, normoactive bowel sounds - Routine Extremities Exam Present: vascular access. Absent: edema Comments: LLE splinted - Routine Skin Exam Present: intact, dry, warm - Routine Neurological Exam Present: alert, oriented X3, CN II-XII intact, moving all extremities - Detailed Neurological Exam: Coma Scale Eye Opening: Spontaneous Verbal Response: Oriented Motor Response: Obey commands Brittanie Coma Scale Total: 15 <Natalie Adames - Last Filed: 04/01/18 11:37> Vital signs: Vital Signs 03/31/18 20:42 03/31/18 23:45 04/01/18 00:10 Temperature 99.1 F 97.1 F L Pulse Rate 105 H 102 H 103 H Respiratory Rate 18 20 22 Blood Pressure 99/56 L 115/55 L Pulse Oximetry 95 96 04/01/18 05:58 04/01/18 08:00 04/01/18 08:03 Temperature 96.5 F L 98.1 F Pulse Rate 96 H 93 H Respiratory Rate 20 16 14 Blood Pressure 115/55 L 81/53 L Pulse Oximetry 99 94 L 96 04/01/18 12:00 04/01/18 12:35 Temperature 99.0 F Pulse Rate 98 H 79 Respiratory Rate 18 18 Blood Pressure 100/69 Pulse Oximetry 94 L Intake & Output 03/31/18 04/01/18 04/01/18 18:59 06:59 18:59 Intake Total 150 / 150 Output Total 3000 / 3000 Balance -2850 / -2850 Weight 72.575 kg Intake: IV 150 / 150 Levaquin 750 mg Premix Inj 150 150 / 150 ML @ 100 mls/hr IV.SIG ONCE ONE Rx#:[id number] Output: Hemodialysis Amount 3000 / 3000 Other: Weight On Admission 72.575 kg <Karthikeyan Choudhary - Last Filed: 04/01/18 15:41> Assessment and Plan - Assessment (1) ESRD (end stage renal disease) Code(s): N18.6 - End stage renal disease Status: Acute Plan: HD MWF. 3L UF yesterday. Permcath for HD use. Her multiple prior AV accesses have failed in the past. Avoid IVF High protein diet post operatively. [facility] (2) Fever Code(s): R50.9 - Fever, unspecified Status: Acute Plan: Resolved. On Levaquin to cover HCAP give recent hospital admission. PermCath site unremarkable (3) Hypocalcemia Code(s): E83.51 - Hypocalcemia Status: Acute Plan: Hx parathyroidectomy Ordered Tums. Avoid IV calcium administration. On calcium acetate as a phosphate binder. Also on calcitriol. (4) Metabolic bone disease Code(s): E88.9 - Metabolic disorder, unspecified; M90.80 - Osteopathy in diseases classified elsewhere, unspecified site Status: Acute Plan: Calcium acetate with meals has been ordered Monitor phosphorus level periodically. (5) DM (diabetes mellitus), type 2, uncontrolled Code(s): E11.65 - Type 2 diabetes mellitus with hyperglycemia Status: Acute Qualifiers: Diabetes mellitus complication status: with skin complications Diabetes mellitus complication detail: with other skin complication Plan: Use insulin as needed, maintain glucose 140-180 mg/dL. (6) Anemia Code(s): D64.9 - Anemia, unspecified Status: Acute Plan: Epogen ordered with dialysis. <Natalie Adames - Last Filed: 04/01/18 11:37> - Assessment (1) ESRD (end stage renal disease) Code(s): N18.6 - End stage renal disease Status: Acute (2) Fever Code(s): R50.9 - Fever, unspecified Status: Acute (3) Hypocalcemia Code(s): E83.51 - Hypocalcemia Status: Acute (4) Metabolic bone disease Code(s): E88.9 - Metabolic disorder, unspecified; M90.80 - Osteopathy in diseases classified elsewhere, unspecified site Status: Acute (5) DM (diabetes mellitus), type 2, uncontrolled Code(s): E11.65 - Type 2 diabetes mellitus with hyperglycemia Status: Acute Qualifiers: Diabetes mellitus complication status: with skin complications Diabetes mellitus complication detail: with other skin complication (6) Anemia Code(s): D64.9 - Anemia, unspecified Status: Acute - Attending Attestation patient was seen and examined. Agree with above assessment and plan. Podiatry notes were reviewed. <aKrthikeyan Choudhary - Last Filed: 04/01/18 15:41>
[2018-04-01] MEDS ORDERED: Glycopyrrolate Inj 1 MG/5 ML Syringe IV.PUSH ONE (12:00)
[2018-04-01] MEDS ORDERED: Neostigmine Inj 5 MG/5 ML Syringe IV.PUSH ONE (12:00)
[2018-04-01] MEDS ORDERED: Phenylephrine/NS 1000 MCG/10ML Syringe IV.PUSH ONE (12:00)
[2018-04-01] MEDS ORDERED: Sodium Chlor 0.9% Inj 500 ML IV.SIG ONE (12:00)
[2018-04-01] MEDS ORDERED: Lidocaine PF 1% Inj 5 ML Syringe INFILTRATN ONE (12:00)
[2018-04-01 12:13] LABS: Baso % (Auto) 0.4 % (0.0-2.0); Eos # (Auto) 0.1 th/mm3 (0.0-0.4); Eos % (Auto) 1.4 % (0.0-4.0); Hematocrit 29.6 % (35.0-46.0); Hemoglobin 9.8 gm/dL (11.6-15.3); Lymph # (Auto) 1.4 th/mm3 (1.0-4.8); Lymph % (Auto) 14.9 % (9.0-44.0); Mean Corpuscular HGB Conc 32.9 % (32.0-36.0); Mean Corpuscular Hemoglobin 28.9 pg (27.0-34.0); Mean Corpuscular Volume 87.7 fL (80.0-100.0); Mono # (Auto) 0.7 th/mm3 (0.0-0.9); Mono % (Auto) 7.9 % (0.0-8.0); Neut # (Auto) 7.1 th/mm3 (1.8-7.7); Neut % (Auto) 75.4 % (16.0-70.0); Platelet Count 291 th/mm3 (150-450); Red Blood Count 3.38 mil/mm3 (4.00-5.30); Red Cell Distribution Width 14.5 % (11.6-17.2); White Blood Count 9.4 th/mm3 (4.0-11.0)
[2018-04-01 12:40] LABS: Calcium 7.8 mg/dL (8.5-10.1); Carbon Dioxide 26.5 meq/L (21.0-32.0); Potassium 3.8 meq/L (3.5-5.1)
[2018-04-01] MEDS: LORazepam 0.5 MG Tablet PO PRN ×2 (14:15)
[2018-04-01] MEDS ORDERED: Bupivacaine PF 0.5% Inj 30 ML Vial ONE (16:21)
--- NOTE | 2018-04-01 20:04 | P.BOP ---
- Preoperative Diagnosis (1) Calcaneal fracture - Postoperative Diagnosis (1) Calcaneal fracture Date of procedure: 04/01/18 Procedure: ORIF left calcaneus External fixation left calcaneus Human placenta graft left calcaneus Prone position. No tourniquet utilized Posterior superior heel area with small area 2cm diameter of tissue with no capillary refill centrally, still demarcating. Previous incisions with prolene suture intact. Sutures removed and irrigation of previous surgical sites. Large reduction clamp to achieve/hold reduction under c-arm guidance. Two parallel cannulated screws(synthes), 6.5mm proximally and 4.5mm distally were placed to hold reduction. Two 4.5mm centrally threaded geeta pins placed in fracture fragment and calcaneal tubercle area with clamps to hold additional compression. Reduction and stable fixation confirmed with c-arm. irrigation with saline plus gentamicin. Injectable Clarix bucky graft placed in fracture area and 2cm x 2cm Neox graft placed over lesion to posterior superior calcaneus and held in place with nylon sutures. Closure of small incisions with 2-0 nylon suture. Splint in plantarflexion with heel offloaded. Strict nonweightbearing left lower extremity Recommend rehab placement, if at all possible due to patient inability to comply. Ancef 2g IV x 24 hours. Getting Popliteal block postoperatively per anesthesia, GETA. No complications. Stable to PACU Plan to remove external fixator in approximately 6 weeks Anesthesia: GETA, local (getting popliteal block per anesthesia postoperatively) Surgeon: Eileen Piedra DPM [employer]: staff Estimated blood loss (mL): 10 Pathology: none sent Condition: stable Disposition: PACU
[2018-04-01] MEDS ORDERED: fentaNYL Citrate Inj 100 MCG/2 ML Ampul ONE (20:27)
--- NOTE | 2018-04-01 20:42 | XR ---
EXAM DATE: 04/01/2018 8:36 PM EDT AGE/SEX: 52 years / Female INDICATIONS: ORIF left calcaneus. CLINICAL DATA: This is the patient's sequela encounter. Patient reports that signs and symptoms have been present for 1 week and indicates a pain score of Nonresponsive. MEDICAL/SURGICAL HISTORY: Non-responsive. Non-responsive. COMPARISON: [facility], FOOT LEFT HEEL CALC MIN 2V, 03/24/2018. . FINDINGS: 2 images are recorded digitally in the operating room using C-arm during placement of hardware in the calcaneus. CONCLUSION: Intraoperative images. Electronically signed by: Garcia Haas MD 04/01/2018 8:41 PM EDT
--- NOTE | 2018-04-01 22:20 | XR ---
EXAM DATE: 04/01/2018 10:15 PM EDT AGE/SEX: 52 years / Female INDICATIONS: Post ORIF left ankle. CLINICAL DATA: This is the patient's initial encounter. Patient reports that signs and symptoms have been present for 3 weeks and indicates a pain score of 7/10. MEDICAL/SURGICAL HISTORY: . Dialysis. . Left heel surgery. [place] for [place] [facility] [place], [place]/2018. [facility] [place] 2[place], [place]18. . FINDINGS: 3 views of the ankle status post placement of external fixation hardware in the calcaneus. There are also 2 vertical lag screws. Moderate lateral soft tissue swelling. CONCLUSION: Status post placement of external fixation hardware in the calcaneus. Electronically signed by: Garcia Haas MD 04/01/2018 10:19 PM EDT
--- NOTE | 2018-04-01 22:22 | XR ---
EXAM DATE: 04/01/2018 10:18 PM EDT AGE/SEX: 52 years / Female INDICATIONS: Left ORIF Calcaneous. CLINICAL DATA: This is the patient's initial encounter. Patient reports that signs and symptoms have been present for 3 weeks and indicates a pain score of 6/10. MEDICAL/SURGICAL HISTORY: . Dialysis. . Left heel surgery. Port for dialysis COMPARISON: [facility], FOOT LEFT HEEL CALC MIN 2V, 03/27/2018. . FINDINGS: 4 views of the calcaneus status post placement of external fixation hardware. There are 2 vertical sc rews present in the calcaneus as well. Fiberglas splint in place. CONCLUSION: Internal and external fixation hardware in the calcaneus. Electronically signed by: Garcia Haas MD 04/01/2018 10:21 PM EDT
[2018-04-02] MEDS: LORazepam 0.5 MG Tablet PO PRN ×2 (02:37→20:45)
[2018-04-02] MEDS: Calcium Acetate 667 MG Capsule PO SCH ×3 (03:10→16:12)
[2018-04-02] MEDS: Insulin NovoLOG Aspart Correctional Sugar Inj SQ SCH ×5 (03:11→22:10)
--- NOTE | 2018-04-02 09:08 | P.PN ---
Subjective Interval history: This is a pleasant 52 y/o Female who came to ER with abdominal pain, started 2 days ago, she had surgery on her left heel one week ago, Last bowel movement was yesterday and she is passing flatus. pain is described as being constant, nonradiating, 6 out of 10, gastric area, aggravated by cough and alleviated by lying down. States that she is coughing up white, thick phlegm. Also reports fever and chills, with T-max being 100 last night. Reports nausea and vomiting with emesis being greenish. She denies chest pain, shortness of breath, or diarrhea. Also states that she is not on any antibiotics. Patient is a dialysis patient and she is dialyzed Thursday, and she completed dialysis Thursday without any problems. She does not make any urine. Seen in her bedroom, in the presence of her Mr. Maikol Cortez he states since the Surgery Last Thursday on her left foot, she developed after surgery sore throat and cough, but switch to be productive of White phlegm, discussed with Doctor Jung in ER due to low grade fever, Immunocompromised patient, Leukocytosis, positive X ray with probable infiltrates, and mild expiratory wheezing on exam, will need antibiotics, Doctor Choudhary In to see the patient he evaluated the PermCath and no signs of infection but definitely needs Hemodialysis, no signs of volume overload but worsening Creatinine level. she has hypercalcemia in a patient that normally has acted with hypocalcemia, as per Doctor Choudhary he will handle Electrolytes. notified also Doctor Kailyn Yan Podiatry specialist for evaluation. 04/01: Seen in her bedroom, Podiatry specialist asked for CT of the right ankle giving result there's Distraction of the posterior fracture fragment involving the posterior calcaneus by Approximately 1.9 cm of the sagittal images, the internal fixation screw remains in place. no nausea, vomit or diarrhea Improved her Abdominal pain also. 04/02: Status post Surgery with diagnosis of Left Calcaneal Fracture procedure performed ORIF, External Fixation, Human placenta graft. stable in her room, seen in the presence of relatives and her , agree with no need for Levaquin no signs of infection removed Levaquin, had HD today. has Orthotics on her left ankle area. No nausea, vomit or diarrhea. Physical Exam Vital signs: Vital Signs 04/01/18 12:00 04/01/18 12:35 04/01/18 20:00 Temperature 99.0 F 98 F Pulse Rate 98 H 79 92 H Respiratory Rate 18 18 18 Blood Pressure 100/69 140/68 Pulse Oximetry 94 L 94 L 04/01/18 20:12 04/01/18 20:30 04/01/18 20:45 Temperature 97.3 F L 97.3 F L 97.3 F L Pulse Rate 110 H 95 H 95 H Respiratory Rate 14 14 14 Blood Pressure 145/72 H 134/69 131/62 Pulse Oximetry 99 100 100 04/01/18 21:00 04/01/18 21:15 04/01/18 23:00 Temperature 97.3 F L 98.0 F Pulse Rate 93 H 103 H 95 H Respiratory Rate 14 14 18 Blood Pressure 125/69 126/63 Pulse Oximetry 100 96 04/02/18 00:00 04/02/18 04:00 Temperature 98.6 F 98.2 F Pulse Rate 96 H 103 H Respiratory Rate 18 18 Blood Pressure 139/77 92/55 L Pulse Oximetry 93 L 93 L Intake & Output 04/01/18 04/02/18 04/02/18 18:59 06:59 18:59 Intake Total 1500 / 1500 Output Total 10 / 10 Balance 1490 / 1490 Weight 78.6 kg Intake: IV 1000 / 1000 LR 1000 mL Inj 1,000 ML @ 30 1000 / 1000 mls/hr IV.SIG .Q24H [facility] Rx#: [id number] Anesthesia Amount 500 / 500 Output: Estimated Blood Loss 10 / 10 Narrative: GENERAL: No acute distress. SKIN: Focused skin assessment warm/dry. HEAD: Atraumatic. Normocephalic. EYES: Pupils equal and round. No scleral icterus. No injection or drainage. ENT: No nasal bleeding or discharge. Mucous membranes pink and moist. NECK: Trachea midline. No JVD. CARDIOVASCULAR: Regular rate and rhythm. No murmur appreciated. RESPIRATORY: Mild expiratory wheezing, no crackles. left upper chest PermCath in place. GASTROINTESTINAL: Abdomen soft, non tender, positive bowel sounds. MUSCULOSKELETAL: LLE: external fixator in place NEUROLOGICAL: Awake and alert. No obvious cranial nerve deficits. Motor grossly within normal limits. Normal speech. PSYCHIATRIC: Appropriate mood and affect; insight and judgment normal. Results - Labs CBC & Chem 7: 04/02/18 15:30 04/03/18 05:19 Laboratory Results - last 24 hr 04/01/18 04/01/18 04/01/18 10:03 11:38 11:38 WBC 9.4 RBC 3.38 L Hgb 9.8 L Hct 29.6 L MCV 87.7 MCH 28.9 MCHC 32.9 RDW 14.5 Plt Count 291 MPV 8.0 Neut % (Auto) 75.4 H Lymph % (Auto) 14.9 Henry % (Auto) 7.9 Eos % (Auto) 1.4 Baso % (Auto) 0.4 Neut # (Auto) 7.1 Lymph # (Auto) 1.4 Henry # (Auto) 0.7 Eos # (Auto) 0.1 Baso # (Auto) 0.0 WBC Differential . Differential Comment Auto diff final Sodium 138 Potassium 3.8 D Chloride 97 L Carbon Dioxide 26.5 Anion Gap 15 BUN 46 H Creatinine 8.00 H Estimated GFR 6 L POC Glucose 252 H Random Glucose 215 H Calcium 7.8 L 04/01/18 04/01/18 04/02/18 12:53 20:54 03:15 WBC RBC Hgb Hct MCV MCH MCHC RDW Plt Count MPV Neut % (Auto) Lymph % (Auto) Henry % (Auto) Eos % (Auto) Baso % (Auto) Neut # (Auto) Lymph # (Auto) Henry # (Auto) Eos # (Auto) Baso # (Auto) WBC Differential Differential Comment Sodium Potassium Chloride Carbon Dioxide Anion Gap BUN Creatinine Estimated GFR POC Glucose 174 H 304 H 419 H Random Glucose Calcium 04/02/18 08:00 WBC RBC Hgb Hct MCV MCH MCHC RDW Plt Count MPV Neut % (Auto) Lymph % (Auto) Henry % (Auto) Eos % (Auto) Baso % (Auto) Neut # (Auto) Lymph # (Auto) Henry # (Auto) Eos # (Auto) Baso # (Auto) WBC Differential Differential Comment Sodium Potassium Chloride Carbon Dioxide Anion Gap BUN Creatinine Estimated GFR POC Glucose 367 H Random Glucose Calcium Microbiology 03/31/18 08:21 Blood - Peripheral Aerobic Blood Culture - Preliminary No growth in 1 day 03/31/18 08:21 Blood - Peripheral Anaerobic Blood Culture - Preliminary No growth in 1 day 03/31/18 08:16 Blood - Peripheral Aerobic Blood Culture - Preliminary No growth in 1 day 03/31/18 08:16 Blood - Peripheral Anaerobic Blood Culture - Preliminary No growth in 1 day - Imaging Impressions Ankle CT 04/01/18 00:00 CONCLUSION: 1. There is distraction of the posterior fracture fragment involving the posterior calcaneus by approximately 1.9 cm on the sagittal images. 2. The internal fixation screw remains in place. Ankle X-Ray 04/01/18 00:00 CONCLUSION: Status post placement of external fixation hardware in the calcaneus. Foot X-Ray 04/01/18 00:00 CONCLUSION: Internal and external fixation hardware in the calcaneus. Foot X-Ray 04/01/18 00:00 CONCLUSION: Intraoperative images. - Procedures - Preoperative Diagnosis (1) Calcaneal fracture - Postoperative Diagnosis (1) Calcaneal fracture Date of procedure: 04/01/18 Procedure: ORIF left calcaneus External fixation left calcaneus Human placenta graft left calcaneus Assessment and Plan - Plan 1. Intractable nausea and vomit giving supportive care and following on PPIs and Carafate. Improved 2. ESRD on HD Doctor Kenrick in for HD today, evaluated left upper chest PermCath no signs of infection. status post HD improved electrolytes. had HD today 3. Probable allergic reaction versus true pneumonia discussed with Doctor Feng due to Immunodeficiency, Leukocytosis, low grade fever will cover with broad spectrum antibiotics, and follow CXR, and Leukocytosis, also supportive care with Bronchodilator, Mucolytic and incentive spirometry. Improved. if continue asymptomatic will follow off antibiotics. removed Levaquin 4. DM II on sliding scale. ADA diet. continue present care 5. Left calcaneal fracture status post surgery will be followed by her Primary Podiatry specialist Doctor Kailyn Yan. asked for CT ankle there's Distraction of the posterior fracture fragment involving the posterior calcaneus by Approximately 1.9 cm of the sagittal images, the internal fixation screw remains in place. with diagnosis of Calcaneal Fracture status post ORIF left calcaneus External fixation left calcaneus, Human placenta graft left calcaneus. DVT prophylaxis as per Surgical team. Code Status: Full code. Discussed Condition With: Patient and relatives in the room. Discharge Planning: Once cleared by Specialists.
--- NOTE | 2018-04-02 09:26 | P.PNNP ---
Subjective Interval history: S/P external fixator placement in OR yesterday. Awake and reporting pain today. Due for dialysis. <Natalie Adames - Last Filed: 04/02/18 09:23> Physical Exam Vital signs: Vital Signs 04/01/18 12:00 04/01/18 12:35 04/01/18 20:00 Temperature 99.0 F 98 F Pulse Rate 98 H 79 92 H Respiratory Rate 18 18 18 Blood Pressure 100/69 140/68 Pulse Oximetry 94 L 94 L 04/01/18 20:12 04/01/18 20:30 04/01/18 20:45 Temperature 97.3 F L 97.3 F L 97.3 F L Pulse Rate 110 H 95 H 95 H Respiratory Rate 14 14 14 Blood Pressure 145/72 H 134/69 131/62 Pulse Oximetry 99 100 100 04/01/18 21:00 04/01/18 21:15 04/01/18 23:00 Temperature 97.3 F L 98.0 F Pulse Rate 93 H 103 H 95 H Respiratory Rate 14 14 18 Blood Pressure 125/69 126/63 Pulse Oximetry 100 96 04/02/18 00:00 04/02/18 04:00 Temperature 98.6 F 98.2 F Pulse Rate 96 H 103 H Respiratory Rate 18 18 Blood Pressure 139/77 92/55 L Pulse Oximetry 93 L 93 L Intake & Output 04/01/18 04/02/18 04/02/18 18:59 06:59 18:59 Intake Total 1500 / 1500 Output Total 10 / 10 Balance 1490 / 1490 Weight 78.6 kg Intake: IV 1000 / 1000 LR 1000 mL Inj 1,000 ML @ 30 1000 / 1000 mls/hr IV.SIG .Q24H [facility] Rx#: [id number] Anesthesia Amount 500 / 500 Output: Estimated Blood Loss 10 10 - Constitutional no acute distress, average body habitus, cooperative - Routine HEENT Exam Head: Present: normocephalic - Routine Neck Exam Present: supple, full ROM - Routine Respiratory Exam Present: wheezes. Absent: accessory muscle use - Routine Cardiovascular Exam Present: RRR, S1, S2 - Routine Abdominal Exam Present: soft, normoactive bowel sounds - Routine Extremities Exam Present: pulses intact, normal capillary refill, AV fistula, vascular access. Absent: edema Comments: LLE with ex fix and so wrap - Routine Skin Exam Present: intact, dry, warm - Routine Neurological Exam Present: alert, oriented X3, moving all extremities - Detailed Neurological Exam: Coma Scale Eye Opening: Spontaneous Verbal Response: Oriented Motor Response: Obey commands [place] Coma Scale Total: 15 - Routine Psychiatric Exam Present: normal affect, normal thought process <Natalie Adames - Last Filed: 04/02/18 09:23> Vital signs: Vital Signs 04/01/18 20:00 04/01/18 20:12 04/01/18 20:30 Temperature 98 F 97.3 F L 97.3 F L Pulse Rate 92 H 110 H 95 H Respiratory Rate 18 14 14 Blood Pressure 140/68 145/72 H 134/69 Pulse Oximetry 94 L 99 100 04/01/18 20:45 04/01/18 21:00 04/01/18 21:15 Temperature 97.3 F L 97.3 F L 98.0 F Pulse Rate 95 H 93 H 103 H Respiratory Rate 14 14 14 Blood Pressure 131/62 125/69 126/63 Pulse Oximetry 100 100 96 04/01/18 23:00 04/02/18 00:00 04/02/18 04:00 Temperature 98.6 F 98.2 F Pulse Rate 95 H 96 H 103 H Respiratory Rate 18 18 18 Blood Pressure 139/77 92/55 L Pulse Oximetry 93 L 93 L Intake & Output 04/01/18 04/02/18 04/02/18 18:59 06:59 18:59 Intake Total 1500 / 1500 Output Total 10 / 10 3000 / 3000 Balance 1490 / 1490 -3000 / -3000 Weight 78.6 kg Intake: IV 1000 / 1000 LR 1000 mL Inj 1,000 ML @ 30 1000 / 1000 mls/hr IV.SIG .Q24H [facility] Rx#: [id number] Anesthesia Amount 500 / 500 Output: Hemodialysis Amount 3000 / 3000 Estimated Blood Loss Other: Date of Last Bowel Movement 03/30/18 <Karthikeyan Choudhary - Last Filed: 04/02/18 13:48> Assessment and Plan - Assessment (1) ESRD (end stage renal disease) Code(s): N18.6 - End stage renal disease Status: Acute Plan: HD MWF. Due today. Permcath for HD use. Her AV access RUE is not ready for use. Avoid IVF High protein diet. [id number] phosphorus binders. Outpatient HD arrangements at [place]. (2) Fever Code(s): R50.9 - Fever, unspecified Status: Acute Plan: Resolved. On Levaquin to cover HCAP give recent hospital admission. PermCath site unremarkable (3) Hypocalcemia Code(s): E83.51 - Hypocalcemia Status: Acute Plan: Hx parathyroidectomy Ordered Tums. Avoid IV calcium administration. On calcium acetate as a phosphate binder. Also on calcitriol. (4) Metabolic bone disease Code(s): E88.9 - Metabolic disorder, unspecified; M90.80 - Osteopathy in diseases classified elsewhere, unspecified site Status: Acute Plan: Calcium acetate with meals has been ordered Monitor phosphorus level periodically. (5) DM (diabetes mellitus), type 2, uncontrolled Code(s): E11.65 - Type 2 diabetes mellitus with hyperglycemia Status: Acute Plan: Use insulin as needed, maintain glucose 140-180 mg/dL. (6) Anemia Code(s): D64.9 - Anemia, unspecified Status: Acute Plan: Epogen ordered with dialysis. <Natalie Adames - Last Filed: 04/02/18 09:23> - Assessment (1) ESRD (end stage renal disease) Code(s): N18.6 - End stage renal disease Status: Acute (2) Fever Code(s): R50.9 - Fever, unspecified Status: Acute (3) Hypocalcemia Code(s): E83.51 - Hypocalcemia Status: Acute (4) Metabolic bone disease Code(s): E88.9 - Metabolic disorder, unspecified; M90.80 - Osteopathy in diseases classified elsewhere, unspecified site Status: Acute (5) DM (diabetes mellitus), type 2, uncontrolled Code(s): E11.65 - Type 2 diabetes mellitus with hyperglycemia Status: Acute (6) Anemia Code(s): D64.9 - Anemia, unspecified Status: Acute - Attending Attestation patient was seen and examined. Agree with above assessment and plan. Consider stopping Levaquin. Repeat phosphorus. <Karthikeyan Choudhary - Last Filed: 04/02/18 13:48>
[2018-04-02] MEDS ORDERED: Levofloxacin 500 mg Premix Inj 500 MG/100 ML PIGGYBACK IV.SIG SCH (13:00)
[2018-04-02] MEDS: guaiFENesin 600 MG ER Tablet PO SCH ×2 (13:53→20:45)
[2018-04-02] MEDS: Senna/Docusate Sodium 8.6/50 MG Tablet PO SCH ×2 (13:54→20:46)
[2018-04-02] MEDS: Calcitriol 0.25 MCG Capsule PO SCH (13:54)
[2018-04-02] MEDS: Gabapentin 300 MG Capsule PO SCH (13:55)
[2018-04-02] MEDS: oxyCODONE/Acetaminophen 10/325 Tablet PO PRN ×2 (14:27→20:44)
[2018-04-02 15:57] LABS: Baso # (Auto) 0.1 th/mm3 (0.0-0.2); Baso % (Auto) 0.7 % (0.0-2.0); Eos # (Auto) 0.1 th/mm3 (0.0-0.4); Eos % (Auto) 0.7 % (0.0-4.0); Hematocrit 32.3 % (35.0-46.0); Hemoglobin 10.4 gm/dL (11.6-15.3); Lymph # (Auto) 1.7 th/mm3 (1.0-4.8); Lymph % (Auto) 13.1 % (9.0-44.0); Mean Corpuscular HGB Conc 32.2 % (32.0-36.0); Mean Corpuscular Hemoglobin 28.3 pg (27.0-34.0); Mean Platelet Volume 8.3 fL (7.0-11.0); Mono % (Auto) 7.6 % (0.0-8.0); Neut # (Auto) 10.1 th/mm3 (1.8-7.7); Neut % (Auto) 77.9 % (16.0-70.0); Platelet Count 361 th/mm3 (150-450); Red Blood Count 3.67 mil/mm3 (4.00-5.30); Red Cell Distribution Width 14.6 % (11.6-17.2); White Blood Count 12.9 th/mm3 (4.0-11.0)
--- NOTE | 2018-04-02 18:27 | P.PNPOD ---
Subjective Interval history: s/p ORIF with external fixation left calcaneus fracture Physical Exam Vital signs: Vital Signs 04/01/18 20:00 04/01/18 20:12 04/01/18 20:30 Temperature 98 F 97.3 F L 97.3 F L Pulse Rate 92 H 110 H 95 H Respiratory Rate 18 14 14 Blood Pressure 140/68 145/72 H 134/69 Pulse Oximetry 94 L 99 100 04/01/18 20:45 04/01/18 21:00 04/01/18 21:15 Temperature 97.3 F L 97.3 F L 98.0 F Pulse Rate 95 H 93 H 103 H Respiratory Rate 14 14 14 Blood Pressure 131/62 125/69 126/63 Pulse Oximetry 100 100 96 04/01/18 23:00 04/02/18 00:00 04/02/18 04:00 Temperature 98.6 F 98.2 F Pulse Rate 95 H 96 H 103 H Respiratory Rate 18 18 18 Blood Pressure 139/77 92/55 L Pulse Oximetry 93 L 93 L Intake & Output 04/01/18 04/02/18 04/02/18 18:59 06:59 18:59 Intake Total 1500 / 1500 Output Total 10 / 10 3000 / 3000 Balance 1490 / 1490 -3000 / -3000 Weight 78.6 kg Intake: IV 1000 / 1000 LR 1000 mL Inj 1,000 ML @ 30 1000 / 1000 mls/hr IV.SIG .Q24H [facility] Rx#: [id number] Anesthesia Amount 500 / 500 Output: Hemodialysis Amount 3000 / 3000 Estimated Blood Loss 10 / 10 Other: Date of Last Bowel Movement 03/30/18 Medications and Allergies Active Medications: Active Medications Acetaminophen (Tylenol) 650 mg PO Q4H PRN PRN Reason: Temp > 100.4 Al Hydroxide/Mg Hydroxide (Milk Of Magnesia Liq) 30 ml PO Q12H PRN PRN Reason: Mild Constipation Albuterol (Duoneb Neb (Bárbara)) 1 ampul NEB Q4HR NEB BÁRBARA Last Admin: 04/02/18 16:19 Dose: 1 ampul Bisacodyl (Dulcolax Supp) 10 mg RECTAL DAILY PRN PRN Reason: SEVERE CONSITIPATION Calcitriol (Rocaltrol) 0.25 mcg PO DAILY BÁRBARA Last Admin: 04/02/18 13:54 Dose: Not Given Calcium Acetate (Phoslo) 2,001 mg PO TIDAC [facility] Last Admin: 04/02/18 16:12 Dose: 2,001 mg Chlorhexidine Gluconate (Chlorhexidine 2% Cloth) 3 pack [employer] [facility] Stop: 04/04/18 03:47 Clonidine HCl (Catapres) 0.1 mg PO UNSCH PRN PRN Reason: SEE LABEL COMMENTS Diphenhydramine HCl (Benadryl) 25 mg PO UNSCH PRN PRN Reason: SEE LABEL COMMENTS Last Admin: 04/02/18 02:37 Dose: 25 mg Epoetin Greg (Epogen Inj) 4,000 unit IV.PUSH UNSCH PRN PRN Reason: SEE LABEL COMMENTS Last Admin: 04/02/18 11:09 Dose: 4,000 unit Eszopiclone (Lunesta) 3 mg PO HS [facility] Last Admin: 04/01/18 22:28 Dose: 3 mg Fluconazole (Diflucan) 150 mg PO Q3D [facility] Last Admin: 03/31/18 13:24 Dose: 150 mg Gabapentin (Neurontin) 300 mg PO DAILY [facility] Last Admin: 04/02/18 13:55 Dose: Not Given Gelatin (Gelfoam 12 Mm/7 Mm Topical) 1 foam TOPICAL PRN PRN PRN Reason: help stop bleeding from site Gentamicin Sulfate (Gentamicin Inj) 20 mg OTHER WITH DIALYSIS PRN PRN Reason: Dwell Gentamycin Lock Last Admin: 04/02/18 11:09 Dose: 20 mg Guaifenesin (Mucinex Er) 600 mg PO BID [facility] Last Admin: 04/02/18 13:53 Dose: Not Given Heparin Sodium (Porcine) (Heparin Inj) 8,000 units OTHER WITH DIALYSIS PRN PRN Reason: for machine prime Heparin Sodium (Porcine) (Heparin Inj) 1,000 units OTHER WITH DIALYSIS PRN PRN Reason: Dwell Heparin to Fill Catheter Last Admin: 04/02/18 11:09 Dose: 1,000 units Hydromorphone HCl (Dilaudid Pf Inj) 0.5 mg IV.PUSH Q4H PRN PRN Reason: PAIN SCALE 6 TO 10 Levofloxacin/Dextrose (Levaquin 500 Mg Premix Inj) 500 mg in 100 mls @ 100 mls/ hr IV.SIG Q48H [facility] Last Infusion: 04/02/18 17:56 Dose: 100 mls/hr Sodium Chloride (Ns Inj) 1,000 mls @ 200 mls/hr OTHER .Q5H PRN PRN Reason: for dialyzer flush PRN Sodium Chloride (Ns Inj) 1,000 mls @ 0 mls/hr IV.CONT .Q0M PRN PRN Reason: hypotension / volume replace Albumin Human (Flexbumin 25% Inj) 100 mls @ 60 mls/hr IV.SIG WITH DIALYSIS PRN PRN Reason: hypotension / volume replace Sodium Chloride (Ns Inj) 1,000 mls @ 0 mls/hr OTHER .Q0M PRN PRN Reason: for prime and rinse back Lactated Ringer's (Lr 1000 Ml Inj) 1,000 mls @ 30 mls/hr IV.SIG .Q24H [facility] Stop: 04/04/18 03:47 Last Admin: 04/02/18 04:53 Dose: 30 mls/hr Sodium Chloride (Ns Inj) 500 mls @ 30 mls/hr IV.SIG .Q10H [facility] Stop: 04/04/18 03:47 Insulin Aspart (Novolog Insulin Correctional Sugar Inj) 0 unit SQ 07,13,19,01 [facility]; Protocol Last Admin: 04/02/18 17:20 Dose: Not Given Lactulose (Lactulose Liq) 30 ml PO DAILY PRN PRN Reason: SEVERE CONSITIPATION Lorazepam (Ativan) 0.5 mg PO Q6H PRN PRN Reason: ANXIETY Last Admin: 04/02/18 02:37 Dose: 0.5 mg Mannitol (Mannitol Inj) 12.5 gm IV.PUSH UNSCH PRN PRN Reason: hypotension / volume replace Miscellaneous Information ([facility] [place] [facility]) 1 each OTHER UNSCH PRN PRN Reason: SEE LABEL COMMENTS Stop: 04/02/18 21:14 Nitroglycerin (Nitrostat Sl) 0.4 mg SL Q5M PRN PRN Reason: CHEST PAIN Ondansetron HCl (Zofran Inj) 4 mg IV.PUSH Q4H PRN PRN Reason: NAUSEA OR VOMITING Ondansetron HCl (Zofran Inj) 4 mg IV.PUSH UNSCH PRN PRN Reason: NAUSEA OR VOMITING Oxycodone/Acetaminophen (Percocet 10/325 Mg) 1 tab PO Q6H PRN PRN Reason: 1-10 Last Admin: 04/02/18 14:27 Dose: 1 tab Pantoprazole Sodium (Protonix) 40 mg PO DAILY [facility] Last Admin: 04/02/18 13:54 Dose: Not Given Povidone Iodine (Betadine 5% Antisepsis Kit) 1 applicatio EACH [employer] [facility] Stop: 04/04/18 03:47 Senna/Docusate Sodium (Hailey-Colace) 1 tab PO BID [facility] Last Admin: 04/02/18 13:54 Dose: Not Given Sennosides (Senokot) 17.2 mg PO Q12H PRN PRN Reason: Moderate Constipation Sevelamer Carbonate (Renvela) 2,400 mg PO TIDAC [facility] Last Admin: 04/02/18 17:51 Dose: 2,400 mg Sodium Chloride (Ns Flush) 5 ml IV.FLUSH PRN PRN PRN Reason: flush each lumen during HD Allergies Allergy/AdvReac Type Severity Reaction Status Date / Time coconut Allergy Severe HIVES Verified 03/23/18 20:46 diatrizoate meglumine Allergy Severe RENAL Verified 03/31/18 06:43 FAILURE gadobenic acid Allergy Severe RENAL Verified 03/31/18 06:43 FAILURE gadodiamide Allergy Severe RENAL Verified 03/31/18 06:43 FAILURE gadoteridol Allergy Severe RENAL Verified 03/31/18 06:43 FAILURE iodixanol Allergy Severe RENAL Verified 03/31/18 06:43 FAILURE iohexol Allergy Severe RENAL Verified 03/31/18 06:43 FAILURE morphine Allergy Severe HIVES Verified 03/31/18 06:43 azithromycin Allergy Intermediate HIVES Verified 03/31/18 06:43 clindamycin Allergy Intermediate HIVES Verified 03/31/18 06:43 erythromycin base Allergy Intermediate HIVES Verified 03/31/18 06:44 penicillin G Allergy Intermediate Hives Verified 03/31/18 06:44 midodrine Allergy Unknown Atrial Verified 03/31/18 06:44 Fibrillation codeine AdvReac Severe HALLUCINATI Verified 03/31/18 06:44 ONS insulin aspart AdvReac Severe REGULAR Verified 03/31/18 06:44 INSULIN ONLY-CAUSES CRAMPIN G AND "FREEZING" insulin aspart protamine AdvReac Severe REGULAR Verified 03/31/18 06:44 human INSULIN ONLY-CAUSES CRAMPIN G AND "FREEZING" insulin detemir AdvReac Severe REGULAR Verified 03/31/18 06:44 INSULIN ONLY-CAUSES CRAMPIN G AND "FREEZING" insulin glargine AdvReac Severe REGULAR Verified 03/31/18 06:44 INSULIN ONLY-CAUSES CRAMPIN G AND "FREEZING" insulin isophane (NPH) AdvReac Severe REGULAR Verified 03/31/18 06:44 INSULIN ONLY-CAUSES CRAMPIN G AND "FREEZING" insulin lispro AdvReac Severe REGULAR Verified 03/31/18 06:44 INSULIN ONLY-CAUSES CRAMPIN G AND "FREEZING" insulin regular AdvReac Severe REGULAR Verified 03/31/18 06:44 INSULIN ONLY-CAUSES CRAMPIN G AND "FREEZING" vancomycin AdvReac Mild NAUSEA/VOMITING Verified 03/31/18 06:44 WHEN INFUSED TOO FAST Home Medications Medication Instructions Recorded Confirmed Type Novolog U-100 Insulin aspart 6.5 units SUB-Q QID #0 03/23/18 03/31/18 History gabapentin 300 mg PO DAILY 03/23/18 03/31/18 History eszopiclone [Lunesta] 1 tab PO HS 03/24/18 03/31/18 History fluconazole [Diflucan] 150 mg PO Q3D 03/24/18 03/31/18 History oxycodone-acetaminophen 1 tab PO Q6HR PRN 03/30/18 03/31/18 History Results - Labs CBC & Chem 7: 04/02/18 15:30 04/01/18 11:38 Laboratory Results - last 24 hr 04/01/18 04/02/18 04/02/18 20:54 03:15 08:00 WBC RBC Hgb Hct MCV MCH MCHC RDW Plt Count MPV Neut % (Auto) Lymph % (Auto) [place] % (Auto) Eos % (Auto) Baso % (Auto) Neut # (Auto) Lymph # (Auto) [place] # (Auto) Eos # (Auto) Baso # (Auto) WBC Differential Differential Comment POC Glucose 304 H 419 H 367 H Phosphorus 04/02/18 04/02/18 04/02/18 11:47 15:30 15:30 WBC 12.9 H RBC 3.67 L Hgb 10.4 L Hct 32.3 L MCV 88.0 MCH 28.3 MCHC 32.2 RDW 14.6 Plt Count 361 MPV 8.3 Neut % (Auto) 77.9 H Lymph % (Auto) 13.1 [place] % (Auto) 7.6 Eos % (Auto) 0.7 Baso % (Auto) 0.7 Neut # (Auto) 10.1 H Lymph # (Auto) 1.7 [place] # (Auto) 1.0 H Eos # (Auto) 0.1 Baso # (Auto) 0.1 WBC Differential . Differential Comment Auto diff final POC Glucose 147 H Phosphorus 4.1 04/02/18 17:34 WBC RBC Hgb Hct MCV MCH MCHC RDW Plt Count MPV Neut % (Auto) Lymph % (Auto) [place] % (Auto) Eos % (Auto) Baso % (Auto) Neut # (Auto) Lymph # (Auto) [place] # (Auto) Eos # (Auto) Baso # (Auto) WBC Differential Differential Comment POC Glucose 272 H Phosphorus Microbiology 03/31/18 08:21 Blood - Peripheral Aerobic Blood Culture - Preliminary No growth in 2 days 03/31/18 08:21 Blood - Peripheral Anaerobic Blood Culture - Preliminary No growth in 2 days 03/31/18 08:16 Blood - Peripheral Aerobic Blood Culture - Preliminary No growth in 2 days 03/31/18 08:16 Blood - Peripheral Anaerobic Blood Culture - Preliminary No growth in 2 days - Imaging Impressions Ankle X-Ray 04/01/18 00:00 CONCLUSION: Status post placement of external fixation hardware in the calcaneus. Foot X-Ray 04/01/18 00:00 CONCLUSION: Internal and external fixation hardware in the calcaneus. Foot X-Ray 04/01/18 00:00 CONCLUSION: Intraoperative images. - Procedures - Preoperative Diagnosis (1) Calcaneal fracture - Postoperative Diagnosis (1) Calcaneal fracture Date of procedure: 04/01/18 Procedure: ORIF left calcaneus External fixation left calcaneus Human placenta graft left calcaneus Assessment and Plan - Assessment (1) Calcaneal fracture Code(s): S92.009A - Unspecified fracture of unspecified calcaneus, initial encounter for closed fracture Status: Acute Plan: s/p ORIF with exfix Left calcaneus 04/01/18 Dr Piedra Plan to change bandage tomorrow Continue strict nonweightbearing left lower extremity Continue DVT prophylaxis and Levaquin (1) Calcaneal fracture Qualifiers: Encounter type: subsequent encounter Calcaneus location: body Fracture type : closed Fracture alignment: displaced Laterality: left Fracture healing: with routine healing Qualified Code(s): S92.012D - Displaced fracture of body of left calcaneus, subsequent encounter for fracture with routine healing
[2018-04-02] MEDS: HYDROmorphone PF Inj 2 MG/ML Vial IV.PUSH PRN (23:03)
[2018-04-03] MEDS: Insulin NovoLOG Aspart Correctional Sugar Inj SQ SCH ×4 (01:55→19:13)
[2018-04-03] MEDS: HYDROmorphone PF Inj 2 MG/ML Vial IV.PUSH PRN ×3 (04:07→18:34)
[2018-04-03 07:14] LABS: Albumin 2.9 g/dL (3.4-5.0); Calcium 7.6 mg/dL (8.5-10.1); Carbon Dioxide 31.1 meq/L (21.0-32.0); Phosphorus 4.4 mg/dL (2.5-4.9); Potassium 3.6 meq/L (3.5-5.1)
--- NOTE | 2018-04-03 08:38 | P.PN ---
Subjective Interval history: This is a pleasant 52 y/o Female who came to ER with abdominal pain, started 2 days ago, she had surgery on her left heel one week ago, Last bowel movement was yesterday and she is passing flatus. pain is described as being constant, nonradiating, 6 out of 10, gastric area, aggravated by cough and alleviated by lying down. States that she is coughing up white, thick phlegm. Also reports fever and chills, with T-max being 100 last night. Reports nausea and vomiting with emesis being greenish. She denies chest pain, shortness of breath, or diarrhea. Also states that she is not on any antibiotics. Patient is a dialysis patient and she is dialyzed Thursday, and she completed dialysis Thursday without any problems. She does not make any urine. Seen in her bedroom, in the presence of her Mr. Maikol Cortez he states since the Surgery Last Thursday on her left foot, she developed after surgery sore throat and cough, but switch to be productive of White phlegm, discussed with Doctor Jung in ER due to low grade fever, Immunocompromised patient, Leukocytosis, positive X ray with probable infiltrates, and mild expiratory wheezing on exam, will need antibiotics, Doctor Choudhary In to see the patient he evaluated the PermCath and no signs of infection but definitely needs Hemodialysis, no signs of volume overload but worsening Creatinine level. she has hypercalcemia in a patient that normally has acted with hypocalcemia, as per Doctor Choudhary he will handle Electrolytes. notified also Doctor Kailyn Yan Podiatry specialist for evaluation. 04/01: Seen in her bedroom, Podiatry specialist asked for CT of the right ankle giving result there's Distraction of the posterior fracture fragment involving the posterior calcaneus by Approximately 1.9 cm of the sagittal images, the internal fixation screw remains in place. no nausea, vomit or diarrhea Improved her Abdominal pain also. 04/02: Status post Surgery with diagnosis of Left Calcaneal Fracture procedure performed ORIF, External Fixation, Human placenta graft. stable in her room, seen in the presence of relatives and her , agree with no need for Levaquin no signs of infection removed Levaquin, had HD today. has Orthotics on her left ankle area. 04/03: Discussed with patient and her in the room, asking for pain medicine was increased Dilaudid to every two hours and Oxycodone to every four hours. patient at this time, without pain, but as per her was in pain during the night. no nausea vomit or diarrhea. Physical Exam Vital signs: Vital Signs 04/02/18 20:00 04/03/18 00:00 04/03/18 04:00 Temperature 97.9 F 98 F 98 F Pulse Rate 113 H 102 H 102 H Respiratory Rate 22 21 20 Blood Pressure 106/53 L 110/55 L 90/45 L Pulse Oximetry 94 L 94 L 95 Intake & Output 04/02/18 04/03/18 04/03/18 18:59 06:59 18:59 Intake Total 100 / 100 Output Total 3000 / 3000 Balance -2900 / -2900 Intake: IV 100 / 100 Levaquin 500 mg Premix Inj 500 100 / 100 mg In 100 ml @ 100 mls/hr IV. SIG Q48H [id number] Rx#:[id number] Output: Hemodialysis Amount 3000 / 3000 Other: Date of Last Bowel Movement 03/30/18 Narrative: GENERAL: No acute distress. SKIN: Focused skin assessment warm/dry. HEAD: Atraumatic. Normocephalic. EYES: Pupils equal and round. No scleral icterus. No injection or drainage. ENT: No nasal bleeding or discharge. Mucous membranes pink and moist. NECK: Trachea midline. No JVD. CARDIOVASCULAR: Regular rate and rhythm. No murmur appreciated. RESPIRATORY: Mild expiratory wheezing, no crackles. left upper chest PermCath in place. GASTROINTESTINAL: Abdomen soft, non tender, positive bowel sounds. MUSCULOSKELETAL: LLE: external fixator in place NEUROLOGICAL: Awake and alert. No obvious cranial nerve deficits. Motor grossly within normal limits. Normal speech. PSYCHIATRIC: Appropriate mood and affect; insight and judgment normal. Results - Labs CBC & Chem 7: 04/02/18 15:30 04/03/18 05:19 Laboratory Results - last 24 hr 04/02/18 04/02/18 04/02/18 11:47 15:30 15:30 WBC 12.9 H RBC 3.67 L Hgb 10.4 L Hct 32.3 L MCV 88.0 MCH 28.3 MCHC 32.2 RDW 14.6 Plt Count 361 MPV 8.3 Neut % (Auto) 77.9 H Lymph % (Auto) 13.1 [place] % (Auto) 7.6 Eos % (Auto) 0.7 Baso % (Auto) 0.7 Neut # (Auto) 10.1 H Lymph # (Auto) 1.7 [place] # (Auto) 1.0 H Eos # (Auto) 0.1 Baso # (Auto) 0.1 WBC Differential . Differential Comment Auto diff final Sodium Potassium Chloride Carbon Dioxide Anion Gap BUN Creatinine Estimated GFR POC Glucose 147 H Random Glucose Calcium Phosphorus 4.1 Albumin 04/02/18 04/02/18 04/03/18 17:34 21:18 01:51 WBC RBC Hgb Hct MCV MCH MCHC RDW Plt Count MPV Neut % (Auto) Lymph % (Auto) [place] % (Auto) Eos % (Auto) Baso % (Auto) Neut # (Auto) Lymph # (Auto) [place] # (Auto) Eos # (Auto) Baso # (Auto) WBC Differential Differential Comment Sodium Potassium Chloride Carbon Dioxide Anion Gap BUN Creatinine Estimated GFR POC Glucose 272 H 223 H 205 H Random Glucose Calcium Phosphorus Albumin 04/03/18 04/03/18 05:19 06:03 WBC RBC Hgb Hct MCV MCH MCHC RDW Plt Count MPV Neut % (Auto) Lymph % (Auto) [place] % (Auto) Eos % (Auto) Baso % (Auto) Neut # (Auto) Lymph # (Auto) [place] # (Auto) Eos # (Auto) Baso # (Auto) WBC Differential Differential Comment Sodium 137 Potassium 3.6 Chloride 93 L Carbon Dioxide 31.1 Anion Gap 13 BUN 35 H Creatinine 6.79 H Estimated GFR 8 L POC Glucose 207 H Random Glucose 181 H Calcium 7.6 L Phosphorus 4.4 Albumin 2.9 L Microbiology 03/31/18 08:21 Blood - Peripheral Aerobic Blood Culture - Preliminary No growth in 2 days 03/31/18 08:21 Blood - Peripheral Anaerobic Blood Culture - Preliminary No growth in 2 days 03/31/18 08:16 Blood - Peripheral Aerobic Blood Culture - Preliminary No growth in 2 days 03/31/18 08:16 Blood - Peripheral Anaerobic Blood Culture - Preliminary No growth in 2 days - Procedures - Preoperative Diagnosis (1) Calcaneal fracture - Postoperative Diagnosis (1) Calcaneal fracture Date of procedure: 04/01/18 Procedure: ORIF left calcaneus External fixation left calcaneus Human placenta graft left calcaneus Assessment and Plan - Plan 1. Intractable nausea and vomit giving supportive care and following on PPIs and Carafate. Improved 2. ESRD on HD Doctor Kenrick in for HD today, evaluated left upper chest PermCath no signs of infection. status post HD improved electrolytes. had HD today 3. Probable allergic reaction versus true pneumonia discussed with Doctor Feng due to Immunodeficiency, Leukocytosis, low grade fever will cover with broad spectrum antibiotics, and follow CXR, and Leukocytosis, also supportive care with Bronchodilator, Mucolytic and incentive spirometry. Improved. if continue asymptomatic will follow off antibiotics. removed Levaquin 4. DM II on sliding scale. ADA diet. Patient eating a cake at this time will be difficult to control her blood sugar if continue eating candy and sweet foods. will continue present care by now and will need Diabetes educations asked for consult. 5. Left calcaneal fracture status post surgery will be followed by her Primary Podiatry specialist Doctor Kailyn Yan. asked for CT ankle there's Distraction of the posterior fracture fragment involving the posterior calcaneus by Approximately 1.9 cm of the sagittal images, the internal fixation screw remains in place. with diagnosis of Calcaneal Fracture status post ORIF left calcaneus External fixation left calcaneus, Human placenta graft left calcaneus. Adjusted pain medicines. DVT prophylaxis as per Surgical team. Code Status: Full code. Discussed Condition With: Patient nurse and her in the room, charge nurse. Discharge Planning: Once cleared by Specialists.
[2018-04-03] MEDS: Senna/Docusate Sodium 8.6/50 MG Tablet PO SCH ×2 (08:54→21:16)
[2018-04-03] MEDS: Calcium Acetate 667 MG Capsule PO SCH ×3 (08:54→19:12)
[2018-04-03] MEDS: guaiFENesin 600 MG ER Tablet PO SCH ×2 (08:54→21:16)
[2018-04-03] MEDS: Calcitriol 0.25 MCG Capsule PO SCH (08:54)
[2018-04-03] MEDS: oxyCODONE/Acetaminophen 10/325 Tablet PO PRN ×4 (08:54→21:17)
[2018-04-03] MEDS: Gabapentin 300 MG Capsule PO SCH ×2 (08:54→21:16)
[2018-04-03] MEDS: LORazepam 0.5 MG Tablet PO PRN ×2 (11:18→19:39)
[2018-04-03] MEDS: Fluconazole 100 MG Tablet PO SCH (12:14)
--- NOTE | 2018-04-03 13:05 | P.PNPOD ---
Physical Exam Vital signs: Vital Signs 04/02/18 20:00 04/03/18 00:00 04/03/18 04:00 Temperature 97.9 F 98 F 98 F Pulse Rate 113 H 102 H 102 H Respiratory Rate 22 21 20 Blood Pressure 106/53 L 110/55 L 90/45 L Pulse Oximetry 94 L 94 L 95 04/03/18 08:00 04/03/18 11:59 Temperature 97.9 F 98.5 F Pulse Rate 71 104 H Respiratory Rate 18 18 Blood Pressure 123/81 91/53 L Pulse Oximetry 92 L 94 L Intake & Output 04/02/18 04/03/18 04/03/18 18:59 06:59 18:59 Intake Total 100 / 100 Output Total 3000 / 3000 Balance -2900 / -2900 Intake: IV 100 / 100 Levaquin 500 mg Premix Inj 500 100 / 100 mg In 100 ml @ 100 mls/hr IV. SIG Q48H [facility] Rx#:[id number] Output: Hemodialysis Amount 3000 / 3000 Other: Date of Last Bowel Movement 03/30/18 04/01/18 Narrative: NVI Left lower extremity. Splint clean, dry, intact. Medications and Allergies Active Medications: Active Medications Acetaminophen (Tylenol) 650 mg PO Q4H PRN PRN Reason: Temp > 100.4 Al Hydroxide/Mg Hydroxide (Milk Of Monserrat Liq) 30 ml PO Q12H PRN PRN Reason: Mild Constipation Albuterol (Duoneb Neb ([facility])) 1 ampul NEB Q4HR NEB [facility] Last Admin: 04/03/18 11:26 Dose: Not Given Bisacodyl (Dulcolax Supp) 10 mg RECTAL DAILY PRN PRN Reason: SEVERE CONSITIPATION Calcitriol (Rocaltrol) 0.25 mcg PO DAILY [facility] Last Admin: 04/03/18 08:54 Dose: 0.25 mcg Calcium Acetate (Phoslo) 2,001 mg PO TIDAC [facility] Last Admin: 04/03/18 12:17 Dose: Not Given Chlorhexidine Gluconate (Chlorhexidine 2% Cloth) 3 pack TOPICAL DISASTER [employer]SE DIRECTOR [facility] Stop: 04/04/18 03:47 Clonidine HCl (Catapres) 0.1 mg PO UNSCH PRN PRN Reason: SEE LABEL COMMENTS Diphenhydramine HCl (Benadryl) 25 mg PO UNSCH PRN PRN Reason: SEE LABEL COMMENTS Last Admin: 04/02/18 02:37 Dose: 25 mg Epoetin Greg (Epogen Inj) 4,000 unit IV.PUSH UNSCH PRN PRN Reason: SEE LABEL COMMENTS Last Admin: 04/02/18 11:09 Dose: 4,000 unit Eszopiclone (Lunesta) 3 mg PO HS [facility] Last Admin: 04/02/18 20:45 Dose: 3 mg Fluconazole (Diflucan) 150 mg PO Q3D [facility] Last Admin: 04/03/18 12:14 Dose: 150 mg Gabapentin (Neurontin) 300 mg PO BID [facility] Gelatin (Gelfoam 12 Mm/7 Mm Topical) 1 foam TOPICAL PRN PRN PRN Reason: help stop bleeding from site Gentamicin Sulfate (Gentamicin Inj) 20 mg OTHER WITH DIALYSIS PRN PRN Reason: Dwell Gentamycin Lock Last Admin: 04/02/18 11:09 Dose: 20 mg Guaifenesin (Mucinex Er) 600 mg PO BID [facility] Last Admin: 04/03/18 08:54 Dose: 600 mg Heparin Sodium (Porcine) (Heparin Inj) 8,000 units OTHER WITH DIALYSIS PRN PRN Reason: for machine prime Heparin Sodium (Porcine) (Heparin Inj) 1,000 units OTHER WITH DIALYSIS PRN PRN Reason: Dwell Heparin to Fill Catheter Last Admin: 04/02/18 11:09 Dose: 1,000 units Hydromorphone HCl (Dilaudid Pf Inj) 0.5 mg IV.PUSH Q2H PRN PRN Reason: PAIN SCALE 6 TO 10 Sodium Chloride (Ns Inj) 1,000 mls @ 200 mls/hr OTHER .Q5H PRN PRN Reason: for dialyzer flush PRN Sodium Chloride (Ns Inj) 1,000 mls @ 0 mls/hr IV.CONT .Q0M PRN PRN Reason: hypotension / volume replace Albumin Human (Flexbumin 25% Inj) 100 mls @ 60 mls/hr IV.SIG WITH DIALYSIS PRN PRN Reason: hypotension / volume replace Sodium Chloride (Ns Inj) 1,000 mls @ 0 mls/hr OTHER .Q0M PRN PRN Reason: for prime and rinse back Lactated Ringer's (Lr 1000 Ml Inj) 1,000 mls @ 30 mls/hr IV.SIG .Q24H [facility] Stop: 04/04/18 03:47 Last Admin: 04/03/18 06:53 Dose: Not Given Sodium Chloride (Ns Inj) 500 mls @ 30 mls/hr IV.SIG .Q10H [facility] Stop: 04/04/18 03:47 Insulin Aspart (Novolog Insulin Correctional Sugar Inj) 0 unit SQ 07,13,19,01 [facility]; Protocol Last Admin: 04/03/18 12:14 Dose: 3 unit Lactulose (Lactulose Liq) 30 ml PO DAILY PRN PRN Reason: SEVERE CONSITIPATION Lorazepam (Ativan) 0.5 mg PO Q6H PRN PRN Reason: ANXIETY Last Admin: 04/03/18 11:18 Dose: 0.5 mg Mannitol (Mannitol Inj) 12.5 gm IV.PUSH UNSCH PRN PRN Reason: hypotension / volume replace Nitroglycerin (Nitrostat Sl) 0.4 mg SL Q5M PRN PRN Reason: CHEST PAIN Ondansetron HCl (Zofran Inj) 4 mg IV.PUSH Q4H PRN PRN Reason: NAUSEA OR VOMITING Ondansetron HCl (Zofran Inj) 4 mg IV.PUSH UNSCH PRN PRN Reason: NAUSEA OR VOMITING Oxycodone/Acetaminophen (Percocet 10/325 Mg) 1 tab PO Q4H PRN PRN Reason: PAIN 1-5 Pantoprazole Sodium (Protonix) 40 mg PO DAILY [facility] Last Admin: 04/03/18 08:53 Dose: 40 mg Povidone Iodine (Betadine 5% Antisepsis Kit) 1 applicatio EACH NARE DISASTER [employer]PONSE DIRECTOR [facility] Stop: 04/04/18 03:47 Senna/Docusate Sodium (Hailey-Colace) 1 tab PO BID [facility] Last Admin: 04/03/18 08:54 Dose: 1 tab Sennosides (Senokot) 17.2 mg PO Q12H PRN PRN Reason: Moderate Constipation Sevelamer Carbonate (Renvela) 2,400 mg PO TIDAC [facility] Last Admin: 04/03/18 12:17 Dose: 2,400 mg Sodium Chloride (Ns Flush) 5 ml IV.FLUSH PRN PRN PRN Reason: flush each lumen during HD Allergies Allergy/AdvReac Type Severity Reaction Status Date / Time coconut Allergy Severe HIVES Verified 03/23/18 20:46 diatrizoate meglumine Allergy Severe RENAL Verified 03/31/18 06:43 FAILURE gadobenic acid Allergy Severe RENAL Verified 03/31/18 06:43 FAILURE gadodiamide Allergy Severe RENAL Verified 03/31/18 06:43 FAILURE gadoteridol Allergy Severe RENAL Verified 03/31/18 06:43 FAILURE iodixanol Allergy Severe RENAL Verified 03/31/18 06:43 FAILURE iohexol Allergy Severe RENAL Verified 03/31/18 06:43 FAILURE morphine Allergy Severe HIVES Verified 03/31/18 06:43 azithromycin Allergy Intermediate HIVES Verified 03/31/18 06:43 clindamycin Allergy Intermediate HIVES Verified 03/31/18 06:43 erythromycin base Allergy Intermediate HIVES Verified 03/31/18 06:44 penicillin G Allergy Intermediate Hives Verified 03/31/18 06:44 midodrine Allergy Unknown Atrial Verified 03/31/18 06:44 Fibrillation codeine AdvReac Severe HALLUCINATI Verified 03/31/18 06:44 ONS insulin aspart AdvReac Severe REGULAR Verified 03/31/18 06:44 INSULIN ONLY-CAUSES CRAMPIN G AND "FREEZING" insulin aspart protamine AdvReac Severe REGULAR Verified 03/31/18 06:44 human INSULIN ONLY-CAUSES CRAMPIN G AND "FREEZING" insulin detemir AdvReac Severe REGULAR Verified 03/31/18 06:44 INSULIN ONLY-CAUSES CRAMPIN G AND "FREEZING" insulin glargine AdvReac Severe REGULAR Verified 03/31/18 06:44 INSULIN ONLY-CAUSES CRAMPIN G AND "FREEZING" insulin isophane (NPH) AdvReac Severe REGULAR Verified 03/31/18 06:44 INSULIN ONLY-CAUSES CRAMPIN G AND "FREEZING" insulin lispro AdvReac Severe REGULAR Verified 03/31/18 06:44 INSULIN ONLY-CAUSES CRAMPIN G AND "FREEZING" insulin regular AdvReac Severe REGULAR Verified 03/31/18 06:44 INSULIN ONLY-CAUSES CRAMPIN G AND "FREEZING" vancomycin AdvReac Mild NAUSEA/VOMITING Verified 03/31/18 06:44 WHEN INFUSED TOO FAST Home Medications Medication Instructions Recorded Confirmed Type Novolog U-100 Insulin aspart 6.5 units SUB-Q QID #0 03/23/18 03/31/18 History gabapentin 300 mg PO BID 03/23/18 04/03/18 History eszopiclone [Lunesta] 1 tab PO HS 03/24/18 03/31/18 History fluconazole [Diflucan] 150 mg PO Q3D 03/24/18 03/31/18 History oxycodone-acetaminophen 1 tab PO Q6HR PRN 03/30/18 03/31/18 History Results - Labs CBC & Chem 7: 04/02/18 15:30 04/03/18 05:19 Laboratory Results - last 24 hr 04/02/18 04/02/18 04/02/18 15:30 15:30 17:34 WBC 12.9 H RBC 3.67 L Hgb 10.4 L Hct 32.3 L MCV 88.0 MCH 28.3 MCHC 32.2 RDW 14.6 Plt Count 361 MPV 8.3 Neut % (Auto) 77.9 H Lymph % (Auto) 13.1 [place] % (Auto) 7.6 Eos % (Auto) 0.7 Baso % (Auto) 0.7 Neut # (Auto) 10.1 H Lymph # (Auto) 1.7 [place] # (Auto) 1.0 H Eos # (Auto) 0.1 Baso # (Auto) 0.1 WBC Differential . Differential Comment Auto diff final Sodium Potassium Chloride Carbon Dioxide Anion Gap BUN Creatinine Estimated GFR POC Glucose 272 H Random Glucose Calcium Phosphorus 4.1 Albumin 04/02/18 04/03/18 04/03/18 21:18 01:51 05:19 WBC RBC Hgb Hct MCV MCH MCHC RDW Plt Count MPV Neut % (Auto) Lymph % (Auto) [place] % (Auto) Eos % (Auto) Baso % (Auto) Neut # (Auto) Lymph # (Auto) [place] # (Auto) Eos # (Auto) Baso # (Auto) WBC Differential Differential Comment Sodium 137 Potassium 3.6 Chloride 93 L Carbon Dioxide 31.1 Anion Gap 13 BUN 35 H Creatinine 6.79 H Estimated GFR 8 L POC Glucose 223 H 205 H Random Glucose 181 H Calcium 7.6 L Phosphorus 4.4 Albumin 2.9 L 04/03/18 04/03/18 04/03/18 06:03 08:43 12:13 WBC RBC Hgb Hct MCV MCH MCHC RDW Plt Count MPV Neut % (Auto) Lymph % (Auto) [place] % (Auto) Eos % (Auto) Baso % (Auto) Neut # (Auto) Lymph # (Auto) [place] # (Auto) Eos # (Auto) Baso # (Auto) WBC Differential Differential Comment Sodium Potassium Chloride Carbon Dioxide Anion Gap BUN Creatinine Estimated GFR POC Glucose 207 H 241 H 208 H Random Glucose Calcium Phosphorus Albumin Microbiology 03/31/18 08:21 Blood - Peripheral Aerobic Blood Culture - Preliminary No growth in 3 days 03/31/18 08:21 Blood - Peripheral Anaerobic Blood Culture - Preliminary No growth in 3 days 03/31/18 08:16 Blood - Peripheral Aerobic Blood Culture - Preliminary No growth in 3 days 03/31/18 08:16 Blood - Peripheral Anaerobic Blood Culture - Preliminary No growth in 3 days - Procedures - Preoperative Diagnosis (1) Calcaneal fracture - Postoperative Diagnosis (1) Calcaneal fracture Date of procedure: 04/01/18 Procedure: ORIF left calcaneus External fixation left calcaneus Human placenta graft left calcaneus Assessment and Plan - Assessment (1) Calcaneal fracture Code(s): S92.009A - Unspecified fracture of unspecified calcaneus, initial encounter for closed fracture Status: Acute Plan: s/p ORIF with exfix Left calcaneus 04/01/18 Dr Piedra Discussed with patient that since she is currently having very good pain control , I can wait to change bandage tomorrow Recommend [facility] upstairs, if possible. Continue strict nonweightbearing left lower extremity Continue DVT prophylaxis and Levaquin (1) Calcaneal fracture Qualifiers: Encounter type: subsequent encounter Calcaneus location: body Fracture type : closed Fracture alignment: displaced Laterality: left Fracture healing: with routine healing Qualified Code(s): S92.012D - Displaced fracture of body of left calcaneus, subsequent encounter for fracture with routine healing
--- NOTE | 2018-04-03 14:04 | P.PNNP ---
Subjective Interval history: Hemodialysis done yesterday 3 L removed patient has left calcaneus fracture. Physical Exam Vital signs: Vital Signs 04/02/18 20:00 04/03/18 00:00 04/03/18 04:00 Temperature 97.9 F 98 F 98 F Pulse Rate 113 H 102 H 102 H Respiratory Rate 22 21 20 Blood Pressure 106/53 L 110/55 L 90/45 L Pulse Oximetry 94 L 94 L 95 04/03/18 08:00 04/03/18 11:59 Temperature 97.9 F 98.5 F Pulse Rate 71 104 H Respiratory Rate 18 18 Blood Pressure 123/81 91/53 L Pulse Oximetry 92 L 94 L Intake & Output 04/02/18 04/03/18 04/03/18 18:59 06:59 18:59 Intake Total 100 / 100 Output Total 3000 / 3000 Balance -2900 / -2900 Intake: IV 100 / 100 Levaquin 500 mg Premix Inj 500 100 / 100 mg In 100 ml @ 100 mls/hr IV. SIG Q48H [id number] Rx#:[id number] Output: Hemodialysis Amount 3000 / 3000 Other: Date of Last Bowel Movement 03/30/18 04/01/18 - Constitutional no acute distress - Routine HEENT Exam Head: Present: normocephalic Eye: Present: EOMI - Routine Neck Exam Present: supple - Routine Respiratory Exam Present: CTA bilaterally - Routine Cardiovascular Exam Present: RRR - Routine Abdominal Exam Present: soft, normoactive bowel sounds - Routine Extremities Exam Present: edema (Left fixator) Assessment and Plan - Assessment (1) Calcaneal fracture Code(s): S92.009A - Unspecified fracture of unspecified calcaneus, initial encounter for closed fracture Status: Acute Qualifiers: Encounter type: subsequent encounter Calcaneus location: body Fracture type: closed Fracture alignment: displaced Laterality: left Fracture healing: with routine healing Qualified Code(s): S92.012D - Displaced fracture of body of left calcaneus, subsequent encounter for fracture with routine healing (2) ESRD (end stage renal disease) Code(s): N18.6 - End stage renal disease Status: Acute (3) DM (diabetes mellitus), type 2, uncontrolled Code(s): E11.65 - Type 2 diabetes mellitus with hyperglycemia Status: Acute - Plan Hemodialysis will continue on Thursday, Thursday and Thursday last day of ultrafiltration 3 L Patient is being followed by podiatry Left foot is stable status post external fixator
--- NOTE | 2018-04-03 18:23 | MP ---
cc: ArenjorgeEileen RICH DATE OF OPERATION: 04/01/2018 INDICATIONS: The patient presented to the emergency department complaining of continued pain and she felt like she had reinjured her left heel. She had undergone open reduction with internal fixation of the left calcaneus fracture a week prior. She states that she has had difficulty getting around the house and complying with being nonweightbearing and thinks she may have put too much weight on the front of the foot and she did feel a pop and came into the emergency department on 03/27/2018 but did not stay in order to see a doctor at that time. She then came back and was admitted for this condition to have it evaluated and treated. I discussed with the patient that this is a difficult situation and that we would have to redo the procedure, that there was likely some skin issues that were becoming more of an issue at the posterior aspect of the heel and secondary to her being on dialysis, being diabetic and a history of smoking, that she was at a higher risk of having wound healing complications. I discussed with her that she would benefit from undergoing open reduction versus external fixation versus a combination of the two to the left calcaneus with possible skin graft, possible Achilles tendon procedures in the future and that there was a chance that this would not be her final surgery if she had wound healing complications in the future. She understood the risks, benefits, and potential complications of surgery and agreed to move forward with open reduction with internal fixation and external fixation, left calcaneus with possible graft placement. The patient was seen in preop holding by myself, nursing staff and anesthesia where the correct patient, site, and side were all confirmed to be correct and the left lower extremity. She was then taken to the surgical suite in prone position. She was prepped and draped in normal sterile fashion. Following timeout as per facility protocol, attention was directed to the posterior aspect of the left Achilles tendon area of previous incisions where there was noted to be a small area to the posterior superior heel that had no capillary refill time centrally. It measured approximately 2 cm at the Achilles insertion that appeared to be still demarcating. The previous incisions were intact with Prolene sutured to the plantar aspect of the heel as well as an area just proximal to the Achilles tendon insertion. The sutures were removed, followed by irrigation of the previous surgical sites. Following this, C-arm was utilized with a large reduction clamp in order to achieve and hold reduction of the fracture under C-arm guidance. After the previous 7.3 mm screw was able to be removed under C-arm guidance, following removal of the screw the fracture fragment was reduced again and 2 parallel cannulated screws, one more proximally being 6.5 mm with a washer and the more distal screw, 4.5 mm were placed to hold reduction. In order to maintain additional reduction of this fracture, two 4.5 mm centrally threaded Steinmann pins were placed in the fracture fragment and the calcaneal tubercle area all the way through with clamps medially and clamps laterally in order to hold additional compression of the fracture fragment with the main calcaneal body fragment. Following this, C-arm was utilized to confirm reduction and stable fixation followed by irrigation with saline plus gentamicin. Following this, injectable Clarix COBY graft was placed in the fracture area as well as a 2 x 2 cm Neox graft was placed over the previously mentioned posterior superior heel 2 cm lesion and held in place with nylon suture in order to achieve healing of the superficial tissue to that area. Following this, closure of the small incision was performed with 2-0 nylon suture. The patient was then splinted in plantar flexion with the heel offloaded and dressing consisting of Xeroform, 4 x 4's, cast padding and an Waylon bandage was applied with that posterior splint in plantarflexion to the left lower extremity. She tolerated the procedure and anesthesia well without complications and was taken back to PACU with vital signs stable and vascular status intact to the left lower extremity. She will be strict nonweightbearing to the left lower extremity. I would strongly recommend rehab placement. She will continue IV antibiotics while inhouse and will be getting a popliteal block postoperatively per anesthesia. We do plan to remove the external fixator in approximately 6 weeks pending x-ray signs of healing. SHORT OPERATIVE NOTE SURGEON: Eileen Piedra DPM [employer]PER[employer]ING: Staff. PREOPERATIVE DIAGNOSIS: Calcaneal fracture, left. POSTOPERATIVE DIAGNOSIS: Calcaneal fracture, left. PROCEDURE PERFORMED: 1. Open reduction with internal fixation, left calcaneus. 2. External fixation, 3. Human placenta graft, left calcaneus. PATHOLOGY: None. PROPHYLAXIS: Two grams Ancef IV. ESTIMATED BLOOD LOSS: 10 mL CONDITION: Stable to PACU. ANESTHESIA: General endotracheal anesthesia plus local consisting of a popliteal block per anesthesia postoperatively. DISPOSITION: Strict nonweightbearing on the left lower extremity. Recommend rehab placement due to the patient's inability to comply with nonweightbearing, continue IV antibiotics while inhouse and will follow the patient closely to monitor the skin and the graft adherence and wound healing. RICH Estrada/kailey , 04:57 PM , 05:06 PM
[2018-04-04] MEDS: oxyCODONE/Acetaminophen 10/325 Tablet PO PRN ×4 (01:39→21:52)
[2018-04-04] MEDS: Insulin NovoLOG Aspart Correctional Sugar Inj SQ SCH ×5 (02:38→21:51)
[2018-04-04] MEDS: HYDROmorphone PF Inj 2 MG/ML Vial IV.PUSH PRN ×2 (02:39→10:12)
[2018-04-04] MEDS: Gabapentin 300 MG Capsule PO SCH ×2 (08:51→21:51)
[2018-04-04] MEDS: guaiFENesin 600 MG ER Tablet PO SCH ×2 (08:51→21:51)
[2018-04-04] MEDS: Senna/Docusate Sodium 8.6/50 MG Tablet PO SCH ×2 (08:51→21:51)
--- NOTE | 2018-04-04 08:53 | P.PN ---
Subjective Interval history: This is a pleasant 52 y/o Female who came to ER with abdominal pain, started 2 days ago, she had surgery on her left heel one week ago, Last bowel movement was yesterday and she is passing flatus. pain is described as being constant, nonradiating, 6 out of 10, gastric area, aggravated by cough and alleviated by lying down. States that she is coughing up white, thick phlegm. Also reports fever and chills, with T-max being 100 last night. Reports nausea and vomiting with emesis being greenish. She denies chest pain, shortness of breath, or diarrhea. Also states that she is not on any antibiotics. Patient is a dialysis patient and she is dialyzed Thursday, and she completed dialysis Thursday without any problems. She does not make any urine. Seen in her bedroom, in the presence of her Mr. Maikol Cortez he states since the Surgery Last Thursday on her left foot, she developed after surgery sore throat and cough, but switch to be productive of White phlegm, discussed with Doctor Jung in ER due to low grade fever, Immunocompromised patient, Leukocytosis, positive X ray with probable infiltrates, and mild expiratory wheezing on exam, will need antibiotics, Doctor Choudhary In to see the patient he evaluated the PermCath and no signs of infection but definitely needs Hemodialysis, no signs of volume overload but worsening Creatinine level. she has hypercalcemia in a patient that normally has acted with hypocalcemia, as per Doctor Choudhary he will handle Electrolytes. notified also Doctor Kailyn Yan Podiatry specialist for evaluation. 04/01: Seen in her bedroom, Podiatry specialist asked for CT of the right ankle giving result there's Distraction of the posterior fracture fragment involving the posterior calcaneus by Approximately 1.9 cm of the sagittal images, the internal fixation screw remains in place. no nausea, vomit or diarrhea Improved her Abdominal pain also. 04/02: Status post Surgery with diagnosis of Left Calcaneal Fracture procedure performed ORIF, External Fixation, Human placenta graft. stable in her room, seen in the presence of relatives and her , agree with no need for Levaquin no signs of infection removed Levaquin, had HD today. has Orthotics on her left ankle area. 04/03: Discussed with patient and her in the room, asking for pain medicine was increased Dilaudid to every two hours and Oxycodone to every four hours. patient at this time, without pain, but as per her was in pain during the night. 04/04: Patient discussed with nurse Miss Chaves no changes, she will be transferred to [place] as per Podiatry specialist, no nausea, vomit or diarrhea. Physical Exam Vital signs: Vital Signs 04/03/18 11:59 04/03/18 15:28 04/03/18 16:56 Temperature 98.5 F 98.7 F Pulse Rate 104 H 95 H 107 H Respiratory Rate 18 18 Blood Pressure 91/53 L 128/62 Pulse Oximetry 94 L 95 04/03/18 19:58 04/03/18 23:46 04/04/18 01:46 Temperature 97.4 F L 98.4 F Pulse Rate 105 H 107 H Respiratory Rate 18 Blood Pressure 107/51 L 125/52 L Pulse Oximetry 97 95 04/04/18 02:39 04/04/18 03:49 04/04/18 08:00 Temperature 97.7 F 97.8 F Pulse Rate 101 H 98 H Respiratory Rate 18 17 18 Blood Pressure 123/56 L 140/62 Pulse Oximetry 96 92 L 04/04/18 08:11 Temperature Pulse Rate 101 H Respiratory Rate 17 Blood Pressure Pulse Oximetry 96 Intake & Output 04/03/18 04/04/18 04/04/18 18:59 06:59 18:59 Intake Total 1440 / 1440 Output Total 0 / 0 Balance 1440 / 1440 Weight 78.6 kg Intake: Oral 1440 / 1440 Output: Urine 0 / 0 Other: Date of Last Bowel Movement 04/01/18 04/01/18 # Bowel Movements 0 Narrative: GENERAL: No acute distress. SKIN: Focused skin assessment warm/dry. HEAD: Atraumatic. Normocephalic. EYES: Pupils equal and round. No scleral icterus. No injection or drainage. ENT: No nasal bleeding or discharge. Mucous membranes pink and moist. NECK: Trachea midline. No JVD. CARDIOVASCULAR: Regular rate and rhythm. No murmur appreciated. RESPIRATORY: Mild expiratory wheezing, no crackles. left upper chest PermCath in place. GASTROINTESTINAL: Abdomen soft, non tender, positive bowel sounds. MUSCULOSKELETAL: LLE: external fixator in place NEUROLOGICAL: Awake and alert. No obvious cranial nerve deficits. Motor grossly within normal limits. Normal speech. PSYCHIATRIC: Appropriate mood and affect; insight and judgment normal. Results - Labs CBC & Chem 7: 04/02/18 15:30 04/03/18 05:19 Laboratory Results - last 24 hr 04/03/18 04/03/18 04/03/18 12:13 17:15 20:15 POC Glucose 208 H 249 H 237 H 04/04/18 04/04/18 02:30 07:16 POC Glucose 330 H 117 H Microbiology 03/31/18 08:21 Blood - Peripheral Aerobic Blood Culture - Preliminary No growth in 3 days 03/31/18 08:21 Blood - Peripheral Anaerobic Blood Culture - Preliminary No growth in 3 days 03/31/18 08:16 Blood - Peripheral Aerobic Blood Culture - Preliminary No growth in 3 days 03/31/18 08:16 Blood - Peripheral Anaerobic Blood Culture - Preliminary No growth in 3 days - Procedures - Preoperative Diagnosis (1) Calcaneal fracture - Postoperative Diagnosis (1) Calcaneal fracture Date of procedure: 04/01/18 Procedure: ORIF left calcaneus External fixation left calcaneus Human placenta graft left calcaneus Assessment and Plan - Plan 1. Intractable nausea and vomit giving supportive care and following on PPIs and Carafate. Improved 2. ESRD on HD Doctor Kenrick in for HD today, evaluated left upper chest PermCath no signs of infection. status post HD improved electrolytes. last HD yesterday. 3. Probable allergic reaction versus true pneumonia discussed with Doctor Feng due to Immunodeficiency, Leukocytosis, low grade fever will cover with broad spectrum antibiotics, and follow CXR, and Leukocytosis, also supportive care with Bronchodilator, Mucolytic and incentive spirometry. Improved. removed Levaquin 4. DM II Uncontrolled. on sliding scale. ADA diet. Patient eating a cake at this time will be difficult to control her blood sugar if continue eating candy and sweet foods. will continue present care by now and will need Diabetes educations asked for consult. today will give Levemir 10 units in am and medium sliding scale 5. Left calcaneal fracture status post surgery will be followed by her Primary Podiatry specialist Doctor Kailyn Yan. asked for CT ankle there's Distraction of the posterior fracture fragment involving the posterior calcaneus by Approximately 1.9 cm of the sagittal images, the internal fixation screw remains in place. with diagnosis of Calcaneal Fracture status post ORIF left calcaneus External fixation left calcaneus, Human placenta graft left calcaneus, continue pain medicine. DVT prophylaxis as per Surgical team. Code Status: Full Code Discussed Condition With: Patient and nurse Miss Chaves in the room. Discharge Planning: Once cleared by Specialists.
[2018-04-04] MEDS: Calcium Acetate 667 MG Capsule PO SCH ×3 (08:56→17:45)
[2018-04-04] MEDS: Calcitriol 0.25 MCG Capsule PO SCH (09:01)
[2018-04-04] MEDS: LORazepam 0.5 MG Tablet PO PRN ×2 (09:57→18:11)
[2018-04-04] MEDS: Insulin Detemir Inj 1,000 UNIT/10 ML Vial SQ SCH (10:11)
[2018-04-04] MEDS ORDERED: Insulin NovoLOG Aspart Correctional Sugar Inj SQ SCH (12:00)
--- NOTE | 2018-04-04 13:41 | P.PNPOD ---
Subjective Interval history: s/p ORIF with external fixation left calcaneus 04/01/18 Dr Piedra Physical Exam Vital signs: Vital Signs 04/03/18 15:28 04/03/18 16:56 04/03/18 19:58 Temperature 98.7 F 97.4 F L Pulse Rate 95 H 107 H 105 H Respiratory Rate 16 18 18 Blood Pressure 128/62 107/51 L Pulse Oximetry 95 97 04/03/18 23:46 04/04/18 01:46 04/04/18 02:39 Temperature 98.4 F Pulse Rate 107 H Respiratory Rate 18 18 18 Blood Pressure 125/52 L Pulse Oximetry 95 04/04/18 03:49 04/04/18 08:00 04/04/18 08:11 Temperature 97.7 F 97.8 F Pulse Rate 101 H 98 H 101 H Respiratory Rate 17 18 17 Blood Pressure 123/56 L 140/62 Pulse Oximetry 96 92 L 96 04/04/18 12:00 Temperature 97.9 F Pulse Rate 99 H Respiratory Rate 17 Blood Pressure 102/66 Pulse Oximetry 91 L Intake & Output 04/03/18 04/04/18 04/04/18 18:59 06:59 18:59 Intake Total 1440 / 1440 Output Total 0 / 0 Balance 1440 / 1440 Weight 78.6 kg Intake: Oral 1440 / 1440 Output: Urine 0 / 0 Other: Date of Last Bowel Movement 04/01/18 04/01/18 # Bowel Movements 0 Narrative: Left foot with graft intact to posterior superior heel area. Still slight darkening noted to tissue in an approximately 2cm diameter area with graft central in this area over incision line. Tissue still undergoing demarcation. No sign of infection. No foul odor Neurovascularly intact to left foot Pin site clean, incisions well approximated with nylon suture Medications and Allergies Active Medications: Active Medications Acetaminophen (Tylenol) 650 mg PO Q4H PRN PRN Reason: Temp > 100.4 Al Hydroxide/Mg Hydroxide (Milk Of Magnesia Liq) 30 ml PO Q12H PRN PRN Reason: Mild Constipation Bisacodyl (Dulcolax Supp) 10 mg RECTAL DAILY PRN PRN Reason: SEVERE CONSITIPATION Calcitriol (Rocaltrol) 0.25 mcg PO DAILY [facility] Last Admin: 04/04/18 09:01 Dose: 0.25 mcg Calcium Acetate (Phoslo) 2,001 mg PO TIDAC [facility] Last Admin: 04/04/18 08:56 Dose: 2,001 mg Clonidine HCl (Catapres) 0.1 mg PO UNSCH PRN PRN Reason: SEE LABEL COMMENTS Diphenhydramine HCl (Benadryl) 25 mg PO UNSCH PRN PRN Reason: SEE LABEL COMMENTS Last Admin: 04/02/18 02:37 Dose: 25 mg Epoetin Greg (Epogen Inj) 4,000 unit IV.PUSH UNSCH PRN PRN Reason: SEE LABEL COMMENTS Last Admin: 04/02/18 11:09 Dose: 4,000 unit Eszopiclone (Lunesta) 3 mg PO HS [facility] Last Admin: 04/03/18 21:16 Dose: 3 mg Fluconazole (Diflucan) 150 mg PO Q3D [facility] Last Admin: 04/03/18 12:14 Dose: 150 mg Gabapentin (Neurontin) 300 mg PO BID [facility] Last Admin: 04/04/18 08:51 Dose: 300 mg Gelatin (Gelfoam 12 Mm/7 Mm Topical) 1 foam TOPICAL PRN PRN PRN Reason: help stop bleeding from site Gentamicin Sulfate (Gentamicin Inj) 20 mg OTHER WITH DIALYSIS PRN PRN Reason: Dwell Gentamycin Lock Last Admin: 04/02/18 11:09 Dose: 20 mg Guaifenesin (Mucinex Er) 600 mg PO BID [facility] Last Admin: 04/04/18 08:51 Dose: 600 mg Heparin Sodium (Porcine) (Heparin Inj) 8,000 units OTHER WITH DIALYSIS PRN PRN Reason: for machine prime Heparin Sodium (Porcine) (Heparin Inj) 1,000 units OTHER WITH DIALYSIS PRN PRN Reason: Dwell Heparin to Fill Catheter Last Admin: 04/02/18 11:09 Dose: 1,000 units Hydromorphone HCl (Dilaudid Pf Inj) 0.5 mg IV.PUSH Q2H PRN PRN Reason: PAIN SCALE 6 TO 10 Last Admin: 04/04/18 10:12 Dose: 0.5 mg Sodium Chloride (Ns Inj) 1,000 mls @ 200 mls/hr OTHER .Q5H PRN PRN Reason: for dialyzer flush PRN Sodium Chloride (Ns Inj) 1,000 mls @ 0 mls/hr IV.CONT .Q0M PRN PRN Reason: hypotension / volume replace Albumin Human (Flexbumin 25% Inj) 100 mls @ 60 mls/hr IV.SIG WITH DIALYSIS PRN PRN Reason: hypotension / volume replace Sodium Chloride (Ns Inj) 1,000 mls @ 0 mls/hr OTHER .Q0M PRN PRN Reason: for prime and rinse back Insulin Aspart (Novolog Insulin Correctional Sugar Inj) 0 unit SQ 08,12,17,21 [facility]; Protocol Last Admin: 04/04/18 12:53 Dose: 7 unit Insulin Detemir (Levemir Inj) 10 unit SQ DAILY [facility]; Protocol Last Admin: 04/04/18 10:11 Dose: 10 unit Lactulose (Lactulose Liq) 30 ml PO DAILY PRN PRN Reason: SEVERE CONSITIPATION Last Admin: 04/04/18 11:34 Dose: 30 ml Lorazepam (Ativan) 0.5 mg PO Q6H PRN PRN Reason: ANXIETY Last Admin: 04/04/18 09:57 Dose: 0.5 mg Mannitol (Mannitol Inj) 12.5 gm IV.PUSH UNSCH PRN PRN Reason: hypotension / volume replace Nitroglycerin (Nitrostat Sl) 0.4 mg SL Q5M PRN PRN Reason: CHEST PAIN Ondansetron HCl (Zofran Inj) 4 mg IV.PUSH Q4H PRN PRN Reason: NAUSEA OR VOMITING Ondansetron HCl (Zofran Inj) 4 mg IV.PUSH UNSCH PRN PRN Reason: NAUSEA OR VOMITING Oxycodone/Acetaminophen (Percocet 10/325 Mg) 1 tab PO Q4H PRN PRN Reason: PAIN 1-5 Last Admin: 04/04/18 07:15 Dose: 1 tab Pantoprazole Sodium (Protonix) 40 mg PO DAILY [facility] Last Admin: 04/04/18 08:51 Dose: 40 mg Senna/Docusate Sodium (Hailey-Colace) 1 tab PO BID [facility] Last Admin: 04/04/18 08:51 Dose: 1 tab Sennosides (Senokot) 17.2 mg PO Q12H PRN PRN Reason: Moderate Constipation Sevelamer Carbonate (Renvela) 2,400 mg PO TIDAC [facility] Last Admin: 04/04/18 08:51 Dose: 2,400 mg Sodium Chloride (Ns Flush) 5 ml IV.FLUSH PRN PRN PRN Reason: flush each lumen during HD Allergies Allergy/AdvReac Type Severity Reaction Status Date / Time coconut Allergy Severe HIVES Verified 03/23/18 20:46 diatrizoate meglumine Allergy Severe RENAL Verified 03/31/18 06:43 FAILURE gadobenic acid Allergy Severe RENAL Verified 03/31/18 06:43 FAILURE gadodiamide Allergy Severe RENAL Verified 03/31/18 06:43 FAILURE gadoteridol Allergy Severe RENAL Verified 03/31/18 06:43 FAILURE iodixanol Allergy Severe RENAL Verified 03/31/18 06:43 FAILURE iohexol Allergy Severe RENAL Verified 03/31/18 06:43 FAILURE morphine Allergy Severe HIVES Verified 03/31/18 06:43 azithromycin Allergy Intermediate HIVES Verified 03/31/18 06:43 clindamycin Allergy Intermediate HIVES Verified 03/31/18 06:43 erythromycin base Allergy Intermediate HIVES Verified 03/31/18 06:44 penicillin G Allergy Intermediate Hives Verified 03/31/18 06:44 midodrine Allergy Unknown Atrial Verified 03/31/18 06:44 Fibrillation codeine AdvReac Severe HALLUCINATI Verified 03/31/18 06:44 ONS insulin aspart AdvReac Severe REGULAR Verified 03/31/18 06:44 INSULIN ONLY-CAUSES CRAMPIN G AND "FREEZING" insulin aspart protamine AdvReac Severe REGULAR Verified 03/31/18 06:44 human INSULIN ONLY-CAUSES CRAMPIN G AND "FREEZING" insulin detemir AdvReac Severe REGULAR Verified 03/31/18 06:44 INSULIN ONLY-CAUSES CRAMPIN G AND "FREEZING" insulin glargine AdvReac Severe REGULAR Verified 03/31/18 06:44 INSULIN ONLY-CAUSES CRAMPIN G AND "FREEZING" insulin isophane (NPH) AdvReac Severe REGULAR Verified 03/31/18 06:44 INSULIN ONLY-CAUSES CRAMPIN G AND "FREEZING" insulin lispro AdvReac Severe REGULAR Verified 03/31/18 06:44 INSULIN ONLY-CAUSES CRAMPIN G AND "FREEZING" insulin regular AdvReac Severe REGULAR Verified 03/31/18 06:44 INSULIN ONLY-CAUSES CRAMPIN G AND "FREEZING" vancomycin AdvReac Mild NAUSEA/VOMITING Verified 03/31/18 06:44 WHEN INFUSED TOO FAST Home Medications Medication Instructions Recorded Confirmed Type Novolog U-100 Insulin aspart 6.5 units SUB-Q QID #0 03/23/18 03/31/18 History gabapentin 300 mg PO BID 03/23/18 04/03/18 History eszopiclone [Lunesta] 1 tab PO HS 03/24/18 03/31/18 History fluconazole [Diflucan] 150 mg PO Q3D 03/24/18 03/31/18 History oxycodone-acetaminophen 1 tab PO Q6HR PRN 03/30/18 03/31/18 History Results - Labs CBC & Chem 7: 04/02/18 15:30 04/03/18 05:19 Laboratory Results - last 24 hr 04/03/18 04/03/18 04/04/18 17:15 20:15 02:30 POC Glucose 249 H 237 H 330 H 04/04/18 04/04/18 07:16 12:05 POC Glucose 117 H 270 H Microbiology 03/31/18 08:21 Blood - Peripheral Aerobic Blood Culture - Preliminary No growth in 4 days 03/31/18 08:21 Blood - Peripheral Anaerobic Blood Culture - Preliminary No growth in 4 days 03/31/18 08:16 Blood - Peripheral Aerobic Blood Culture - Preliminary No growth in 4 days 03/31/18 08:16 Blood - Peripheral Anaerobic Blood Culture - Preliminary No growth in 4 days - Procedures - Preoperative Diagnosis (1) Calcaneal fracture - Postoperative Diagnosis (1) Calcaneal fracture Date of procedure: 04/01/18 Procedure: ORIF left calcaneus External fixation left calcaneus Human placenta graft left calcaneus Assessment and Plan - Assessment (1) Calcaneal fracture Code(s): S92.009A - Unspecified fracture of unspecified calcaneus, initial encounter for closed fracture Status: Acute Plan: s/p ORIF with exfix Left calcaneus 04/01/18 Dr Piedra Changed bandage today. Recommend [facility] upstairs, if possible, and will see patient weekly upstairs until ready to be discharged home Continue strict nonweightbearing left lower extremity Continue DVT prophylaxis and Levaquin recommended due to skin necrosis and infection potential near achilles tendon area. (1) Calcaneal fracture Qualifiers: Encounter type: subsequent encounter Calcaneus location: body Fracture type : closed Fracture alignment: displaced Laterality: left Fracture healing: with routine healing Qualified Code(s): S92.012D - Displaced fracture of body of left calcaneus, subsequent encounter for fracture with routine healing
[2018-04-05] MEDS: LORazepam 0.5 MG Tablet PO PRN ×2 (00:09→06:11)
[2018-04-05] MEDS: oxyCODONE/Acetaminophen 10/325 Tablet PO PRN ×6 (02:12→21:52)
--- NOTE | 2018-04-05 09:46 | P.PNNP ---
Subjective Interval history: She is sleepy s/p pain medication administration. Seen during dialysis. <Natalie Adames - Last Filed: 04/05/18 09:41> Physical Exam Vital signs: Vital Signs 04/04/18 12:00 04/04/18 16:00 04/04/18 20:25 Temperature 97.9 F 98.4 F 98.6 F Pulse Rate 99 H 103 H 98 H Respiratory Rate 17 19 18 Blood Pressure 102/66 110/68 145/75 H Pulse Oximetry 91 L 93 L 93 L 04/04/18 21:27 04/05/18 00:02 04/05/18 03:00 Temperature 98.2 F 98.4 F Pulse Rate 99 H 106 H Respiratory Rate 18 18 Blood Pressure 118/58 L 110/56 L Pulse Oximetry 93 L 92 L 98 04/05/18 03:23 04/05/18 03:35 04/05/18 06:33 Temperature Pulse Rate Respiratory Rate 17 17 17 Blood Pressure Pulse Oximetry 04/05/18 07:48 04/05/18 08:00 Temperature 98.8 F Pulse Rate 96 H Respiratory Rate 17 Blood Pressure 115/67 Pulse Oximetry 98 95 Intake & Output 04/04/18 04/05/18 04/05/18 18:59 06:59 18:59 Intake Total 800 / 800 480 / 480 Balance 800 / 800 480 / 480 Weight 78.6 kg Intake: Oral 800 / 800 480 / 480 Other: # Voids 0 Date of Last Bowel Movement 04/05/18 # Bowel Movements 1 - Constitutional no acute distress, cooperative, somnolent - Routine HEENT Exam Head: Present: normocephalic - Routine Neck Exam Present: supple, full ROM. Absent: JVD - Routine Respiratory Exam Present: CTA bilaterally. Absent: accessory muscle use - Routine Cardiovascular Exam Present: RRR, S1, S2 - Routine Abdominal Exam Present: normoactive bowel sounds, distended, firm. Absent: tenderness - Routine Extremities Exam Absent: edema Comments: LLE external fixator - Routine Skin Exam Present: intact, dry, warm - Routine Neurological Exam Present: alert, oriented X3, CN II-XII intact, moving all extremities - Detailed Neurological Exam: Coma Scale Eye Opening: Spontaneous Verbal Response: Oriented Motor Response: Obey commands [place] Coma Scale Total: 15 - Routine Psychiatric Exam Present: normal affect, normal thought process <Natalie Adames - Last Filed: 04/05/18 09:41> Vital signs: Vital Signs 04/04/18 12:00 04/04/18 16:00 04/04/18 20:25 Temperature 97.9 F 98.4 F 98.6 F Pulse Rate 99 H 103 H 98 H Respiratory Rate 17 19 18 Blood Pressure 102/66 110/68 145/75 H Pulse Oximetry 91 L 93 L 93 L 04/04/18 21:27 04/05/18 00:02 04/05/18 03:00 Temperature 98.2 F 98.4 F Pulse Rate 99 H 106 H Respiratory Rate 18 18 Blood Pressure 118/58 L 110/56 L Pulse Oximetry 93 L 92 L 98 04/05/18 03:23 04/05/18 03:35 04/05/18 06:33 Temperature Pulse Rate Respiratory Rate 17 17 17 Blood Pressure Pulse Oximetry 04/05/18 07:48 04/05/18 08:00 Temperature 98.8 F Pulse Rate 96 H Respiratory Rate 17 Blood Pressure 115/67 Pulse Oximetry 98 95 Intake & Output 04/04/18 04/05/18 04/05/18 18:59 06:59 18:59 Intake Total 800 / 800 480 / 480 Balance 800 / 800 480 / 480 Weight 78.6 kg Intake: Oral 800 / 800 480 / 480 Other: # Voids 0 Date of Last Bowel Movement 04/05/18 # Bowel Movements 1 <Karthikeyan Choudhary - Last Filed: 04/05/18 11:41> Assessment and Plan - Assessment (1) ESRD (end stage renal disease) Code(s): N18.6 - End stage renal disease Status: Acute Plan: HD MWF. Seen during HD today on a 4K, 350 BFR, goal 3L. Outpatient HD arrangements at [facility]. [facility] for HD use. Her AV access RUE is not ready for use. Avoid IVF High protein diet. Avoid IVF administration. Continue Epogen for anemia of CKD. 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 (2) Calcaneal fracture Code(s): S92.009A - Unspecified fracture of unspecified calcaneus, initial encounter for closed fracture Status: Acute Qualifiers: Encounter type: subsequent encounter Calcaneus location: body Fracture type: closed Fracture alignment: displaced Laterality: left Fracture healing: with routine healing Qualified Code(s): S92.012D - Displaced fracture of body of left calcaneus, subsequent encounter for fracture with routine healing Plan: 04/01 ORIF and external fixation by podiatry. Pain management PRN. Will need SNF at discharge most likely. NWB RLE. (3) DM (diabetes mellitus), type 2, uncontrolled Code(s): E11.65 - Type 2 diabetes mellitus with hyperglycemia Status: Acute Plan: Use insulin as needed, maintain glucose 140-180 mg/dL. (4) Hypocalcemia Code(s): E83.51 - Hypocalcemia Status: Acute Plan: Hx parathyroidectomy Ordered Tums. Avoid IV calcium administration. On calcium acetate as a phosphate binder. Also on calcitriol. <Natalie Adames - Last Filed: 04/05/18 09:41> - Assessment (1) ESRD (end stage renal disease) Code(s): N18.6 - End stage renal disease Status: Acute (2) Calcaneal fracture Code(s): S92.009A - Unspecified fracture of unspecified calcaneus, initial encounter for closed fracture Status: Acute Qualifiers: Encounter type: subsequent encounter Calcaneus location: body Fracture type: closed Fracture alignment: displaced Laterality: left Fracture healing: with routine healing Qualified Code(s): S92.012D - Displaced fracture of body of left calcaneus, subsequent encounter for fracture with routine healing (3) DM (diabetes mellitus), type 2, uncontrolled Code(s): E11.65 - Type 2 diabetes mellitus with hyperglycemia Status: Acute (4) Hypocalcemia Code(s): E83.51 - Hypocalcemia Status: Acute - Attending Attestation patient was seen and examined. Agree with above assessment and plan. Seen during dialysis. Sleepy, had received Percocet earlier. Reviewed chart, discussed with sale professional digital marketing. <Karthikeyan Choudhary - Last Filed: 04/05/18 11:41>
[2018-04-05] MEDS: Insulin NovoLOG Aspart Correctional Sugar Inj SQ SCH ×3 (13:16→17:52)
[2018-04-05] MEDS: Gabapentin 300 MG Capsule PO SCH ×2 (13:20→21:53)
[2018-04-05] MEDS: Calcitriol 0.25 MCG Capsule PO SCH (13:21)
[2018-04-05] MEDS: guaiFENesin 600 MG ER Tablet PO SCH ×2 (13:21→21:53)
[2018-04-05] MEDS: Calcium Acetate 667 MG Capsule PO SCH ×3 (13:25→17:52)
[2018-04-05] MEDS: Senna/Docusate Sodium 8.6/50 MG Tablet PO SCH ×2 (13:26→21:53)
[2018-04-05] MEDS: Insulin Detemir Inj 1,000 UNIT/10 ML Vial SQ SCH (14:14)
--- NOTE | 2018-04-05 15:52 | P.DS ---
Date of admission: 03/31/18 10:27 Primary care physician: Marcelino Byrne Attending physician on discharge: Richie Beckford Anticipated date of discharge: 04/05/18 Brief History from admission: This is a pleasant 52 y/o Female who came to ER with abdominal pain, started 2 days ago, she had surgery on her left heel one week ago, Last bowel movement was yesterday and she is passing flatus. pain is described as being constant, nonradiating, 6 out of 10, gastric area, aggravated by cough and alleviated by lying down. States that she is coughing up white, thick phlegm. Also reports fever and chills, with T-max being 100 last night. Reports nausea and vomiting with emesis being greenish. She denies chest pain, shortness of breath, or diarrhea. Also states that she is not on any antibiotics. Patient is a dialysis patient and she is dialyzed Thursday, and she completed dialysis Thursday without any problems. She does not make any urine. Seen in her bedroom, in the presence of her Mr. Maikol Cortez he states since the Surgery Last Thursday on her left foot, she developed after surgery sore throat and cough, but switch to be productive of White phlegm, discussed with Doctor Feng in ER due to low grade fever, Immunocompromised patient, Leukocytosis, positive X ray with probable infiltrates, and mild expiratory wheezing on exam, will need antibiotics, Doctor Choudhary In to see the patient he evaluated the PermCath and no signs of infection but definitely needs Hemodialysis, no signs of volume overload but worsening Creatinine level. she has hypercalcemia in a patient that normally has acted with hypocalcemia, as per Doctor Choudhary he will handle Electrolytes. notified also Doctor Kailyn Yan Podiatry specialist for evaluation. DS: Diagnosis - Discharge Diagnosis (1) Abdominal pain Status: Acute (2) Anemia Status: Acute (3) ESRD (end stage renal disease) Status: Acute (4) Fever Status: Acute (5) Hypocalcemia Status: Acute (6) Intractable nausea and vomiting Status: Acute (7) Pneumonia Status: Acute (8) Abnormal nuclear stress test Status: Acute DS: Summary Hospital Course: This is a pleasant 52 y/o Female who came to ER with abdominal pain, started 2 days ago, she had surgery on her left heel one week ago, Last bowel movement was yesterday and she is passing flatus. pain is described as being constant, nonradiating, 6 out of 10, gastric area, aggravated by cough and alleviated by lying down. States that she is coughing up white, thick phlegm. Also reports fever and chills, with T-max being 100 last night. Reports nausea and vomiting with emesis being greenish. She denies chest pain, shortness of breath, or diarrhea. Also states that she is not on any antibiotics. Patient is a dialysis patient and she is dialyzed Thursday, and she completed dialysis Thursday without any problems. She does not make any urine. Seen in her bedroom, in the presence of her Mr. Maikol Cortez he states since the Surgery Last Thursday on her left foot, she developed after surgery sore throat and cough, but switch to be productive of White phlegm, discussed with Doctor Feng in ER due to low grade fever, Immunocompromised patient, Leukocytosis, positive X ray with probable infiltrates, and mild expiratory wheezing on exam, will need antibiotics, Doctor Choudhary In to see the patient he evaluated the PermCath and no signs of infection but definitely needs Hemodialysis, no signs of volume overload but worsening Creatinine level. she has hypercalcemia in a patient that normally has acted with hypocalcemia, as per Doctor Choudhary he will handle Electrolytes. notified also Doctor Kailyn Yan Podiatry specialist for evaluation. 04/01: Seen in her bedroom, Podiatry specialist asked for CT of the right ankle giving result there's Distraction of the posterior fracture fragment involving the posterior calcaneus by Approximately 1.9 cm of the sagittal images, the internal fixation screw remains in place. no nausea, vomit or diarrhea Improved her Abdominal pain also. 04/02: Status post Surgery with diagnosis of Left Calcaneal Fracture procedure performed ORIF, External Fixation, Human placenta graft. stable in her room, seen in the presence of relatives and her , agree with no need for Levaquin no signs of infection removed Levaquin, had HD today. has Orthotics on her left ankle area. 04/03: Discussed with patient and her in the room, asking for pain medicine was increased Dilaudid to every two hours and Oxycodone to every four hours. patient at this time, without pain, but as per her was in pain during the night. 04/04: Patient discussed with nurse Miss Chaves no changes, she will be transferred to [place] as per Podiatry specialist. 04/05: Seen in her bedroom in the presence of her and Mother the patient is upset, charge nurse present Nurse Present Miss Prasad, she wanted to know why she was not receiving her Pain medicine IV was not given by nurse, I discussed with nurse yesterday evening and recommended to continue IV pain medicine but did not receive the medicine due to that she will go to [place] rehab today, explained to the patient the importance to continue her rehabilitation, no nausea, vomit or diarrhea she had Dialysis today. Microbiology 03/31/18 08:21 Blood - Peripheral Aerobic Blood Culture - Final No growth in 5 days 03/31/18 08:21 Blood - Peripheral Anaerobic Blood Culture - Final No growth in 5 days 03/31/18 08:16 Blood - Peripheral Aerobic Blood Culture - Final No growth in 5 days 03/31/18 08:16 Blood - Peripheral Anaerobic Blood Culture - Final No growth in 5 days - Procedures - Preoperative Diagnosis (1) Calcaneal fracture - Postoperative Diagnosis (1) Calcaneal fracture Date of procedure: 04/01/18 Procedure: ORIF left calcaneus External fixation left calcaneus Human placenta graft left calcaneus Assessment and Plan - Plan 1. Intractable nausea and vomit giving supportive care and following on PPIs and Carafate. Improved 2. ESRD on HD Doctor Kenrick in for HD today, evaluated left upper chest PermCath no signs of infection. status post HD improved electrolytes. had HD today. 3. Probable allergic reaction versus true pneumonia discussed with Doctor Feng due to Immunodeficiency, Leukocytosis, low grade fever will cover with broad spectrum antibiotics, and follow CXR, and Leukocytosis, also supportive care with Bronchodilator, Mucolytic and incentive spirometry. Improved. removed Levaquin 4. DM II Uncontrolled. on sliding scale. ADA diet. Patient eating a cake at this time will be difficult to control her blood sugar if continue eating candy and sweet foods. will continue present care by now and will need Diabetes educations asked for consult. today will give Levemir 10 units in am and medium sliding scale 5. Left calcaneal fracture status post surgery will be followed by her Primary Podiatry specialist Doctor Kailyn Yan. asked for CT ankle there's Distraction of the posterior fracture fragment involving the posterior calcaneus by Approximately 1.9 cm of the sagittal images, the internal fixation screw remains in place. with diagnosis of Calcaneal Fracture status post ORIF left calcaneus External fixation left calcaneus, Human placenta graft left calcaneus, continue pain medicine. DVT prophylaxis as per Surgical team. Transfer to Rehab today. More than 35 minutes spent talking with the patient, her and her Mother she wanted to know why she did not receive her Pain medicine yesterday and during the night, I never suspended the IV pain medicine was held by nurse due to that [facility]. Code Status: Full Code. Discussed Condition With: Patient, Her , Her Mother, Charge Nurse and Nurse Miss Prasad. Discharge Planning: Transfer to Rehab today. - Time Spent with Patient Total time spent providing and/or coordinating discharge services: Greater than 30 minutes - Quality: VTE Deep Vein Thrombosis/Pulmonary Embolism Present on Admission: No Exam Vital signs: Vital Signs 04/04/18 16:00 04/04/18 20:25 04/04/18 21:27 Temperature 98.4 F 98.6 F Pulse Rate 103 H 98 H Respiratory Rate 19 18 Blood Pressure 110/68 145/75 H Pulse Oximetry 93 L 93 L 93 L 04/05/18 00:02 04/05/18 03:00 04/05/18 03:23 Temperature 98.2 F 98.4 F Pulse Rate 99 H 106 H Respiratory Rate 18 18 17 Blood Pressure 118/58 L 110/56 L Pulse Oximetry 92 L 98 04/05/18 03:35 04/05/18 06:33 04/05/18 07:48 Temperature Pulse Rate Respiratory Rate 17 17 Blood Pressure Pulse Oximetry 98 04/05/18 08:00 04/05/18 12:00 Temperature 98.8 F 99.1 F Pulse Rate 96 H 100 H Respiratory Rate 17 18 Blood Pressure 115/67 123/82 Pulse Oximetry 95 95 Intake & Output 04/04/18 04/05/18 04/05/18 18:59 06:59 18:59 Intake Total 800 / 800 480 / 480 Output Total 1999 Balance 800 / 800 480 / 480 -1999 Weight 78.6 kg Intake: Oral 800 / 800 480 / 480 Output: Hemodialysis Amount 1999 Other: # Voids 0 Date of Last Bowel Movement 04/05/18 04/05/18 # Bowel Movements 1 1 Narrative: GENERAL: No acute distress. SKIN: Focused skin assessment warm/dry. HEAD: Atraumatic. Normocephalic. EYES: Pupils equal and round. No scleral icterus. No injection or drainage. ENT: No nasal bleeding or discharge. Mucous membranes pink and moist. NECK: Trachea midline. No JVD. CARDIOVASCULAR: Regular rate and rhythm. No murmur appreciated. RESPIRATORY: Mild expiratory wheezing, no crackles. left upper chest PermCath in place. GASTROINTESTINAL: Abdomen soft, non tender, positive bowel sounds. MUSCULOSKELETAL: LLE: external fixator in place NEUROLOGICAL: Awake and alert. No obvious cranial nerve deficits. Motor grossly within normal limits. Normal speech. PSYCHIATRIC: Appropriate mood and affect; insight and judgment normal. Results Procedures completed during hospitalization: - Preoperative Diagnosis (1) Calcaneal fracture - Postoperative Diagnosis (1) Calcaneal fracture Date of procedure: 04/01/18 Procedure: ORIF left calcaneus External fixation left calcaneus Human placenta graft left calcaneus Labs on day of discharge: Labs from last 24 hours 04/05/18 04/05/18 04/05/18 13:18 11:42 08:22 POC Glucose 221 H 196 H 279 H Hemoglobin A1c 04/04/18 04/04/18 04/04/18 23:53 20:01 18:36 POC Glucose 183 H 91 Hemoglobin A1c Pending 04/04/18 04/04/18 04/04/18 18:14 17:35 17:14 POC Glucose 114 H 96 82 Hemoglobin A1c 04/04/18 17:12 POC Glucose 86 Hemoglobin A1c - Impressions ITS Impressions Abdomen/Pelvis CT 03/31/18 07:59 CONCLUSION: 1. Calcified renal transplant right lower quadrant 2. Extensive atherosclerotic vascular calcifications 3. Prominent head of the pancreas. 4. I don't see abscess or free air. 5. Lack of intravenous and oral contrast makes detection of subtle bodies difficult. 6. If Patient remains symptomatic repeat exam with IV contrast is suggested. Chest X-Ray 03/31/18 07:59 CONCLUSION: Minimal basilar parenchymal opacities Ankle CT 04/01/18 00:00 CONCLUSION: 1. There is distraction of the posterior fracture fragment involving the posterior calcaneus by approximately 1.9 cm on the sagittal images. 2. The internal fixation screw remains in place. Ankle X-Ray 04/01/18 00:00 CONCLUSION: Status post placement of external fixation hardware in the calcaneus. Foot X-Ray 04/01/18 00:00 CONCLUSION: Internal and external fixation hardware in the calcaneus. Discharge Plan - Discharge Disposition Patient Disposition: [facility] Rehab Inpatient - Discharge Condition Condition: Stable - Discharge Order Discharge Orders: Discharge Order (Routine); Ordered 04/05/18 Ordered By: Richie Beckford - Discharge Details Anticipated Discharge Date: 04/05/18 Discharge Comment: Follow Podiatry specialist recommendations and HD as recommended by Nephrology specialist. - Physicians Team Attending Provider: Richie Beckford Other Providers: Karthikeyan Choudhary MD ; Nir Kauffman DPM
[2018-04-06] MEDS: oxyCODONE/Acetaminophen 10/325 Tablet PO PRN ×2 (02:04→09:28)
[2018-04-06 06:58] LABS: Albumin 2.7 g/dL (3.4-5.0); Calcium 7.2 mg/dL (8.5-10.1); Carbon Dioxide 24.6 meq/L (21.0-32.0); Phosphorus 4.6 mg/dL (2.5-4.9); Potassium 4.5 meq/L (3.5-5.1)
[2018-04-06] MEDS: Calcium Acetate 667 MG Capsule PO SCH (08:54)
[2018-04-06] MEDS: Calcitriol 0.25 MCG Capsule PO SCH (08:54)
[2018-04-06] MEDS: Insulin NovoLOG Aspart Correctional Sugar Inj SQ SCH ×2 (08:54→09:07)
[2018-04-06] MEDS: guaiFENesin 600 MG ER Tablet PO SCH (08:54)
[2018-04-06] MEDS: Senna/Docusate Sodium 8.6/50 MG Tablet PO SCH (08:54)
[2018-04-06] MEDS: Gabapentin 300 MG Capsule PO SCH (08:54)
[2018-04-06 09:31] VITALS: BP 121/62; PULSE 100; RESP 19; TEMP 100.3; O2SAT 93
--- NOTE | 2018-04-06 10:08 | P.PNNP ---
Subjective Interval history: Dialyzed yesterday. Plan is to be discharged to [place]. <Natalie Adames - Last Filed: 04/06/18 10:05> Physical Exam Vital signs: Vital Signs 04/05/18 12:00 04/05/18 16:00 04/05/18 20:00 Temperature 99.1 F 98.6 F 98.5 F Pulse Rate 100 H 105 H Respiratory Rate 18 18 17 Blood Pressure 123/82 128/78 103/59 L Pulse Oximetry 95 93 L 95 04/06/18 00:00 04/06/18 08:00 Temperature 99.1 F 100.3 F H Pulse Rate 100 H Respiratory Rate 18 19 Blood Pressure 99/56 L 121/62 Pulse Oximetry 95 93 L Intake & Output 04/05/18 04/06/18 04/06/18 18:59 06:59 18:59 Intake Total 400 / 400 Output Total 1999 Balance -1999 400 / 400 Weight 88.2 kg Intake: Oral 400 / 400 Output: Hemodialysis Amount 1999 Other: # Voids 3 Date of Last Bowel Movement 04/05/18 04/05/18 # Bowel Movements 1 - Constitutional no acute distress, average body habitus, chronically ill appearing, cooperative - Routine HEENT Exam Head: Present: normocephalic - Routine Neck Exam Present: supple, full ROM - Routine Respiratory Exam Present: CTA bilaterally. Absent: accessory muscle use - Routine Cardiovascular Exam Present: RRR, S1, S2 - Routine Abdominal Exam Present: soft, normoactive bowel sounds - Routine Extremities Exam Present: full ROM, pulses intact, AV fistula, vascular access. Absent: edema Comments: LLE with external fixator - Routine Skin Exam Present: intact - Routine Neurological Exam Present: alert, oriented X3, CN II-XII intact, moving all extremities - Detailed Neurological Exam: Coma Scale Eye Opening: Spontaneous Verbal Response: Oriented Motor Response: Obey commands [place] Coma Scale Total: 15 - Routine Psychiatric Exam Present: normal affect, normal thought process <Natalie Adames - Last Filed: 04/06/18 10:05> Vital signs: Vital Signs 04/05/18 12:00 04/05/18 16:00 04/05/18 20:00 Temperature 99.1 F 98.6 F 98.5 F Pulse Rate 100 H 105 H Respiratory Rate 18 18 17 Blood Pressure 123/82 128/78 103/59 L Pulse Oximetry 95 93 L 95 04/06/18 00:00 04/06/18 08:00 Temperature 99.1 F 100.3 F H Pulse Rate 100 H Respiratory Rate 18 19 Blood Pressure 99/56 L 121/62 Pulse Oximetry 95 93 L Intake & Output 04/05/18 04/06/18 04/06/18 18:59 06:59 18:59 Intake Total 400 / 400 Output Total 1999 Balance -1999 400 / 400 Weight 88.2 kg Intake: Oral 400 / 400 Output: Hemodialysis Amount 1999 Other: # Voids 3 Date of Last Bowel Movement 04/05/18 04/05/18 # Bowel Movements 1 <Karthikeyan Choudhary - Last Filed: 04/06/18 11:41> Assessment and Plan - Assessment (1) ESRD (end stage renal disease) Code(s): N18.6 - End stage renal disease Status: Acute Plan: HD MWF. Had treatment yesterday, 2L fluid removal. Outpatient HD arrangements at [facility] for HD use. Her AV access RUE is not ready for use. Avoid IVF administration. High protein low K diet encouraged. Avoid IVF administration. Continue Epogen for anemia of CKD. 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 Stop Renvela, continue Calcium acetate, most recent level is acceptable. (2) Calcaneal fracture Code(s): S92.009A - Unspecified fracture of unspecified calcaneus, initial encounter for closed fracture Status: Acute Qualifiers: Encounter type: subsequent encounter Calcaneus location: body Fracture type: closed Fracture alignment: displaced Laterality: left Fracture healing: with routine healing Qualified Code(s): S92.012D - Displaced fracture of body of left calcaneus, subsequent encounter for fracture with routine healing Plan: 04/01 ORIF and external fixation by podiatry. Pain management PRN. Will go to [place] inpatient rehab. EZEQUIEL RLE. (3) DM (diabetes mellitus), type 2, uncontrolled Code(s): E11.65 - Type 2 diabetes mellitus with hyperglycemia Status: Acute Plan: Use insulin as needed, maintain glucose 140-180 mg/dL. (4) Hypocalcemia Code(s): E83.51 - Hypocalcemia Status: Acute Plan: Hx parathyroidectomy Ordered Tums. Avoid IV calcium administration. On calcium acetate as a phosphate binder. Also on calcitriol. <Natalie Adames - Last Filed: 04/06/18 10:05> - Assessment (1) ESRD (end stage renal disease) Code(s): N18.6 - End stage renal disease Status: Acute (2) Calcaneal fracture Code(s): S92.009A - Unspecified fracture of unspecified calcaneus, initial encounter for closed fracture Status: Acute Qualifiers: Encounter type: subsequent encounter Calcaneus location: body Fracture type: closed Fracture alignment: displaced Laterality: left Fracture healing: with routine healing Qualified Code(s): S92.012D - Displaced fracture of body of left calcaneus, subsequent encounter for fracture with routine healing (3) DM (diabetes mellitus), type 2, uncontrolled Code(s): E11.65 - Type 2 diabetes mellitus with hyperglycemia Status: Acute (4) Hypocalcemia Code(s): E83.51 - Hypocalcemia Status: Acute - Attending Attestation patient was seen and examined. Agree with above assessment and plan. To be discharged to [place] rehab. <Karthikeyan Choudhary - Last Filed: 04/06/18 11:41>
== END 2018-04-06 10:26 ==
LOC: NEDA 06:23 → NEPC 06:23 → NEDA 16:56 → NEPFCDU 18:08 → NEDH 20:05 → NEPFCDU 20:07 → N06 04-01 14:58
PROVIDERS: ADMIT Internal Medicine; ATTEND Internal Medicine
PROC: ORIFCAL (2018-04-01 17:25)

== ENCOUNTER 2018-05-26 20:00 | Inpatient (IN) ==
[2018-05-26] MEDS ORDERED: Acetaminophen 325 MG Tablet PO PRN ×2 (20:16→22:21)
[2018-05-26] MEDS ORDERED: Bisacodyl 10 MG Supp RECTAL PRN (20:16)
[2018-05-26] MEDS ORDERED: diazePAM 5 MG Tablet PO ONE (21:27)
--- NOTE | 2018-05-26 21:33 | P.HPIM ---
History of Present Illness Service: [facility] Primary Care Physician: Marcelino Ruffin Chief Complaint: Left ankle calcaneus fracture History of Present Illness: Mrs. Cortez is a 52 year-old female with a history of diabetes mellitus, reports two episodes of afib related to midodrine use, end-stage renal disease on hemodialysis with a history of polycystic kidney disease and failed transplant, diabetes mellitus with neuropathy, and left calcaneus fracture in March 2018 with repair times [address] Piedra's office for evaluation and management of left calcaneus fracture with hardware malfunction. The patient was admitted to the hospitalist service. The patient sustained a left calcaneus avulsion fracture on 03/24/2018 and had open reduction internal fixation on the same date by Dr. Yan. She was discharged home and had recurrent left heel pain and requiring repeat ORIF with external fixation for recurrent left calcaneus fracture/hardware malfunction. The patient states on Thursday, a portion of her external fixator fell off prompting her to see Dr. Piedra. The patient was instructed to come to the hospital today for surgery at 3:00 pm tomorrow and osteomyelitis evaluation. The patient is complaining of severe and aching left heel pain that is worse with movement along with increased preprocedural anxiety. Her left heel pain is relieved with oxycodone 15 mg p.o. at home and Valium 5 mg as needed. The patient reports that she has been smoking again over the past week after not smoking for over a year due to stress. She requested a nicotine patch and I advised her against this as well as encouraging smoking cessation all to promote better healing. She is agreeable with not using the nicotine patch. Review of Systems All other systems reviewed negative except as stated in HPI [facility] - History History Provided By: Patient, Family Member - Medical History Medical History: Medical History (Last Reviewed 05/27/18 @ 01:58 by LELO Mcrae) Normal Papanicolaou smear (Acute) Mammogram normal (Acute) Former smoker (Acute) Abnormal nuclear stress test (Acute) Hx of CT scan (Acute) Tinea unguium (Acute) Type 2 diabetes mellitus with diabetic polyneuropathy (Chronic) Secondary hyperparathyroidism (of renal origin) (Acute) Chronic renal failure ESRD (end stage renal disease) on dialysis Hemodialysis access site with arteriovenous graft History of colitis History of renal dialysis Hx of bursitis Hx of diabetes mellitus Metabolic bone disease Mild coronary artery disease Personal history of atrial fibrillation - Surgical History Surgical History: Surgical History (Last Reviewed 05/27/18 @ 01:59 by LELO Mcrae) H/O cardiac catheterization (Acute) Amputated toe of right foot H/O parathyroidectomy - Family History Family History: Family History (Last Updated 05/27/18 @ 01:59 by LELO Mcrae) Mother Breast cancer Brother Suicide - Social History I have reviewed the patient's Social History: Yes - Tobacco History Second Hand Smoke Exposure: Yes Smoking Status: Former smoker Tobacco Type: Cigarettes - Alcohol History How Often Do You Have a Drink Containing Alcohol: Monthly or less - Substance Use History Substance History: No History of Abuse Medications and Allergies Active Medications: Active Medications Acetaminophen (Tylenol) 650 mg PO Q4H PRN PRN Reason: Temp > 100.4 Bisacodyl (Dulcolax Supp) 10 mg RECTAL DAILY PRN PRN Reason: SEVERE CONSITIPATION Eszopiclone (Lunesta) 2 mg PO ONCE ONE Stop: 05/26/18 21:33 Ondansetron HCl (Zofran Inj) 4 mg IV.PUSH Q6H PRN PRN Reason: NAUSEA OR VOMITING Oxycodone/Acetaminophen (Percocet 7.5/325 Mg) 2 tab PO Q6H PRN PRN Reason: pain > 4 Sennosides (Senokot) 17.2 mg PO Q12H PRN PRN Reason: Moderate Constipation Allergies Allergy/AdvReac Type Severity Reaction Status Date / Time coconut Allergy Severe HIVES Verified 04/06/18 10:54 diatrizoate meglumine Allergy Severe RENAL Verified 04/06/18 10:54 FAILURE gadobenic acid Allergy Severe RENAL Verified 04/06/18 10:54 FAILURE gadodiamide Allergy Severe RENAL Verified 04/06/18 10:54 FAILURE gadoteridol Allergy Severe RENAL Verified 04/06/18 10:54 FAILURE iodixanol Allergy Severe RENAL Verified 04/06/18 10:54 FAILURE iohexol Allergy Severe RENAL Verified 04/06/18 10:54 FAILURE morphine Allergy Severe HIVES Verified 04/06/18 10:54 azithromycin Allergy Intermediate HIVES Verified 04/06/18 10:54 clindamycin Allergy Intermediate HIVES Verified 04/06/18 10:54 erythromycin base Allergy Intermediate HIVES Verified 04/06/18 10:54 penicillin G Allergy Intermediate Hives Verified 04/06/18 10:54 midodrine Allergy Unknown Atrial Verified 04/06/18 10:54 Fibrillation codeine AdvReac Severe HALLUCINATI Verified 04/06/18 10:54 ONS insulin aspart AdvReac Severe REGULAR Verified 04/06/18 10:54 INSULIN ONLY-CAUSES CRAMPIN G AND "FREEZING" insulin aspart protamine AdvReac Severe REGULAR Verified 04/06/18 10:54 human INSULIN ONLY-CAUSES CRAMPIN G AND "FREEZING" insulin detemir AdvReac Severe REGULAR Verified 04/06/18 10:54 INSULIN ONLY-CAUSES CRAMPIN G AND "FREEZING" insulin glargine AdvReac Severe REGULAR Verified 04/06/18 10:54 INSULIN ONLY-CAUSES CRAMPIN G AND "FREEZING" insulin isophane (NPH) AdvReac Severe REGULAR Verified 04/06/18 10:54 INSULIN ONLY-CAUSES CRAMPIN G AND "FREEZING" insulin lispro AdvReac Severe REGULAR Verified 04/06/18 10:54 INSULIN ONLY-CAUSES CRAMPIN G AND "FREEZING" insulin regular AdvReac Severe REGULAR Verified 04/06/18 10:54 INSULIN ONLY-CAUSES CRAMPIN G AND "FREEZING" vancomycin AdvReac Mild NAUSEA/VOMITING Verified 04/06/18 10:54 WHEN INFUSED TOO FAST Home Medications Medication Instructions Recorded Confirmed Type calcitriol 0.25 mcg PO Q OTHER DAY 05/26/18 05/26/18 History calcium acetate 2,001 mg PO TID 05/26/18 05/26/18 History diazepam 5 mg PO DAILY 05/26/18 05/27/18 History docusate sodium 50 mg PO BID 05/26/18 05/27/18 History ergocalciferol (vitamin D2) 50,000 unit PO QWEEK 05/26/18 05/27/18 History [Vitamin D2] pantoprazole 40 mg PO DAILY 05/26/18 05/27/18 History pentoxifylline 400 mg PO DAILY 05/26/18 05/27/18 History rivaroxaban [Xarelto] 10 mg PO BID 05/26/18 05/27/18 History eszopiclone 2 mg PO HS 05/27/18 05/27/18 History Exam Vital signs: Vital Signs 05/26/18 21:24 Temperature 98.8 F Pulse Rate 80 Respiratory Rate 19 Blood Pressure 161/86 H Pulse Oximetry 100 Narrative: GENERAL: This is a well-nourished, well-developed patient, in no apparent distress. SKIN: No rashes. Cool and dry. HEAD: Atraumatic. Normocephalic. EYES: No scleral icterus. No injection or drainage. ENT: Nose without bleeding, purulent drainage. NECK: Trachea midline. No JVD or lymphadenopathy. CARDIOVASCULAR: Regular rate and rhythm without murmurs, gallops, or rubs. RESPIRATORY: Clear to auscultation. Breath sounds equal bilaterally. No wheezes , rales, or rhonchi. GASTROINTESTINAL: Abdomen soft, non-tender, nondistended. No guarding. MUSCULOSKELETAL: Extremities without clubbing, cyanosis, or edema. No calf tenderness. Left ankle in splint covered with gauze and external fixation devices are in place. Patient without swelling in areas visualized and able to wiggle toes. Patient has diminished sensation secondary to peripheral neuropathy with no reported changes. Toes are warm to touch. NEUROLOGICAL: Awake and alert. Motor and sensory grossly within normal limits. Normal speech. . Results - Labs CBC & Chem 7: 05/26/18 21:30 05/26/18 21:30 Caprini VTE Risk Assessment Caprini VTE Risk Assessment: Moderate/High Risk (score >= 2) Caprini Risk Assessment Model: Point Value = 1 Point Value = 2 Point Value = 3 Point Value = 5 Age 41-60 Minor surgery BMI > 25 kg/m2 Swollen legs Varicose veins or History of unexplained or recurrent spontaneous Oral contraceptives or hormone replacement Sepsis (< 1 month) Serious lung disease, including pneumonia (< 1 month) Abnormal pulmonary function Acute myocardial infarction Congestive heart failure (< 1 month) History of inflammatory bowel disease Medical patient at bed rest Age 61-74 Arthroscopic surgery Major open surgery (> 45 min) Laparoscopic surgery (> 45 min) Malignancy Confined to bed (> 72 hours) Immobilizing plaster cast Central venous access Age >= 75 History of VTE Family history of VTE Factor V Leiden Prothrombin [id number] Lupus anticoagulant Anticardiolipin antibodies Elevated serum homocysteine Heparin-induced thrombocytopenia Other congenital or acquired thrombophilia Stroke (< 1 month) Elective arthroplasty Hip, pelvis, or leg fracture Acute spinal cord injury (< 1 month) Prophylaxis Regimen: Total Risk Factor Score Risk Level Prophylaxis Regimen 0-1 Low Early ambulation 2 Moderate Order ONE of the following: *Sequential Compression Device (SCD) *Heparin 5000 units SQ BID 3-4 Higher Order ONE of the following medications: *Heparin 5000 units SQ TID *Enoxaparin/Lovenox 40 mg SQ daily (WT < 150 kg, CrCl > 30 mL/min) *Enoxaparin/Lovenox 30 mg SQ daily (WT < 150 kg, CrCl > 10-29 mL/min) *Enoxaparin/Lovenox 30 mg SQ BID (WT < 150 kg, CrCl > 30 mL/min) AND/OR *Sequential Compression Device (SCD) 5 or more Highest Order ONE of the following medications: *Heparin 5000 units SQ TID (Preferred with Epidurals) *Enoxaparin/Lovenox 40 mg SQ daily (WT < 150 kg, CrCl > 30 mL/min) *Enoxaparin/Lovenox 30 mg SQ daily (WT < 150 kg, CrCl > 10-29 mL/min) *Enoxaparin/Lovenox 30 mg SQ BID (WT < 150 kg, CrCl > 30 mL/min) AND *Sequential Compression Device (SCD) Assessment and Plan - Plan Mrs. Cortez is a 52 year-old female with a history of diabetes mellitus, reports two episodes of afib related to midodrine use, end-stage renal disease on hemodialysis, diabetes mellitus with neuropathy, and left calcaneus fracture in March 2018 with repair times [address] Piedra's office for evaluation and management of left calcaneus fracture with hardware malfunction. The patient was admitted to the hospitalist service. Left calcaneus fracture -Consult podiatry - patient sent by Dr. Piedra for surgery at 3 p.m. on 05/27 following osteomyelitis evaluation -Percocet 7.5/325 mg two tabs q6h PRN pain (takes BID at home - verified with [facility]) -CRP minimally elevated at 2.20 and ESR minimally elevated at 31 -x-ray with no signs of osteomyelitis ESRD on hemodialysis -consult to Dr. Choudhary - patient's crop consultant - assistance appreciated Type 2 Diabetes Mellitus - Accu-Cheks before meals and at bedtime with low-dose NovoLog sliding scale coverage - Hypoglycemia protocol - Monitor trends and blood glucose readings and adjust treatments as indicated History of atrial fibrillation -2 episodes that patient relates to medication ProAmatine -Continuous cardiac telemetry to monitor -Xarelto on hold for pending surgery Anemia most likely related to chronic kidney disease -Hemoglobin 10.7 and hematocrit 32.0 on admission -Repeat CBC and monitor H&H DVT prophylaxis - Xarelto on hold for pending surgery Discussed Condition With: Dr. Almanzar, patient, and RN .
[2018-05-26] MEDS ORDERED: Sodium Chloride 0.9% 2 ML Flush PRN IV.FLUSH (21:36)
[2018-05-26 21:54] LABS: Baso % (Auto) 0.6 % (0.0-2.0); Eos # (Auto) 0.2 th/mm3 (0.0-0.4); Eos % (Auto) 2.5 % (0.0-4.0); Hemoglobin 10.7 gm/dL (11.6-15.3); Lymph # (Auto) 1.6 th/mm3 (1.0-4.8); Lymph % (Auto) 22.9 % (9.0-44.0); Mean Corpuscular HGB Conc 33.4 % (32.0-36.0); Mean Corpuscular Volume 86.8 fL (80.0-100.0); Mean Platelet Volume 7.8 fL (7.0-11.0); Mono # (Auto) 0.5 th/mm3 (0.0-0.9); Mono % (Auto) 7.5 % (0.0-8.0); Neut # (Auto) 4.7 th/mm3 (1.8-7.7); Neut % (Auto) 66.5 % (16.0-70.0); Platelet Count 261 th/mm3 (150-450); Red Blood Count 3.68 mil/mm3 (4.00-5.30); Red Cell Distribution Width 15.1 % (11.6-17.2); White Blood Count 7.1 th/mm3 (4.0-11.0)
[2018-05-26 22:09] LABS: Albumin 3.3 g/dL (3.4-5.0); Anion Gap 11 meq/L (5-15); Aspartate Aminotransferase 13 U/L (15-37); Blood Urea Nitrogen 22 mg/dL (7-18); Calcium 8.1 mg/dL (8.5-10.1); Carbon Dioxide 29.4 meq/L (21.0-32.0); Chloride 97 meq/L (98-107); Glomerular Filtration Rate 11 mL/min (>89); Glucose,Random 160 mg/dL (74-106); Potassium 3.5 meq/L (3.5-5.1); Sodium 137 meq/L (136-145)
[2018-05-26 22:12] LABS: Alanine Aminotransferase 14 U/L (10-53); Alkaline Phosphatase 90 U/L (45-117); Total Protein 7.7 g/dL (6.4-8.2)
--- NOTE | 2018-05-26 22:18 | XR ---
EXAM DATE: 05/26/2018 12:00 AM EDT AGE/SEX: 52 years / Female INDICATIONS: Left foot pain post surgery 8 weeks ago CLINICAL DATA: This is the patient's initial encounter. Patient reports that signs and symptoms have been present for 2 months and indicates a pain score of 5/10. MEDICAL/SURGICAL HISTORY: None. . Left calcaneal fracture repair COMPARISON: [facility]IR, FOOT LIMITED LEFT 2V, 04/12/2018. . FINDINGS: Postoperative external fixation with screws traversing calcaneal fracture. Lucency remains a posterio r calcaneal fracture site. Extensive vascular calcifications. Moderate degenerative change in the mid foot. CONCLUSION: External fixation and calcaneal screws present. There is some lucency around the calcaneal screws. Fr acture line posterior calcaneus remains visible. Electronically signed by: Alberto Murry MD 05/26/2018 10:17 PM EDT
[2018-05-26] MEDS ORDERED: Sod Chloride 0.9% Inj 1,000 ML IV.CONT PRN (22:21)
[2018-05-26] MEDS ORDERED: Gelatin 12 MM/7 MM Topical Foam TOPICAL PRN (22:21)
[2018-05-26] MEDS ORDERED: Albumin Human 25% Inj 100 ML IV.SIG PRN (22:21)
[2018-05-26] MEDS ORDERED: Heparin 10,000 UNITS/10 ML Vial (for IV use) OTHER PRN (22:21)
[2018-05-26] MEDS ORDERED: Sod Chloride 0.9% Inj 1,000 ML OTHER PRN ×2 (22:21)
[2018-05-27] MEDS ORDERED: Dextrose 50% in Water 50 ML Vial IV.PUSH PRN (01:50)
[2018-05-27] MEDS: Insulin NovoLOG Aspart Correctional Sugar Inj SQ SCH ×3 (08:17→21:21)
[2018-05-27] MEDS: Calcitriol 0.25 MCG Capsule PO SCH (09:46)
[2018-05-27] MEDS: Calcium Acetate 667 MG Capsule PO SCH ×3 (09:46→21:20)
[2018-05-27] MEDS: Pentoxifylline 400 MG Controlled Release Tablet PO SCH (09:47)
[2018-05-27] MEDS: Sodium Chloride 0.9% 2 ML Flush BID IV.FLUSH SCH ×2 (09:47→21:22)
[2018-05-27] MEDS: Docusate Sodium Liq 100 MG/10 ML UDC PO SCH ×2 (09:47→21:19)
[2018-05-27] MEDS ORDERED: Chlorhexidine Gluconate 2% 1 Pack (2 Cloths) TOPICAL SCH (16:17)
[2018-05-27] MEDS ORDERED: Metoprolol Tartrate 25 MG Tablet PO SCH (16:17)
[2018-05-27] MEDS ORDERED: Sodium Chlor 0.9% Inj 500 ML IV.SIG SCH (17:00)
[2018-05-27] MEDS ORDERED: Lidocaine PF 1% Inj 5 ML Syringe OTHER ONE (17:00)
--- NOTE | 2018-05-27 17:37 | P.PNIM ---
Subjective Interval history: Patient does not appear to be in any acute distress. She appears frustrated at her current condition and says " I want to be able to walk again." Physical Exam Vital signs: Vital Signs 05/26/18 21:24 05/27/18 00:00 05/27/18 04:00 Temperature 98.8 F 98.7 F 97.9 F Pulse Rate 80 85 79 Respiratory Rate 19 17 19 Blood Pressure 161/86 H 145/75 H 141/83 H Pulse Oximetry 100 90 L 91 L 05/27/18 08:00 05/27/18 09:03 05/27/18 12:00 Temperature 98.7 F 97.7 F Pulse Rate 74 73 69 Respiratory Rate 16 16 Blood Pressure 126/60 163/74 H Pulse Oximetry 94 L 93 L Intake & Output 05/26/18 05/27/18 05/27/18 18:59 06:59 18:59 Intake Total 620 / 620 Balance 620 / 620 Weight 78.018 kg Intake: Oral 620 / 620 Other: Date of Last Bowel Movement 05/25/18 Weight On Admission 78.018 kg Narrative: General patient in no acute distress complains of mild pain of the left ankle. HEENT extraocular movements are intact, clear oropharyngeal mucosa, no JVD Cardiovascular S1-S2 audible Respiratory clear to auscultation bilaterally Abdomen soft, nontender, nondistended, normal bowel sounds Extremities left foot in bandage, with splint and external fixation device in place. She is able to move her toes and has mild pain of the left ankle. Neuro no neurological deficits. Results - Labs CBC & Chem 7: 05/26/18 21:30 05/26/18 21:30 Laboratory Results - last 24 hr 05/26/18 05/26/18 05/26/18 21:30 21:30 21:30 WBC 7.1 RBC 3.68 L Hgb 10.7 L Hct 32.0 L MCV 86.8 MCH 29.0 MCHC 33.4 RDW 15.1 Plt Count 261 MPV 7.8 Neut % (Auto) 66.5 Lymph % (Auto) 22.9 [place] % (Auto) 7.5 Eos % (Auto) 2.5 Baso % (Auto) 0.6 Neut # (Auto) 4.7 Lymph # (Auto) 1.6 [place] # (Auto) 0.5 Eos # (Auto) 0.2 Baso # (Auto) 0.0 WBC Differential . Differential Comment Auto diff final ESR 31 H Sodium 137 Potassium 3.5 Chloride 97 L Carbon Dioxide 29.4 Anion Gap 11 BUN 22 H Creatinine 5.02 H Estimated GFR 11 L POC Glucose Random Glucose 160 H Calcium 8.1 L Total Bilirubin 0.3 AST 13 L ALT 14 Alkaline Phosphatase 90 C-Reactive Protein Total Protein 7.7 Albumin 3.3 L 05/26/18 05/27/18 05/27/18 21:30 08:06 12:06 WBC RBC Hgb Hct MCV MCH MCHC RDW Plt Count MPV Neut % (Auto) Lymph % (Auto) [place] % (Auto) Eos % (Auto) Baso % (Auto) Neut # (Auto) Lymph # (Auto) [place] # (Auto) Eos # (Auto) Baso # (Auto) WBC Differential Differential Comment ESR Sodium Potassium Chloride Carbon Dioxide Anion Gap BUN Creatinine Estimated GFR POC Glucose 140 H 148 H Random Glucose Calcium Total Bilirubin AST ALT Alkaline Phosphatase C-Reactive Protein 2.20 H Total Protein Albumin 05/27/18 15:02 WBC RBC Hgb Hct MCV MCH MCHC RDW Plt Count MPV Neut % (Auto) Lymph % (Auto) [place] % (Auto) Eos % (Auto) Baso % (Auto) Neut # (Auto) Lymph # (Auto) [place] # (Auto) Eos # (Auto) Baso # (Auto) WBC Differential Differential Comment ESR Sodium Potassium Chloride Carbon Dioxide Anion Gap BUN Creatinine Estimated GFR POC Glucose 132 H Random Glucose Calcium Total Bilirubin AST ALT Alkaline Phosphatase C-Reactive Protein Total Protein Albumin - Imaging Impressions Foot X-Ray 05/26/18 00:00 CONCLUSION: External fixation and calcaneal screws present. There is some lucency around the calcaneal screws. Fracture line posterior calcaneus remains visible. Assessment and Plan - Plan This patient is a 52-year-old female with a diagnosis of atrial fibrillation on Xarelto, diabetes mellitus type 2, end-stage renal disease on hemodialysis, peripheral neuropathy, and a left calcaneus fracture in March 2018. The patient had repair of the fracture 2 times and presented from Dr. Trujillo's office for management of the left calcaneus fracture hardware malfunction. 1. Left calcaneus fracture Podiatry has been consulted and the plan is for the patient to undergo surgery possibly today. We will continue pain medications and follow-up with podiatry for further recommendations. 2. End-stage renal disease on hemodialysis Continue with dialysis Thursday and Thursday. The patient's last hemodialysis was yesterday. She will be scheduled for hemodialysis for tomorrow. 3. Diabetes mellitus type 2 Continue Accu-Cheks q. before meals and at bedtime. Continue NovoLog sliding scale. 4. Atrial fibrillation Continue to monitor on telemetry, Xarelto has been hold pending surgery. No pharmacal therapy for DVT prophylaxis the patient will undergo surgery likely today. Xarelto on hold pending surgery.
[2018-05-27] MEDS ORDERED: Bupivacaine 0.5% Inj 50 ML MDV Vial ONE (17:38)
--- NOTE | 2018-05-27 19:25 | P.CONPOD ---
History of Present Illness Service: Podiatry Consult date: 05/27/18 Reason for Consult: left heel pain, further surgery required Primary Care Provider: Marcelino Ruffin Chief Complaint: Left ankle calcaneus fracture History of Present Illness: Patient sustained left calcaneus fracture approx 2 months ago and underwent ORIF , stepped down and re-fractured it, then underwent ORIF again with external fixation. She had CT done last week showing healing, then came back into clinic 2 days later and had re-fractured it. She was admitted for pain and surgery left heel. [facility] - History History Provided By: Patient, Family Member - Medical History Medical History: Medical History (Last Reviewed 05/27/18 @ 07:47 by Ashish Aj) Normal Papanicolaou smear (Acute) Mammogram normal (Acute) Former smoker (Acute) Abnormal nuclear stress test (Acute) Hx of CT scan (Acute) Tinea unguium (Acute) Type 2 diabetes mellitus with diabetic polyneuropathy (Chronic) Secondary hyperparathyroidism (of renal origin) (Acute) Chronic renal failure ESRD (end stage renal disease) on dialysis Hemodialysis access site with arteriovenous graft History of colitis History of renal dialysis Hx of bursitis Hx of diabetes mellitus Metabolic bone disease Mild coronary artery disease Personal history of atrial fibrillation - Surgical History Surgical History: Surgical History (Last Reviewed 05/27/18 @ 07:47 by Ashish Aj) H/O cardiac catheterization (Acute) Amputated toe of right foot H/O parathyroidectomy - Family History Family History: Family History (Last Updated 05/27/18 @ 01:59 by LELO Mcrae) Mother Breast cancer Brother Suicide - Tobacco History Second Hand Smoke Exposure: Yes Smoking Status: Former smoker Tobacco Type: Cigarettes - Alcohol History How Often Do You Have a Drink Containing Alcohol: Monthly or less - Substance Use History Substance History: No History of Abuse - Travel History Recent Travel in the [place] Within the Last 8 Weeks: No Recent Travel Out of the Country Within the Last 8 Weeks: No Medications and Allergies Active Medications: Active Medications Acetaminophen (Tylenol) 650 mg PO Q4H PRN PRN Reason: Temp > 100.4 Acetaminophen (Tylenol) 650 mg PO UNSCH PRN PRN Reason: SEE LABEL COMMENTS Bisacodyl (Dulcolax Supp) 10 mg RECTAL DAILY PRN PRN Reason: SEVERE CONSITIPATION Calcitriol (Rocaltrol) 0.25 mcg PO Q48H [facility] Last Admin: 05/27/18 09:46 Dose: 0.25 mcg Calcium Acetate (Phoslo) 2,001 mg PO TID [facility] Last Admin: 05/27/18 13:24 Dose: Not Given Chlorhexidine Gluconate (Chlorhexidine 2% Cloth) 3 pack TOPICAL STORE HAND [facility] Stop: 05/28/18 16:16 Clonidine HCl (Catapres) 0.1 mg PO UNSCH PRN PRN Reason: SEE LABEL COMMENTS Dextrose (D50w Vial) 50 ml IV.PUSH UNSCH PRN PRN Reason: PER HYPOGLYCEMIA PROTOCOL Diazepam (Valium) 5 mg PO DAILY PRN PRN Reason: ANXIETY Diphenhydramine HCl (Benadryl) 25 mg PO UNSCH PRN PRN Reason: SEE LABEL COMMENTS Docusate Sodium (Colace Liq) 50 mg PO BID [facility] Last Admin: 05/27/18 09:47 Dose: Not Given Epoetin Greg (Epogen Inj) 10,000 unit IV.PUSH UNSCH PRN PRN Reason: SEE LABEL COMMENTS Eszopiclone (Lunesta) 2 mg PO HS [facility] Gelatin (Gelfoam 12 Mm/7 Mm Topical) 1 foam TOPICAL PRN PRN PRN Reason: help stop bleeding from site Gentamicin Sulfate (Gentamicin Inj) 20 mg OTHER WITH DIALYSIS PRN PRN Reason: Dwell Gentamycin Lock Glucagon (Glucagon Inj) 1 mg OTHER PRN PRN PRN Reason: for Hypoglycemia Protocol Heparin Sodium (Porcine) (Heparin Inj) 8,000 units OTHER WITH DIALYSIS PRN PRN Reason: for machine prime Heparin Sodium (Porcine) (Heparin Inj) 1,000 units OTHER WITH DIALYSIS PRN PRN Reason: Dwell Heparin to Fill Catheter Sodium Chloride (Ns Inj) 1,000 mls @ 0 mls/hr OTHER .Q0M PRN PRN Reason: for prime and rinse back Sodium Chloride (Ns Inj) 1,000 mls @ 200 mls/hr OTHER .Q5H PRN PRN Reason: for dialyzer flush PRN Sodium Chloride (Ns Inj) 1,000 mls @ 0 mls/hr IV.CONT .Q0M PRN PRN Reason: hypotension / volume replace Albumin Human (Flexbumin 25% Inj) 100 mls @ 60 mls/hr IV.SIG WITH DIALYSIS PRN PRN Reason: hypotension / volume replace Lactated Ringer's (Lr 1000 Ml Inj) 1,000 mls @ 30 mls/hr IV.SIG .Q24H [facility] Stop: 05/28/18 16:29 Sodium Chloride (Ns Inj) 500 mls @ 30 mls/hr IV.SIG .[id number] [facility] Stop: 05/28/18 09:39 Insulin Aspart (Novolog Insulin Correctional Sugar Inj) 0 unit SQ ACHS [facility]; Protocol Last Admin: 05/27/18 12:37 Dose: Not Given Mannitol (Mannitol Inj) 12.5 gm IV.PUSH UNSCH PRN PRN Reason: hypotension / volume replace Metoprolol Tartrate (Lopressor) 25 mg PO STORE HAND [facility] Stop: 05/28/18 16:16 Nitroglycerin (Nitrostat Sl) 0.4 mg SL Q5M PRN PRN Reason: CHEST PAIN Ondansetron HCl (Zofran Inj) 4 mg IV.PUSH Q6H PRN PRN Reason: NAUSEA OR VOMITING Last Admin: 05/27/18 02:16 Dose: 4 mg Ondansetron HCl (Zofran Inj) 4 mg IV.PUSH UNSCH PRN PRN Reason: NAUSEA OR VOMITING Oxycodone/Acetaminophen (Percocet 7.5/325 Mg) 2 tab PO Q6H PRN PRN Reason: pain > 4 Last Admin: 05/27/18 05:58 Dose: 2 tab Pantoprazole Sodium (Protonix) 40 mg PO DAILY [facility] Last Admin: 05/27/18 09:46 Dose: 40 mg Pentoxifylline (Trental Sr) 400 mg PO DAILY [facility] Last Admin: 05/27/18 09:47 Dose: Not Given Sennosides (Senokot) 17.2 mg PO Q12H PRN PRN Reason: Moderate Constipation Sodium Chloride (Ns Flush) 2 ml IV.FLUSH BID [facility] Last Admin: 05/27/18 09:47 Dose: 2 ml Sodium Chloride (Ns Flush) 2 ml IV.FLUSH PRN PRN PRN Reason: FLUSH AFTER USING IV ACCESS Sodium Chloride (Ns Flush) 5 ml IV.FLUSH PRN PRN PRN Reason: flush each lumen during HD Allergies Allergy/AdvReac Type Severity Reaction Status Date / Time coconut Allergy Severe HIVES Verified 04/06/18 10:54 diatrizoate meglumine Allergy Severe RENAL Verified 04/06/18 10:54 FAILURE gadobenic acid Allergy Severe RENAL Verified 04/06/18 10:54 FAILURE gadodiamide Allergy Severe RENAL Verified 04/06/18 10:54 FAILURE gadoteridol Allergy Severe RENAL Verified 04/06/18 10:54 FAILURE iodixanol Allergy Severe RENAL Verified 04/06/18 10:54 FAILURE iohexol Allergy Severe RENAL Verified 04/06/18 10:54 FAILURE morphine Allergy Severe HIVES Verified 04/06/18 10:54 azithromycin Allergy Intermediate HIVES Verified 04/06/18 10:54 clindamycin Allergy Intermediate HIVES Verified 04/06/18 10:54 erythromycin base Allergy Intermediate HIVES Verified 04/06/18 10:54 penicillin G Allergy Intermediate Hives Verified 04/06/18 10:54 midodrine Allergy Unknown Atrial Verified 04/06/18 10:54 Fibrillation codeine AdvReac Severe HALLUCINATI Verified 04/06/18 10:54 ONS insulin aspart AdvReac Severe REGULAR Verified 04/06/18 10:54 INSULIN ONLY-CAUSES CRAMPIN G AND "FREEZING" insulin aspart protamine AdvReac Severe REGULAR Verified 04/06/18 10:54 human INSULIN ONLY-CAUSES CRAMPIN G AND "FREEZING" insulin detemir AdvReac Severe REGULAR Verified 04/06/18 10:54 INSULIN ONLY-CAUSES CRAMPIN G AND "FREEZING" insulin glargine AdvReac Severe REGULAR Verified 04/06/18 10:54 INSULIN ONLY-CAUSES CRAMPIN G AND "FREEZING" insulin isophane (NPH) AdvReac Severe REGULAR Verified 04/06/18 10:54 INSULIN ONLY-CAUSES CRAMPIN G AND "FREEZING" insulin lispro AdvReac Severe REGULAR Verified 04/06/18 10:54 INSULIN ONLY-CAUSES CRAMPIN G AND "FREEZING" insulin regular AdvReac Severe REGULAR Verified 04/06/18 10:54 INSULIN ONLY-CAUSES CRAMPIN G AND "FREEZING" vancomycin AdvReac Mild NAUSEA/VOMITING Verified 04/06/18 10:54 WHEN INFUSED TOO FAST Home Medications Medication Instructions Recorded Confirmed Type calcitriol 0.25 mcg PO Q OTHER DAY 05/26/18 05/27/18 History calcium acetate 2,001 mg PO TID 05/26/18 05/27/18 History diazepam 5 mg PO DAILY 05/26/18 05/27/18 History docusate sodium 50 mg PO BID 05/26/18 05/27/18 History ergocalciferol (vitamin D2) 50,000 unit PO QWEEK 05/26/18 05/27/18 History [Vitamin D2] pantoprazole 40 mg PO DAILY 05/26/18 05/27/18 History pentoxifylline 400 mg PO DAILY 05/26/18 05/27/18 History eszopiclone 2 mg PO HS 05/27/18 05/27/18 History Physical Exam Vital signs: Vital Signs 05/26/18 21:24 05/27/18 00:00 05/27/18 04:00 Temperature 98.8 F 98.7 F 97.9 F Pulse Rate 80 85 79 Respiratory Rate 19 17 19 Blood Pressure 161/86 H 145/75 H 141/83 H Pulse Oximetry 100 90 L 91 L 05/27/18 08:00 05/27/18 09:03 05/27/18 12:00 Temperature 98.7 F 97.7 F Pulse Rate 74 73 69 Respiratory Rate 16 16 Blood Pressure 126/60 163/74 H Pulse Oximetry 94 L 93 L Intake & Output 05/27/18 05/27/18 05/28/18 06:59 18:59 06:59 Intake Total 620 / 620 250 / 250 Output Total 30 30 Balance 620 / 620 220 / 220 Weight 78.018 kg Intake: Oral 620 / 620 Anesthesia Amount 250 / 250 Output: Estimated Blood Loss Other: Date of Last Bowel Movement 05/25/18 Weight On Admission 78.018 kg Narrative: Left heel with necrotic skin posteriorly at achilles attachment with no purulence or visible bone. External fixation with two transcalcaneal pins present. sensation present. pulses present. Results - Labs CBC & Chem 7: 05/26/18 21:30 05/26/18 21:30 Laboratory Results - last 24 hr 05/26/18 05/26/18 05/26/18 21:30 21:30 21:30 WBC 7.1 RBC 3.68 L Hgb 10.7 L Hct 32.0 L MCV 86.8 MCH 29.0 MCHC 33.4 RDW 15.1 Plt Count 261 MPV 7.8 Neut % (Auto) 66.5 Lymph % (Auto) 22.9 [place] % (Auto) 7.5 Eos % (Auto) 2.5 Baso % (Auto) 0.6 Neut # (Auto) 4.7 Lymph # (Auto) 1.6 [place] # (Auto) 0.5 Eos # (Auto) 0.2 Baso # (Auto) 0.0 WBC Differential . Differential Comment Auto diff final ESR 31 H Sodium 137 Potassium 3.5 Chloride 97 L Carbon Dioxide 29.4 Anion Gap 11 BUN 22 H Creatinine 5.02 H Estimated GFR 11 L POC Glucose Random Glucose 160 H Calcium 8.1 L Total Bilirubin 0.3 AST 13 L ALT 14 Alkaline Phosphatase 90 C-Reactive Protein Total Protein 7.7 Albumin 3.3 L 05/26/18 05/27/18 05/27/18 21:30 08:06 12:06 WBC RBC Hgb Hct MCV MCH MCHC RDW Plt Count MPV Neut % (Auto) Lymph % (Auto) [place] % (Auto) Eos % (Auto) Baso % (Auto) Neut # (Auto) Lymph # (Auto) [place] # (Auto) Eos # (Auto) Baso # (Auto) WBC Differential Differential Comment ESR Sodium Potassium Chloride Carbon Dioxide Anion Gap BUN Creatinine Estimated GFR POC Glucose 140 H 148 H Random Glucose Calcium Total Bilirubin AST ALT Alkaline Phosphatase C-Reactive Protein 2.20 H Total Protein Albumin 05/27/18 05/27/18 15:02 19:10 WBC RBC Hgb Hct MCV MCH MCHC RDW Plt Count MPV Neut % (Auto) Lymph % (Auto) [place] % (Auto) Eos % (Auto) Baso % (Auto) Neut # (Auto) Lymph # (Auto) [place] # (Auto) Eos # (Auto) Baso # (Auto) WBC Differential Differential Comment ESR Sodium Potassium Chloride Carbon Dioxide Anion Gap BUN Creatinine Estimated GFR POC Glucose 132 H 144 H Random Glucose Calcium Total Bilirubin AST ALT Alkaline Phosphatase C-Reactive Protein Total Protein Albumin - Imaging Impressions Foot X-Ray 05/26/18 00:00 CONCLUSION: External fixation and calcaneal screws present. There is some lucency around the calcaneal screws. Fracture line posterior calcaneus remains visible. Assessment and Plan - Assessment (1) Calcaneal fracture Code(s): S92.009A - Unspecified fracture of unspecified calcaneus, initial encounter for closed fracture Status: Acute Plan: To OR for removal of external fixation, removal of hardware, excision of bone left heel, possible graft, and excision of wound left heel. Risks, benefits, complications explained in detail to patient to include bracing required for normal gait and BKA if failure to heal due to significant comorbidities. (1) Calcaneal fracture Qualifiers: Encounter type: subsequent encounter Calcaneus location: body Fracture type : closed Fracture alignment: displaced Laterality: left Fracture healing: with routine healing Qualified Code(s): S92.012D - Displaced fracture of body of left calcaneus, subsequent encounter for fracture with routine healing
--- NOTE | 2018-05-27 19:29 | P.BOP ---
- Preoperative Diagnosis (1) Calcaneal fracture (2) Ulcer of left heel and midfoot with necrosis of bone - Postoperative Diagnosis (1) Calcaneal fracture (2) Ulcer of left heel and midfoot with necrosis of bone Date of procedure: 05/27/18 Procedure: 1. removal of external fixator left heel 2. removal of hardware left heel 3. excision of bone left calcaneus 4. skin plasty left heel with excision of wound and graft External fixator removed. Hardware removed. Necrotic skin over bone and wound excised and healthy bleeding base noted. Bone from dorsal fracture fragment with distal achilles excised from area. Culture taken and irrigation with normal saline. "Hurricane" Skin plasty utilized to create flap for closure with foot in plantarflexion with Neox graft placed in central wound area. Primary closure achieved. Wound vac applied. Nonweightbearing left in splint Await cultures No further surgery planned for patient at this time. no tourniquet utilized 2g ancef IV Anesthesia: GETA, local (10mL 0.5% marcaine plain) Surgeon: Eileen Piedra DPM Clinic Lpn: staff Estimated blood loss (mL): 20 Pathology: other (Culture left heel) Condition: stable
--- NOTE | 2018-05-27 19:58 | XR ---
EXAM DATE: 05/27/2018 12:00 AM EDT AGE/SEX: 52 years / Female INDICATIONS: Post surgery left heel CLINICAL DATA: This is the patient's sequela encounter. Patient reports that signs and symptoms have been present for 2 months and indicates a pain score of Nonresponsive. MEDICAL/SURGICAL HISTORY: None. . Fracture left heel [place] [facility] [place]. . FINDINGS: Previous hardware has been removed. There is a bony defect of the posterior superior calcaneus. Proba ble wound vacuum present along posterior calcaneus. Moderate degenerative change. CONCLUSION: Removal of previous hardware as above with bony defect involving the posterior superior aspect calcan eus. Electronically signed by: Alberto Murry MD 05/27/2018 7:56 PM EDT
--- NOTE | 2018-05-27 20:36 | P.CONNP ---
History of Present Illness Service: Nephrology Reason for Consult: ESRD Primary Care Provider: Marcelino Ruffin Chief Complaint: Left ankle calcaneus fracture History of Present Illness: Ms. Cortez has multiple medical problems including ESRD, DM-2, PAD. Dialyzes MWF. She sustained a left calcaneus avulsion fracture on 03/24/2018 and had open reduction internal fixation on the same date by Dr. Yan. She was discharged home and had recurrent left heel pain and requiring repeat ORIF with external fixation for recurrent left calcaneus fracture/hardware malfunction. The patient stated on Thursday, a portion of her external fixator fell off prompting her to see Dr. Piedra. She was advised admission. She underwent: Date of procedure: 05/27/18 Procedure: 1. removal of external fixator left heel 2. removal of hardware left heel 3. excision of bone left calcaneus 4. skin plasty left heel with excision of wound and graft Dialysis will be MWF. Review of Systems Constitutional: Reports anorexia, Reports malaise, Reports weakness Eyes: Denies blurry vision Cardiovascular: Denies chest pain, Denies chest pain at rest, Denies chest pain with activity Gastrointestinal: Denies abdominal pain Comments: Left heel pain PMFSH - History History Provided By: Patient, Family Member - Medical History Medical History: Medical History (Last Reviewed 05/27/18 @ 07:47 by Ashish Aj) Normal Papanicolaou smear (Acute) Mammogram normal (Acute) Former smoker (Acute) Abnormal nuclear stress test (Acute) Hx of CT scan (Acute) Tinea unguium (Acute) Type 2 diabetes mellitus with diabetic polyneuropathy (Chronic) Secondary hyperparathyroidism (of renal origin) (Acute) Chronic renal failure ESRD (end stage renal disease) on dialysis Hemodialysis access site with arteriovenous graft History of colitis History of renal dialysis Hx of bursitis Hx of diabetes mellitus Metabolic bone disease Mild coronary artery disease Personal history of atrial fibrillation - Surgical History Surgical History: Surgical History (Last Reviewed 05/27/18 @ 07:47 by Ashish Aj) H/O cardiac catheterization (Acute) Amputated toe of right foot H/O parathyroidectomy - Family History Family History: Family History (Last Updated 05/27/18 @ 01:59 by LELO Mcrae) Mother Breast cancer Brother Suicide - Tobacco History Second Hand Smoke Exposure: Yes Smoking Status: Former smoker Tobacco Type: Cigarettes - Alcohol History How Often Do You Have a Drink Containing Alcohol: Monthly or less - Substance Use History Substance History: No History of Abuse - Travel History Recent Travel in the [place] Within the Last 8 Weeks: No Recent Travel Out of the Country Within the Last 8 Weeks: No Medications and Allergies Active Medications: Active Medications Acetaminophen (Tylenol) 650 mg PO Q4H PRN PRN Reason: Temp > 100.4 Acetaminophen (Tylenol) 650 mg PO UNSCH PRN PRN Reason: SEE LABEL COMMENTS Bisacodyl (Dulcolax Supp) 10 mg RECTAL DAILY PRN PRN Reason: SEVERE CONSITIPATION Calcitriol (Rocaltrol) 0.25 mcg PO Q48H COUNT INCLUDES THE [facility] Last Admin: 05/27/18 09:46 Dose: 0.25 mcg Calcium Acetate (Phoslo) 2,001 mg PO TID COUNT INCLUDES THE [facility] Last Admin: 05/27/18 13:24 Dose: Not Given Chlorhexidine Gluconate (Chlorhexidine 2% Cloth) 3 pack TOPICAL EXTRACTING MACHINE OPERATOR COUNT INCLUDES THE [facility] Stop: 05/28/18 16:16 Clonidine HCl (Catapres) 0.1 mg PO UNSCH PRN PRN Reason: SEE LABEL COMMENTS Dextrose (D50w Vial) 50 ml IV.PUSH UNSCH PRN PRN Reason: PER HYPOGLYCEMIA PROTOCOL Diazepam (Valium) 5 mg PO DAILY PRN PRN Reason: ANXIETY Diphenhydramine HCl (Benadryl) 25 mg PO UNSCH PRN PRN Reason: SEE LABEL COMMENTS Docusate Sodium (Colace Liq) 50 mg PO BID COUNT INCLUDES THE [facility] Last Admin: 05/27/18 09:47 Dose: Not Given Epoetin Greg (Epogen Inj) 10,000 unit IV.PUSH UNSCH PRN PRN Reason: SEE LABEL COMMENTS Eszopiclone (Lunesta) 2 mg PO HS COUNT INCLUDES THE [facility] Gelatin (Gelfoam 12 Mm/7 Mm Topical) 1 foam TOPICAL PRN PRN PRN Reason: help stop bleeding from site Gentamicin Sulfate (Gentamicin Inj) 20 mg OTHER WITH DIALYSIS PRN PRN Reason: Dwell Gentamycin Lock Glucagon (Glucagon Inj) 1 mg OTHER PRN PRN PRN Reason: for Hypoglycemia Protocol Heparin Sodium (Porcine) (Heparin Inj) 8,000 units OTHER WITH DIALYSIS PRN PRN Reason: for machine prime Heparin Sodium (Porcine) (Heparin Inj) 1,000 units OTHER WITH DIALYSIS PRN PRN Reason: Dwell Heparin to Fill Catheter Sodium Chloride (Ns Inj) 1,000 mls @ 0 mls/hr OTHER .Q0M PRN PRN Reason: for prime and rinse back Sodium Chloride (Ns Inj) 1,000 mls @ 200 mls/hr OTHER .Q5H PRN PRN Reason: for dialyzer flush PRN Sodium Chloride (Ns Inj) 1,000 mls @ 0 mls/hr IV.CONT .Q0M PRN PRN Reason: hypotension / volume replace Albumin Human (Flexbumin 25% Inj) 100 mls @ 60 mls/hr IV.SIG WITH DIALYSIS PRN PRN Reason: hypotension / volume replace Lactated Ringer's (Lr 1000 Ml Inj) 1,000 mls @ 30 mls/hr IV.SIG .Q24H COUNT INCLUDES THE [facility] Stop: 05/28/18 16:29 Sodium Chloride (Ns Inj) 500 mls @ 30 mls/hr IV.SIG .G67Q24P COUNT INCLUDES THE [facility] Stop: 05/28/18 09:39 Insulin Aspart (Novolog Insulin Correctional Sugar Inj) 0 unit SQ ACHS COUNT INCLUDES THE [facility]; Protocol Last Admin: 05/27/18 12:37 Dose: Not Given Mannitol (Mannitol Inj) 12.5 gm IV.PUSH UNSCH PRN PRN Reason: hypotension / volume replace Metoprolol Tartrate (Lopressor) 25 mg PO EXTRACTING MACHINE OPERATOR COUNT INCLUDES THE [facility] Stop: 05/28/18 16:16 Miscellaneous Information ([facility] Information) 0 each OTHER UNSCH PRN PRN Reason: SEE LABEL COMMENTS Stop: 05/28/18 19:06 Nitroglycerin (Nitrostat Sl) 0.4 mg SL Q5M PRN PRN Reason: CHEST PAIN Ondansetron HCl (Zofran Inj) 4 mg IV.PUSH Q6H PRN PRN Reason: NAUSEA OR VOMITING Last Admin: 05/27/18 02:16 Dose: 4 mg Ondansetron HCl (Zofran Inj) 4 mg IV.PUSH UNSCH PRN PRN Reason: NAUSEA OR VOMITING Oxycodone/Acetaminophen (Percocet 7.5/325 Mg) 2 tab PO Q6H PRN PRN Reason: pain > 4 Last Admin: 05/27/18 05:58 Dose: 2 tab Pantoprazole Sodium (Protonix) 40 mg PO DAILY COUNT INCLUDES THE [facility] Last Admin: 05/27/18 09:46 Dose: 40 mg Pentoxifylline (Trental Sr) 400 mg PO DAILY COUNT INCLUDES THE [facility] Last Admin: 05/27/18 09:47 Dose: Not Given Sennosides (Senokot) 17.2 mg PO Q12H PRN PRN Reason: Moderate Constipation Sodium Chloride (Ns Flush) 2 ml IV.FLUSH BID COUNT INCLUDES THE [facility] Last Admin: 05/27/18 09:47 Dose: 2 ml Sodium Chloride (Ns Flush) 2 ml IV.FLUSH PRN PRN PRN Reason: FLUSH AFTER USING IV ACCESS Sodium Chloride (Ns Flush) 5 ml IV.FLUSH PRN PRN PRN Reason: flush each lumen during HD Allergies Allergy/AdvReac Type Severity Reaction Status Date / Time coconut Allergy Severe HIVES Verified 04/06/18 10:54 diatrizoate meglumine Allergy Severe RENAL Verified 04/06/18 10:54 FAILURE gadobenic acid Allergy Severe RENAL Verified 04/06/18 10:54 FAILURE gadodiamide Allergy Severe RENAL Verified 04/06/18 10:54 FAILURE gadoteridol Allergy Severe RENAL Verified 04/06/18 10:54 FAILURE iodixanol Allergy Severe RENAL Verified 04/06/18 10:54 FAILURE iohexol Allergy Severe RENAL Verified 04/06/18 10:54 FAILURE morphine Allergy Severe HIVES Verified 04/06/18 10:54 azithromycin Allergy Intermediate HIVES Verified 04/06/18 10:54 clindamycin Allergy Intermediate HIVES Verified 04/06/18 10:54 erythromycin base Allergy Intermediate HIVES Verified 04/06/18 10:54 penicillin G Allergy Intermediate Hives Verified 04/06/18 10:54 midodrine Allergy Unknown Atrial Verified 04/06/18 10:54 Fibrillation codeine AdvReac Severe HALLUCINATI Verified 04/06/18 10:54 ONS insulin aspart AdvReac Severe REGULAR Verified 04/06/18 10:54 INSULIN ONLY-CAUSES CRAMPIN G AND "FREEZING" insulin aspart protamine AdvReac Severe REGULAR Verified 04/06/18 10:54 human INSULIN ONLY-CAUSES CRAMPIN G AND "FREEZING" insulin detemir AdvReac Severe REGULAR Verified 04/06/18 10:54 INSULIN ONLY-CAUSES CRAMPIN G AND "FREEZING" insulin glargine AdvReac Severe REGULAR Verified 04/06/18 10:54 INSULIN ONLY-CAUSES CRAMPIN G AND "FREEZING" insulin isophane (NPH) AdvReac Severe REGULAR Verified 04/06/18 10:54 INSULIN ONLY-CAUSES CRAMPIN G AND "FREEZING" insulin lispro AdvReac Severe REGULAR Verified 04/06/18 10:54 INSULIN ONLY-CAUSES CRAMPIN G AND "FREEZING" insulin regular AdvReac Severe REGULAR Verified 04/06/18 10:54 INSULIN ONLY-CAUSES CRAMPIN G AND "FREEZING" vancomycin AdvReac Mild NAUSEA/VOMITING Verified 04/06/18 10:54 WHEN INFUSED TOO FAST Home Medications Medication Instructions Recorded Confirmed Type calcitriol 0.25 mcg PO Q OTHER DAY 05/26/18 05/27/18 History calcium acetate 2,001 mg PO TID 05/26/18 05/27/18 History diazepam 5 mg PO DAILY 05/26/18 05/27/18 History docusate sodium 50 mg PO BID 05/26/18 05/27/18 History ergocalciferol (vitamin D2) 50,000 unit PO QWEEK 05/26/18 05/27/18 History [Vitamin D2] pantoprazole 40 mg PO DAILY 05/26/18 05/27/18 History pentoxifylline 400 mg PO DAILY 05/26/18 05/27/18 History eszopiclone 2 mg PO HS 05/27/18 05/27/18 History Exam Vital signs: Vital Signs 05/26/18 21:24 05/27/18 00:00 05/27/18 04:00 Temperature 98.8 F 98.7 F 97.9 F Pulse Rate 80 85 79 Respiratory Rate 19 17 19 Blood Pressure 161/86 H 145/75 H 141/83 H Pulse Oximetry 100 90 L 91 L 05/27/18 08:00 05/27/18 09:03 05/27/18 12:00 Temperature 98.7 F 97.7 F Pulse Rate 74 73 69 Respiratory Rate 16 16 Blood Pressure 126/60 163/74 H Pulse Oximetry 94 L 93 L Intake & Output 05/27/18 05/27/18 05/28/18 06:59 18:59 06:59 Intake Total 620 / 620 250 / 250 Output Total 30 / 30 Balance 620 / 620 220 / 220 Weight 78.018 kg Intake: Oral 620 / 620 Anesthesia Amount 250 / 250 Output: Estimated Blood Loss 30 / 30 Other: Date of Last Bowel Movement 05/25/18 Weight On Admission 78.018 kg - Constitutional no acute distress, chronically ill appearing Comments: appeared somnolent when I saw her this morning. - Routine HEENT Exam Head: Present: normocephalic, atraumatic Eye: Present: EOMI, PERRL ENT: Present: mucous membranes moist - Routine Neck Exam Present: supple. Absent: JVD, lymphadenopathy, thyromegaly - Routine Respiratory Exam Present: CTA bilaterally - Routine Cardiovascular Exam Present: RRR, S1, S2 - Routine Abdominal Exam Present: soft, normoactive bowel sounds - Routine Extremities Exam Absent: edema - Additional findings Additional findings: Had external fixator left ankle, with dressing. Results - Lab Results 05/26/18 21:30 05/26/18 21:30 Most recent lab results Calcium 8.1 mg/dL (8.5-10.1) L 05/26/18 21:30 Assessment and Plan - Assessment (1) ESRD (end stage renal disease) Code(s): N18.6 - End stage renal disease Status: Acute Plan: Dialysis will be continued MWF. Monitor fluid and electrolytes. Avoid Gadolinium. She has functioning AVF in the right arm, that is being used. Also has left IJ PermCath. Protect right arm from IV and BP measurements. (2) Calcaneal fracture Code(s): S92.009A - Unspecified fracture of unspecified calcaneus, initial encounter for closed fracture Status: Acute Plan: Management per Podiatry. Surgery today as above. Pain control. (3) Metabolic bone disease Code(s): E88.9 - Metabolic disorder, unspecified; M90.80 - Osteopathy in diseases classified elsewhere, unspecified site Status: Acute Plan: She is s/p parathyroidectomy, has history of chronic hypocalcemia and hyperphosphatemia. Carefully monitor calcium and phosphorus. Continue binders. Low phosphorus diet. (4) DM (diabetes mellitus), type 2, uncontrolled Code(s): E11.65 - Type 2 diabetes mellitus with hyperglycemia Status: Acute Plan: maintain blood glucose between 140 and 180 while hospitalized. - Attending Attestation Thanks for the consult. I will follow. (2) Calcaneal fracture Qualifiers: Encounter type: subsequent encounter Calcaneus location: body Fracture type : closed Fracture alignment: displaced Laterality: left Fracture healing: with routine healing Qualified Code(s): S92.012D - Displaced fracture of body of left calcaneus, subsequent encounter for fracture with routine healing
[2018-05-27] MEDS ORDERED: *Meperidine Inj 25 MG/ML Vial PERIprocedural Use ONLY ONE (21:16)
[2018-05-27] MEDS: diazePAM 5 MG Tablet PO PRN (21:20)
[2018-05-27] MEDS ORDERED: HYDROmorphone PF Inj 2 MG/ML Vial IV.PUSH ONE (23:31)
[2018-05-28] MEDS ORDERED: HYDROmorphone PF Inj 2 MG/ML Vial IV.PUSH ONE (04:47)
[2018-05-28 07:49] LABS: Hematocrit 33.1 % (35.0-46.0); Hemoglobin 10.4 gm/dL (11.6-15.3); Mean Corpuscular HGB Conc 31.4 % (32.0-36.0); Mean Corpuscular Hemoglobin 28.5 pg (27.0-34.0); Mean Corpuscular Volume 90.6 fL (80.0-100.0); Mean Platelet Volume 7.9 fL (7.0-11.0); Platelet Count 235 th/mm3 (150-450); Red Blood Count 3.65 mil/mm3 (4.00-5.30)
[2018-05-28 08:12] LABS: Albumin 3.3 g/dL (3.4-5.0); Calcium 8.1 mg/dL (8.5-10.1); Carbon Dioxide 24.4 meq/L (21.0-32.0); Phosphorus 7.7 mg/dL (2.5-4.9); Potassium 4.2 meq/L (3.5-5.1)
[2018-05-28] MEDS ORDERED: HYDROmorphone PF Inj 2 MG/ML Vial IV.PUSH PRN (09:00)
[2018-05-28] MEDS: Heparin 10,000 UNITS/10 ML Vial (for IV use) OTHER PRN (11:24)
[2018-05-28] MEDS: Calcium Acetate 667 MG Capsule PO SCH ×3 (12:50→20:02)
[2018-05-28] MEDS: diazePAM 5 MG Tablet PO PRN ×2 (13:24→20:17)
--- NOTE | 2018-05-28 13:46 | P.PN ---
Subjective Interval history: Follow-up for left calcaneal fracture-status post removal of external fixator left heel, removal of hardware left heel, excision of bone left calcaneus, a skin plasty left heel with excision of wound and graft. Patient very upset, crying. Very anxious, requesting Valium. Indicates that she is behind on her pain control. Pain is "severe", has never had pain like this. Asking how long does she keep wound vac. Denies any chest pain, no shortness of breath, no fever. Does not have very good appetite as she is in too much pain. Very angry about her medical situation. Physical Exam Vital signs: Vital Signs 05/27/18 19:06 05/27/18 19:15 05/27/18 19:30 Temperature 97.4 F L Pulse Rate 102 H 102 H 95 H Respiratory Rate 16 20 15 Blood Pressure 151/84 H 158/97 H 160/94 H Pulse Oximetry 94 L 95 97 05/27/18 19:45 05/27/18 20:00 05/27/18 20:56 Temperature 97.4 F L 98.9 F Pulse Rate 93 H 84 90 Respiratory Rate 18 23 17 Blood Pressure 147/70 H 156/75 H 190/90 H Pulse Oximetry 98 98 97 05/28/18 00:00 05/28/18 01:00 05/28/18 04:00 Temperature 98.6 F Pulse Rate 84 82 75 Respiratory Rate 17 Blood Pressure 165/87 H Pulse Oximetry 96 05/28/18 04:45 05/28/18 06:00 05/28/18 08:00 Temperature 97.9 F 98.2 F Pulse Rate 81 82 77 Respiratory Rate 17 16 Blood Pressure 168/88 H 180/80 H 176/82 H Pulse Oximetry 96 96 Intake & Output 05/27/18 05/28/18 05/28/18 18:59 06:59 18:59 Intake Total 250 / 250 780 / 780 Output Total 30 / 30 3000 / 3000 Balance 220 / 220 780 / 780 -3000 / -3000 Weight 81 kg Intake: Oral 780 / 780 Anesthesia Amount 250 / 250 Output: Hemodialysis Amount 3000 / 3000 Estimated Blood Loss 30 / 30 Other: Mode Setting Left Heel Continuous # Voids 0 # Bowel Movements 0 Narrative: GENERAL: 52-year-old well-developed well-nourished female, crying. Mild distress SKIN: Bilateral foot discoloration. HEAD: Atraumatic. Normocephalic. EYES: Pupils equal and round. No scleral icterus. No injection or drainage. ENT: No nasal bleeding or discharge. Mucous membranes pink and moist. NECK: Trachea midline. No JVD. CARDIOVASCULAR: Regular rate and rhythm. EXTREMITIES: Bilateral upper extremity with AV fistulas in place. RESPIRATORY: No accessory muscle use. Clear to auscultation. Breath sounds equal bilaterally. GASTROINTESTINAL: Abdomen soft, non-tender, nondistended. Hepatic and splenic margins not palpable. MUSCULOSKELETAL: Left foot with bulky dressing in place, able to wiggle toes. Wound VAC in place. No other joint abnormalities. Left pedal pulse Doppler only, discoloration noted to midfoot to toes. Toes are cool to touch. NEUROLOGICAL: Awake, alert oriented x3. No focal deficits PSYCHIATRIC: Upset, crying. Results - Labs CBC & Chem 7: 05/28/18 06:53 05/28/18 06:53 Laboratory Results - last 24 hr 05/27/18 05/27/18 05/27/18 15:02 19:10 21:17 WBC RBC Hgb Hct MCV MCH MCHC RDW Plt Count MPV Sodium Potassium Chloride Carbon Dioxide Anion Gap BUN Creatinine Estimated GFR POC Glucose 132 H 144 H 147 H Random Glucose Calcium Phosphorus Albumin 05/28/18 05/28/18 05/28/18 06:53 06:53 09:06 WBC 6.0 RBC 3.65 L Hgb 10.4 L Hct 33.1 L MCV 90.6 D MCH 28.5 MCHC 31.4 L RDW 15.0 Plt Count 235 MPV 7.9 Sodium 134 L Potassium 4.2 Chloride 97 L Carbon Dioxide 24.4 Anion Gap 13 BUN 35 H Creatinine 7.44 H Estimated GFR 7 L POC Glucose 133 H Random Glucose 123 H Calcium 8.1 L Phosphorus 7.7 H Albumin 3.3 L 05/28/18 11:31 WBC RBC Hgb Hct MCV MCH MCHC RDW Plt Count MPV Sodium Potassium Chloride Carbon Dioxide Anion Gap BUN Creatinine Estimated GFR POC Glucose 110 Random Glucose Calcium Phosphorus Albumin Microbiology 05/27/18 18:14 Tissue - Heel Fungal Smear - Final No fungal elements seen 05/27/18 18:14 Tissue - Heel Gram Stain - Final 05/27/18 18:14 Tissue - Heel Wound Culture - Preliminary No growth. - Imaging Impressions Foot X-Ray 05/27/18 00:00 CONCLUSION: Removal of previous hardware as above with bony defect involving the posterior superior aspect calcaneus. - Procedures Date of procedure: 05/27/18 Procedure: 1. removal of external fixator left heel 2. removal of hardware left heel 3. excision of bone left calcaneus 4. skin plasty left heel with excision of wound and graft External fixator removed. Hardware removed. Necrotic skin over bone and wound excised and healthy bleeding base noted. Bone from dorsal fracture fragment with distal achilles excised from area. Culture taken and irrigation with normal saline. "Hurricane" Skin plasty utilized to create flap for closure with foot in plantarflexion with Neox graft placed in central wound area. Primary closure achieved. Wound vac applied. Assessment and Plan - Assessment (1) Calcaneal fracture Code(s): S92.009A - Unspecified fracture of unspecified calcaneus, initial encounter for closed fracture Status: Acute (2) ESRD (end stage renal disease) Code(s): N18.6 - End stage renal disease Status: Chronic (3) DM (diabetes mellitus), type 2, uncontrolled Code(s): E11.65 - Type 2 diabetes mellitus with hyperglycemia Status: Chronic - Plan Assessment/plan This patient is a 52-year-old female with a diagnosis of atrial fibrillation on Xarelto, diabetes mellitus type 2, end-stage renal disease on hemodialysis, peripheral neuropathy, and a left calcaneus fracture in March 2018. The patient had repair of the fracture 2 times and presented from Dr. Trujillo's office for management of the left calcaneus fracture hardware malfunction. Left calcaneus fracture Status post removal of external fixator left heel, removal of hardware left heel , excision of bone left calcaneus, skinplasty left heel with excision of wound and graft 05/27 -Appreciate podiatry input Continue with postop care -Follow cultures Continue with wound VAC Patient has severe pain, increase Dilaudid to 1 mg IV every 4 as well as Percocet 2 tabs 5/325 every 4 as needed. Will give Valium 5 mg at this time due to increased anxiety End-stage renal disease on hemodialysis -Nephrology following Continue with dialysis Thursday and Thursday. Diabetes mellitus type 2 -Continue Accu-Cheks q. before meals and at bedtime. Continue NovoLog sliding scale. Atrial fibrillation-currently SR -continuous telemetry monitoring PVD Peripheral neuropathy F/U with Dr. Dinero -continue Lexi Repeat labs in the morning Pain medications adjusted, discussed with patient and family at length. Code Status: Full code Discussed Condition With: RN, pt and family Discharge Planning: Not ready for dc, post op (1) Calcaneal fracture Qualifiers: Encounter type: subsequent encounter Calcaneus location: body Fracture type : closed Fracture alignment: displaced Laterality: left Fracture healing: with routine healing Qualified Code(s): S92.012D - Displaced fracture of body of left calcaneus, subsequent encounter for fracture with routine healing
[2018-05-28] MEDS: HYDROmorphone PF Inj 2 MG/ML Vial IV.PUSH PRN ×2 (15:38→20:06)
[2018-05-28] MEDS: Sodium Chloride 0.9% 2 ML Flush BID IV.FLUSH SCH ×2 (15:40→20:13)
[2018-05-28] MEDS: Pentoxifylline 400 MG Controlled Release Tablet PO SCH (15:40)
[2018-05-28] MEDS: Docusate Sodium Liq 100 MG/10 ML UDC PO SCH ×2 (15:42→21:15)
--- NOTE | 2018-05-28 16:29 | P.PNNP ---
Subjective Interval history: pain is better controlled. Had dialysis this morning, PermCath used, patient wants to defer using AVF until Thursday. Physical Exam Vital signs: Vital Signs 05/27/18 19:06 05/27/18 19:15 05/27/18 19:30 Temperature 97.4 F L Pulse Rate 102 H 102 H 95 H Respiratory Rate 16 20 15 Blood Pressure 151/84 H 158/97 H 160/94 H Pulse Oximetry 94 L 95 97 05/27/18 19:45 05/27/18 20:00 05/27/18 20:56 Temperature 97.4 F L 98.9 F Pulse Rate 93 H 84 90 Respiratory Rate 18 23 17 Blood Pressure 147/70 H 156/75 H 190/90 H Pulse Oximetry 98 98 97 05/28/18 00:00 05/28/18 01:00 05/28/18 04:00 Temperature 98.6 F Pulse Rate 84 82 75 Respiratory Rate 17 Blood Pressure 165/87 H Pulse Oximetry 96 05/28/18 04:45 05/28/18 06:00 05/28/18 08:00 Temperature 97.9 F 98.2 F Pulse Rate 81 82 77 Respiratory Rate 17 16 Blood Pressure 168/88 H 180/80 H 176/82 H Pulse Oximetry 96 96 Intake & Output 05/27/18 05/28/18 05/28/18 18:59 06:59 18:59 Intake Total 250 / 250 780 / 780 Output Total 30 / 30 3000 / 3000 Balance 220 / 220 780 / 780 -3000 / -3000 Weight 81 kg Intake: Oral 780 / 780 Anesthesia Amount 250 / 250 Output: Hemodialysis Amount 3000 / 3000 Estimated Blood Loss 30 / 30 Other: Mode Setting Left Heel Continuous Continuous # Voids 0 Date of Last Bowel Movement 05/27/18 # Bowel Movements 0 Narrative: GENERAL: sleepy, not in distress, she reported pain control has improved. SKIN: Bilateral foot discoloration. HEAD: Atraumatic. Normocephalic. EYES: Pupils equal and round. No scleral icterus. No injection or drainage. ENT: No nasal bleeding or discharge. Mucous membranes pink and moist. NECK: Trachea midline. No JVD. CARDIOVASCULAR: Regular rate and rhythm. EXTREMITIES: patent AVF right arm. AV access in the left arm is non functional ( AVG) RESPIRATORY: No accessory muscle use. Clear to auscultation. Breath sounds equal bilaterally. GASTROINTESTINAL: Abdomen soft, non-tender, nondistended. Hepatic and splenic margins not palpable. MUSCULOSKELETAL: Left foot in dressing. Wound VAC in place. Left pedal pulse Doppler only, discoloration noted to midfoot to toes. Toes are cool to touch. NEUROLOGICAL: Awake, alert oriented x3. No focal deficits Assessment and Plan - Assessment (1) ESRD (end stage renal disease) Code(s): N18.6 - End stage renal disease Status: Acute Plan: Dialysis will be continued MWF. Monitor fluid and electrolytes. Avoid Gadolinium. She has functioning AVF in the right arm, that can be used from Thursday. Also has left IJ PermCath. Protect right arm from IV and BP measurements. (2) Calcaneal fracture Code(s): S92.009A - Unspecified fracture of unspecified calcaneus, initial encounter for closed fracture Status: Acute Qualifiers: Encounter type: subsequent encounter Calcaneus location: body Fracture type: closed Fracture alignment: displaced Laterality: left Fracture healing: with routine healing Qualified Code(s): S92.012D - Displaced fracture of body of left calcaneus, subsequent encounter for fracture with routine healing Plan: Management per Podiatry. she is s/p 1. removal of external fixator left heel 2. removal of hardware left heel 3. excision of bone left calcaneus 4. skin plasty left heel with excision of wound and graft Date of procedure 05/27. May need inpatient rehab. (3) Metabolic bone disease Code(s): E88.9 - Metabolic disorder, unspecified; M90.80 - Osteopathy in diseases classified elsewhere, unspecified site Status: Acute Plan: She is s/p parathyroidectomy, has history of chronic hypocalcemia and hyperphosphatemia. Carefully monitor calcium and phosphorus. Phosphorus is high , needs low phosphorus diet. (4) DM (diabetes mellitus), type 2, uncontrolled Code(s): E11.65 - Type 2 diabetes mellitus with hyperglycemia Status: Chronic Plan: maintain blood glucose between 140 and 180 while hospitalized.
--- NOTE | 2018-05-28 18:14 | P.PNPOD ---
Subjective Interval history: Status post the following on 05/27/18 Dr Piedra 1. removal of external fixator left heel 2. removal of hardware left heel 3. excision of bone left calcaneus 4. skin plasty left heel with excision of wound and graft Physical Exam Vital signs: Vital Signs 05/27/18 19:06 05/27/18 19:15 05/27/18 19:30 Temperature 97.4 F L Pulse Rate 102 H 102 H 95 H Respiratory Rate 16 20 15 Blood Pressure 151/84 H 158/97 H 160/94 H Pulse Oximetry 94 L 95 97 05/27/18 19:45 05/27/18 20:00 05/27/18 20:56 Temperature 97.4 F L 98.9 F Pulse Rate 93 H 84 90 Respiratory Rate 18 23 17 Blood Pressure 147/70 H 156/75 H 190/90 H Pulse Oximetry 98 98 97 05/28/18 00:00 05/28/18 01:00 05/28/18 04:00 Temperature 98.6 F Pulse Rate 84 82 75 Respiratory Rate 17 Blood Pressure 165/87 H Pulse Oximetry 96 05/28/18 04:45 05/28/18 06:00 05/28/18 08:00 Temperature 97.9 F 98.2 F Pulse Rate 81 82 77 Respiratory Rate 17 16 Blood Pressure 168/88 H 180/80 H 176/82 H Pulse Oximetry 96 96 05/28/18 16:00 05/28/18 17:43 Temperature 98.3 F Pulse Rate 101 H Respiratory Rate 20 Blood Pressure 123/64 Pulse Oximetry 94 L 96 Intake & Output 05/27/18 05/28/18 05/28/18 18:59 06:59 18:59 Intake Total 250 / 250 780 / 780 480 / 480 Output Total 30 3150 / 3150 Balance 220 / 220 780 / 780 -2670 / -2670 Weight 81 kg Intake: Oral 780 / 780 480 / 480 Anesthesia Amount 250 / 250 Output: Urine 150 / 150 Hemodialysis Amount 3000 / 3000 Estimated Blood Loss Other: Mode Setting Left Heel Continuous Continuous # Voids 0 Date of Last Bowel Movement 05/27/18 # Bowel Movements 0 1 Medications and Allergies Active Medications: Active Medications Acetaminophen (Tylenol) 650 mg PO Q4H PRN PRN Reason: Temp > 100.4 Acetaminophen (Tylenol) 650 mg PO UNSCH PRN PRN Reason: SEE LABEL COMMENTS Bisacodyl (Dulcolax Supp) 10 mg RECTAL DAILY PRN PRN Reason: SEVERE CONSITIPATION Calcitriol (Rocaltrol) 0.25 mcg PO Q48H [facility] Last Admin: 05/27/18 09:46 Dose: 0.25 mcg Calcium Acetate (Phoslo) 2,001 mg PO TID [facility] Last Admin: 05/28/18 17:23 Dose: 2,001 mg Clonidine HCl (Catapres) 0.1 mg PO UNSCH PRN PRN Reason: SEE LABEL COMMENTS Dextrose (D50w Vial) 50 ml IV.PUSH UNSCH PRN PRN Reason: PER HYPOGLYCEMIA PROTOCOL Diazepam (Valium) 5 mg PO BID PRN PRN Reason: ANXIETY Diphenhydramine HCl (Benadryl) 25 mg PO UNSCH PRN PRN Reason: SEE LABEL COMMENTS Docusate Sodium (Colace Liq) 50 mg PO BID [facility] Last Admin: 05/28/18 15:42 Dose: 50 mg Epoetin Greg (Epogen Inj) 10,000 unit IV.PUSH UNSCH PRN PRN Reason: SEE LABEL COMMENTS Last Admin: 05/28/18 11:24 Dose: 10,000 unit Eszopiclone (Lunesta) 2 mg PO HS [facility] Last Admin: 05/27/18 23:12 Dose: 2 mg Gelatin (Gelfoam 12 Mm/7 Mm Topical) 1 foam TOPICAL PRN PRN PRN Reason: help stop bleeding from site Gentamicin Sulfate (Gentamicin Inj) 20 mg OTHER WITH DIALYSIS PRN PRN Reason: Dwell Gentamycin Lock Last Admin: 05/28/18 11:24 Dose: 20 mg Glucagon (Glucagon Inj) 1 mg OTHER PRN PRN PRN Reason: for Hypoglycemia Protocol Heparin Sodium (Porcine) (Heparin Inj) 8,000 units OTHER WITH DIALYSIS PRN PRN Reason: for machine prime Heparin Sodium (Porcine) (Heparin Inj) 1,000 units OTHER WITH DIALYSIS PRN PRN Reason: Dwell Heparin to Fill Catheter Last Admin: 05/28/18 11:24 Dose: 1,000 units Hydromorphone HCl (Dilaudid Pf Inj) 1 mg IV.PUSH Q4H PRN PRN Reason: PAIN 7-10 SEVERE Last Admin: 05/28/18 15:38 Dose: 1 mg Sodium Chloride (Ns Inj) 1,000 mls @ 0 mls/hr OTHER .Q0M PRN PRN Reason: for prime and rinse back Sodium Chloride (Ns Inj) 1,000 mls @ 200 mls/hr OTHER .Q5H PRN PRN Reason: for dialyzer flush PRN Sodium Chloride (Ns Inj) 1,000 mls @ 0 mls/hr IV.CONT .Q0M PRN PRN Reason: hypotension / volume replace Albumin Human (Flexbumin 25% Inj) 100 mls @ 60 mls/hr IV.SIG WITH DIALYSIS PRN PRN Reason: hypotension / volume replace Insulin Aspart (Novolog Insulin Correctional Sugar Inj) 0 unit SQ ACHS [facility]; Protocol Last Admin: 05/27/18 21:21 Dose: Not Given Mannitol (Mannitol Inj) 12.5 gm IV.PUSH UNSCH PRN PRN Reason: hypotension / volume replace Miscellaneous Information [place] [place] [facility] 0 each OTHER UNSCH PRN PRN Reason: SEE LABEL COMMENTS Stop: 05/28/18 19:06 Nitroglycerin (Nitrostat Sl) 0.4 mg SL Q5M PRN PRN Reason: CHEST PAIN Ondansetron HCl (Zofran Inj) 4 mg IV.PUSH Q6H PRN PRN Reason: NAUSEA OR VOMITING Last Admin: 05/27/18 02:16 Dose: 4 mg Ondansetron HCl (Zofran Inj) 4 mg IV.PUSH UNSCH PRN PRN Reason: NAUSEA OR VOMITING Oxycodone/Acetaminophen (Percocet 5/325 Mg) 2 tab PO Q4H PRN PRN Reason: PAIN SCALE 4 TO 6 MODERATE Last Admin: 05/28/18 17:23 Dose: 2 tab Pantoprazole Sodium (Protonix) 40 mg PO DAILY [facility] Last Admin: 05/28/18 15:38 Dose: 40 mg Pentoxifylline (Trental Sr) 400 mg PO DAILY [facility] Last Admin: 05/28/18 15:40 Dose: 400 mg Sennosides (Senokot) 17.2 mg PO Q12H PRN PRN Reason: Moderate Constipation Sodium Chloride (Ns Flush) 2 ml IV.FLUSH BID [facility] Last Admin: 05/28/18 15:40 Dose: 2 ml Sodium Chloride (Ns Flush) 2 ml IV.FLUSH PRN PRN PRN Reason: FLUSH AFTER USING IV ACCESS Sodium Chloride (Ns Flush) 5 ml IV.FLUSH PRN PRN PRN Reason: flush each lumen during HD Allergies Allergy/AdvReac Type Severity Reaction Status Date / Time coconut Allergy Severe HIVES Verified 04/06/18 10:54 diatrizoate meglumine Allergy Severe RENAL Verified 04/06/18 10:54 FAILURE gadobenic acid Allergy Severe RENAL Verified 04/06/18 10:54 FAILURE gadodiamide Allergy Severe RENAL Verified 04/06/18 10:54 FAILURE gadoteridol Allergy Severe RENAL Verified 04/06/18 10:54 FAILURE iodixanol Allergy Severe RENAL Verified 04/06/18 10:54 FAILURE iohexol Allergy Severe RENAL Verified 04/06/18 10:54 FAILURE morphine Allergy Severe HIVES Verified 04/06/18 10:54 azithromycin Allergy Intermediate HIVES Verified 04/06/18 10:54 clindamycin Allergy Intermediate HIVES Verified 04/06/18 10:54 erythromycin base Allergy Intermediate HIVES Verified 04/06/18 10:54 penicillin G Allergy Intermediate Hives Verified 04/06/18 10:54 midodrine Allergy Unknown Atrial Verified 04/06/18 10:54 Fibrillation codeine AdvReac Severe HALLUCINATI Verified 04/06/18 10:54 ONS insulin aspart AdvReac Severe REGULAR Verified 04/06/18 10:54 INSULIN ONLY-CAUSES CRAMPIN G AND "FREEZING" insulin aspart protamine AdvReac Severe REGULAR Verified 04/06/18 10:54 human INSULIN ONLY-CAUSES CRAMPIN G AND "FREEZING" insulin detemir AdvReac Severe REGULAR Verified 04/06/18 10:54 INSULIN ONLY-CAUSES CRAMPIN G AND "FREEZING" insulin glargine AdvReac Severe REGULAR Verified 04/06/18 10:54 INSULIN ONLY-CAUSES CRAMPIN G AND "FREEZING" insulin isophane (NPH) AdvReac Severe REGULAR Verified 04/06/18 10:54 INSULIN ONLY-CAUSES CRAMPIN G AND "FREEZING" insulin lispro AdvReac Severe REGULAR Verified 04/06/18 10:54 INSULIN ONLY-CAUSES CRAMPIN G AND "FREEZING" insulin regular AdvReac Severe REGULAR Verified 04/06/18 10:54 INSULIN ONLY-CAUSES CRAMPIN G AND "FREEZING" vancomycin AdvReac Mild NAUSEA/VOMITING Verified 04/06/18 10:54 WHEN INFUSED TOO FAST Home Medications Medication Instructions Recorded Confirmed Type calcitriol 0.25 mcg PO Q OTHER DAY 05/26/18 05/27/18 History calcium acetate 2,001 mg PO TID 05/26/18 05/27/18 History diazepam 5 mg PO DAILY 05/26/18 05/27/18 History docusate sodium 50 mg PO BID 05/26/18 05/27/18 History ergocalciferol (vitamin D2) 50,000 unit PO QWEEK 05/26/18 05/27/18 History [Vitamin D2] pantoprazole 40 mg PO DAILY 05/26/18 05/27/18 History pentoxifylline 400 mg PO DAILY 05/26/18 05/27/18 History eszopiclone 2 mg PO HS 05/27/18 05/27/18 History Results - Labs CBC & Chem 7: 05/28/18 06:53 05/28/18 06:53 Laboratory Results - last 24 hr 05/27/18 05/27/18 05/28/18 19:10 21:17 06:53 WBC 6.0 RBC 3.65 L Hgb 10.4 L Hct 33.1 L MCV 90.6 D MCH 28.5 MCHC 31.4 L RDW 15.0 Plt Count 235 MPV 7.9 Sodium Potassium Chloride Carbon Dioxide Anion Gap BUN Creatinine Estimated GFR POC Glucose 144 H 147 H Random Glucose Calcium Phosphorus Albumin 05/28/18 05/28/18 05/28/18 06:53 09:06 11:31 WBC RBC Hgb Hct MCV MCH MCHC RDW Plt Count MPV Sodium 134 L Potassium 4.2 Chloride 97 L Carbon Dioxide 24.4 Anion Gap 13 BUN 35 H Creatinine 7.44 H Estimated GFR 7 L POC Glucose 133 H 110 Random Glucose 123 H Calcium 8.1 L Phosphorus 7.7 H Albumin 3.3 L Microbiology 05/27/18 18:14 Tissue - Heel Acid Fast Bacilli Smear - Final No acid fast bacilli seen 05/27/18 18:14 Tissue - Heel Fungal Smear - Final No fungal elements seen 05/27/18 18:14 Tissue - Heel Gram Stain - Final 05/27/18 18:14 Tissue - Heel Wound Culture - Preliminary No growth. - Imaging Impressions Foot X-Ray 05/27/18 00:00 CONCLUSION: Removal of previous hardware as above with bony defect involving the posterior superior aspect calcaneus. - Procedures Date of procedure: 05/27/18 Procedure: 1. removal of external fixator left heel 2. removal of hardware left heel 3. excision of bone left calcaneus 4. skin plasty left heel with excision of wound and graft External fixator removed. Hardware removed. Necrotic skin over bone and wound excised and healthy bleeding base noted. Bone from dorsal fracture fragment with distal achilles excised from area. Culture taken and irrigation with normal saline. "Hurricane" Skin plasty utilized to create flap for closure with foot in plantarflexion with Neox graft placed in central wound area. Primary closure achieved. Wound vac applied. Assessment and Plan - Assessment (1) Calcaneal fracture Code(s): S92.009A - Unspecified fracture of unspecified calcaneus, initial encounter for closed fracture Status: Acute Plan: Plan to remove wound vac tomorrow and observe wound, dress wound. If wound looks viable, will be ok with discharge home vs rehab per primary team and PT recommendation. Nonweightbearing left lower extremity (1) Calcaneal fracture Qualifiers: Encounter type: subsequent encounter Calcaneus location: body Fracture type : closed Fracture alignment: displaced Laterality: left Fracture healing: with routine healing Qualified Code(s): S92.012D - Displaced fracture of body of left calcaneus, subsequent encounter for fracture with routine healing
[2018-05-28] MEDS: Insulin NovoLOG Aspart Correctional Sugar Inj SQ SCH ×4 (19:07→21:30)
[2018-05-29] MEDS: HYDROmorphone PF Inj 2 MG/ML Vial IV.PUSH PRN ×5 (00:08→22:19)
[2018-05-29] MEDS: Calcitriol 0.25 MCG Capsule PO SCH (08:04)
[2018-05-29] MEDS: Pentoxifylline 400 MG Controlled Release Tablet PO SCH (08:05)
[2018-05-29] MEDS: Calcium Acetate 667 MG Capsule PO SCH ×3 (08:05→18:25)
[2018-05-29] MEDS: Insulin NovoLOG Aspart Correctional Sugar Inj SQ SCH ×5 (08:07→20:28)
[2018-05-29] MEDS: Sodium Chloride 0.9% 2 ML Flush BID IV.FLUSH SCH ×2 (08:13→20:29)
[2018-05-29] MEDS: diazePAM 5 MG Tablet PO PRN ×2 (08:42→22:20)
[2018-05-29] MEDS: Docusate Sodium Liq 100 MG/10 ML UDC PO SCH ×2 (11:41→20:28)
--- NOTE | 2018-05-29 13:58 | P.PNNP ---
Subjective Interval history: No acute complaints Physical Exam Vital signs: Vital Signs 05/28/18 16:00 05/28/18 17:43 05/28/18 21:06 Temperature 98.3 F Pulse Rate 101 H Respiratory Rate 20 18 Blood Pressure 123/64 Pulse Oximetry 94 L 96 05/28/18 21:07 05/29/18 00:00 05/29/18 08:00 Temperature 98.3 F 99.0 F 98.2 F Pulse Rate 87 89 85 Respiratory Rate 17 17 16 Blood Pressure 173/79 H 148/67 H 166/77 H Pulse Oximetry 99 96 94 L 05/29/18 12:00 Temperature 98.0 F Pulse Rate 84 Respiratory Rate 16 Blood Pressure 158/83 H Pulse Oximetry 94 L Intake & Output 05/28/18 05/29/18 05/29/18 18:59 06:59 18:59 Intake Total 1200 / 1200 780 / 780 Output Total 3000 / 3000 Balance -1800 / -1800 780 / 780 Weight 81 kg Intake: Oral 1200 / 1200 780 / 780 Output: Urine 0 / 0 Hemodialysis Amount 3000 / 3000 Other: Mode Setting Left Heel Continuous Continuous # Voids 0 Date of Last Bowel Movement 05/27/18 05/27/18 # Bowel Movements 0 0 - Constitutional no acute distress - Routine HEENT Exam Head: Present: normocephalic Eye: Present: EOMI ENT: Present: mucous membranes moist - Routine Neck Exam Present: supple - Routine Respiratory Exam Present: CTA bilaterally - Routine Cardiovascular Exam Present: RRR - Routine Abdominal Exam Present: soft - Routine Extremities Exam Present: AV fistula, vascular access - Routine Skin Exam Present: intact - Routine Neurological Exam Present: alert, oriented X3 - Detailed Neurological Exam: Coma Scale Eye Opening: Spontaneous - Routine Psychiatric Exam Present: normal affect Assessment and Plan - Assessment (1) ESRD (end stage renal disease) Code(s): N18.6 - End stage renal disease Status: Acute Plan: Dialysis will be continued MWF. Monitor fluid and electrolytes. Avoid Gadolinium. She has functioning AVF in the right arm, that can be used from Thursday. Also has left IJ PermCath. Protect right arm from IV and BP measurements. (2) Calcaneal fracture Code(s): S92.009A - Unspecified fracture of unspecified calcaneus, initial encounter for closed fracture Status: Acute Qualifiers: Encounter type: subsequent encounter Calcaneus location: body Fracture type: closed Fracture alignment: displaced Laterality: left Fracture healing: with routine healing Qualified Code(s): S92.012D - Displaced fracture of body of left calcaneus, subsequent encounter for fracture with routine healing Plan: Management per Podiatry. she is s/p 1. removal of external fixator left heel 2. removal of hardware left heel 3. excision of bone left calcaneus 4. skin plasty left heel with excision of wound and graft Date of procedure 05/27. May need inpatient rehab - possible [facility] transfer today or tomorrow. (3) Metabolic bone disease Code(s): E88.9 - Metabolic disorder, unspecified; M90.80 - Osteopathy in diseases classified elsewhere, unspecified site Status: Acute Plan: She is s/p parathyroidectomy, has history of chronic hypocalcemia and hyperphosphatemia. Carefully monitor calcium and phosphorus. Phosphorus is high , needs compliance with low phosphorus diet. On phoslo (4) DM (diabetes mellitus), type 2, uncontrolled Code(s): E11.65 - Type 2 diabetes mellitus with hyperglycemia Status: Chronic Plan: maintain blood glucose between 140 and 180 while hospitalized.
--- NOTE | 2018-05-29 15:26 | P.PN ---
Subjective Interval history: Follow-up for left calcaneal fracture-status post removal of external fixator left heel, removal of hardware left heel, excision of bone left calcaneus, a skin plasty left heel with excision of wound and graft. Patient seen and examined. Indicates that she is feeling much better, pain is better control. Was able to sleep last night. Has poor appetite. No nausea, no vomiting. No fever. No chest pain, no shortness of breath. Discussed discharge planning, patient states that she does not want to go to rehab. States that her is at home and can help her in addition to home health care. Indicates that she would like to talk to surgeon first. Wound VAC to be removed today. Physical Exam Vital signs: Vital Signs 05/28/18 16:00 05/28/18 17:43 05/28/18 21:06 Temperature 98.3 F Pulse Rate 101 H Respiratory Rate 20 18 Blood Pressure 123/64 Pulse Oximetry 94 L 96 05/28/18 21:07 05/29/18 00:00 05/29/18 08:00 Temperature 98.3 F 99.0 F 98.2 F Pulse Rate 87 89 85 Respiratory Rate 17 17 16 Blood Pressure 173/79 H 148/67 H 166/77 H Pulse Oximetry 99 96 94 L 05/29/18 10:00 05/29/18 12:00 Temperature 98.0 F Pulse Rate 83 84 Respiratory Rate 16 Blood Pressure 158/83 H Pulse Oximetry 94 L Intake & Output 05/28/18 05/29/18 05/29/18 18:59 06:59 18:59 Intake Total 1200 / 1200 780 / 780 Output Total 3000 / 3000 Balance -1800 / -1800 780 / 780 Weight 81 kg Intake: Oral 1200 / 1200 780 / 780 Output: Urine 0 / 0 Hemodialysis Amount 3000 / 3000 Other: Mode Setting Left Heel Continuous Continuous Continuous # Voids 0 Date of Last Bowel Movement 05/27/18 05/27/18 # Bowel Movements 0 0 Narrative: GENERAL: 52-year-old well-developed well-nourished female. NAD SKIN: Bilateral foot discoloration. HEAD: Atraumatic. Normocephalic. EYES: Pupils equal and round. No scleral icterus. No injection or drainage. ENT: No nasal bleeding or discharge. Mucous membranes pink and moist. NECK: Trachea midline. No JVD. CARDIOVASCULAR: Regular rate and rhythm. EXTREMITIES: Bilateral upper extremity with AV fistulas in place. RESPIRATORY: No accessory muscle use. Clear to auscultation. Breath sounds equal bilaterally. GASTROINTESTINAL: Abdomen soft, non-tender, nondistended. Hepatic and splenic margins not palpable. MUSCULOSKELETAL: Left foot with bulky dressing in place, able to wiggle toes. Wound VAC in place. No other joint abnormalities. Left pedal pulse Doppler only, discoloration noted to midfoot to toes. Toes are cool to touch. NEUROLOGICAL: Awake, alert oriented x3. No focal deficits PSYCHIATRIC: Pleasant, appropriate. Results - Labs CBC & Chem 7: 05/28/18 06:53 05/28/18 06:53 Laboratory Results - last 24 hr 05/28/18 05/28/18 05/29/18 18:55 22:32 07:53 POC Glucose 256 H 90 176 H 05/29/18 11:26 POC Glucose 178 H Microbiology 05/27/18 18:14 Tissue - Heel Gram Stain - Final 05/27/18 18:14 Tissue - Heel Wound Culture - Preliminary No growth in 48 hours 05/27/18 18:14 Tissue - Heel Acid Fast Bacilli Smear - Final No acid fast bacilli seen 05/27/18 18:14 Tissue - Heel Fungal Smear - Final No fungal elements seen - Procedures Date of procedure: 05/27/18 Procedure: 1. removal of external fixator left heel 2. removal of hardware left heel 3. excision of bone left calcaneus 4. skin plasty left heel with excision of wound and graft External fixator removed. Hardware removed. Necrotic skin over bone and wound excised and healthy bleeding base noted. Bone from dorsal fracture fragment with distal achilles excised from area. Culture taken and irrigation with normal saline. "Hurricane" Skin plasty utilized to create flap for closure with foot in plantarflexion with Neox graft placed in central wound area. Primary closure achieved. Wound vac applied. Assessment and Plan - Assessment (1) Calcaneal fracture Code(s): S92.009A - Unspecified fracture of unspecified calcaneus, initial encounter for closed fracture Status: Acute (2) ESRD (end stage renal disease) Code(s): N18.6 - End stage renal disease Status: Chronic (3) DM (diabetes mellitus), type 2, uncontrolled Code(s): E11.65 - Type 2 diabetes mellitus with hyperglycemia Status: Chronic - Plan Assessment/plan This patient is a 52-year-old female with a diagnosis of atrial fibrillation on Xarelto, diabetes mellitus type 2, end-stage renal disease on hemodialysis, peripheral neuropathy, and a left calcaneus fracture in March 2018. The patient had repair of the fracture 2 times and presented from Dr. Trujillo's office for management of the left calcaneus fracture hardware malfunction. Left calcaneus fracture Status post removal of external fixator left heel, removal of hardware left heel , excision of bone left calcaneus, skinplasty left heel with excision of wound and graft 05/27 -Appreciate podiatry input Continue with postop care -Follow cultures Continue with wound VAC Continue with Dilaudid to 1 mg IV every 4 as well as Percocet 2 tabs 5/325 every 4 as needed. -Pain better controlled, continue with present care. -Podiatry will remove wound VAC today and observe wound. If the wound looks viable possible discharge home versus rehab. Patient wants to go home. End-stage renal disease on hemodialysis -Nephrology following Continue with dialysis Thursday and Thursday. Diabetes mellitus type 2 -Continue Accu-Cheks q. before meals and at bedtime. Continue NovoLog sliding scale. Atrial fibrillation-currently SR -continuous telemetry monitoring PVD Peripheral neuropathy F/U with Dr. Dinero -continue Trental Labs reviewed, stable DC planning in progress, poss HHC vs. rehab. Code Status: Full code Discussed Condition With: RN, patient Discharge Planning: Possible discharge on Thursday, home with home health care versus SNF. Patient prefers home. (1) Calcaneal fracture Qualifiers: Encounter type: subsequent encounter Calcaneus location: body Fracture type : closed Fracture alignment: displaced Laterality: left Fracture healing: with routine healing Qualified Code(s): S92.012D - Displaced fracture of body of left calcaneus, subsequent encounter for fracture with routine healing
--- NOTE | 2018-05-29 18:01 | P.DCO ---
- Diagnosis (1) Calcaneal fracture Status: Acute - Physical Therapy Order: Evaluate and treat - Home Health Nursing Order: Medical education, Wound care and dressing changes, Nursing assessment with vital signs - Case Management Consult Yes - Certification I have seen patient Faustina Cortez on 05/29/18. My clinical findings support the need for the requested home health care services because: Calcaneal fracture, redo surgery, difficulty ambulating, history of end-stage renal disease. Limited ability to care for self, High risk of falls I certify that my clinical findings support that this patient is homebound because: Unsteady gait/balance, Non-ambulatory: confined to bed or chair, Unable to use public transportation (1) Calcaneal fracture Qualifiers: Encounter type: subsequent encounter Calcaneus location: body Fracture type : closed Fracture alignment: displaced Laterality: left Fracture healing: with routine healing Qualified Code(s): S92.012D - Displaced fracture of body of left calcaneus, subsequent encounter for fracture with routine healing
--- NOTE | 2018-05-29 18:16 | P.PNPOD ---
Subjective Interval history: L foot excision of bone, removal of hardware and external fixation left heel with skin plasty left heel 05/27/18 Dr Piedra Physical Exam Vital signs: Vital Signs 05/28/18 21:06 05/28/18 21:07 05/29/18 00:00 Temperature 98.3 F 99.0 F Pulse Rate 87 89 Respiratory Rate 18 17 17 Blood Pressure 173/79 H 148/67 H Pulse Oximetry 99 96 05/29/18 08:00 05/29/18 10:00 05/29/18 12:00 Temperature 98.2 F 98.0 F Pulse Rate 85 83 84 Respiratory Rate 16 16 Blood Pressure 166/77 H 158/83 H Pulse Oximetry 94 L 94 L 05/29/18 16:00 Temperature 98.0 F Pulse Rate 85 Respiratory Rate 20 Blood Pressure 138/97 H Pulse Oximetry 96 Intake & Output 05/28/18 05/29/18 05/29/18 18:59 06:59 18:59 Intake Total 1200 / 1200 780 / 780 Output Total 3000 / 3000 Balance -1800 / -1800 780 / 780 Weight 81 kg Intake: Oral 1200 / 1200 780 / 780 Output: Urine 0 / 0 Hemodialysis Amount 3000 / 3000 Other: Mode Setting Left Heel Continuous Continuous Continuous # Voids 0 Date of Last Bowel Movement 05/27/18 05/27/18 # Bowel Movements 0 0 Narrative: Wound vac removed. Sutures intact with minimal bleeding noted and viable tissue at flap. No sign of infection. No edema. Medications and Allergies Active Medications: Active Medications Acetaminophen (Tylenol) 650 mg PO Q4H PRN PRN Reason: Temp > 100.4 Acetaminophen (Tylenol) 650 mg PO UNSCH PRN PRN Reason: SEE LABEL COMMENTS Bisacodyl (Dulcolax Supp) 10 mg RECTAL DAILY PRN PRN Reason: SEVERE CONSITIPATION Calcitriol (Rocaltrol) 0.25 mcg PO Q48H [facility] Last Admin: 05/29/18 08:04 Dose: 0.25 mcg Calcium Acetate (Phoslo) 2,001 mg PO TID [facility] Last Admin: 05/29/18 12:45 Dose: 2,001 mg Clonidine HCl (Catapres) 0.1 mg PO UNSCH PRN PRN Reason: SEE LABEL COMMENTS Dextrose (D50w Vial) 50 ml IV.PUSH UNSCH PRN PRN Reason: PER HYPOGLYCEMIA PROTOCOL Diazepam (Valium) 5 mg PO BID PRN PRN Reason: ANXIETY Last Admin: 05/29/18 08:42 Dose: 5 mg Diphenhydramine HCl (Benadryl) 25 mg PO UNSCH PRN PRN Reason: SEE LABEL COMMENTS Docusate Sodium (Colace Liq) 50 mg PO BID [facility] Last Admin: 05/29/18 11:41 Dose: Not Given Epoetin Greg (Epogen Inj) 10,000 unit IV.PUSH UNSCH PRN PRN Reason: SEE LABEL COMMENTS Last Admin: 05/28/18 11:24 Dose: 10,000 unit Eszopiclone (Lunesta) 2 mg PO HS YAAKOV Last Admin: 05/28/18 21:14 Dose: 2 mg Gelatin (Gelfoam 12 Mm/7 Mm Topical) 1 foam TOPICAL PRN PRN PRN Reason: help stop bleeding from site Gentamicin Sulfate (Gentamicin Inj) 20 mg OTHER WITH DIALYSIS PRN PRN Reason: Dwell Gentamycin Lock Last Admin: 05/28/18 11:24 Dose: 20 mg Glucagon (Glucagon Inj) 1 mg OTHER PRN PRN PRN Reason: for Hypoglycemia Protocol Heparin Sodium (Porcine) (Heparin Inj) 8,000 units OTHER WITH DIALYSIS PRN PRN Reason: for machine prime Heparin Sodium (Porcine) (Heparin Inj) 1,000 units OTHER WITH DIALYSIS PRN PRN Reason: Dwell Heparin to Fill Catheter Last Admin: 05/28/18 11:24 Dose: 1,000 units Hydromorphone HCl (Dilaudid Pf Inj) 1 mg IV.PUSH Q4H PRN PRN Reason: PAIN 7-10 SEVERE Last Admin: 05/29/18 17:56 Dose: 1 mg Sodium Chloride (Ns Inj) 1,000 mls @ 0 mls/hr OTHER .Q0M PRN PRN Reason: for prime and rinse back Sodium Chloride (Ns Inj) 1,000 mls @ 200 mls/hr OTHER .Q5H PRN PRN Reason: for dialyzer flush PRN Sodium Chloride (Ns Inj) 1,000 mls @ 0 mls/hr IV.CONT .Q0M PRN PRN Reason: hypotension / volume replace Albumin Human (Flexbumin 25% Inj) 100 mls @ 60 mls/hr IV.SIG WITH DIALYSIS PRN PRN Reason: hypotension / volume replace Insulin Aspart (Novolog Insulin Correctional Sugar Inj) 0 unit SQ ACHS [facility]; Protocol Last Admin: 05/29/18 16:32 Dose: 3 unit Mannitol (Mannitol Inj) 12.5 gm IV.PUSH UNSCH PRN PRN Reason: hypotension / volume replace Nitroglycerin (Nitrostat Sl) 0.4 mg SL Q5M PRN PRN Reason: CHEST PAIN Ondansetron HCl (Zofran Inj) 4 mg IV.PUSH Q6H PRN PRN Reason: NAUSEA OR VOMITING Last Admin: 05/29/18 08:42 Dose: 4 mg Ondansetron HCl (Zofran Inj) 4 mg IV.PUSH UNSCH PRN PRN Reason: NAUSEA OR VOMITING Oxycodone/Acetaminophen (Percocet 5/325 Mg) 2 tab PO Q4H PRN PRN Reason: PAIN SCALE 4 TO 6 MODERATE Last Admin: 05/29/18 16:30 Dose: 2 tab Pantoprazole Sodium (Protonix) 40 mg PO DAILY [facility] Last Admin: 05/29/18 08:05 Dose: 40 mg Pentoxifylline (Trental Sr) 400 mg PO DAILY [facility] Last Admin: 05/29/18 08:05 Dose: 400 mg Sennosides (Senokot) 17.2 mg PO Q12H PRN PRN Reason: Moderate Constipation Sodium Chloride (Ns Flush) 2 ml IV.FLUSH BID [facility] Last Admin: 05/29/18 08:13 Dose: 2 ml Sodium Chloride (Ns Flush) 2 ml IV.FLUSH PRN PRN PRN Reason: FLUSH AFTER USING IV ACCESS Sodium Chloride (Ns Flush) 5 ml IV.FLUSH PRN PRN PRN Reason: flush each lumen during HD Allergies Allergy/AdvReac Type Severity Reaction Status Date / Time coconut Allergy Severe HIVES Verified 04/06/18 10:54 diatrizoate meglumine Allergy Severe RENAL Verified 04/06/18 10:54 FAILURE gadobenic acid Allergy Severe RENAL Verified 04/06/18 10:54 FAILURE gadodiamide Allergy Severe RENAL Verified 04/06/18 10:54 FAILURE gadoteridol Allergy Severe RENAL Verified 04/06/18 10:54 FAILURE iodixanol Allergy Severe RENAL Verified 04/06/18 10:54 FAILURE iohexol Allergy Severe RENAL Verified 04/06/18 10:54 FAILURE morphine Allergy Severe HIVES Verified 04/06/18 10:54 azithromycin Allergy Intermediate HIVES Verified 04/06/18 10:54 clindamycin Allergy Intermediate HIVES Verified 04/06/18 10:54 erythromycin base Allergy Intermediate HIVES Verified 04/06/18 10:54 penicillin G Allergy Intermediate Hives Verified 04/06/18 10:54 midodrine Allergy Unknown Atrial Verified 04/06/18 10:54 Fibrillation codeine AdvReac Severe HALLUCINATI Verified 04/06/18 10:54 ONS insulin aspart AdvReac Severe REGULAR Verified 04/06/18 10:54 INSULIN ONLY-CAUSES CRAMPIN G AND "FREEZING" insulin aspart protamine AdvReac Severe REGULAR Verified 04/06/18 10:54 human INSULIN ONLY-CAUSES CRAMPIN G AND "FREEZING" insulin detemir AdvReac Severe REGULAR Verified 04/06/18 10:54 INSULIN ONLY-CAUSES CRAMPIN G AND "FREEZING" insulin glargine AdvReac Severe REGULAR Verified 04/06/18 10:54 INSULIN ONLY-CAUSES CRAMPIN G AND "FREEZING" insulin isophane (NPH) AdvReac Severe REGULAR Verified 04/06/18 10:54 INSULIN ONLY-CAUSES CRAMPIN G AND "FREEZING" insulin lispro AdvReac Severe REGULAR Verified 04/06/18 10:54 INSULIN ONLY-CAUSES CRAMPIN G AND "FREEZING" insulin regular AdvReac Severe REGULAR Verified 04/06/18 10:54 INSULIN ONLY-CAUSES CRAMPIN G AND "FREEZING" vancomycin AdvReac Mild NAUSEA/VOMITING Verified 04/06/18 10:54 WHEN INFUSED TOO FAST Home Medications Medication Instructions Recorded Confirmed Type calcitriol 0.25 mcg PO Q OTHER DAY 05/26/18 05/27/18 History calcium acetate 2,001 mg PO TID 05/26/18 05/27/18 History diazepam 5 mg PO DAILY 05/26/18 05/27/18 History docusate sodium 50 mg PO BID 05/26/18 05/27/18 History ergocalciferol (vitamin D2) 50,000 unit PO QWEEK 05/26/18 05/27/18 History [Vitamin D2] pantoprazole 40 mg PO DAILY 05/26/18 05/27/18 History pentoxifylline 400 mg PO DAILY 05/26/18 05/27/18 History eszopiclone 2 mg PO HS 05/27/18 05/27/18 History Results - Labs CBC & Chem 7: 05/28/18 06:53 05/28/18 06:53 Laboratory Results - last 24 hr 05/28/18 05/28/18 05/29/18 18:55 22:32 07:53 POC Glucose 256 H 90 176 H 05/29/18 05/29/18 11:26 16:11 POC Glucose 178 H 236 H Microbiology 05/27/18 18:14 Tissue - Heel Gram Stain - Final 05/27/18 18:14 Tissue - Heel Wound Culture - Preliminary No growth in 48 hours 05/27/18 18:14 Tissue - Heel Acid Fast Bacilli Smear - Final No acid fast bacilli seen - Procedures Date of procedure: 05/27/18 Procedure: 1. removal of external fixator left heel 2. removal of hardware left heel 3. excision of bone left calcaneus 4. skin plasty left heel with excision of wound and graft External fixator removed. Hardware removed. Necrotic skin over bone and wound excised and healthy bleeding base noted. Bone from dorsal fracture fragment with distal achilles excised from area. Culture taken and irrigation with normal saline. "Hurricane" Skin plasty utilized to create flap for closure with foot in plantarflexion with Neox graft placed in central wound area. Primary closure achieved. Wound vac applied. Assessment and Plan - Assessment (1) Calcaneal fracture Code(s): S92.009A - Unspecified fracture of unspecified calcaneus, initial encounter for closed fracture Status: Acute Plan: Strongly recommend DC to rehab, ([facility] upstairs preferred) Discussed with patient Nonweightbearing left lower extremity in splint Changed bandage today. Podiatry will see patient twice weekly while in [place]. Ok to discharged to rehab as soon as it can be arranged. Clear for discharge from podiatry (1) Calcaneal fracture Qualifiers: Encounter type: subsequent encounter Calcaneus location: body Fracture type : closed Fracture alignment: displaced Laterality: left Fracture healing: with routine healing Qualified Code(s): S92.012D - Displaced fracture of body of left calcaneus, subsequent encounter for fracture with routine healing
[2018-05-30] MEDS: HYDROmorphone PF Inj 2 MG/ML Vial IV.PUSH PRN ×2 (03:42→08:48)
[2018-05-30] MEDS: Pentoxifylline 400 MG Controlled Release Tablet PO SCH (08:49)
[2018-05-30] MEDS: diazePAM 5 MG Tablet PO PRN ×2 (08:49→20:46)
[2018-05-30] MEDS: Calcium Acetate 667 MG Capsule PO SCH ×3 (08:49→17:49)
[2018-05-30] MEDS: Insulin NovoLOG Aspart Correctional Sugar Inj SQ SCH ×4 (08:49→20:46)
--- NOTE | 2018-05-30 09:26 | P.PN ---
Subjective Interval history: Follow-up for left calcaneal fracture-status post removal of external fixator left heel, removal of hardware left heel, excision of bone left calcaneus, a skin plasty left heel with excision of wound and graft. Patient seen and examined. Pain better controlled, I slept better. Appetite is getting better. No chest pain, no shortness of breath, no nausea, no vomiting, no diarrhea. Wound VAC was removed yesterday, she is keeping leg elevated. She is agreeable with going to [place]. Physical Exam Vital signs: Vital Signs 05/29/18 10:00 05/29/18 12:00 05/29/18 16:00 Temperature 98.0 F 98.0 F Pulse Rate 83 84 85 Respiratory Rate 16 20 Blood Pressure 158/83 H 138/97 H Pulse Oximetry 94 L 96 05/29/18 20:00 05/30/18 00:00 05/30/18 00:05 Temperature 97.3 F L 98.0 F Pulse Rate 90 89 89 Respiratory Rate 20 18 Blood Pressure 144/54 H 174/75 H Pulse Oximetry 100 94 L 05/30/18 04:00 Temperature 97.2 F L Pulse Rate 91 H Respiratory Rate 18 Blood Pressure 181/75 H Pulse Oximetry 96 Intake & Output 05/29/18 05/30/18 05/30/18 18:59 06:59 18:59 Weight 79.8 kg Other: Mode Setting Left Heel Continuous # Voids 0 Narrative: GENERAL: 52-year-old well-developed well-nourished female, no apparent distress SKIN: Bilateral foot discoloration. HEAD: Atraumatic. Normocephalic. EYES: Pupils equal and round. No scleral icterus. No injection or drainage. ENT: No nasal bleeding or discharge. Mucous membranes pink and moist. NECK: Trachea midline. No JVD. CARDIOVASCULAR: Regular rate and rhythm. EXTREMITIES: Bilateral upper extremity with AV fistulas in place. RESPIRATORY: No accessory muscle use. Clear to auscultation. Breath sounds equal bilaterally. GASTROINTESTINAL: Abdomen soft, non-tender, nondistended. Hepatic and splenic margins not palpable. MUSCULOSKELETAL: Left foot with bulky dressing in place, able to wiggle toes. Toes are warm to touch. No other joint abnormalities. Left pedal pulse Doppler only, discoloration noted to midfoot to toes. Toes are cool to touch. NEUROLOGICAL: Awake, alert oriented x3. No focal deficits PSYCHIATRIC: Cooperative. Results - Labs CBC & Chem 7: 05/28/18 06:53 05/28/18 06:53 Laboratory Results - last 24 hr 05/29/18 05/29/18 05/29/18 11:26 16:11 19:51 POC Glucose 178 H 236 H 220 H 05/30/18 07:44 POC Glucose 170 H Microbiology 05/27/18 18:14 Tissue - Heel Gram Stain - Final 05/27/18 18:14 Tissue - Heel Wound Culture - Final No growth in 72 hours (aerobically and anaerobically ) - Procedures Date of procedure: 05/27/18 Procedure: 1. removal of external fixator left heel 2. removal of hardware left heel 3. excision of bone left calcaneus 4. skin plasty left heel with excision of wound and graft External fixator removed. Hardware removed. Necrotic skin over bone and wound excised and healthy bleeding base noted. Bone from dorsal fracture fragment with distal achilles excised from area. Culture taken and irrigation with normal saline. "Hurricane" Skin plasty utilized to create flap for closure with foot in plantarflexion with Neox graft placed in central wound area. Primary closure achieved. Wound vac applied. Assessment and Plan - Assessment (1) Calcaneal fracture Code(s): S92.009A - Unspecified fracture of unspecified calcaneus, initial encounter for closed fracture Status: Acute (2) ESRD (end stage renal disease) Code(s): N18.6 - End stage renal disease Status: Chronic (3) DM (diabetes mellitus), type 2, uncontrolled Code(s): E11.65 - Type 2 diabetes mellitus with hyperglycemia Status: Chronic - Plan This patient is a 52-year-old female with a diagnosis of atrial fibrillation on Xarelto, diabetes mellitus type 2, end-stage renal disease on hemodialysis, peripheral neuropathy, and a left calcaneus fracture in March 2018. The patient had repair of the fracture 2 times and presented from Dr. Trujillo's office for management of the left calcaneus fracture hardware malfunction. Left calcaneus fracture Status post removal of external fixator left heel, removal of hardware left heel , excision of bone left calcaneus, skinplasty left heel with excision of wound and graft 05/27 -Appreciate podiatry input Continue with postop care -Follow cultures-negative so far Continue with Dilaudid to 1 mg IV every 4 as well as Percocet 2 tabs 5/325 every 4 as needed. -Pain better controlled, continue with present care. -Continue with wound care per podiatry. Wound VAC removed yesterday Podiatry has cleared for discharge, discussed with Dr. Piedra yesterday. She prefers [place] rehab so she can follow pt. there End-stage renal disease on hemodialysis -Nephrology following Continue with dialysis Thursday and Thursday. Diabetes mellitus type 2 -Continue Accu-Cheks q. before meals and at bedtime. Continue NovoLog sliding scale. Atrial fibrillation-currently SR Patient states she had an episode of A. fib during 1 of her first surgeries, follows up with Dr. Fields. She is not on any anticoagulation at home. She was put on Xarelto for 10 days after she got out of [place] [place] rehab. -continuous telemetry monitoring PVD Peripheral neuropathy F/U with Dr. Dinero -continue Trental We will start her on heparin 5000 units subcu twice daily for DVT prophylaxis Case management consultation for discharge planning, referral to CIR. Patient is ready for discharge Code Status: Full code Discussed Condition With: RN, pt, CM Discharge Planning: Ready for discharge, [facility] is first choice (1) Calcaneal fracture Qualifiers: Encounter type: subsequent encounter Calcaneus location: body Fracture type : closed Fracture alignment: displaced Laterality: left Fracture healing: with routine healing Qualified Code(s): S92.012D - Displaced fracture of body of left calcaneus, subsequent encounter for fracture with routine healing
[2018-05-30] MEDS: Sodium Chloride 0.9% 2 ML Flush BID IV.FLUSH SCH ×2 (11:25→20:46)
[2018-05-30] MEDS: Docusate Sodium Liq 100 MG/10 ML UDC PO SCH ×2 (11:25→20:46)
[2018-05-30] MEDS: Heparin - SQ 10,000 UNITS/ML Vial SQ SCH ×2 (12:50→20:45)
--- NOTE | 2018-05-30 13:30 | P.PNNP ---
Subjective Interval history: no acute complaints Physical Exam Vital signs: Vital Signs 05/29/18 16:00 05/29/18 20:00 05/30/18 00:00 Temperature 98.0 F 97.3 F L 98.0 F Pulse Rate 85 90 89 Respiratory Rate 20 20 18 Blood Pressure 138/97 H 144/54 H 174/75 H Pulse Oximetry 96 100 94 L 05/30/18 00:05 05/30/18 04:00 05/30/18 08:00 Temperature 97.2 F L 97.6 F Pulse Rate 89 91 H 81 Respiratory Rate 18 16 Blood Pressure 181/75 H 201/96 H Pulse Oximetry 96 92 L Intake & Output 05/29/18 05/30/18 05/30/18 18:59 06:59 18:59 Weight 79.8 kg Other: Mode Setting Left Heel Continuous # Voids 0 - Constitutional no acute distress - Routine HEENT Exam Head: Present: normocephalic Eye: Present: EOMI ENT: Present: mucous membranes moist - Routine Neck Exam Present: supple - Routine Respiratory Exam Present: CTA bilaterally - Routine Cardiovascular Exam Present: RRR - Routine Abdominal Exam Present: soft - Routine Skin Exam Present: intact - Routine Neurological Exam Present: alert, oriented X3 - Detailed Neurological Exam: Coma Scale Eye Opening: Spontaneous - Routine Psychiatric Exam Present: normal affect Assessment and Plan - Assessment (1) ESRD (end stage renal disease) Code(s): N18.6 - End stage renal disease Status: Acute Plan: Dialysis will be continued MWF. Monitor fluid and electrolytes. Avoid Gadolinium. She has functioning AVF in the right arm, that can be used from Thursday. Also has left IJ PermCath. Protect right arm from IV and BP measurements. (2) Calcaneal fracture Code(s): S92.009A - Unspecified fracture of unspecified calcaneus, initial encounter for closed fracture Status: Acute Qualifiers: Encounter type: subsequent encounter Calcaneus location: body Fracture type: closed Fracture alignment: displaced Laterality: left Fracture healing: with routine healing Qualified Code(s): S92.012D - Displaced fracture of body of left calcaneus, subsequent encounter for fracture with routine healing Plan: Management per Podiatry. she is s/p 1. removal of external fixator left heel 2. removal of hardware left heel 3. excision of bone left calcaneus 4. skin plasty left heel with excision of wound and graft Date of procedure 05/27. May need inpatient rehab - possible [facility] transfer today or tomorrow. (3) Metabolic bone disease Code(s): E88.9 - Metabolic disorder, unspecified; M90.80 - Osteopathy in diseases classified elsewhere, unspecified site Status: Acute Plan: She is s/p parathyroidectomy, has history of chronic hypocalcemia and hyperphosphatemia. Carefully monitor calcium and phosphorus. Phosphorus is high , needs compliance with low phosphorus diet. On phoslo (4) DM (diabetes mellitus), type 2, uncontrolled Code(s): E11.65 - Type 2 diabetes mellitus with hyperglycemia Status: Chronic Plan: maintain blood glucose between 140 and 180 while hospitalized.
[2018-05-31 08:33] VITALS: PULSE 93; RESP 18
[2018-05-31] MEDS: Docusate Sodium Liq 100 MG/10 ML UDC PO SCH (08:36)
[2018-05-31] MEDS: Calcium Acetate 667 MG Capsule PO SCH ×3 (08:36→17:23)
[2018-05-31] MEDS: Calcitriol 0.25 MCG Capsule PO SCH (08:36)
[2018-05-31] MEDS: Pentoxifylline 400 MG Controlled Release Tablet PO SCH (08:36)
[2018-05-31] MEDS: Heparin - SQ 10,000 UNITS/ML Vial SQ SCH (08:36)
[2018-05-31] MEDS: Sodium Chloride 0.9% 2 ML Flush BID IV.FLUSH SCH (08:37)
[2018-05-31] MEDS: Insulin NovoLOG Aspart Correctional Sugar Inj SQ SCH ×3 (08:37→17:23)
--- NOTE | 2018-05-31 09:13 | P.PN ---
Subjective Interval history: Follow-up for left calcaneal fracture-status post removal of external fixator left heel, removal of hardware left heel, excision of bone left calcaneus, a skin plasty left heel with excision of wound and graft. Patient seen and examined. Inc. anxiety and panic overnight, changed her mind. Doesn't want to go to [facility]. Insists on going home. Again asked what we will do different at [facility], explained in detail. Wants to go home and will f/u with Dr. Piedra as OP. I offered medication to help with anxiety, she doesn't want to try Going to HD today Physical Exam Vital signs: Vital Signs 05/30/18 16:00 05/30/18 20:00 05/30/18 20:40 Temperature 98.0 F 98.4 F Pulse Rate 78 94 H Respiratory Rate 16 18 Blood Pressure 184/77 H 191/82 H Pulse Oximetry 98 95 95 05/31/18 00:00 05/31/18 08:00 Temperature 97.4 F L 98.2 F Pulse Rate 111 H 93 H Respiratory Rate 20 18 Blood Pressure 174/96 H 158/75 H Pulse Oximetry 94 L 92 L Intake & Output 05/30/18 05/31/18 05/31/18 18:59 06:59 18:59 Intake Total 1400 / 1400 Output Total 0 / 0 Balance 1400 / 1400 Weight 79.3 kg Intake: Oral 1400 / 1400 Output: Urine 0 / 0 Other: # Voids 0 # Bowel Movements 0 Narrative: GENERAL: 52-year-old well-developed well-nourished female, no apparent distress SKIN: Bilateral foot discoloration. HEAD: Atraumatic. Normocephalic. EYES: Pupils equal and round. No scleral icterus. No injection or drainage. ENT: No nasal bleeding or discharge. Mucous membranes pink and moist. NECK: Trachea midline. No JVD. CARDIOVASCULAR: Regular rate and rhythm. EXTREMITIES: Bilateral upper extremity with AV fistulas in place. RESPIRATORY: No accessory muscle use. Clear to auscultation. Breath sounds equal bilaterally. GASTROINTESTINAL: Abdomen soft, non-tender, nondistended. Hepatic and splenic margins not palpable. MUSCULOSKELETAL: Left foot with bulky dressing in place, able to wiggle toes. Toes are warm to touch. No other joint abnormalities. Left pedal pulse Doppler only, discoloration noted to midfoot to toes. Toes are cool to touch. NEUROLOGICAL: Awake, alert oriented x3. No focal deficits PSYCHIATRIC: Cooperative. Results - Labs CBC & Chem 7: 05/28/18 06:53 05/28/18 06:53 Laboratory Results - last 24 hr 05/30/18 05/30/18 05/30/18 12:58 17:37 19:48 POC Glucose 214 H 166 H 114 H 05/31/18 08:05 POC Glucose 147 H Microbiology 05/27/18 18:14 Tissue - Heel Gram Stain - Final 05/27/18 18:14 Tissue - Heel Wound Culture - Final No growth in 72 hours (aerobically and anaerobically ) - Procedures Date of procedure: 05/27/18 Procedure: 1. removal of external fixator left heel 2. removal of hardware left heel 3. excision of bone left calcaneus 4. skin plasty left heel with excision of wound and graft External fixator removed. Hardware removed. Necrotic skin over bone and wound excised and healthy bleeding base noted. Bone from dorsal fracture fragment with distal achilles excised from area. Culture taken and irrigation with normal saline. "Hurricane" Skin plasty utilized to create flap for closure with foot in plantarflexion with Neox graft placed in central wound area. Primary closure achieved. Wound vac applied. Assessment and Plan - Assessment (1) Calcaneal fracture Code(s): S92.009A - Unspecified fracture of unspecified calcaneus, initial encounter for closed fracture Status: Acute (2) ESRD (end stage renal disease) Code(s): N18.6 - End stage renal disease Status: Chronic (3) DM (diabetes mellitus), type 2, uncontrolled Code(s): E11.65 - Type 2 diabetes mellitus with hyperglycemia Status: Chronic - Plan This patient is a 52-year-old female with a diagnosis of atrial fibrillation on Xarelto, diabetes mellitus type 2, end-stage renal disease on hemodialysis, peripheral neuropathy, and a left calcaneus fracture in March 2018. The patient had repair of the fracture 2 times and presented from Dr. Trujillo's office for management of the left calcaneus fracture hardware malfunction. Left calcaneus fracture Status post removal of external fixator left heel, removal of hardware left heel , excision of bone left calcaneus, skinplasty left heel with excision of wound and graft 05/27 -Appreciate podiatry input Continue with postop care -Follow cultures-negative so far Continue Percocet 2 tabs 5/325 every 4 as needed. -Pain better controlled, continue with present care. -Continue with wound care per podiatry. Wound VAC removed Podiatry has cleared for discharge, discussed with Dr. Piedra yesterday. She prefers [facility] so she can follow pt. there -pt. refusing CIR End-stage renal disease on hemodialysis -Nephrology following Continue with dialysis Thursday and Thursday. Diabetes mellitus type 2 -Continue Accu-Cheks q. before meals and at bedtime. Continue NovoLog sliding scale. Atrial fibrillation-currently SR Patient states she had an episode of A. fib during 1 of her first surgeries, follows up with Dr. Fields. She is not on any anticoagulation at home. She was put on Xarelto for 10 days after she got out of [facility]. -continuous telemetry monitoring Anxiety, hx of panic attacks. Had one last night -Continue Valium BID -recommended adding maintenance med such as Buspar. She declined PVD Peripheral neuropathy F/U with Dr. Dinero -continue Trental Heparin 5000 units subcu twice daily for DVT prophylaxis Refusing CIR, discussed in detail why it's a better option however she insists on going home because of anxiety. Cm consult to arrange C Needs to f/u with Dr. Piedra Wound care per Dr. Piedra Diet-diabetic Non weight bearing left foot E-FORCSE Prescription Drug Monitoring Database has been queried and verified prior to prescribing the controlled substance. Acute pain exception. This patient has normal, predicted, physiological, and time limited response to an adverse mechanical stimulus associated with surgery, trauma, or acute illness as described in my notes. There is a lack of alternative treatment options other than to include the prescribed narcotic treatment for this condition. pt. had recent Rx for oxycodone 30 mg tabs #112 05/20/2018 will not write prescription Code Status: Full code Discussed Condition With: RN, pt, CM Discharge Planning: Discharge after HD today (1) Calcaneal fracture Qualifiers: Encounter type: subsequent encounter Calcaneus location: body Fracture type : closed Fracture alignment: displaced Laterality: left Fracture healing: with routine healing Qualified Code(s): S92.012D - Displaced fracture of body of left calcaneus, subsequent encounter for fracture with routine healing
--- NOTE | 2018-05-31 09:41 | P.PNNP ---
Subjective Interval history: patient was seen and examined. Seen during dialysis. Overall stable. Physical Exam Vital signs: Vital Signs 05/30/18 16:00 05/30/18 20:00 05/30/18 20:40 Temperature 98.0 F 98.4 F Pulse Rate 78 94 H Respiratory Rate 16 18 Blood Pressure 184/77 H 191/82 H Pulse Oximetry 98 95 95 05/31/18 00:00 05/31/18 08:00 Temperature 97.4 F L 98.2 F Pulse Rate 111 H 93 H Respiratory Rate 20 18 Blood Pressure 174/96 H 158/75 H Pulse Oximetry 94 L 92 L Intake & Output 05/30/18 05/31/18 05/31/18 18:59 06:59 18:59 Intake Total 1400 / 1400 Output Total 0 / 0 Balance 1400 / 1400 Weight 79.3 kg Intake: Oral 1400 / 1400 Output: Urine 0 / 0 Other: # Voids 0 # Bowel Movements 0 Narrative: GENERAL: 52-year-old well-developed well-nourished female, no apparent distress SKIN: Bilateral foot discoloration. HEAD: Atraumatic. Normocephalic. EYES: Pupils equal and round. No scleral icterus. No injection or drainage. ENT: No nasal bleeding or discharge. Mucous membranes pink and moist. NECK: No JVD. No lymphadenopathy CARDIOVASCULAR: Regular rate and rhythm. EXTREMITIES: right arm AVF: patent. RESPIRATORY: No accessory muscle use. Clear to auscultation. Breath sounds equal bilaterally. GASTROINTESTINAL: Abdomen soft, non-tender, nondistended. Hepatic and splenic margins not palpable. MUSCULOSKELETAL:Left foot covered in dressing and splint/boot. Assessment and Plan - Assessment (1) ESRD (end stage renal disease) Code(s): N18.6 - End stage renal disease Status: Acute Plan: Dialysis will be continued MWF. Monitor fluid and electrolytes. Avoid Gadolinium. Draw phosphorus today. She has functioning AVF in the right arm, that can be used from Thursday. Also has left IJ PermCath. Protect right arm from IV and BP measurements. (2) Calcaneal fracture Code(s): S92.009A - Unspecified fracture of unspecified calcaneus, initial encounter for closed fracture Status: Acute Qualifiers: Encounter type: subsequent encounter Calcaneus location: body Fracture type: closed Fracture alignment: displaced Laterality: left Fracture healing: with routine healing Qualified Code(s): S92.012D - Displaced fracture of body of left calcaneus, subsequent encounter for fracture with routine healing Plan: Management per Podiatry. she is s/p 1. removal of external fixator left heel 2. removal of hardware left heel 3. excision of bone left calcaneus 4. skin plasty left heel with excision of wound and graft Date of procedure 05/27. May need inpatient rehab - possible [facility] transfer. Patient wants to go home. (3) Metabolic bone disease Code(s): E88.9 - Metabolic disorder, unspecified; M90.80 - Osteopathy in diseases classified elsewhere, unspecified site Status: Acute Plan: She is s/p parathyroidectomy, has history of chronic hypocalcemia and hyperphosphatemia. Carefully monitor calcium and phosphorus. Phosphorus is high , needs compliance with low phosphorus diet. On phoslo (4) DM (diabetes mellitus), type 2, uncontrolled Code(s): E11.65 - Type 2 diabetes mellitus with hyperglycemia Status: Chronic Plan: maintain blood glucose between 140 and 180 while hospitalized.
[2018-05-31] MEDS: Heparin 10,000 UNITS/10 ML Vial (for IV use) OTHER PRN (11:16)
[2018-05-31 16:28] VITALS: BP 183/90; TEMP 98; O2SAT 97
--- NOTE | 2018-05-31 21:26 | P.DS ---
Date of admission: 05/29/18 09:59 Primary care physician: Marcelino Ruffin Attending physician on discharge: Jake Contreras Anticipated date of discharge: 05/31/18 Brief History from admission: Mrs. Cortez is a 52 year-old female with a history of diabetes mellitus, reports two episodes of afib related to midodrine use, end-stage renal disease on hemodialysis with a history of polycystic kidney disease and failed transplant, diabetes mellitus with neuropathy, and left calcaneus fracture in March 2018 with repair times [address] Piedra's office for evaluation and management of left calcaneus fracture with hardware malfunction. The patient was admitted to the hospitalist service. The patient sustained a left calcaneus avulsion fracture on 03/24/2018 and had open reduction internal fixation on the same date by Dr. Yan. She was discharged home and had recurrent left heel pain and requiring repeat ORIF with external fixation for recurrent left calcaneus fracture/hardware malfunction. The patient states on Thursday, a portion of her external fixator fell off prompting her to see Dr. Piedra. The patient was instructed to come to the hospital today for surgery at 3:00 pm tomorrow and osteomyelitis evaluation. The patient is complaining of severe and aching left heel pain that is worse with movement along with increased preprocedural anxiety. Her left heel pain is relieved with oxycodone 15 mg p.o. at home and Valium 5 mg as needed. The patient reports that she has been smoking again over the past week after not smoking for over a year due to stress. She requested a nicotine patch and I advised her against this as well as encouraging smoking cessation all to promote better healing. She is agreeable with not using the nicotine patch. DS: Diagnosis - Discharge Diagnosis (1) Calcaneal fracture Status: Acute (2) ESRD (end stage renal disease) Status: Chronic (3) DM (diabetes mellitus), type 2, uncontrolled Status: Chronic DS: Summary Hospital Course: This patient is a 52-year-old female with a diagnosis of atrial fibrillation on Xarelto, diabetes mellitus type 2, end-stage renal disease on hemodialysis, peripheral neuropathy, and a left calcaneus fracture in March 2018. The patient had repair of the fracture 2 times and presented from Dr. Trujillo's office for management of the left calcaneus fracture hardware malfunction. Left calcaneus fracture Status post removal of external fixator left heel, removal of hardware left heel , excision of bone left calcaneus, skinplasty left heel with excision of wound and graft 05/27 Podiatry followed, Wound vac removed and dressing done. Very painful postop with increasing anxiety. Medications adjusted. Dr. Piedra recommended CIR, pt. adamantly refused despite multiple conversation. HHC arranged. pt. cleared for dc Nephrology also followed and HD was continued - Time Spent with Patient Total time spent providing and/or coordinating discharge services: 40 minutes Greater than 30 minutes - Quality: VTE Deep Vein Thrombosis/Pulmonary Embolism Present on Admission: No Exam Vital signs: Vital Signs 05/31/18 00:00 05/31/18 08:00 05/31/18 16:00 Temperature 97.4 F L 98.2 F 98 F Pulse Rate 111 H 93 H 93 H Respiratory Rate 20 18 18 Blood Pressure 174/96 H 158/75 H 183/90 H Pulse Oximetry 94 L 92 L 97 Intake & Output 05/31/18 05/31/18 06/01/18 06:59 18:59 06:59 Output Total 3000 / 3000 Balance -3000 / -3000 Weight 79.3 kg Output: Hemodialysis Amount 3000 / 3000 Other: # Voids 0 Date of Last Bowel Movement 05/29/18 Results Procedures completed during hospitalization: Date of procedure: 05/27/18 Procedure: 1. removal of external fixator left heel 2. removal of hardware left heel 3. excision of bone left calcaneus 4. skin plasty left heel with excision of wound and graft External fixator removed. Hardware removed. Necrotic skin over bone and wound excised and healthy bleeding base noted. Bone from dorsal fracture fragment with distal achilles excised from area. Culture taken and irrigation with normal saline. "Hurricane" Skin plasty utilized to create flap for closure with foot in plantarflexion with Neox graft placed in central wound area. Primary closure achieved. Wound vac applied. Labs on day of discharge: Labs from last 24 hours 05/31/18 05/31/18 05/31/18 17:01 11:26 09:40 POC Glucose 265 H 120 H Phosphorus 4.0 05/31/18 08:05 POC Glucose 147 H Phosphorus - Impressions ITS Impressions Foot X-Ray 05/27/18 00:00 CONCLUSION: Removal of previous hardware as above with bony defect involving the posterior superior aspect calcaneus. Discharge Plan - Discharge Disposition Patient Disposition: Disch W/Home Health Service - Discharge Condition Condition: Stable - Discharge Order Discharge Orders: Discharge Order (Routine); Ordered 05/31/18 Ordered By: Susan Stack - Discharge Details Anticipated Discharge Date: 05/31/18 Discharge Comment: discharge after HD - Physicians Team Attending Provider: Jake Contreras Other Providers: Karthikeyan Choudhary MD ; Eileen Piedra DPM ; [facility] - Rxs /Orders / Referrals /Forms Prescriptions: Continue acetaminophen 325 mg Tablet 650 mg PO Q4H PRN (Reason: Fever/ Pain 1-2) RF: 0 calcium acetate 667 mg Capsule 2,001 mg PO TID diazepam 5 mg Tablet 5 mg PO DAILY docusate sodium 50 mg Capsule 50 mg PO BID eszopiclone 2 mg Tablet 2 mg PO HS oxycodone-acetaminophen 7.5-325 mg Tablet 1 - 2 tab PO Q4H PRN (Reason: Pain 1-10) Qty: 50 RF: 0 pantoprazole [address] For Susp In Packet 40 mg PO DAILY pentoxifylline 400 mg Tablet Extended Release 400 mg PO DAILY No Action calcitriol 0.25 mcg Capsule 0.25 mcg PO Q OTHER DAY ergocalciferol (vitamin D2) [Vitamin D2] 50,000 unit Capsule 50,000 unit PO QWEEK Ambulatory Orders / Order Sets / DME: Wheelchair (1 each) (Routine) Location: Determined by Patient Ordered By: Susan Stack Referrals: Marcelino Ruffin [Other] - See Instructions Eileen Piedra DPM [Physician] - See Instructions (see this week) - Discharge Instructions Patient Printed Instructions: Graft Skin (On the skin), Hardware Removal (DC), Acute Wound Care (DC), Calcaneal Fracture (ED), End Stage Kidney Disease (DC) - Post Discharge Care Plan Care Plan Goals: Your Health Problems: Goals to Promote Your Health: * To prevent worsening of your condition * To maintain your health at the optimal level Directions to Meet Your Goals: * Take your medications as prescribed * Follow your dietary instruction * Follow activity as directed * Keep your appointments as scheduled * Take your immunizations and boosters as scheduled * If your symptoms worsen call your PCP * If no PCP go to Urgent Care or Emergency Room Smoking is dangerous to your health. Avoid second hand smoke. You may reach the 24-hour crisis hotline for domestic abuse at .
--- NOTE | 2018-06-02 07:42 | MP ---
cc: Eileen Piedra RICH DATE OF OPERATION: 05/27/2018 PROCEDURE: The patient presented initially with a fracture avulsion to the posterior aspect of the calcaneus and was found to have tenting of the skin. She was fixated using screw fixation. She misstepped and pulled through that and had to be returned to the operating room for open reduction with internal fixation as well as an external fixator placed. She was found to have healing of the anterior aspect of the fracture confirmed on her CT scan 2 days prior to showing up in my clinic with a second avulsion refracture of this area. I discussed with the patient that since she has fractured through this 2 times, she stated that there was nothing that happened to her knowledge that could have caused this the second time but I told her we will have to deal with what we have to deal with and that there was no way I could fix it again and I would want to schedule her for removal of external fixator, removal of bone to the left calcaneus, removal of existing hardware in the left heel as well as a probable skin plasty with rotational flap to the left heel as well. She agreed to move forward with surgery as discussed. She was seen in preop holding by myself, nursing staff and anesthesia, where the correct patient, side, and site were all confirmed to be correct and the left lower extremity. She was taken to the surgical suite in prone position. Attention was directed to the left heel, where the external fixator was removed. Following this, the pin sites were curetted and irrigated, followed by closure with 2-0 nylon. Following this, an incision was made to excise the wound on the posterior aspect of the left heel, where bone was noted to be just under the eschar area. The wound measured approximately 3 x 3 cm to the posterior aspect of the heel at the Achilles insertion point. Following excision of necrotic tissue, the bone was noted to be right there in the base of the wound centrally. Bone was removed and an incision made and a hurricane fashion was utilized to create flaps for a skin plasty in order to achieve primary closure of this area. Following this, incision was made to the proximal medial aspect from the wound extending approximately 4 cm and in the opposite direction distally and laterally from the wound, extending to the plantar foot and heel, full thickness in order to create a flap in order to mobilize the tissue to close in the large soft tissue defect from the wound remaining. The posterior aspect of the calcaneus was removed and dorsal aspect of the fracture fragment as well as the distal 7 cm of the Achilles tendon in order to create mobilization of the tissue for plastics closure of this large soft tissue defect. Following this, the hardware was removed as the bone was being removed from the posterior superior calcaneus to include 2 large screws. A C-arm was utilized to confirm removal of all hardware. The area was copiously irrigated with normal saline and a culture was taken of the area followed by further irrigation and rearrangement of tissue from proximal medial to distal lateral as well as from distal lateral to distal medial in order to close in that soft tissue gap and the Neox cord graft was utilized in the central wound area in order to achieve more rapid healing of the area. Primary closure was achieved using both 2-0 and 3-0 nylon sutures followed by application of a wound VAC to the area, followed by a posterior splint in plantar flexion that is well padded to hold the foot in that position to reduce tension on the sutures. The patient tolerated the procedure and anesthesia well without complications and was taken back to the PACU with vital signs stable and vascular status intact to the left lower extremity. She will be nonweightbearing to the left foot in a splint. We will await cultures and no further surgery is planned at this time. SHORT OPERATIVE NOTE SURGEON: Eileen Piedra DPM LIFE CLAIMS EXAMINER: Staff. PREOPERATIVE DIAGNOSES: 1. Calcaneal fracture, left. 2. Ulceration, left heel with bone involvement. 3. Painful hardware, left heel. POSTOPERATIVE DIAGNOSIS: 1. Calcaneal fracture, left. 2. Ulceration, left heel with bone involvement. 3. Painful hardware, left heel. PROCEDURE: 1. Removal of external fixator, left heel. 2. Removal of painful hardware, left heel. 3. Excision of bone, left calcaneus. 4. Skinplasty, left heel with excision of wound and graft. PATHOLOGY: Culture, left heel. PROPHYLAXIS: Two grams Ancef IV preoperatively. ESTIMATED BLOOD LOSS: 20 mL ANESTHESIA: General endotracheal anesthesia plus local consisting of 10 mL of 0.5% Marcaine plain. COMPLICATIONS: None. CONDITION: Stable to PACU. DISPOSITION: Nonweightbearing left lower extremity. Await cultures and patient will have wound VAC for approximately 1-2 days, followed by dry sterile dressing changes either in rehab or at home per home health care and follow up in clinic in a week for further observation. Eileen Piedra DPM /kailey , 06:04 PM , 06:15 PM
== END 2018-05-31 18:22 | disposition home health service (06) ==
LOC: INTOOBSV 20:00 → NEPGCP 20:00 → N07 05-27 15:57
PROVIDERS: ADMIT Hospitalist; ATTEND Hospitalist

== ENCOUNTER 2018-07-16 09:50 | Inpatient (IN) ==
[2018-07-16] MEDS ORDERED: Bisacodyl 10 MG Supp RECTAL PRN (14:20)
[2018-07-16] MEDS ORDERED: Naloxone Inj 0.4 MG/ML Vial IV.PUSH PRN (14:20)
[2018-07-16] MEDS ORDERED: Acetaminophen 325 MG Tablet PO PRN ×3 (14:20→15:36)
[2018-07-16] MEDS ORDERED: Dextrose 50% in Water 50 ML Vial IV.PUSH PRN (14:25)
--- NOTE | 2018-07-16 14:43 | P.CONPOD ---
History of Present Illness Service: Podiatry Consult date: 07/16/18 Reason for Consult: Left heel wound Primary Care Provider: UNKNOWN Chief Complaint: Left heel wound History of Present Illness: Patient has history of multiple issues with left heel since initial fracture and wound healing complications with subsequent surgeries. She is on dialysis, diabetic, and is eager to try anything to give her foot a chance for salvage. She has remained nonweightbearing throughout postop period. Review of Systems All other systems reviewed negative except as stated in HPI PMFSH - History History Provided By: Patient, Family Member - Medical History Medical History: Medical History (Last Reviewed 05/30/18 @ 09:16 by Kiki Owens) Normal Papanicolaou smear (Acute) Mammogram normal (Acute) Former smoker (Acute) Abnormal nuclear stress test (Acute) Hx of CT scan (Acute) Tinea unguium (Acute) Type 2 diabetes mellitus with diabetic polyneuropathy (Chronic) Secondary hyperparathyroidism (of renal origin) (Acute) Chronic renal failure ESRD (end stage renal disease) on dialysis Hemodialysis access site with arteriovenous graft History of colitis History of renal dialysis Hx of bursitis Hx of diabetes mellitus Metabolic bone disease Mild coronary artery disease Personal history of atrial fibrillation - Surgical History Surgical History: Surgical History (Last Reviewed 05/30/18 @ 09:16 by Kiki Owens) H/O cardiac catheterization (Acute) Amputated toe of right foot H/O parathyroidectomy - Family History Family History: Family History (Last Reviewed 05/30/18 @ 09:16 by Kiki Owens) Mother Breast cancer Brother Suicide - Tobacco History Second Hand Smoke Exposure: Yes Smoking Status: Former smoker Tobacco Type: Cigarettes - Alcohol History How Often Do You Have a Drink Containing Alcohol: Monthly or less - Substance Use History Substance History: No History of Abuse Medications and Allergies Active Medications: Active Medications Acetaminophen (Tylenol) 650 mg PO Q4H PRN PRN Reason: Temp > 100.4 Acetaminophen (Tylenol) 650 mg PO Q6HR PRN PRN Reason: PAIN SCALE 1 TO 2 Hydrocodone Bitart/Acetaminophen ([place] 5/325) 1 tab PO Q4H PRN PRN Reason: PAIN SCALE 3 TO 5 Hydrocodone Bitart/Acetaminophen ([place] 7.5/325) 1 tab PO Q4H PRN PRN Reason: PAIN SCALE 6 TO 10 Al Hydroxide/Mg Hydroxide (Milk Of Magnesia Liq) 30 ml PO Q12H PRN PRN Reason: Mild Constipation Bisacodyl (Dulcolax Supp) 10 mg RECTAL DAILY PRN PRN Reason: SEVERE CONSITIPATION Dextrose (D50w Vial) 50 ml IV.PUSH UNSCH PRN PRN Reason: PER HYPOGLYCEMIA PROTOCOL Glucagon (Glucagon Inj) 1 mg OTHER PRN PRN PRN Reason: for Hypoglycemia Protocol Insulin Aspart (Novolog Insulin Correctional Sugar Inj) 0 unit SQ ACHS YAAKOV; Protocol Lactulose (Lactulose Liq) 30 ml PO DAILY PRN PRN Reason: SEVERE CONSITIPATION Naloxone HCl (Narcan Inj) 0.4 mg IV.PUSH UNSCH PRN PRN Reason: SEE LABEL COMMENTS Ondansetron HCl (Zofran Inj) 4 mg IV.PUSH Q6H PRN PRN Reason: NAUSEA OR VOMITING Senna/Docusate Sodium (Hailey-Colace) 1 tab PO BID YAAKOV Sennosides (Senokot) 17.2 mg PO Q12H PRN PRN Reason: Moderate Constipation Sodium Chloride (Ns Flush) 2 ml IV.FLUSH BID YAAKOV Sodium Chloride (Ns Flush) 2 ml IV.FLUSH PRN PRN PRN Reason: FLUSH AFTER USING IV ACCESS Allergies Allergy/AdvReac Type Severity Reaction Status Date / Time coconut Allergy Severe HIVES Verified 04/06/18 10:54 diatrizoate meglumine Allergy Severe RENAL Verified 04/06/18 10:54 FAILURE gadobenic acid Allergy Severe RENAL Verified 04/06/18 10:54 FAILURE gadodiamide Allergy Severe RENAL Verified 04/06/18 10:54 FAILURE gadoteridol Allergy Severe RENAL Verified 04/06/18 10:54 FAILURE iodixanol Allergy Severe RENAL Verified 04/06/18 10:54 FAILURE iohexol Allergy Severe RENAL Verified 04/06/18 10:54 FAILURE morphine Allergy Severe HIVES Verified 04/06/18 10:54 azithromycin Allergy Intermediate HIVES Verified 04/06/18 10:54 clindamycin Allergy Intermediate HIVES Verified 04/06/18 10:54 erythromycin base Allergy Intermediate HIVES Verified 04/06/18 10:54 penicillin G Allergy Intermediate Hives Verified 04/06/18 10:54 midodrine Allergy Unknown Atrial Verified 04/06/18 10:54 Fibrillation codeine AdvReac Severe HALLUCINATI Verified 04/06/18 10:54 ONS insulin aspart AdvReac Severe REGULAR Verified 04/06/18 10:54 INSULIN ONLY-CAUSES CRAMPIN G AND "FREEZING" insulin aspart protamine AdvReac Severe REGULAR Verified 04/06/18 10:54 human INSULIN ONLY-CAUSES CRAMPIN G AND "FREEZING" insulin detemir AdvReac Severe REGULAR Verified 04/06/18 10:54 INSULIN ONLY-CAUSES CRAMPIN G AND "FREEZING" insulin glargine AdvReac Severe REGULAR Verified 04/06/18 10:54 INSULIN ONLY-CAUSES CRAMPIN G AND "FREEZING" insulin isophane (NPH) AdvReac Severe REGULAR Verified 04/06/18 10:54 INSULIN ONLY-CAUSES CRAMPIN G AND "FREEZING" insulin lispro AdvReac Severe REGULAR Verified 04/06/18 10:54 INSULIN ONLY-CAUSES CRAMPIN G AND "FREEZING" insulin regular AdvReac Severe REGULAR Verified 04/06/18 10:54 INSULIN ONLY-CAUSES CRAMPIN G AND "FREEZING" vancomycin AdvReac Mild NAUSEA/VOMITING Verified 04/06/18 10:54 WHEN INFUSED TOO FAST Home Medications Medication Instructions Recorded Confirmed Type calcitriol 0.25 mcg PO Q OTHER DAY 05/26/18 05/27/18 History calcium acetate 2,001 mg PO TID 05/26/18 05/27/18 History diazepam 5 mg PO DAILY 05/26/18 05/27/18 History docusate sodium 50 mg PO BID 05/26/18 05/27/18 History ergocalciferol (vitamin D2) 50,000 unit PO QWEEK 05/26/18 05/27/18 History [Vitamin D2] pantoprazole 40 mg PO DAILY 05/26/18 05/27/18 History pentoxifylline 400 mg PO DAILY 05/26/18 05/27/18 History eszopiclone 2 mg PO HS 05/27/18 05/27/18 History Physical Exam Narrative: Left posterior superior heel with fibronecrotic center to wound and hyperkeratotic edges. 30% granulation tissue. No julieth purulence. Assessment and Plan - Assessment (1) Ulcer of left heel and midfoot with necrosis of bone Code(s): L97.424 - Non-pressure chronic ulcer of left heel and midfoot with necrosis of bone Status: Acute Plan: To OR later this evening for Irrigation/debridement and possible graft and wound vac left heel wound NPO now Discussed that since she cannot do hyperbaric oxygen treatment, this is a last effort for limb salvage and she is agreeable to move forward with continued attempt at limb salvage and wound care. Patient will need wound vac set up upon discharge. Will place orders in front of chart tonight. Will need thursday/thursday/thursday per home health for dressing changes with vac.
--- NOTE | 2018-07-16 15:07 | P.CONNP ---
History of Present Illness Service: Nephrology Reason for Consult: ESRD Primary Care Provider: UNKNOWN Chief Complaint: Left heel wound History of Present Illness: Ms. Cortez is a 52 year old lady with history of ESRD comes to the hospital with issues related to left heel fracture. She has to the ER for Irrigation and debridement. She usually dialyzes MWF. Review of Systems Constitutional: Reports anorexia Ears, Nose, Mouth, and Throat: Denies difficulty swallowing Cardiovascular: Denies chest pain, Denies chest pain at rest Respiratory: Denies cough, Denies coughing up blood, Denies shortness of breath Gastrointestinal: Denies black, tarry stools PMFSH - History History Provided By: Patient, Family Member - Medical History Medical History: Medical History (Last Reviewed 05/30/18 @ 09:16 by Kiki Owens) Normal Papanicolaou smear (Acute) Mammogram normal (Acute) Former smoker (Acute) Abnormal nuclear stress test (Acute) Hx of CT scan (Acute) Tinea unguium (Acute) Type 2 diabetes mellitus with diabetic polyneuropathy (Chronic) Secondary hyperparathyroidism (of renal origin) (Acute) Chronic renal failure ESRD (end stage renal disease) on dialysis Hemodialysis access site with arteriovenous graft History of colitis History of renal dialysis Hx of bursitis Hx of diabetes mellitus Metabolic bone disease Mild coronary artery disease Personal history of atrial fibrillation - Surgical History Surgical History: Surgical History (Last Reviewed 05/30/18 @ 09:16 by Kiki Owens) H/O cardiac catheterization (Acute) Amputated toe of right foot H/O parathyroidectomy - Family History Family History: Family History (Last Reviewed 05/30/18 @ 09:16 by Kiki Owens) Mother Breast cancer Brother Suicide - Tobacco History Second Hand Smoke Exposure: Yes Smoking Status: Former smoker Tobacco Type: Cigarettes - Alcohol History How Often Do You Have a Drink Containing Alcohol: Monthly or less - Substance Use History Substance History: No History of Abuse Medications and Allergies Active Medications: Active Medications Acetaminophen (Tylenol) 650 mg PO Q4H PRN PRN Reason: Temp > 100.4 Acetaminophen (Tylenol) 650 mg PO Q6HR PRN PRN Reason: PAIN SCALE 1 TO 2 Hydrocodone Bitart/Acetaminophen ([place] 5/325) 1 tab PO Q4H PRN PRN Reason: PAIN SCALE 3 TO 5 Hydrocodone Bitart/Acetaminophen ([place] 7.5/325) 1 tab PO Q4H PRN PRN Reason: PAIN SCALE 6 TO 10 Al Hydroxide/Mg Hydroxide (Milk Of Magnesia Liq) 30 ml PO Q12H PRN PRN Reason: Mild Constipation Bisacodyl (Dulcolax Supp) 10 mg RECTAL DAILY PRN PRN Reason: SEVERE CONSITIPATION Dextrose (D50w Vial) 50 ml IV.PUSH UNSCH PRN PRN Reason: PER HYPOGLYCEMIA PROTOCOL Glucagon (Glucagon Inj) 1 mg OTHER PRN PRN PRN Reason: for Hypoglycemia Protocol Insulin Aspart (Novolog Insulin Correctional Sugar Inj) 0 unit SQ ACHS YAAKOV; Protocol Lactulose (Lactulose Liq) 30 ml PO DAILY PRN PRN Reason: SEVERE CONSITIPATION Naloxone HCl (Narcan Inj) 0.4 mg IV.PUSH UNSCH PRN PRN Reason: SEE LABEL COMMENTS Ondansetron HCl (Zofran Inj) 4 mg IV.PUSH Q6H PRN PRN Reason: NAUSEA OR VOMITING Senna/Docusate Sodium (Hailey-Colace) 1 tab PO BID YAAKOV Sennosides (Senokot) 17.2 mg PO Q12H PRN PRN Reason: Moderate Constipation Sodium Chloride (Ns Flush) 2 ml IV.FLUSH BID YAAKOV Sodium Chloride (Ns Flush) 2 ml IV.FLUSH PRN PRN PRN Reason: FLUSH AFTER USING IV ACCESS Allergies Allergy/AdvReac Type Severity Reaction Status Date / Time coconut Allergy Severe HIVES Verified 04/06/18 10:54 diatrizoate meglumine Allergy Severe RENAL Verified 04/06/18 10:54 FAILURE gadobenic acid Allergy Severe RENAL Verified 04/06/18 10:54 FAILURE gadodiamide Allergy Severe RENAL Verified 04/06/18 10:54 FAILURE gadoteridol Allergy Severe RENAL Verified 04/06/18 10:54 FAILURE iodixanol Allergy Severe RENAL Verified 04/06/18 10:54 FAILURE iohexol Allergy Severe RENAL Verified 04/06/18 10:54 FAILURE morphine Allergy Severe HIVES Verified 04/06/18 10:54 azithromycin Allergy Intermediate HIVES Verified 04/06/18 10:54 clindamycin Allergy Intermediate HIVES Verified 04/06/18 10:54 erythromycin base Allergy Intermediate HIVES Verified 04/06/18 10:54 penicillin G Allergy Intermediate Hives Verified 04/06/18 10:54 midodrine Allergy Unknown Atrial Verified 04/06/18 10:54 Fibrillation codeine AdvReac Severe HALLUCINATI Verified 04/06/18 10:54 ONS insulin aspart AdvReac Severe REGULAR Verified 04/06/18 10:54 INSULIN ONLY-CAUSES CRAMPIN G AND "FREEZING" insulin aspart protamine AdvReac Severe REGULAR Verified 04/06/18 10:54 human INSULIN ONLY-CAUSES CRAMPIN G AND "FREEZING" insulin detemir AdvReac Severe REGULAR Verified 04/06/18 10:54 INSULIN ONLY-CAUSES CRAMPIN G AND "FREEZING" insulin glargine AdvReac Severe REGULAR Verified 04/06/18 10:54 INSULIN ONLY-CAUSES CRAMPIN G AND "FREEZING" insulin isophane (NPH) AdvReac Severe REGULAR Verified 04/06/18 10:54 INSULIN ONLY-CAUSES CRAMPIN G AND "FREEZING" insulin lispro AdvReac Severe REGULAR Verified 04/06/18 10:54 INSULIN ONLY-CAUSES CRAMPIN G AND "FREEZING" insulin regular AdvReac Severe REGULAR Verified 04/06/18 10:54 INSULIN ONLY-CAUSES CRAMPIN G AND "FREEZING" vancomycin AdvReac Mild NAUSEA/VOMITING Verified 04/06/18 10:54 WHEN INFUSED TOO FAST Home Medications Medication Instructions Recorded Confirmed Type calcitriol 0.25 mcg PO Q OTHER DAY 05/26/18 07/16/18 History calcium acetate 2,001 mg PO TID 05/26/18 07/16/18 History ergocalciferol (vitamin D2) 50,000 unit PO QWEEK 05/26/18 07/16/18 History [Vitamin D2] pantoprazole 40 mg PO DAILY 05/26/18 07/16/18 History eszopiclone 2 mg PO HS 05/27/18 07/16/18 History amlodipine 5 mg PO DAILY 07/16/18 07/16/18 History hydroxyzine pamoate 25 mg PO TID PRN 07/16/18 07/16/18 History insulin aspart U-100 [Novolog See Protocol SUBCUT ACHS 07/16/18 07/16/18 History Flexpen U-100 Insulin] oxycodone-acetaminophen See Label Instructions .ROUTE 07/16/18 07/16/18 History .COMPLEX PRN Exam - Constitutional chronically ill appearing - Routine HEENT Exam Head: Present: normocephalic, atraumatic Eye: Present: EOMI, PERRL - Routine Neck Exam Present: supple. Absent: JVD - Routine Respiratory Exam Present: CTA bilaterally - Routine Cardiovascular Exam Present: RRR, S1, S2 - Routine Abdominal Exam Present: soft - Routine Neurological Exam Present: alert, oriented X3, CN II-XII intact Results - Lab Results 07/16/18 16:15 07/16/18 16:15 Assessment and Plan - Assessment (1) ESRD (end stage renal disease) Code(s): N18.6 - End stage renal disease Status: Acute Plan: She apparently had last dialysis on Thursday. She dialyzes TTS, but because of diarrhea, she missed dialysis on Thursday, and came to dialysis on Thursday. When I saw her, no labs were ordered, I ordered them. She has AVF in the right arm, she also has CVC in left IJ, and she wants us to use CVC Avoid Gadolinium. Monitor fluid and electrolytes. (2) Calcaneal fracture Code(s): S92.009A - Unspecified fracture of unspecified calcaneus, initial encounter for closed fracture Status: Acute Plan: For irrigation and debridement, attempt for limb salvage. Management per podiatry. (3) Anemia Code(s): D64.9 - Anemia, unspecified Status: Acute Plan: Epogen for anemia if needed. (4) Hypocalcemia Code(s): E83.51 - Hypocalcemia Status: Acute Plan: patient has history of secondary hyperparathyroidism. She has history of subtotal parathyroidectomy. Monitor. Patient has history of hyperphosphatemia, use binder as appropriate. - Attending Attestation Thanks for the consult. (2) Calcaneal fracture Qualifiers: Encounter type: subsequent encounter Calcaneus location: body Fracture type : closed Fracture alignment: displaced Laterality: left Fracture healing: with routine healing Qualified Code(s): S92.012D - Displaced fracture of body of left calcaneus, subsequent encounter for fracture with routine healing
[2018-07-16] MEDS ORDERED: Albumin Human 25% Inj 100 ML IV.SIG PRN (15:36)
[2018-07-16] MEDS ORDERED: Gelatin 12 MM/7 MM Topical Foam TOPICAL PRN (15:36)
[2018-07-16] MEDS ORDERED: Heparin 10,000 UNITS/10 ML Vial (for IV use) OTHER PRN ×2 (15:36)
[2018-07-16] MEDS ORDERED: Sod Chloride 0.9% Inj 1,000 ML IV.CONT PRN (15:36)
[2018-07-16] MEDS ORDERED: Sod Chloride 0.9% Inj 1,000 ML OTHER PRN ×2 (15:36)
--- NOTE | 2018-07-16 16:09 | P.HP ---
History of Present Illness Primary Care Physician: UNKNOWN Chief Complaint: Left heel wound History of Present Illness: 52-year-old patient with a past medical history of end-stage renal disease on hemodialysis, diabetes type 2 and nonhealing left heel chronic ulcer, who has undergone multiple surgeries was sent to the hospital by her mechatronics technologist for direct admit. Patient will undergo tonight irrigation and debridement with possible wound VAC placement. She has no subjective fever and no other issues. Inpatient Certification: I certify that the inpatient services were ordered in accordance with Medicare regulations governing the order. This includes certification that hospital inpatient services are reasonable and necessary and in the case of services not specified as inpatient-only under 42 CFR 419.22(n), that they are appropriately provided as inpatient services in accordance to with the 2-midnight benchmark under 43 CFR 412.3(e) Estimated Total Length of Stay (Days): 2 Plans for Post Hospital Care: Not yet determined PMF - History History Provided By: Patient, Family Member - Medical History Medical History: Medical History (Last Reviewed 05/30/18 @ 09:16 by Kiki Owens) Normal Papanicolaou smear (Acute) Mammogram normal (Acute) Former smoker (Acute) Abnormal nuclear stress test (Acute) Hx of CT scan (Acute) Tinea unguium (Acute) Type 2 diabetes mellitus with diabetic polyneuropathy (Chronic) Secondary hyperparathyroidism (of renal origin) (Acute) Chronic renal failure ESRD (end stage renal disease) on dialysis Hemodialysis access site with arteriovenous graft History of colitis History of renal dialysis Hx of bursitis Hx of diabetes mellitus Metabolic bone disease Mild coronary artery disease Personal history of atrial fibrillation - Surgical History Surgical History: Surgical History (Last Reviewed 05/30/18 @ 09:16 by Kiki Owens) H/O cardiac catheterization (Acute) Amputated toe of right foot H/O parathyroidectomy - Family History Family History: Family History (Last Reviewed 05/30/18 @ 09:16 by Kiki Owens) Mother Breast cancer Brother Suicide - Tobacco History Second Hand Smoke Exposure: Yes Smoking Status: Former smoker Tobacco Type: Cigarettes - Alcohol History How Often Do You Have a Drink Containing Alcohol: Monthly or less - Substance Use History Substance History: No History of Abuse Medications and Allergies Active Medications: Active Medications Acetaminophen (Tylenol) 650 mg PO Q4H PRN PRN Reason: Temp > 100.4 Acetaminophen (Tylenol) 650 mg PO Q6HR PRN PRN Reason: PAIN SCALE 1 TO 2 Acetaminophen (Tylenol) 650 mg PO UNSCH X1 PRN PRN Reason: SEE LABEL COMMENTS Hydrocodone Bitart/Acetaminophen ([place] 5/325) 1 tab PO Q4H PRN PRN Reason: PAIN SCALE 3 TO 5 Hydrocodone Bitart/Acetaminophen ([place] 7.5/325) 1 tab PO Q4H PRN PRN Reason: PAIN SCALE 6 TO 10 Al Hydroxide/Mg Hydroxide (Milk Of Magndavid Liq) 30 ml PO Q12H PRN PRN Reason: Mild Constipation Bisacodyl (Dulcolax Supp) 10 mg RECTAL DAILY PRN PRN Reason: SEVERE CONSITIPATION Clonidine HCl (Catapres) 0.1 mg PO UNSCH X1 PRN PRN Reason: SEE LABEL COMMENTS Dextrose (D50w Vial) 50 ml IV.PUSH UNSCH PRN PRN Reason: PER HYPOGLYCEMIA PROTOCOL Diphenhydramine HCl (Benadryl) 25 mg PO UNSCH PRN PRN Reason: SEE LABEL COMMENTS Epoetin Greg (Epogen Inj) 10,000 unit IV.PUSH UNSCH PRN PRN Reason: SEE LABEL COMMENTS Gelatin (Gelfoam 12 Mm/7 Mm Topical) 1 foam TOPICAL UNSCH PRN PRN Reason: help stop bleeding from site Gentamicin Sulfate (Gentamicin Inj) 20 mg OTHER WITH DIALYSIS PRN PRN Reason: Dwell Gentamycin Lock Glucagon (Glucagon Inj) 1 mg OTHER PRN PRN PRN Reason: for Hypoglycemia Protocol Heparin Sodium (Porcine) (Heparin Inj) 8,000 units OTHER WITH DIALYSIS PRN PRN Reason: for machine prime Heparin Sodium (Porcine) (Heparin Inj) 0 units OTHER WITH DIALYSIS PRN PRN Reason: Dwell Heparin to Fill Catheter Albumin Human (Flexbumin 25% Inj) 100 mls @ 60 mls/hr IV.SIG WITH DIALYSIS PRN PRN Reason: hypotension / volume replace Sodium Chloride (Ns Inj) 1,000 mls @ 0 mls/hr OTHER .Q0M PRN PRN Reason: for prime and rinse back Sodium Chloride (Ns Inj) 1,000 mls @ 0 mls/hr IV.CONT .Q0M PRN PRN Reason: hypotension / volume replace Sodium Chloride (Ns Inj) 1,000 mls @ 200 mls/hr OTHER .Q5H PRN PRN Reason: for dialyzer flush PRN Insulin Aspart (Novolog Insulin Correctional Sugar Inj) 0 unit SQ ACHS YAAKOV; Protocol Lactulose (Lactulose Liq) 30 ml PO DAILY PRN PRN Reason: SEVERE CONSITIPATION Mannitol (Mannitol Inj) 12.5 gm IV.PUSH UNSCH PRN PRN Reason: hypotension / volume replace Naloxone HCl (Narcan Inj) 0.4 mg IV.PUSH UNSCH PRN PRN Reason: SEE LABEL COMMENTS Nitroglycerin (Nitrostat Sl) 0.4 mg SL Q5M PRN PRN Reason: CHEST PAIN Ondansetron HCl (Zofran Inj) 4 mg IV.PUSH Q6H PRN PRN Reason: NAUSEA OR VOMITING Ondansetron HCl (Zofran Inj) 4 mg IV.PUSH UNSCH X1 PRN PRN Reason: WITH DIALYSIS Senna/Docusate Sodium (Hailey-Colace) 1 tab PO BID YAAKOV Sennosides (Senokot) 17.2 mg PO Q12H PRN PRN Reason: Moderate Constipation Sodium Chloride (Ns Flush) 2 ml IV.FLUSH BID YAAKOV Sodium Chloride (Ns Flush) 2 ml IV.FLUSH PRN PRN PRN Reason: FLUSH AFTER USING IV ACCESS Sodium Chloride (Ns Flush) 5 ml IV.FLUSH UNSCH PRN PRN Reason: flush each lumen during HD Allergies Allergy/AdvReac Type Severity Reaction Status Date / Time coconut Allergy Severe HIVES Verified 04/06/18 10:54 diatrizoate meglumine Allergy Severe RENAL Verified 04/06/18 10:54 FAILURE gadobenic acid Allergy Severe RENAL Verified 04/06/18 10:54 FAILURE gadodiamide Allergy Severe RENAL Verified 04/06/18 10:54 FAILURE gadoteridol Allergy Severe RENAL Verified 04/06/18 10:54 FAILURE iodixanol Allergy Severe RENAL Verified 04/06/18 10:54 FAILURE iohexol Allergy Severe RENAL Verified 04/06/18 10:54 FAILURE morphine Allergy Severe HIVES Verified 04/06/18 10:54 azithromycin Allergy Intermediate HIVES Verified 04/06/18 10:54 clindamycin Allergy Intermediate HIVES Verified 04/06/18 10:54 erythromycin base Allergy Intermediate HIVES Verified 04/06/18 10:54 penicillin G Allergy Intermediate Hives Verified 04/06/18 10:54 midodrine Allergy Unknown Atrial Verified 04/06/18 10:54 Fibrillation codeine AdvReac Severe HALLUCINATI Verified 04/06/18 10:54 ONS insulin aspart AdvReac Severe REGULAR Verified 04/06/18 10:54 INSULIN ONLY-CAUSES CRAMPIN G AND "FREEZING" insulin aspart protamine AdvReac Severe REGULAR Verified 04/06/18 10:54 human INSULIN ONLY-CAUSES CRAMPIN G AND "FREEZING" insulin detemir AdvReac Severe REGULAR Verified 04/06/18 10:54 INSULIN ONLY-CAUSES CRAMPIN G AND "FREEZING" insulin glargine AdvReac Severe REGULAR Verified 04/06/18 10:54 INSULIN ONLY-CAUSES CRAMPIN G AND "FREEZING" insulin isophane (NPH) AdvReac Severe REGULAR Verified 04/06/18 10:54 INSULIN ONLY-CAUSES CRAMPIN G AND "FREEZING" insulin lispro AdvReac Severe REGULAR Verified 04/06/18 10:54 INSULIN ONLY-CAUSES CRAMPIN G AND "FREEZING" insulin regular AdvReac Severe REGULAR Verified 04/06/18 10:54 INSULIN ONLY-CAUSES CRAMPIN G AND "FREEZING" vancomycin AdvReac Mild NAUSEA/VOMITING Verified 04/06/18 10:54 WHEN INFUSED TOO FAST Home Medications Medication Instructions Recorded Confirmed Type calcitriol 0.25 mcg PO Q OTHER DAY 05/26/18 05/27/18 History calcium acetate 2,001 mg PO TID 05/26/18 05/27/18 History diazepam 5 mg PO DAILY 05/26/18 05/27/18 History docusate sodium 50 mg PO BID 05/26/18 05/27/18 History ergocalciferol (vitamin D2) 50,000 unit PO QWEEK 05/26/18 05/27/18 History [Vitamin D2] pantoprazole 40 mg PO DAILY 05/26/18 05/27/18 History eszopiclone 2 mg PO HS 05/27/18 05/27/18 History Exam Narrative: GENERAL: NAD SKIN: Warm and dry. HEAD: Atraumatic. Normocephalic. EYES: Pupils equal and round. No scleral icterus. No injection or drainage. ENT: No nasal bleeding or discharge. Mucous membranes pink and moist. NECK: Trachea midline. No JVD. CARDIOVASCULAR: Regular rate and rhythm. RESPIRATORY: No accessory muscle use. Clear to auscultation. Breath sounds equal bilaterally. GASTROINTESTINAL: Abdomen soft, non-tender, nondistended. Hepatic and splenic margins not palpable. MUSCULOSKELETAL: Extremities without clubbing, cyanosis, or edema. No obvious deformities. left foot in a cast-neurovascular intact NEUROLOGICAL: Awake and alert. No obvious cranial nerve deficits. Motor grossly within normal limits. Five out of 5 muscle strength in the arms and legs. Normal speech. PSYCHIATRIC: Appropriate mood and affect; insight and judgment normal. Caprini VTE Risk Assessment Caprini VTE Risk Assessment: No/Low Risk (score <= 1) Caprini Risk Assessment Model: Point Value = 1 Point Value = 2 Point Value = 3 Point Value = 5 Age 41-60 Minor surgery BMI > 25 kg/m2 Swollen legs Varicose veins or History of unexplained or recurrent spontaneous Oral contraceptives or hormone replacement Sepsis (< 1 month) Serious lung disease, including pneumonia (< 1 month) Abnormal pulmonary function Acute myocardial infarction Congestive heart failure (< 1 month) History of inflammatory bowel disease Medical patient at bed rest Age 61-74 Arthroscopic surgery Major open surgery (> 45 min) Laparoscopic surgery (> 45 min) Malignancy Confined to bed (> 72 hours) Immobilizing plaster cast Central venous access Age >= 75 History of VTE Family history of VTE Factor V Leiden Prothrombin [id number] Lupus anticoagulant Anticardiolipin antibodies Elevated serum homocysteine Heparin-induced thrombocytopenia Other congenital or acquired thrombophilia Stroke (< 1 month) Elective arthroplasty Hip, pelvis, or leg fracture Acute spinal cord injury (< 1 month) Prophylaxis Regimen: Total Risk Factor Score Risk Level Prophylaxis Regimen 0-1 Low Early ambulation 2 Moderate Order ONE of the following: *Sequential Compression Device (SCD) *Heparin 5000 units SQ BID 3-4 Higher Order ONE of the following medications: *Heparin 5000 units SQ TID *Enoxaparin/Lovenox 40 mg SQ daily (WT < 150 kg, CrCl > 30 mL/min) *Enoxaparin/Lovenox 30 mg SQ daily (WT < 150 kg, CrCl > 10-29 mL/min) *Enoxaparin/Lovenox 30 mg SQ BID (WT < 150 kg, CrCl > 30 mL/min) AND/OR *Sequential Compression Device (SCD) 5 or more Highest Order ONE of the following medications: *Heparin 5000 units SQ TID (Preferred with Epidurals) *Enoxaparin/Lovenox 40 mg SQ daily (WT < 150 kg, CrCl > 30 mL/min) *Enoxaparin/Lovenox 30 mg SQ daily (WT < 150 kg, CrCl > 10-29 mL/min) *Enoxaparin/Lovenox 30 mg SQ BID (WT < 150 kg, CrCl > 30 mL/min) AND *Sequential Compression Device (SCD) Assessment and Plan - Plan 52-year-old female with: Nonhealing chronic ulcer of the left heel Consultation to podiatry for irrigation and debridement with possible wound VAC placement today Will keep patient n.p.o. Pain management accordingly End-stage renal disease on hemodialysis Consult nephrology for in-house hemodialysis Thursday Diabetes type 2 Resume outpatient medication and start insulin sliding scale with fingerstick blood glucose monitoring Other chronic medical conditions Resume outpatient medications
[2018-07-16 16:37] LABS: Hemoglobin 12.4 gm/dL (11.6-15.3); Mean Corpuscular HGB Conc 33.5 % (32.0-36.0); Mean Corpuscular Hemoglobin 29.9 pg (27.0-34.0); Mean Corpuscular Volume 89.1 fL (80.0-100.0); Mean Platelet Volume 7.9 fL (7.0-11.0); Platelet Count 258 th/mm3 (150-450); Red Blood Count 4.16 mil/mm3 (4.00-5.30); Red Cell Distribution Width 15.3 % (11.6-17.2); White Blood Count 10.3 th/mm3 (4.0-11.0)
[2018-07-16 16:48] LABS: Potassium 5.8 meq/L (3.5-5.1)
[2018-07-16 16:49] LABS: Calcium 8.3 mg/dL (8.5-10.1); Carbon Dioxide 20.8 meq/L (21.0-32.0)
[2018-07-16] MEDS: Insulin NovoLOG Aspart Correctional Sugar Inj SQ SCH ×2 (18:11→23:05)
[2018-07-16] MEDS ORDERED: Bupivacaine 0.5% Inj 50 ML MDV Vial ONE (20:36)
--- NOTE | 2018-07-16 20:52 | P.PNPOD ---
Physical Exam Vital signs: Vital Signs 07/16/18 16:00 07/16/18 20:00 Temperature 98.0 F 97.9 F Pulse Rate 91 H 84 Respiratory Rate 18 16 Blood Pressure 147/82 H 179/94 H Pulse Oximetry 94 L 99 Intake & Output 07/16/18 07/16/18 07/17/18 06:59 18:59 06:59 Intake Total 900 / 900 Output Total 2 / 2 Balance 898 / 898 Intake: Oral 900 / 900 Output: Urine 2 / 2 Other: # Bowel Movements 0 Medications and Allergies Active Medications: Active Medications Acetaminophen (Tylenol) 650 mg PO Q4H PRN PRN Reason: Temp > 100.4 Acetaminophen (Tylenol) 650 mg PO Q6HR PRN PRN Reason: PAIN SCALE 1 TO 2 Acetaminophen (Tylenol) 650 mg PO UNSCH X1 PRN PRN Reason: SEE LABEL COMMENTS Hydrocodone Bitart/Acetaminophen ([place] 5/325) 1 tab PO Q4H PRN PRN Reason: PAIN SCALE 3 TO 5 Hydrocodone Bitart/Acetaminophen ([place] 7.5/325) 1 tab PO Q4H PRN PRN Reason: PAIN SCALE 6 TO 10 Al Hydroxide/Mg Hydroxide (Milk Of Monserrat Gregorioq) 30 ml PO Q12H PRN PRN Reason: Mild Constipation Amlodipine Besylate (Norvasc) 5 mg PO DAILY YAAKOV Bisacodyl (Dulcolax Supp) 10 mg RECTAL DAILY PRN PRN Reason: SEVERE CONSITIPATION Clonidine HCl (Catapres) 0.1 mg PO UNSCH X1 PRN PRN Reason: SEE LABEL COMMENTS Dextrose (D50w Vial) 50 ml IV.PUSH UNSCH PRN PRN Reason: PER HYPOGLYCEMIA PROTOCOL Diphenhydramine HCl (Benadryl) 25 mg PO UNSCH PRN PRN Reason: SEE LABEL COMMENTS Epoetin Greg (Epogen Inj) 10,000 unit IV.PUSH UNSCH PRN PRN Reason: SEE LABEL COMMENTS Eszopiclone (Lunesta) 2 mg PO HS YAAKOV Gelatin (Gelfoam 12 Mm/7 Mm Topical) 1 foam TOPICAL UNSCH PRN PRN Reason: help stop bleeding from site Gentamicin Sulfate (Gentamicin Inj) 20 mg OTHER WITH DIALYSIS PRN PRN Reason: Dwell Gentamycin Lock Glucagon (Glucagon Inj) 1 mg OTHER PRN PRN PRN Reason: for Hypoglycemia Protocol Heparin Sodium (Porcine) (Heparin Inj) 8,000 units OTHER WITH DIALYSIS PRN PRN Reason: for machine prime Heparin Sodium (Porcine) (Heparin Inj) 0 units OTHER WITH DIALYSIS PRN PRN Reason: Dwell Heparin to Fill Catheter Hydroxyzine Pamoate (Vistaril) 25 mg PO TID PRN PRN Reason: Anxiety Albumin Human (Flexbumin 25% Inj) 100 mls @ 60 mls/hr IV.SIG WITH DIALYSIS PRN PRN Reason: hypotension / volume replace Sodium Chloride (Ns Inj) 1,000 mls @ 0 mls/hr OTHER .Q0M PRN PRN Reason: for prime and rinse back Sodium Chloride (Ns Inj) 1,000 mls @ 0 mls/hr IV.CONT .Q0M PRN PRN Reason: hypotension / volume replace Sodium Chloride (Ns Inj) 1,000 mls @ 200 mls/hr OTHER .Q5H PRN PRN Reason: for dialyzer flush PRN Insulin Aspart (Novolog Insulin Correctional Sugar Inj) 0 unit SQ ACHS YAAKOV; Protocol Last Admin: 07/16/18 18:11 Dose: Not Given Lactulose (Lactulose Liq) 30 ml PO DAILY PRN PRN Reason: SEVERE CONSITIPATION Mannitol (Mannitol Inj) 12.5 gm IV.PUSH UNSCH PRN PRN Reason: hypotension / volume replace Naloxone HCl (Narcan Inj) 0.4 mg IV.PUSH UNSCH PRN PRN Reason: SEE LABEL COMMENTS Nitroglycerin (Nitrostat Sl) 0.4 mg SL Q5M PRN PRN Reason: CHEST PAIN Ondansetron HCl (Zofran Inj) 4 mg IV.PUSH Q6H PRN PRN Reason: NAUSEA OR VOMITING Ondansetron HCl (Zofran Inj) 4 mg IV.PUSH UNSCH X1 PRN PRN Reason: WITH DIALYSIS Pantoprazole Sodium (Protonix) 40 mg PO DAILY YAAKOV Senna/Docusate Sodium (Hailey-Colace) 1 tab PO BID [facility] Sennosides (Senokot) 17.2 mg PO Q12H PRN PRN Reason: Moderate Constipation Sodium Chloride (Ns Flush) 2 ml IV.FLUSH BID YAAKOV Sodium Chloride (Ns Flush) 2 ml IV.FLUSH PRN PRN PRN Reason: FLUSH AFTER USING IV ACCESS Sodium Chloride (Ns Flush) 5 ml IV.FLUSH UNSCH PRN PRN Reason: flush each lumen during HD Allergies Allergy/AdvReac Type Severity Reaction Status Date / Time coconut Allergy Severe HIVES Verified 04/06/18 10:54 diatrizoate meglumine Allergy Severe RENAL Verified 04/06/18 10:54 FAILURE gadobenic acid Allergy Severe RENAL Verified 04/06/18 10:54 FAILURE gadodiamide Allergy Severe RENAL Verified 04/06/18 10:54 FAILURE gadoteridol Allergy Severe RENAL Verified 04/06/18 10:54 FAILURE iodixanol Allergy Severe RENAL Verified 04/06/18 10:54 FAILURE iohexol Allergy Severe RENAL Verified 04/06/18 10:54 FAILURE morphine Allergy Severe HIVES Verified 04/06/18 10:54 azithromycin Allergy Intermediate HIVES Verified 04/06/18 10:54 clindamycin Allergy Intermediate HIVES Verified 04/06/18 10:54 erythromycin base Allergy Intermediate HIVES Verified 04/06/18 10:54 penicillin G Allergy Intermediate Hives Verified 04/06/18 10:54 midodrine Allergy Unknown Atrial Verified 04/06/18 10:54 Fibrillation codeine AdvReac Severe HALLUCINATI Verified 04/06/18 10:54 ONS insulin aspart AdvReac Severe REGULAR Verified 04/06/18 10:54 INSULIN ONLY-CAUSES CRAMPIN G AND "FREEZING" insulin aspart protamine AdvReac Severe REGULAR Verified 04/06/18 10:54 human INSULIN ONLY-CAUSES CRAMPIN G AND "FREEZING" insulin detemir AdvReac Severe REGULAR Verified 04/06/18 10:54 INSULIN ONLY-CAUSES CRAMPIN G AND "FREEZING" insulin glargine AdvReac Severe REGULAR Verified 04/06/18 10:54 INSULIN ONLY-CAUSES CRAMPIN G AND "FREEZING" insulin isophane (NPH) AdvReac Severe REGULAR Verified 04/06/18 10:54 INSULIN ONLY-CAUSES CRAMPIN G AND "FREEZING" insulin lispro AdvReac Severe REGULAR Verified 04/06/18 10:54 INSULIN ONLY-CAUSES CRAMPIN G AND "FREEZING" insulin regular AdvReac Severe REGULAR Verified 04/06/18 10:54 INSULIN ONLY-CAUSES CRAMPIN G AND "FREEZING" vancomycin AdvReac Mild NAUSEA/VOMITING Verified 04/06/18 10:54 WHEN INFUSED TOO FAST Home Medications Medication Instructions Recorded Confirmed Type calcitriol 0.25 mcg PO Q OTHER DAY 05/26/18 07/16/18 History calcium acetate 2,001 mg PO TID 05/26/18 07/16/18 History ergocalciferol (vitamin D2) 50,000 unit PO QWEEK 05/26/18 07/16/18 History [Vitamin D2] pantoprazole 40 mg PO DAILY 05/26/18 07/16/18 History eszopiclone 2 mg PO HS 05/27/18 07/16/18 History amlodipine 5 mg PO DAILY 07/16/18 07/16/18 History hydroxyzine pamoate 25 mg PO TID PRN 07/16/18 07/16/18 History insulin aspart U-100 [Novolog See Protocol SUBCUT ACHS 07/16/18 07/16/18 History Flexpen U-100 Insulin] oxycodone-acetaminophen See Label Instructions .ROUTE 07/16/18 07/16/18 History .COMPLEX PRN Results - Labs CBC & Chem 7: 07/16/18 16:15 07/16/18 16:15 Laboratory Results - last 24 hr 07/16/18 07/16/18 07/16/18 16:15 16:15 18:11 WBC 10.3 RBC 4.16 Hgb 12.4 Hct 37.0 MCV 89.1 MCH 29.9 MCHC 33.5 RDW 15.3 Plt Count 258 MPV 7.9 Sodium 134 L Potassium 5.8 H Chloride 103 Carbon Dioxide 20.8 L Anion Gap 10 BUN 64 H Creatinine 10.09 H* Estimated GFR 5 L POC Glucose 143 H Random Glucose 168 H Calcium 8.3 L 07/16/18 20:00 WBC RBC Hgb Hct MCV MCH MCHC RDW Plt Count MPV Sodium Potassium Chloride Carbon Dioxide Anion Gap BUN Creatinine Estimated GFR POC Glucose 172 H Random Glucose Calcium Assessment and Plan - Assessment (1) Ulcer of left heel and midfoot with necrosis of bone Code(s): L97.424 - Non-pressure chronic ulcer of left heel and midfoot with necrosis of bone Status: Acute Plan: Surgery rescheduled for Thursday morning, per anesthesia, after she has had a chance to be dialyzed
[2018-07-16] MEDS: Senna/Docusate Sodium 8.6/50 MG Tablet PO SCH (23:05)
[2018-07-17 05:40] LABS: Baso % (Auto) 0.7 % (0.0-2.0); Eos # (Auto) 0.3 th/mm3 (0.0-0.4); Eos % (Auto) 4.4 % (0.0-4.0); Lymph # (Auto) 2.2 th/mm3 (1.0-4.8); Lymph % (Auto) 32.8 % (9.0-44.0); Mean Corpuscular HGB Conc 33.3 % (32.0-36.0); Mean Corpuscular Hemoglobin 29.5 pg (27.0-34.0); Mean Corpuscular Volume 88.6 fL (80.0-100.0); Mean Platelet Volume 8.3 fL (7.0-11.0); Mono # (Auto) 0.5 th/mm3 (0.0-0.9); Mono % (Auto) 6.9 % (0.0-8.0); Neut # (Auto) 3.7 th/mm3 (1.8-7.7); Neut % (Auto) 55.2 % (16.0-70.0); Platelet Count 245 th/mm3 (150-450); Red Blood Count 3.72 mil/mm3 (4.00-5.30); Red Cell Distribution Width 14.9 % (11.6-17.2); White Blood Count 6.7 th/mm3 (4.0-11.0)
[2018-07-17 06:09] LABS: Anion Gap 15 meq/L (5-15)
[2018-07-17 06:14] LABS: Alanine Aminotransferase 11 U/L (10-53); Alkaline Phosphatase 82 U/L (45-117); Aspartate Aminotransferase 14 U/L (15-37); Blood Urea Nitrogen 69 mg/dL (7-18); Calcium 7.5 mg/dL (8.5-10.1); Carbon Dioxide 22.4 meq/L (21.0-32.0); Chloride 104 meq/L (98-107); Glomerular Filtration Rate 5 mL/min (>89); Glucose,Random 162 mg/dL (74-106); Phosphorus 7.5 mg/dL (2.5-4.9); Potassium 5.4 meq/L (3.5-5.1); Sodium 141 meq/L (136-145); Total Protein 6.8 g/dL (6.4-8.2)
--- NOTE | 2018-07-17 10:43 | P.PNNP ---
Subjective Interval history: Patient is seen during hemodialysis Physical Exam Vital signs: Vital Signs 07/16/18 16:00 07/16/18 20:00 07/17/18 00:00 Temperature 98.0 F 99.0 F 98.3 F Pulse Rate 91 H 91 H 91 H Respiratory Rate 18 18 18 Blood Pressure 147/82 H 189/87 H 152/72 H Pulse Oximetry 94 L 94 L 98 07/17/18 00:26 07/17/18 08:00 Temperature 98.0 F Pulse Rate 89 Respiratory Rate 18 Blood Pressure 193/102 H Pulse Oximetry 96 97 Intake & Output 07/16/18 07/17/18 07/17/18 18:59 06:59 18:59 Intake Total 900 / 900 Output Total 2 / 2 0 / 0 Balance 898 / 898 0 / 0 Weight 74.4 kg Intake: Oral 900 / 900 Output: Urine 2 / 2 0 / 0 Other: # Bowel Movements 0 Narrative: GENERAL: Well-nourished, well-developed patient. SKIN: Warm and dry. HEAD: Normocephalic. EYES: No scleral icterus. No injection or drainage. NECK: Supple, trachea midline. No JVD or lymphadenopathy. CARDIOVASCULAR: Regular rate and rhythm without murmurs, gallops, or rubs. RESPIRATORY: Breath sounds equal bilaterally. No accessory muscle use. GASTROINTESTINAL: Abdomen soft, non-tender, nondistended. EXTREMITIES: Left foot and cast 1+ edema NEUROLOGICAL: Awake, alert, and oriented x 3. Non-focal. Assessment and Plan - Assessment (1) ESRD (end stage renal disease) Code(s): N18.6 - End stage renal disease Status: Acute Plan: She is seen during hemodialysis tolerating it well 4 L ultrafiltration on 2 k Patient wants to have left foot surgery 6 her problems, she stated her left toe wound opened and Podiatry is following Surgery scheduled for Thursday (2) Calcaneal fracture Code(s): S92.009A - Unspecified fracture of unspecified calcaneus, initial encounter for closed fracture Status: Acute Qualifiers: Encounter type: subsequent encounter Calcaneus location: body Fracture type: closed Fracture alignment: displaced Laterality: left Fracture healing: with routine healing Qualified Code(s): S92.012D - Displaced fracture of body of left calcaneus, subsequent encounter for fracture with routine healing Plan: For irrigation and debridement, attempt for limb salvage. Management per podiatry. (3) Anemia Code(s): D64.9 - Anemia, unspecified Status: Acute Plan: Epogen for anemia if needed. (4) Hypocalcemia Code(s): E83.51 - Hypocalcemia Status: Acute Plan: patient has history of secondary hyperparathyroidism. She has history of subtotal parathyroidectomy. Monitor. Patient has history of hyperphosphatemia, use binder as appropriate.
[2018-07-17] MEDS: amLODIPine 5 MG Tablet PO SCH (14:01)
[2018-07-17] MEDS: Senna/Docusate Sodium 8.6/50 MG Tablet PO SCH ×2 (14:08→21:31)
--- NOTE | 2018-07-17 14:25 | P.PN ---
Subjective Interval history: Follow-up calcaneal fracture/chronic nonhealing calcaneal ulcer July 17, 2018-patient seen and examined, she had hemodialysis today. She is quite upset with nursing staff secondary to miscommunication regarding the scheduling of her surgery. No other issues. Physical Exam Vital signs: Vital Signs 07/16/18 16:00 07/16/18 20:00 07/17/18 00:00 Temperature 98.0 F 99.0 F 98.3 F Pulse Rate 91 H 91 H 91 H Respiratory Rate 18 18 18 Blood Pressure 147/82 H 189/87 H 152/72 H Pulse Oximetry 94 L 94 L 98 07/17/18 00:26 07/17/18 08:00 07/17/18 13:45 Temperature 98.0 F Pulse Rate 89 Respiratory Rate 18 Blood Pressure 193/102 H Pulse Oximetry 96 97 97 Intake & Output 07/16/18 07/17/18 07/17/18 18:59 06:59 18:59 Intake Total 900 / 900 Output Total 2 / 2 0 / 0 4300 / 4300 Balance 898 / 898 0 / 0 -4300 / -4300 Weight 74.4 kg Intake: Oral 900 / 900 Output: Urine 2 / 2 0 / 0 Hemodialysis Amount 4300 / 4300 Other: # Bowel Movements 0 Narrative: GENERAL: NAD SKIN: Warm and dry. Dressing over left heel and foot HEAD: Atraumatic. Normocephalic. EYES: Pupils equal and round. No scleral icterus. No injection or drainage. ENT: No nasal bleeding or discharge. Mucous membranes pink and moist. NECK: Trachea midline. No JVD. CARDIOVASCULAR: Regular rate and rhythm. RESPIRATORY: No accessory muscle use. Clear to auscultation. Breath sounds equal bilaterally. GASTROINTESTINAL: Abdomen soft, non-tender, nondistended. Hepatic and splenic margins not palpable. MUSCULOSKELETAL: Extremities without clubbing, cyanosis, or edema. No obvious deformities. NEUROLOGICAL: Awake and alert. No obvious cranial nerve deficits. Motor grossly within normal limits. Five out of 5 muscle strength in the arms and legs. Normal speech. PSYCHIATRIC: Appropriate mood and affect; insight and judgment normal. Results - Labs CBC & Chem 7: 07/17/18 04:08 07/17/18 04:08 Laboratory Results - last 24 hr 07/16/18 07/16/18 07/16/18 16:15 16:15 18:11 WBC 10.3 RBC 4.16 Hgb 12.4 Hct 37.0 MCV 89.1 MCH 29.9 MCHC 33.5 RDW 15.3 Plt Count 258 MPV 7.9 Neut % (Auto) Lymph % (Auto) [place] % (Auto) Eos % (Auto) Baso % (Auto) Neut # (Auto) Lymph # (Auto) [place] # (Auto) Eos # (Auto) Baso # (Auto) WBC Differential Differential Comment Sodium 134 L Potassium 5.8 H Chloride 103 Carbon Dioxide 20.8 L Anion Gap 10 BUN 64 H Creatinine 10.09 H* Estimated GFR 5 L POC Glucose 143 H Random Glucose 168 H Calcium 8.3 L Phosphorus Total Bilirubin AST ALT Alkaline Phosphatase Total Protein Albumin 07/16/18 07/16/18 07/17/18 20:00 23:02 04:08 WBC 6.7 RBC 3.72 L Hgb 11.0 L Hct 33.0 L MCV 88.6 MCH 29.5 MCHC 33.3 RDW 14.9 Plt Count 245 MPV 8.3 Neut % (Auto) 55.2 Lymph % (Auto) 32.8 [place] % (Auto) 6.9 Eos % (Auto) 4.4 H Baso % (Auto) 0.7 Neut # (Auto) 3.7 Lymph # (Auto) 2.2 [place] # (Auto) 0.5 Eos # (Auto) 0.3 Baso # (Auto) 0.0 WBC Differential . Differential Comment Auto diff final Sodium Potassium Chloride Carbon Dioxide Anion Gap BUN Creatinine Estimated GFR POC Glucose 172 H 286 H Random Glucose Calcium Phosphorus Total Bilirubin AST ALT Alkaline Phosphatase Total Protein Albumin 07/17/18 07/17/18 07/17/18 04:08 07:39 11:43 WBC RBC Hgb Hct MCV MCH MCHC RDW Plt Count MPV Neut % (Auto) Lymph % (Auto) [place] % (Auto) Eos % (Auto) Baso % (Auto) Neut # (Auto) Lymph # (Auto) [place] # (Auto) Eos # (Auto) Baso # (Auto) WBC Differential Differential Comment Sodium 141 Potassium 5.4 H Chloride 104 Carbon Dioxide 22.4 Anion Gap 15 BUN 69 H Creatinine 10.58 H* Estimated GFR 5 L POC Glucose 139 H 136 H Random Glucose 162 H Calcium 7.5 L D Phosphorus 7.5 H Total Bilirubin 0.3 AST 14 L ALT 11 Alkaline Phosphatase 82 Total Protein 6.8 Albumin 3.0 L Assessment and Plan - Plan 52-year-old female with: Nonhealing chronic ulcer of the left heel Appreciate input from podiatry who plan for irrigation and debridement with possible wound VAC placement 07/18/18 Will keep n.p.o. after midnight tonight Pain management accordingly End-stage renal disease on hemodialysis Appreciate input from nephrology for in-house hemodialysis Thursday Had hemodialysis today July 17, 2018 Diabetes type 2 Continue with outpatient medication and start insulin sliding scale with fingerstick blood glucose monitoring Other chronic medical conditions Continue with outpatient medications
[2018-07-17] MEDS ORDERED: Calcium Acetate 667 MG Capsule PO ONE (15:00)
[2018-07-17] MEDS: Calcitriol 0.25 MCG Capsule PO SCH (15:09)
[2018-07-17] MEDS: Insulin NovoLOG Aspart Correctional Sugar Inj SQ SCH ×3 (17:07→20:03)
[2018-07-17] MEDS: Calcium Acetate 667 MG Capsule PO SCH (18:03)
[2018-07-18] MEDS ORDERED: Chlorhexidine Gluconate 2% 1 Pack (2 Cloths) TOPICAL ONE (04:18)
[2018-07-18] MEDS ORDERED: Sodium Chlor 0.9% Inj 500 ML IV.SIG SCH (05:00)
[2018-07-18] MEDS ORDERED: Bupivacaine PF 0.25% Inj 30 ML Vial ONE (07:19)
[2018-07-18 07:33] LABS: Calcium 8.1 mg/dL (8.5-10.1); Carbon Dioxide 26.5 meq/L (21.0-32.0); Potassium 4.9 meq/L (3.5-5.1)
[2018-07-18] MEDS ORDERED: fentaNYL Citrate Inj 100 MCG/2 ML Ampul ONE (09:20)
--- NOTE | 2018-07-18 09:27 | P.BOP ---
- Preoperative Diagnosis (1) Ulcer of left heel and midfoot with necrosis of muscle - Postoperative Diagnosis (1) Ulcer of left heel and midfoot with necrosis of muscle Date of procedure: 07/18/18 Procedure: 1. debridement of ulcer left heel with graft and wound vac placement Ulcer left posterior heel excisionally debrided with #15 blade, rongeur, curette down to level of bleeding muscle tissue. Measurements 4.5 x 2.5 x 1.5cm Neox 2cm x 2xm graft placed over the wound, followed by adaptic and small granufoam wound vac dressing. cast padding, offloading heel foam, posterior splint in plantarflexion applied No tourniquet utilized 2g Ancef IV preop DISPOSITION Nonweightbearing left lower extremity. Ok to discharge when wound vac set up for home by employment evaluator/case manager. Continue vac at 125mmHg medium continuous setting. Anesthesia: GETA, local (10mL 0.25% marcaine plain) Surgeon: Eileen Piedra DPM Business Lawyer: staff Estimated blood loss (mL): 10 Pathology: none sent Condition: stable Disposition: PACU
[2018-07-18] MEDS: Insulin NovoLOG Aspart Correctional Sugar Inj SQ SCH ×4 (09:44→20:18)
[2018-07-18] MEDS: Senna/Docusate Sodium 8.6/50 MG Tablet PO SCH ×2 (10:17→20:18)
[2018-07-18] MEDS: Calcium Acetate 667 MG Capsule PO SCH ×3 (10:17→17:44)
[2018-07-18] MEDS: amLODIPine 5 MG Tablet PO SCH (10:17)
--- NOTE | 2018-07-18 10:17 | ECG ---
Date Performed: 07/18/2018 Time Performed: 06:15:44 PTAGE: 52 years EKG: Sinus rhythm . Lateral T wave changes are nonspecific Borderline ECG Compared to PREVIOUS TRACING , ST-T abnormalities are new from the prior tracing. Clinical correlatio n needed. PREVIOUS TRACIN12/17/2017 11.27.29 DOCTOR: Richard Quinn Interpretating Date/Time 07/18/2018 10:15:29
--- NOTE | 2018-07-18 10:50 | P.DIET ---
Nutritional Evaluation Type of nutrition evaluation: initial Nutrition consult regarding: Diet Evaluation Nutrition screening: Weight Loss > 10 lbs Screening comments: 07/16 WLS Objective - Diagnosis left heel wound - Objective Body Mass Index: 25.2 % IBW: 118 (IBW = 150lb) Body Weight Used for Calculations: Actual (79.9kg) Energy Needs - Lower Range (kCal/kg): 25 Energy Needs - Upper Range (kCal/kg): 30 Lower Limit kCal/kg (kCals): 1,998 Upper Limit kCal/kg (kCals): 2,397 Lower Limit Protein Factor (Grams per Kg): 1.2 Upper Limit Protein Factor (Grams per Kg): 1.4 Lower Protein Needs (Protein): 96 Upper Protein Needs (Protein): 112 Dietitian Reviewed in Medical Record: Current diet, Curent medications, Intake & Output, Labs, Medical history Diet Order: renal 2gNA, DM Oral Diet Intake Amount: Poor <50% Objective Comments: PMH: CKD, ESRD on HD, colitis, metabolic bone disease, DM w/ diabetic poly neuropathy, amputated R toe Labs: BUN 42, Cr 7.64, GFR 7, POC glucose 136 328 215 Skin: chronic non-healing calcaneal ulcer Assessment Assessment: Pt currently at nutritional risk r/t reported unplanned wt loss. Pt received HD on 07/17, will continue to receive on Thu, Thu, Thu. Pt has variable PO intake, consumed only one 100% dinner on 07/16, 0% PO intake for other days. RD to recommend 2000 ADA in addition to renal diet. RD also recommend Glucerna BID as PO supplement for additional nutrition. Continue to monitor PO and supplement intake. Monitor wound status. Labs revewed, dietitian following. Recommendations: 1. RD to recommend [address] also recommend Glucerna BID as PO supplement for additional nutrition 3. Continue to monitor PO and supplement intake 4. Monitor wound status 5. Dietitian following Dietitian to Monitor: Lab values, Renal labs, Glucose level, Intake & Output, Diet tolerance, PO Intake, Wound/skin status, Medical course
[2018-07-18] MEDS ORDERED: ceFAZolin 1 GM Premix Inj 1 GM/50 ML PIGGYBACK IV.SIG ONE (11:00)
--- NOTE | 2018-07-18 12:34 | P.PN ---
Subjective Interval history: Follow-up calcaneal fracture/chronic nonhealing calcaneal ulcer July 17, 2018-patient seen and examined, she had hemodialysis today. She is quite upset with nursing staff secondary to miscommunication regarding the scheduling of her surgery. No other issues. July 18, 2018-she had debridement and irrigation of left heel ulcer with wound VAC placed. No other issues other than some throat irritation. Physical Exam Vital signs: Vital Signs 07/17/18 13:45 07/17/18 14:00 07/17/18 16:00 Temperature 98.5 F 98.3 F Pulse Rate 98 H 91 H Respiratory Rate 17 18 Blood Pressure 163/79 H 141/78 H Pulse Oximetry 97 96 94 L 07/17/18 20:00 07/17/18 20:31 07/18/18 00:00 Temperature 98.9 F 98.9 F Pulse Rate 93 H 92 H Respiratory Rate 18 18 18 Blood Pressure 165/82 H 145/76 H Pulse Oximetry 92 L 93 L 07/18/18 00:34 07/18/18 06:00 07/18/18 07:45 Temperature 98.3 F 98.4 F Pulse Rate 80 87 Respiratory Rate 18 18 17 Blood Pressure 142/75 H 169/91 H Pulse Oximetry 95 07/18/18 09:14 07/18/18 09:30 07/18/18 09:45 Temperature 98.1 F Pulse Rate 92 H 84 85 Respiratory Rate 22 20 21 Blood Pressure 166/70 H 164/70 H 168/72 H Pulse Oximetry 95 92 L 94 L 07/18/18 12:15 Temperature Pulse Rate Respiratory Rate Blood Pressure Pulse Oximetry 94 L Intake & Output 07/17/18 07/18/18 07/18/18 18:59 06:59 18:59 Intake Total 60 / 60 100 / 100 Output Total 4300 / 4300 5 / 5 Balance -4300 / -4300 60 / 60 95 / 95 Weight 79.9 kg Intake: Oral 60 / 60 Anesthesia Amount 100 / 100 Output: Hemodialysis Amount 4300 / 4300 Estimated Blood Loss 5 / 5 Other: Mode Setting Left Heel Continuous # Voids 2 Narrative: GENERAL: NAD SKIN: Warm and dry. Dressing over left heel and foot with wound VAC in place HEAD: Atraumatic. Normocephalic. EYES: Pupils equal and round. No scleral icterus. No injection or drainage. ENT: No nasal bleeding or discharge. Mucous membranes pink and moist. NECK: Trachea midline. No JVD. CARDIOVASCULAR: Regular rate and rhythm. RESPIRATORY: No accessory muscle use. Clear to auscultation. Breath sounds equal bilaterally. GASTROINTESTINAL: Abdomen soft, non-tender, nondistended. Hepatic and splenic margins not palpable. MUSCULOSKELETAL: Extremities without clubbing, cyanosis, or edema. No obvious deformities. NEUROLOGICAL: Awake and alert. No obvious cranial nerve deficits. Motor grossly within normal limits. Five out of 5 muscle strength in the arms and legs. Normal speech. PSYCHIATRIC: Appropriate mood and affect; insight and judgment normal. Results - Labs CBC & Chem 7: 07/17/18 04:08 07/18/18 06:49 Laboratory Results - last 24 hr 07/17/18 07/18/18 07/18/18 16:52 06:32 06:49 Sodium 140 Potassium 4.9 Chloride 102 Carbon Dioxide 26.5 Anion Gap 12 BUN 42 H Creatinine 7.64 H Estimated GFR 7 L POC Glucose 328 H 180 H Random Glucose 178 H Calcium 8.1 L 07/18/18 07/18/18 09:15 12:09 Sodium Potassium Chloride Carbon Dioxide Anion Gap BUN Creatinine Estimated GFR POC Glucose 215 H 256 H Random Glucose Calcium - Procedures debridement of ulcer left heel with graft and wound vac placement July 18, 2018 Assessment and Plan - Plan 52-year-old female with: Nonhealing chronic ulcer of the left heel Appreciate input from podiatry s/p debridement of ulcer left heel with graft and wound vac placement July 18, 2018 Continue current postop IV antibiotic Pain management accordingly End-stage renal disease on hemodialysis Appreciate input from nephrology for in-house hemodialysis Thursday Had hemodialysis July 17, 2018 Diabetes type 2 Continue with outpatient medication and start insulin sliding scale with fingerstick blood glucose monitoring Other chronic medical conditions Continue with outpatient medications
--- NOTE | 2018-07-18 22:54 | US ---
EXAM DATE: 07/18/2018 10:47 PM EST AGE/SEX: 52 years / Female INDICATIONS: Left Knee swelling. CLINICAL DATA: This is the patient's initial encounter. Patient reports that signs and symptoms have been present for 1 day and indicates a pain score of 3/10. MEDICAL/SURGICAL HISTORY: Diabetes mellitus type II. ESRD. Colitis. Bursitis. Metabolic bone di sease. Mild coronary artery disease. Atrial Fibrillation. Hyperparathyroidism. . Amputated right toe . Cardiac Catheterization. Parathyroidectomy. COMPARISON: [facility], US VENOUS DOPPLER LEG LEFT, 04/06/2018. . FINDINGS: Grayscale and Doppler ultrasound imaging of the left knee was performed. There is a fluid collection in the lateral aspect of the knee measuring 2.8 x 0.7 x 1.4 cm. Based on the imaging provided and is not clear if this is within the joint space. Otherwise, no cystic or solid mass is identified. CONCLUSION: There is a small fluid collection along the lateral aspect of the knee. However, it is difficult to d etermine if it is actually within the knee joint or in the surrounding soft tissues. Electronically signed by: Maikol Veliz MD 07/18/2018 10:53 PM EST
[2018-07-19] MEDS: Insulin NovoLOG Aspart Correctional Sugar Inj SQ SCH ×3 (08:32→17:14)
[2018-07-19] MEDS: Senna/Docusate Sodium 8.6/50 MG Tablet PO SCH (08:32)
[2018-07-19] MEDS: Calcium Acetate 667 MG Capsule PO SCH ×4 (08:33→17:14)
[2018-07-19] MEDS: Calcitriol 0.25 MCG Capsule PO SCH (08:33)
[2018-07-19] MEDS: amLODIPine 5 MG Tablet PO SCH (08:34)
--- NOTE | 2018-07-19 10:25 | P.PNNP ---
Subjective Interval history: patient wants to be discharged. Outpatient dialysis will be TTS. Physical Exam Vital signs: Vital Signs 07/18/18 12:00 07/18/18 12:15 07/18/18 16:00 Temperature 98.2 F 98.4 F Pulse Rate 82 100 H Respiratory Rate 17 17 Blood Pressure 161/76 H 152/67 H Pulse Oximetry 95 94 L 94 L 07/18/18 19:46 07/18/18 20:37 07/18/18 23:52 Temperature 98.6 F 98.7 F Pulse Rate 90 86 Respiratory Rate 18 18 19 Blood Pressure 151/74 H 175/83 H Pulse Oximetry 93 L 94 L 07/19/18 00:34 07/19/18 04:00 07/19/18 08:00 Temperature 98.3 F 98.4 F Pulse Rate 78 85 Respiratory Rate 18 Blood Pressure 139/77 177/88 H Pulse Oximetry 95 95 Intake & Output 07/18/18 07/19/18 07/19/18 18:59 06:59 18:59 Intake Total 1160 / 1160 1200 / 1200 Output Total 5 / 5 0 / 0 Balance 1155 / 1155 1200 / 1200 Weight 79.9 kg Intake: IV 100 / 100 Ancef 1 GM Premix Inj 1 gm In 50 / 50 50 ml @ 100 mls/hr IV.SIG ONCE ONE Rx#:[id number] Ancef Inj 1,000 MG In NS Inj 50 50 / 50 ML @ 100 mls/hr IV.SIG ONCE ONE Rx#:[id number] Oral 960 / 960 1200 / 1200 Anesthesia Amount 100 / 100 Output: Estimated Blood Loss 5 / 5 Wound Vac Amount 0 / 0 Left Heel 0 / 0 Other: Mode Setting Left Heel Continuous Continuous # Voids 1 Date of Last Bowel Movement 07/18/18 # Bowel Movements 1 Narrative: GENERAL: NAD SKIN: Warm and dry. Dressing over left heel and foot with wound VAC in place HEAD: Atraumatic. Normocephalic. EYES: Pupils equal and round. No scleral icterus. No injection or drainage. ENT: No nasal bleeding or discharge. Mucous membranes pink and moist. NECK: Trachea midline. No JVD. CARDIOVASCULAR: Regular rate and rhythm. RESPIRATORY: No accessory muscle use. Clear to auscultation. Breath sounds equal bilaterally. GASTROINTESTINAL: Abdomen soft, non-tender, nondistended. Hepatic and splenic margins not palpable. MUSCULOSKELETAL: right foot in dressing. Wrapped. Wound Vac in place. NEUROLOGICAL: Awake and alert. No obvious cranial nerve deficits. Motor grossly within normal limits. Five out of 5 muscle strength in the arms and legs. Normal spe Assessment and Plan - Assessment (1) ESRD (end stage renal disease) Code(s): N18.6 - End stage renal disease Status: Acute Plan: We will continue dialysis TTS. Monitor fluid and electrolytes. (2) Calcaneal fracture Code(s): S92.009A - Unspecified fracture of unspecified calcaneus, initial encounter for closed fracture Status: Acute Qualifiers: Encounter type: subsequent encounter Calcaneus location: body Fracture type: closed Fracture alignment: displaced Laterality: left Fracture healing: with routine healing Qualified Code(s): S92.012D - Displaced fracture of body of left calcaneus, subsequent encounter for fracture with routine healing Plan: s/p I & D. Wound Vac in place. Management per podiatry. (3) Anemia Code(s): D64.9 - Anemia, unspecified Status: Acute Plan: Epogen for anemia if needed. (4) Hypocalcemia Code(s): E83.51 - Hypocalcemia Status: Acute Plan: patient has history of secondary hyperparathyroidism. She has history of subtotal parathyroidectomy. Monitor. Patient has history of hyperphosphatemia, use binder as appropriate.
--- NOTE | 2018-07-19 11:01 | P.PN ---
Subjective Interval history: Follow-up calcaneal fracture/chronic nonhealing calcaneal ulcer July 17, 2018-patient seen and examined, she had hemodialysis today. She is quite upset with nursing staff secondary to miscommunication regarding the scheduling of her surgery. No other issues. July 18, 2018-she had debridement and irrigation of left heel ulcer with wound VAC placed. No other issues other than some throat irritation. July 19, 2018-patient seen and examined,no acute event overnight. Complains of left foot pain. Would like to go home today. Afebrile Physical Exam Vital signs: Vital Signs 07/18/18 12:00 07/18/18 12:15 07/18/18 16:00 Temperature 98.2 F 98.4 F Pulse Rate 82 100 H Respiratory Rate 17 17 Blood Pressure 161/76 H 152/67 H Pulse Oximetry 95 94 L 94 L 07/18/18 19:46 07/18/18 20:37 07/18/18 23:52 Temperature 98.6 F 98.7 F Pulse Rate 90 86 Respiratory Rate 18 18 19 Blood Pressure 151/74 H 175/83 H Pulse Oximetry 93 L 94 L 07/19/18 00:34 07/19/18 04:00 07/19/18 08:00 Temperature 98.3 F 98.4 F Pulse Rate 78 85 Respiratory Rate 18 19 18 Blood Pressure 139/77 177/88 H Pulse Oximetry 95 95 Intake & Output 07/18/18 07/19/18 07/19/18 18:59 06:59 18:59 Intake Total 1160 / 1160 1200 / 1200 Output Total 5 / 5 0 / 0 Balance 1155 / 1155 1200 / 1200 Weight 79.9 kg Intake: IV 100 / 100 Ancef 1 GM Premix Inj 1 gm In 50 / 50 50 ml @ 100 mls/hr IV.SIG ONCE ONE Rx#:[id number] Ancef Inj 1,000 MG In NS Inj 50 50 / 50 ML @ 100 mls/hr IV.SIG ONCE ONE Rx#:[id number] Oral 960 / 960 1200 / 1200 Anesthesia Amount 100 / 100 Output: Estimated Blood Loss 5 / 5 Wound Vac Amount 0 / 0 Left Heel 0 / 0 Other: Mode Setting Left Heel Continuous Continuous Continuous # Voids 1 Date of Last Bowel Movement 07/18/18 # Bowel Movements 1 Results - Labs CBC & Chem 7: 07/17/18 04:08 07/18/18 06:49 Laboratory Results - last 24 hr 07/18/18 07/18/18 07/18/18 12:09 17:31 20:12 POC Glucose 256 H 280 H 276 H 07/19/18 07:43 POC Glucose 213 H - Imaging Impressions Lower Extremity Ultrasound 07/18/18 00:00 CONCLUSION: There is a small fluid collection along the lateral aspect of the knee. However , it is difficult to determine if it is actually within the knee joint or in the surrounding soft tissues. - Procedures debridement of ulcer left heel with graft and wound vac placement July 18, 2018 Assessment and Plan - Plan 52-year-old female with: Nonhealing chronic ulcer of the left heel Appreciate input from podiatry s/p debridement of ulcer left heel with graft and wound vac placement July 18, 2018 wound vac change per protocol s/p postop IV antibiotic Pain management accordingly End-stage renal disease on hemodialysis Appreciate input from nephrology for in-house hemodialysis TT Had hemodialysis July 17, 2018 Diabetes type 2 Continue with outpatient medication and insulin sliding scale with fingerstick blood glucose monitoring Other chronic medical conditions Continue with outpatient medications
--- NOTE | 2018-07-19 15:13 | P.DCO ---
- Home Health Nursing Order: Wound care and dressing changes Instructions: Wound vac change per protocol [id number] - Case Management Consult Case Management Consult-Home Health: Yes - Certification I have seen patient Faustina Cortez on 07/19/18. My clinical findings support the need for the requested home health care services because: Limited mobility due to disease progression I certify that my clinical findings support that this patient is homebound because: Post-op weakness
--- NOTE | 2018-07-19 15:15 | P.DS ---
Date of admission: 07/16/18 14:05 Primary care physician: UNKNOWN Brief History from admission: 52-year-old patient with a past medical history of end-stage renal disease on hemodialysis, diabetes type 2 and nonhealing left heel chronic ulcer, who has undergone multiple surgeries was sent to the hospital by her processing spec for direct admit. Patient will undergo tonight irrigation and debridement with possible wound VAC placement. She has no subjective fever and no other issues. DS: Summary Hospital Course: While in hospital, patient was treated for: Nonhealing chronic ulcer of the left heel Appreciate input from podiatry s/p debridement of ulcer left heel with graft and wound vac placement July 18, 2018 wound vac change per protocol s/p postop IV antibiotic Pain management accordingly End-stage renal disease on hemodialysis Appreciate input from nephrology for in-house hemodialysis TT Had hemodialysis July 17, 2018 Diabetes type 2 Continue with outpatient medication and insulin sliding scale with fingerstick blood glucose monitoring Other chronic medical conditions Continue with outpatient medications - Time Spent with Patient Total time spent providing and/or coordinating discharge services: Greater than 30 minutes - Quality: VTE Deep Vein Thrombosis/Pulmonary Embolism Present on Admission: Yes Exam Vital signs: Vital Signs 07/18/18 16:00 07/18/18 19:46 07/18/18 20:37 Temperature 98.4 F 98.6 F Pulse Rate 100 H 90 Respiratory Rate 17 18 18 Blood Pressure 152/67 H 151/74 H Pulse Oximetry 94 L 93 L 07/18/18 23:52 07/19/18 00:34 07/19/18 04:00 Temperature 98.7 F 98.3 F Pulse Rate 86 78 Respiratory Rate 19 18 19 Blood Pressure 175/83 H 139/77 Pulse Oximetry 94 L 95 07/19/18 08:00 07/19/18 12:37 Temperature 98.4 F 97.3 F L Pulse Rate 85 88 Respiratory Rate 18 18 Blood Pressure 177/88 H 162/83 H Pulse Oximetry 95 95 Intake & Output 07/18/18 07/19/18 07/19/18 18:59 06:59 18:59 Intake Total 1160 / 1160 1200 / 1200 Output Total 5 / 5 0 / 0 Balance 1155 / 1155 1200 / 1200 Weight 79.9 kg Intake: IV 100 / 100 Ancef 1 GM Premix Inj 1 gm In 50 / 50 50 ml @ 100 mls/hr IV.SIG ONCE ONE Rx#:[id number] Ancef Inj 1,000 MG In NS Inj 50 50 / 50 ML @ 100 mls/hr IV.SIG ONCE ONE Rx#:[id number] Oral 960 / 960 1200 / 1200 Anesthesia Amount 100 / 100 Output: Estimated Blood Loss 5 / 5 Wound Vac Amount 0 / 0 Left Heel 0 / 0 Other: Mode Setting Left Heel Continuous Continuous Continuous # Voids 1 Date of Last Bowel Movement 07/18/18 # Bowel Movements 1 Narrative: GENERAL: NAD SKIN: Warm and dry. Dressing over left heel and foot with wound VAC in place HEAD: Atraumatic. Normocephalic. EYES: Pupils equal and round. No scleral icterus. No injection or drainage. ENT: No nasal bleeding or discharge. Mucous membranes pink and moist. NECK: Trachea midline. No JVD. CARDIOVASCULAR: Regular rate and rhythm. RESPIRATORY: No accessory muscle use. Clear to auscultation. Breath sounds equal bilaterally. GASTROINTESTINAL: Abdomen soft, non-tender, nondistended. Hepatic and splenic margins not palpable. MUSCULOSKELETAL: Extremities without clubbing, cyanosis, or edema. No obvious deformities. NEUROLOGICAL: Awake and alert. No obvious cranial nerve deficits. Motor grossly within normal limits. Five out of 5 muscle strength in the arms and legs. Normal speech. PSYCHIATRIC: Appropriate mood and affect; insight and judgment normal. Results Procedures completed during hospitalization: debridement of ulcer left heel with graft and wound vac placement July 18, 2018 Labs on day of discharge: Labs from last 24 hours 07/19/18 07/19/18 07/18/18 11:40 07:43 20:12 POC Glucose 122 H 213 H 276 H 07/18/18 17:31 POC Glucose 280 H - Impressions ITS Impressions Lower Extremity Ultrasound 07/18/18 00:00 CONCLUSION: There is a small fluid collection along the lateral aspect of the knee. However , it is difficult to determine if it is actually within the knee joint or in the surrounding soft tissues. Discharge Plan - Discharge Disposition Patient Disposition: W/Home Health Service - Discharge Condition Condition: Good - Discharge Order Discharge Orders: Discharge Order (Routine); Ordered 07/19/18 Ordered By: Obdulio Echevarria - Physicians Team Primary Care Provider: UNKNOWN, Attending Provider: Obdulio Echevarria Other Providers: Mor Fay MD ; Eileen Piedra DPM ; [facility] - Rxs /Orders / Referrals /Forms Prescriptions: Continue acetaminophen 325 mg Tablet 650 mg PO Q4H PRN (Reason: Fever/ Pain 1-2) RF: 0 amlodipine 5 mg Tablet 5 mg PO DAILY calcitriol 0.25 mcg Capsule 0.25 mcg PO Q OTHER DAY calcium acetate 667 mg Capsule 2,001 mg PO TID ergocalciferol (vitamin D2) [Vitamin D2] 50,000 unit Capsule 50,000 unit PO QWEEK eszopiclone 2 mg Tablet 2 mg PO HS hydroxyzine pamoate 25 mg Capsule 25 mg PO TID PRN (Reason: Anxiety) insulin aspart U-100 [Novolog Flexpen U-100 Insulin] 100 unit/mL Insulin Pen See Protocol subcut ACHS oxycodone 30 mg Tablet 30 mg PO Q6HR PRN (Reason: Pain) oxycodone-acetaminophen 7.5-325 mg tablet See Label Instructions .ROUTE .COMPLEX PRN (Reason: Pain 1-10) pantoprazole [address] For Susp In Packet 40 mg PO DAILY Referrals: UNKNOWN, [Primary Care Provider] - See Instructions Mc Carl MD [Family Provider] - See Instructions - Discharge Instructions Patient Printed Instructions: Incision and Drainage (DC)
--- NOTE | 2018-07-19 16:26 | P.PNPOD ---
Subjective Interval history: Patient seen bedside postop day 1. Denies any nausea vomiting fevers or chills. Denies any calf pain. Patient is very anxious to go home states she is ready. Physical Exam Vital signs: Vital Signs 07/18/18 19:46 07/18/18 20:37 07/18/18 23:52 Temperature 98.6 F 98.7 F Pulse Rate 90 86 Respiratory Rate 18 18 19 Blood Pressure 151/74 H 175/83 H Pulse Oximetry 93 L 94 L 07/19/18 00:34 07/19/18 04:00 07/19/18 08:00 Temperature 98.3 F 98.4 F Pulse Rate 78 85 Respiratory Rate 18 19 18 Blood Pressure 139/77 177/88 H Pulse Oximetry 95 95 07/19/18 12:37 Temperature 97.3 F L Pulse Rate 88 Respiratory Rate 18 Blood Pressure 162/83 H Pulse Oximetry 95 Intake & Output 07/18/18 07/19/18 07/19/18 18:59 06:59 18:59 Intake Total 1160 / 1160 1200 / 1200 Output Total 5 / 5 0 / 0 Balance 1155 / 1155 1200 / 1200 Weight 79.9 kg Intake: IV 100 / 100 Ancef 1 GM Premix Inj 1 gm In 50 / 50 50 ml @ 100 mls/hr IV.SIG ONCE ONE Rx#:[id number] Ancef Inj 1,000 MG In NS Inj 50 50 / 50 ML @ 100 mls/hr IV.SIG ONCE ONE Rx#:[id number] Oral 960 / 960 1200 / 1200 Anesthesia Amount 100 / 100 Output: Estimated Blood Loss 5 / 5 Wound Vac Amount 0 / 0 Left Heel 0 / 0 Other: Mode Setting Left Heel Continuous Continuous Continuous # Voids 1 Date of Last Bowel Movement 07/18/18 # Bowel Movements 1 Narrative: No calf pain upon squeeze left lower extremity. Active passive dorsiflexion plantarflexion of digits x5 left foot. DP palpable. Wound VAC set at 125 mm per mercury functioning appropriately. Dressing clean dry and intact to left lower extremity. Medications and Allergies Active Medications: Active Medications Acetaminophen (Tylenol) 650 mg PO Q4H PRN PRN Reason: Temp > 100.4 Acetaminophen (Tylenol) 650 mg PO Q6HR PRN PRN Reason: PAIN SCALE 1 TO 2 Acetaminophen (Tylenol) 650 mg PO UNSCH X1 PRN PRN Reason: SEE LABEL COMMENTS Hydrocodone Bitart/Acetaminophen ([place] 5/325) 1 tab PO Q4H PRN PRN Reason: PAIN SCALE 3 TO 5 Hydrocodone Bitart/Acetaminophen ([place] 7.5/325) 2 tab PO Q4H PRN PRN Reason: PAIN SCALE 6 TO 10 Last Admin: 07/19/18 16:04 Dose: 2 tab Al Hydroxide/Mg Hydroxide (Milk Of Magndavid Liq) 30 ml PO Q12H PRN PRN Reason: Mild Constipation Amlodipine Besylate (Norvasc) 5 mg PO DAILY [facility] Last Admin: 07/19/18 08:34 Dose: 5 mg Bisacodyl (Dulcolax Supp) 10 mg RECTAL DAILY PRN PRN Reason: SEVERE CONSITIPATION Calcitriol (Rocaltrol) 0.25 mcg PO Q48H [facility] Last Admin: 07/19/18 08:33 Dose: 0.25 mcg Calcium Acetate (Phoslo) 2,001 mg PO TID [facility] Last Admin: 07/19/18 12:39 Dose: Not Given Clonidine HCl (Catapres) 0.1 mg PO UNSCH X1 PRN PRN Reason: SEE LABEL COMMENTS Dextrose (D50w Vial) 50 ml IV.PUSH UNSCH PRN PRN Reason: PER HYPOGLYCEMIA PROTOCOL Diphenhydramine HCl (Benadryl) 25 mg PO UNSCH PRN PRN Reason: SEE LABEL COMMENTS Epoetin Greg (Epogen Inj) 10,000 unit IV.PUSH UNSCH PRN PRN Reason: SEE LABEL COMMENTS Last Admin: 07/17/18 10:16 Dose: 10,000 unit Eszopiclone (Lunesta) 2 mg PO HS [facility] Last Admin: 07/18/18 20:07 Dose: 2 mg Gelatin (Gelfoam 12 Mm/7 Mm Topical) 1 foam TOPICAL UNSCH PRN PRN Reason: help stop bleeding from site Gentamicin Sulfate (Gentamicin Inj) 20 mg OTHER WITH DIALYSIS PRN PRN Reason: Dwell Gentamycin Lock Last Admin: 07/17/18 10:17 Dose: 20 mg Glucagon (Glucagon Inj) 1 mg OTHER PRN PRN PRN Reason: for Hypoglycemia Protocol Heparin Sodium (Porcine) (Heparin Inj) 8,000 units OTHER WITH DIALYSIS PRN PRN Reason: for machine prime Heparin Sodium (Porcine) (Heparin Inj) 0 units OTHER WITH DIALYSIS PRN PRN Reason: Dwell Heparin to Fill Catheter Hydroxyzine Pamoate (Vistaril) 25 mg PO BID [facility] Last Admin: 07/19/18 08:33 Dose: 25 mg Albumin Human (Flexbumin 25% Inj) 100 mls @ 60 mls/hr IV.SIG WITH DIALYSIS PRN PRN Reason: hypotension / volume replace Sodium Chloride (Ns Inj) 1,000 mls @ 0 mls/hr OTHER .Q0M PRN PRN Reason: for prime and rinse back Last Admin: 07/17/18 10:19 Dose: 200 mls/hr Sodium Chloride (Ns Inj) 1,000 mls @ 0 mls/hr IV.CONT .Q0M PRN PRN Reason: hypotension / volume replace Sodium Chloride (Ns Inj) 1,000 mls @ 200 mls/hr OTHER .Q5H PRN PRN Reason: for dialyzer flush PRN Insulin Aspart (Novolog Insulin Correctional Sugar Inj) 0 unit SQ ACHS [facility]; Protocol Last Admin: 07/19/18 11:40 Dose: Not Given Lactulose (Lactulose Liq) 30 ml PO DAILY PRN PRN Reason: SEVERE CONSITIPATION Mannitol (Mannitol Inj) 12.5 gm IV.PUSH UNSCH PRN PRN Reason: hypotension / volume replace Naloxone HCl (Narcan Inj) 0.4 mg IV.PUSH UNSCH PRN PRN Reason: SEE LABEL COMMENTS Nitroglycerin (Nitrostat Sl) 0.4 mg SL Q5M PRN PRN Reason: CHEST PAIN Ondansetron HCl (Zofran Inj) 4 mg IV.PUSH Q6H PRN PRN Reason: NAUSEA OR VOMITING Ondansetron HCl (Zofran Inj) 4 mg IV.PUSH UNSCH X1 PRN PRN Reason: WITH DIALYSIS Pantoprazole Sodium (Protonix) 40 mg PO DAILY [facility] Last Admin: 07/19/18 08:33 Dose: 40 mg Senna/Docusate Sodium (Hailey-Colace) 1 tab PO BID [facility] Last Admin: 07/19/18 08:32 Dose: Not Given Sennosides (Senokot) 17.2 mg PO Q12H PRN PRN Reason: Moderate Constipation Sodium Chloride (Ns Flush) 2 ml IV.FLUSH BID [facility] Last Admin: 07/19/18 08:33 Dose: 2 ml Sodium Chloride (Ns Flush) 2 ml IV.FLUSH PRN PRN PRN Reason: FLUSH AFTER USING IV ACCESS Sodium Chloride (Ns Flush) 5 ml IV.FLUSH UNSCH PRN PRN Reason: flush each lumen during HD Allergies Allergy/AdvReac Type Severity Reaction Status Date / Time diatrizoate meglumine Allergy Severe RENAL Verified 04/06/18 10:54 FAILURE gadobenic acid Allergy Severe RENAL Verified 04/06/18 10:54 FAILURE gadodiamide Allergy Severe RENAL Verified 04/06/18 10:54 FAILURE gadoteridol Allergy Severe RENAL Verified 04/06/18 10:54 FAILURE iodixanol Allergy Severe RENAL Verified 04/06/18 10:54 FAILURE iohexol Allergy Severe RENAL Verified 04/06/18 10:54 FAILURE morphine Allergy Severe HIVES Verified 04/06/18 10:54 azithromycin Allergy Intermediate HIVES Verified 04/06/18 10:54 clindamycin Allergy Intermediate HIVES Verified 04/06/18 10:54 erythromycin base Allergy Intermediate HIVES Verified 04/06/18 10:54 penicillin G Allergy Intermediate Hives Verified 04/06/18 10:54 midodrine Allergy Unknown Atrial Verified 04/06/18 10:54 Fibrillation codeine AdvReac Severe HALLUCINATI Verified 04/06/18 10:54 ONS insulin aspart AdvReac Severe REGULAR Verified 04/06/18 10:54 INSULIN ONLY-CAUSES CRAMPIN G AND "FREEZING" insulin aspart protamine AdvReac Severe REGULAR Verified 04/06/18 10:54 human INSULIN ONLY-CAUSES CRAMPIN G AND "FREEZING" insulin detemir AdvReac Severe REGULAR Verified 04/06/18 10:54 INSULIN ONLY-CAUSES CRAMPIN G AND "FREEZING" insulin glargine AdvReac Severe REGULAR Verified 04/06/18 10:54 INSULIN ONLY-CAUSES CRAMPIN G AND "FREEZING" insulin isophane (NPH) AdvReac Severe REGULAR Verified 04/06/18 10:54 INSULIN ONLY-CAUSES CRAMPIN G AND "FREEZING" insulin lispro AdvReac Severe REGULAR Verified 04/06/18 10:54 INSULIN ONLY-CAUSES CRAMPIN G AND "FREEZING" insulin regular AdvReac Severe REGULAR Verified 04/06/18 10:54 INSULIN ONLY-CAUSES CRAMPIN G AND "FREEZING" vancomycin AdvReac Mild NAUSEA/VOMITING Verified 04/06/18 10:54 WHEN INFUSED TOO FAST Home Medications Medication Instructions Recorded Confirmed Type calcitriol 0.25 mcg PO Q OTHER DAY 05/26/18 07/16/18 History calcium acetate 2,001 mg PO TID 05/26/18 07/16/18 History ergocalciferol (vitamin D2) 50,000 unit PO QWEEK 05/26/18 07/16/18 History [Vitamin D2] pantoprazole 40 mg PO DAILY 05/26/18 07/16/18 History eszopiclone 2 mg PO HS 05/27/18 07/16/18 History amlodipine 5 mg PO DAILY 07/16/18 07/16/18 History hydroxyzine pamoate 25 mg PO TID PRN 07/16/18 07/16/18 History insulin aspart U-100 [Novolog See Protocol SUBCUT ACHS 07/16/18 07/16/18 History Flexpen U-100 Insulin] oxycodone-acetaminophen See Label Instructions .ROUTE 07/16/18 07/16/18 History .COMPLEX PRN oxycodone 30 mg PO Q6HR PRN 07/17/18 07/17/18 History Results - Labs CBC & Chem 7: 07/17/18 04:08 07/18/18 06:49 Laboratory Results - last 24 hr 07/18/18 07/18/18 07/19/18 17:31 20:12 07:43 POC Glucose 280 H 276 H 213 H 07/19/18 11:40 POC Glucose 122 H - Imaging Impressions Lower Extremity Ultrasound 07/18/18 00:00 CONCLUSION: There is a small fluid collection along the lateral aspect of the knee. However , it is difficult to determine if it is actually within the knee joint or in the surrounding soft tissues. - Procedures debridement of ulcer left heel with graft and wound vac placement July 18, 2018 Assessment and Plan - Assessment (1) Ulcer of left heel and midfoot with necrosis of bone Code(s): L97.424 - Non-pressure chronic ulcer of left heel and midfoot with necrosis of bone Status: Acute - Plan 52 year old female debridement of ulcer left heel with graft and wound vac placement by Dr. Piedra date of surgery 07/18 Patient examined and evaluated with all questions answered Okay to discharge per podiatry Awaiting wound VAC arrival Home health care [id number] completed Patient is to follow-up with Dr. Piedra within 1 week of discharge Nonweightbearing to left lower extremity
--- NOTE | 2018-07-19 19:56 | MP ---
cc: Eileen Piedra DPM DATE OF OPERATION: 07/18/2018 DATE OF SURGERY: 07/18/2018. INDICATIONS: The patient presented initially to the emergency department with an avulsion calcaneus fracture. She underwent open reduction internal fixation that failed, and she pulled through the screw, had to be revised and that failed as well to heal and then the patient underwent resection of bone with resection of Achilles tendon and closure with graft to the posterior aspect of left heel. She has been seen in clinic regularly to monitor the wound and it has been noted to start appearing fibrotic and dehiscing a little bit in the central aspect of the wound. I discussed with the patient that since she is a dialysis patient, diabetic and has other healing issues, we need to jump on this immediately in order to continue with limb salvage. She agreed to move forward with debridement of ulcer left heel with graft and wound VAC placement. She was seen in preop holding by myself, nursing staff, and anesthesia, where the correct patient, side, and site were all confirmed to be correct in the left heel. She was then taken to the surgical suite in lateral position. Attention was directed to the left heel, where the posterior aspect of the heel was noted to have an ulceration with a fibrotic tissue that was excisionally debrided with a #15 blade rongeur and curette down to the level of bleeding muscle, tissue measuring approximately 4.5 x 2.5 x 1.5 cm depth. An Neox graft 2 x 2 cm was placed over the wound, followed by a dressing consisting of Adaptic and a small GranuFoam wound VAC dressing, set at 125 mm medium continuous setting, followed by an outer dressing consisting of cast padding, offloading heel foam and a posterior splint in plantar flexion was applied. The patient tolerated the procedure and anesthesia well without complications and was taken back to PACU with vital signs stable and vascular status intact to the left lower extremity. She will be strict nonweightbearing and will have the wound VAC set up for home with Thursday, Thursday, Thursday dressing changes per home health care and will followup in clinic for continued monitoring of the wound. SHORT OPERATIVE NOTE SURGEON: Eileen Piedra DPM DRUM BUILDER: Staff. PREOPERATIVE DIAGNOSIS: Ulcer, left heel and mid foot. POSTOPERATIVE DIAGNOSIS: Ulcer, left heel and mid foot. PROCEDURE PERFORMED: Debridement of ulcer, left heel with graft and wound VAC placement. ANESTHESIA: General endotracheal anesthesia plus local consisting of 10 mL of 0.25% Marcaine plain. HEMOSTASIS: No tourniquet utilized. ESTIMATED BLOOD LOSS: 10 mL PATHOLOGY: None sent. CONDITION: Stable to PACU. COMPLICATIONS: None. DISPOSITION: Nonweightbearing on the left lower extremity. Okay to discharge when wound VAC is set up for home health and will followup in clinic in 2 weeks for an examination of the wound. RICH Estrada/armand , 04:03 PM , 04:10 PM
== END 2018-07-19 18:42 | disposition home health service (06) ==
LOC: N07 14:05
PROVIDERS: ADMIT Hospitalist; ATTEND Hospitalist